=== PATIENT | female | born 1955 | race Caucasian/White ===

== ENCOUNTER 2020-06-25 14:14 | Outpatient (REF) | payer OTHER, SELFPAY ==
--- NOTE | 2020-06-25 | MR_ITS ---
EXAMINATION: MR ABDOMEN WITHOUT AND WITH CONTRAST CLINICAL INFORMATION: Complex cystic lesion of left kidney. COMPARISON: Renal ultrasound from 05/25/2020. TECHNIQUE: MR abdomen was performed without and with use of 9 mL intravenous Gadavist contrast. Postcontrast images are performed in multiphase dynamic sequences. Imaging was performed in 3 planes. FINDINGS: LUNG BASES: Unremarkable. LIVER, GALLBLADDER, AND BILIARY TREE: Liver has normal size, contour and parenchymal signal. Gallbladder is absent. No intrahepatic or extrahepatic bile duct dilatation. PANCREAS: Normal. No pancreatic mass, edema or ductal dilatation. SPLEEN: Normal. ADRENAL GLANDS: Normal. KIDNEYS AND URETERS: The kidneys are normal in size. There are a few small, subcentimeter sized bilateral renal cortical cysts. Also, there is a complex multiseptated exophytic cystic mass arising from cortex of the uwu-lh-qaijz pole of the left kidney. This cystic lesion measures approximately 5.6 x 5 x 7 cm. It contains multiple septations, which have visible enhancement after contrast administration. The septations measure up to approximately 0.3 cm thick and there is measurable septal enhancement. The cyst wall is mildly thickened (approximately 0.3 cm thick) and enhances after contrast. The features are consistent with a Bosniak category 3 lesion. No hydronephrosis. GASTROINTESTINAL TRACT: Stomach is unremarkable. The visualized small and large bowel are normal in caliber. Multiple colonic diverticula. No evidence of diverticulitis. No bowel wall thickening, mesenteric fat stranding or ascites. LYMPH NODES: No lymphadenopathy. VASCULAR: Abdominal aorta is normal in size and its branches are widely patent. Inferior vena cava and renal veins are normal. Splenic, mesenteric and portal veins are patent. No venous thrombosis. OSSEOUS STRUCTURES: There is levoscoliosis of the degenerated lower thoracic and lumbar spine. No suspicious bone lesions. IMPRESSION: * There is a 5.6 x 5 x 7 cm Bosniak category 3 lesion of the left kidney. * Also, there are a few small, subcentimeter sized simple cysts of both kidneys. * No abdominal lymphadenopathy. * Colonic diverticulosis.
[2020-06-25 15:08] LABS: Anion Gap 13 (12-20); Blood Urea Nitrogen 26 mg/dL (9-16); Calcium 9.7 mg/dL (8.4-10.2); Carbon Dioxide 26 mmol/L (22-29); Chloride 105 mmol/L (96-108); Estimated Glomerular Filt Rate 40; Phosphorus 3.1 mg/dL (2.7-4.5); Sodium 140 mmol/L (135-145)
[2020-06-25 16:13] LABS: Renal w Reflex Lab Use Only Order verified
== END 2020-06-25 14:15 | disposition home or self-care (01) ==
LOC: HO.MRI 14:14
PROVIDERS: PCP Internal Medicine; Visit Provider Internal Medicine Nephrology
DX: I12.9 Hypertensive chronic kidney disease with stage 1 through stage 4 chronic kidney disease, or unspecified chronic kidney disease (principal); N18.30 Chronic kidney disease, stage 3 unspecified; R79.89 Other specified abnormal findings of blood chemistry; N28.1 Cyst of kidney, acquired
CPT/HCPCS: 74183; 80051; 82310; 82565; 84100; 84520

== ENCOUNTER 2020-07-12 08:48 | Day surgery (SDC) | payer OTHER, SELFPAY ==
[2020-07-06 15:01] VITALS: BMI 32.5
--- NOTE | 2020-07-08 08:10 | MHC.SHP ---
Pre-Procedural Eval Section A The patient is an INPATIENT: No The History & Physical has been completed within 30 days and I have reviewed it.: Yes Section B Chief Complaint: Cataract Right Eye Allergies: Allergies Allergy/AdvReac Type Severity Reaction Status Date / Time No Known Allergies Allergy Verified 07/06/20 08:30 Plan Diagnosis/Plan: Unchanged Patient has been examined and remains a candidate for the planned procedure
--- NOTE | 2020-07-09 09:31 | HO.ANESPROP2 ---
Documented by User: Ellie Zheng 07/09/20 09:32 HPI - Anesthesia Eval Consult details Narrative: 65yo F for cataract PMFSH Past Medical History Medical History Cataract CKD (chronic kidney disease) Dyslipidemia Essential hypertension GERD (gastroesophageal reflux disease) Renal cyst, left Right ovarian cyst Family History Family History Father Unknown family medical history Mother Breast cancer Maternal Aunt Breast cancer Son No problems noted. Daughter No problems noted. Surgical History Surgical History History of knee surgery History of removal of skin mole Hx of cholecystectomy Social History Social History Are you a primary senior care provider to a significant other at home: No Do you presently have visiting nurse or other home services: No Alcohol intake: never Smoking Status: Never smoker Use of substances other than those prescribed or required for medical reasons: No Advance Directives: Yes Advance Directives Information Provided: Yes Advance Directives on File: No Meds Allergies Allergy/AdvReac Type Severity Reaction Status Date / Time No Known Allergies Allergy Verified 07/06/20 08:30 Home Medications Medication Instructions Recorded Confirmed Type aspirin 81 mg tablet,delayed 81 mg PO DAILY 07/06/20 07/07/20 History release diclofenac sodium 1 % topical gel 2 g TOPICAL QID 07/06/20 07/07/20 History famotidine 10 mg tablet 10 mg PO BID 07/06/20 07/07/20 History geriatric fejmqpep-qzaz-qmgx 1 tab PO DAILY 07/06/20 07/07/20 History [Multivitamin w/Minerals, Iron] lisinopril 20 1 tab PO DAILY 07/06/20 07/07/20 History mg-hydrochlorothiazide 25 mg tablet Exam Exam Date and Time: July 09, 202031 Height,Weight and Vital Signs: Height 5 ft 4 in Weight 86.183 kg Pertinent Lab Results Pertinent Lab Results: Laboratory Tests 05/05/19 06/25/20 08:02 14:35 WBC 5.4 Hgb 14.1 Hct 43.1 Plt Count 280 D Sodium 140 Potassium 4.0 Chloride 105 Carbon Dioxide 26 BUN 26 H Creatinine 1.33 Assessment and Plan Assessment Anesthesia Assessment: Chart Reviewed Documented by User: Shilpi Edward 07/12/20 09:59 PMFSH Past Medical History Medical History Cataract CKD (chronic kidney disease) Dyslipidemia Essential hypertension GERD (gastroesophageal reflux disease) Renal cyst, left Right ovarian cyst Family History Family History Father Unknown family medical history Mother Breast cancer Maternal Aunt Breast cancer Son No problems noted. Daughter No problems noted. Surgical History Surgical History History of knee surgery History of removal of skin mole Hx of cholecystectomy Social History Social History Are you a primary senior care provider to a significant other at home: No Do you presently have visiting nurse or other home services: No Alcohol intake: never Smoking Status: Never smoker Use of substances other than those prescribed or required for medical reasons: No Advance Directives: Yes Advance Directives Information Provided: Yes Advance Directives on File: No Meds Allergies Allergy/AdvReac Type Severity Reaction Status Date / Time No Known Allergies Allergy Verified 07/06/20 08:30 Home Medications Medication Instructions Recorded Confirmed Type aspirin 81 mg tablet,delayed 81 mg PO DAILY 07/06/20 07/07/20 History release diclofenac sodium 1 % topical gel 2 g TOPICAL QID 07/06/20 07/07/20 History famotidine 10 mg tablet 10 mg PO BID 07/06/20 07/07/20 History geriatric weqkprdl-mcgx-wnpi 1 tab PO DAILY 07/06/20 07/07/20 History [Multivitamin w/Minerals, Iron] lisinopril 20 1 tab PO DAILY 07/06/20 07/07/20 History mg-hydrochlorothiazide 25 mg tablet Exam Airway Mallampati Class: I TM Dist: >3cm Neck ROM: Full Heart: RRR Lungs: CTA BL Assessment and Plan Assessment Anesthesia Assessment: Anesthesia Plan Discussed and Chart Reviewed Final Anesthetic Review NPO: Yes ASA Class: III Final Preanesthetic Review: Meds/Ruddy Chart Reviewed and Consent Obtained/Reviewed Patient Risk: Low Procedure Risk: Low Anesthetic Plan Anesthetic Plan: MAC: Disposition: Standard PACU
[2020-07-12 10:08] VITALS: BP 168/74; PULSE 69; RESP 18; TEMP 37.1; O2SAT 96
[2020-07-12] MEDS: Tetracaine HCl/PF 0.5% Oph Sol 4 ML DROPS 1 DROP EYE-RIGHT (10:34)
[2020-07-12] MEDS: Tropicamide 1 % Ophth Sol 3 ML BTL 1 DROP EYE-RIGHT ×3 (10:35→10:44)
[2020-07-12 10:47] VITALS: BP 146/62
--- NOTE | 2020-07-12 11:11 | HO.PNOPHT ---
Ophthalmology Procedure Procedure Ophthalmology Viscoelastic: Richard Braun Dual Pack Pro Ophthalmology Lenses: TECNIS [id number] (16.5) Procedure Notes: PREOPERATIVE DIAGNOSIS: Decreased visual acuity right eye secondary to cataract POSTOPERATIVE DIAGNOSIS: Same PROCEDURE: Right cataract extraction with intraocular lens insertion SURGEON: Sai Perales M.D. ANESTHESIA: Topical/MAC ESTIMATED BLOOD LOSS: None COMPLICATIONS: None After obtaining informed consent, the patient was brought to the operating room suite and placed in the supine position. After adequate sedation per anesthesia, topical drops of Tetracaine were given to the right eye. The eye was then prepped and draped in the usual sterile fashion. The operating room microscope was then positioned over the operative eye and a lid speculum placed. A paracentesis was created. Viscoelastic was then instilled into the anterior chamber. A three plane incision was then created temporally, utilizing a 2.85 mm keratome. Capsulotomy forceps were then utilized to create a circular tear capsulotomy. Hydrodissection and hydrodelineation were carried out until adequate mobilization of the nucleus occurred. Phacoemulsification was then utilized to remove the dense central nucleus followed by removal of the cortical material utilizing the automated aspiration irrigation unit. Viscoelastic was instilled into the posterior capsular bag followed by placement of a posterior chamber intraocular lens without difficulty. The residual Viscoelastic was then removed utilizing the automated IA machine. The wound was checked and found to be watertight. The patient tolerated the procedure well and the lid speculum was removed. Intracameral injection of Vigamox 0.1 mL followed by a subtenon injection of Kenalog-40 0.2 mL were administered. The patient will be seen in the a.m.
== END 2020-07-12 12:03 | disposition home or self-care (01) ==
PROVIDERS: PCP Internal Medicine; Visit Provider Ophthalmology
PROC: (CPT 66985; principal; 2020-07-12 10:20)
DX: H25.11 Age-related nuclear cataract, right eye (principal); H54.7 Unspecified visual loss; I12.9 Hypertensive chronic kidney disease with stage 1 through stage 4 chronic kidney disease, or unspecified chronic kidney disease; N18.9 Chronic kidney disease, unspecified; N28.1 Cyst of kidney, acquired; E78.5 Hyperlipidemia, unspecified; K21.9 Gastro-esophageal reflux disease without esophagitis; Z79.82 Long term (current) use of aspirin; Z79.899 Other long term (current) drug therapy
CPT/HCPCS: 66984; J2250; J3010; J3300; V2632

== ENCOUNTER 2020-07-26 08:45 | Day surgery (SDC) | payer OTHER, SELFPAY ==
--- NOTE | 2020-07-22 07:57 | MHC.SHP ---
Pre-Procedural Eval Section A The patient is an INPATIENT: No The History & Physical has been completed within 30 days and I have reviewed it.: Yes Section B Chief Complaint: Cataract Left eye Allergies: Allergies Allergy/AdvReac Type Severity Reaction Status Date / Time No Known Allergies Allergy Verified 07/06/20 08:30 Plan Diagnosis/Plan: Unchanged Patient has been examined and remains a candidate for the planned procedure
[2020-07-22 09:21] VITALS: BMI 32.5
--- NOTE | 2020-07-23 09:04 | HO.ANESPROP2 ---
Documented by User: Ellie Zheng 07/23/20 14:06 HPI - Anesthesia Eval Consult details Narrative: 65yo F for cataract Previous cataract 07/12/20: Fent 50, Midaz 1 PCP [facility]ared [facility] Past Medical History Medical History Cataract CKD (chronic kidney disease) Dyslipidemia Essential hypertension GERD (gastroesophageal reflux disease) Renal cyst, left Right ovarian cyst Family History Family History Father Unknown family medical history Mother Breast cancer Maternal Aunt Breast cancer Son No problems noted. Daughter No problems noted. Surgical History Surgical History Cataract extraction status of right eye History of knee surgery History of removal of skin mole Hx of cholecystectomy Social History Social History Alcohol intake: never Smoking Status: Never smoker Use of substances other than those prescribed or required for medical reasons: No Advance Directives: Yes Advance Directives Information Provided: Yes Advance Directives on File: Yes Advance Directives Date on File: 07/12/20 Meds Allergies Allergy/AdvReac Type Severity Reaction Status Date / Time No Known Allergies Allergy Verified 07/06/20 08:30 Home Medications Medication Instructions Recorded Confirmed Type aspirin 81 mg tablet,delayed 81 mg PO DAILY 07/06/20 07/22/20 History release diclofenac sodium 1 % topical gel 2 g TOPICAL QID 07/06/20 07/22/20 History famotidine 10 mg tablet 10 mg PO BID 07/06/20 07/22/20 History geriatric olcmbhub-rzia-mxts 1 tab PO DAILY 07/06/20 07/22/20 History [Multivitamin w/Minerals, Iron] lisinopril 20 1 tab PO DAILY 07/06/20 07/22/20 History mg-hydrochlorothiazide 25 mg tablet Exam Exam Date and Time: July 23, 2020 0904 Height,Weight and Vital Signs: Height 5 ft 4 in Weight 86.183 kg Pertinent Lab Results Pertinent Lab Results: 05/05/19 06/25/20 08:02 14:35 WBC 5.4 Hgb 14.1 Hct 43.1 Plt Count 280 D Sodium 140 Potassium 4.0 Chloride 105 Carbon Dioxide 26 BUN 26 H Creatinine 1.33 Assessment and Plan Assessment Anesthesia Assessment: Chart Reviewed Documented by User: Nicole Perla 07/26/20 10:18 PMFSH Past Medical History Medical History Cataract CKD (chronic kidney disease) Dyslipidemia Essential hypertension GERD (gastroesophageal reflux disease) Renal cyst, left Right ovarian cyst Family History Family History Father Unknown family medical history Mother Breast cancer Maternal Aunt Breast cancer Son No problems noted. Daughter No problems noted. Surgical History Surgical History Cataract extraction status of right eye History of knee surgery History of removal of skin mole Hx of cholecystectomy Social History Social History Alcohol intake: never Smoking Status: Never smoker Use of substances other than those prescribed or required for medical reasons: No Advance Directives: Yes Advance Directives Information Provided: Yes Advance Directives on File: Yes Advance Directives Date on File: 07/12/20 Meds Allergies Allergy/AdvReac Type Severity Reaction Status Date / Time No Known Allergies Allergy Verified 07/06/20 08:30 Home Medications Medication Instructions Recorded Confirmed Type aspirin 81 mg tablet,delayed 81 mg PO DAILY 07/06/20 07/22/20 History release diclofenac sodium 1 % topical gel 2 g TOPICAL QID 07/06/20 07/22/20 History famotidine 10 mg tablet 10 mg PO BID 07/06/20 07/22/20 History geriatric smwczhyk-heqi-ekrl 1 tab PO DAILY 07/06/20 07/22/20 History [Multivitamin w/Minerals, Iron] lisinopril 20 1 tab PO DAILY 07/06/20 07/22/20 History mg-hydrochlorothiazide 25 mg tablet Exam Airway Mallampati Class: II TM Dist: >3cm Neck ROM: Full Heart: RRR Lungs: CTA Assessment and Plan Assessment Anesthesia Assessment: Anesthesia Plan Discussed and Chart Reviewed Final Anesthetic Review NPO: Yes ASA Class: II Final Preanesthetic Review: No Changes in Pt Med Stat, Meds/Allgs Chart Reviewed, Consent Obtained/Reviewed and Anes Risks/Benef Reviewed Patient Risk: Low Procedure Risk: Low Anesthetic Plan Anesthetic Plan: MAC: Disposition: Standard PACU
[2020-07-26 10:38] VITALS: BP 176/73; PULSE 75; RESP 20; TEMP 36; O2SAT 98
[2020-07-26] MEDS: Tetracaine HCl/PF 0.5% Oph Sol 4 ML DROPS 1 DROP EYE-LEFT (10:41)
[2020-07-26] MEDS: Tropicamide 1 % Ophth Sol 3 ML BTL 1 DROP EYE-LEFT ×3 (10:42→10:46)
[2020-07-26] MEDS: Lactated Ringers 500 ML 50 ML IV (10:43)
--- NOTE | 2020-07-26 11:12 | HO.PNOPHT ---
Ophthalmology Procedure Procedure Ophthalmology Viscoelastic: Healsteven Renet Dual Pack Pro Ophthalmology Lenses: TECNIS [id number] (18.5) Procedure Notes: PREOPERATIVE DIAGNOSIS: Decreased visual acuity left eye secondary to cataract POSTOPERATIVE DIAGNOSIS: Same PROCEDURE: Left cataract extraction with intraocular lens insertion SURGEON: Sai Perales M.D. ANESTHESIA: Topical/MAC ESTIMATED BLOOD LOSS: None COMPLICATIONS: None After obtaining informed consent, the patient was brought to the operation room suite and placed in the supine position. After adequate sedation per anesthesia, topical drops of Tetracaine were given to the left eye. The eye was then prepped and draped in the usual sterile fashion. The operating room microscope was then positioned over the operative eye and a lid speculum placed. A paracentesis was created. Viscoelastic was then instilled into the anterior chamber. A three plane incision was then created temporally, utilizing a 2.85 mm keratome. Capsulotomy forceps were then utilized to create a circular tear capsulotomy. Hydrodissection and hydrodelineation were carried out until adequate mobilization of the nucleus occurred. Phacoemulsification was then utilized to remove the dense central nucleus followed by removal of the cortical material utilizing the automated aspiration irrigation unit. Viscoat elastic was instilled into the posterior capsular bag followed by placement of a posterior chamber intraocular lens without difficulty. The residual Viscoat elastic was then removed utilizing the automated IA machine. The wound was check and found to be watertight. The patient tolerated the procedure well and the lid speculum was removed. Intracameral injection of Vigamox 0.1 mL followed by a subtenon injection of Kenalog-40 0.2 mL were administered. The patient will be seen in the a.m.
[2020-07-26 11:13] VITALS: BP 144/62; PULSE 72; RESP 18; TEMP 36.2; O2SAT 100
== END 2020-07-26 11:50 | disposition home or self-care (01) ==
PROVIDERS: PCP Internal Medicine; Visit Provider Ophthalmology
PROC: (CPT 66985; principal; 2020-07-26 11:00)
DX: H25.12 Age-related nuclear cataract, left eye (principal); H52.4 Presbyopia; I12.9 Hypertensive chronic kidney disease with stage 1 through stage 4 chronic kidney disease, or unspecified chronic kidney disease; N18.9 Chronic kidney disease, unspecified; Z79.82 Long term (current) use of aspirin; Z79.899 Other long term (current) drug therapy
CPT/HCPCS: 66984; J2250; J3010; J3300; V2632

== ENCOUNTER 2020-07-29 10:11 | Outpatient (REF) | payer OTHER, SELFPAY ==
--- NOTE | 2020-07-29 | US_ITS ---
EXAMINATION: ULTRASOUND OF THE PELVIS CLINICAL INFORMATION: Unspecified right-sided ovarian cyst.. COMPARISON: 10/16/2017. TECHNIQUE: Transabdominal and transvaginal pelvic ultrasound. A transvaginal study was performed in addition to the transabdominal study which did not yield an adequate examination of the uterus and ovaries due to superimposed distended gas-filled loops of bowel. FINDINGS: The uterus is normal in size, measuring 8.4 x 4.3 x 6.1 cm longitudinally, anteroposteriorly and transversely. Somewhat heterogeneous myometrium with small cystic areas seen. The endometrial stripe thickness is normal, measuring 0.6 cm in thickness. Small amount of fluid in the endometrial canal noted. No focal myometrial mass is seen. Nabothian cysts are seen at the cervix. The right ovary measures 1.7 x 1.4 x 1.5 cm. There is a 1.1 x 0.4 x 0.5 cm cyst. Significantly decreased in size from prior. The cyst previously measured 4.2 x 3.8 x 2.6 cm. The left ovary is not visualized. No adnexal mass or free fluid collection seen. US/US transvaginal IMPRESSION: 1. Small cysts noted at the right ovary, significantly decreased in size from prior. 2. Somewhat heterogeneous uterine parenchyma again noted, as seen on prior. Small amount of fluid in the endometrial canal.
--- NOTE | 2020-07-29 10:15 | US_ITS ---
EXAMINATION: ULTRASOUND OF THE PELVIS CLINICAL INFORMATION: Unspecified right-sided ovarian cyst.. COMPARISON: 10/16/2017. TECHNIQUE: Transabdominal and transvaginal pelvic ultrasound. A transvaginal study was performed in addition to the transabdominal study which did not yield an adequate examination of the uterus and ovaries due to superimposed distended gas-filled loops of bowel. FINDINGS: The uterus is normal in size, measuring 8.4 x 4.3 x 6.1 cm longitudinally, anteroposteriorly and transversely. Somewhat heterogeneous myometrium with small cystic areas seen. The endometrial stripe thickness is normal, measuring 0.6 cm in thickness. Small amount of fluid in the endometrial canal noted. No focal myometrial mass is seen. Nabothian cysts are seen at the cervix. The right ovary measures 1.7 x 1.4 x 1.5 cm. There is a 1.1 x 0.4 x 0.5 cm cyst. Significantly decreased in size from prior. The cyst previously measured 4.2 x 3.8 x 2.6 cm. The left ovary is not visualized. No adnexal mass or free fluid collection seen. US/US pelvic complete IMPRESSION: 1. Small cysts noted at the right ovary, significantly decreased in size from prior. 2. Somewhat heterogeneous uterine parenchyma again noted, as seen on prior. Small amount of fluid in the endometrial canal.
== END 2020-07-29 10:12 | disposition home or self-care (01) ==
LOC: HO.US 10:11
PROVIDERS: Visit Provider Internal Medicine
DX: N83.201 Unspecified ovarian cyst, right side (principal)
CPT/HCPCS: 76830; 76856

== ENCOUNTER 2020-08-31 | Outpatient (REF) | payer OTHER, SELFPAY ==
[2020-09-08 03:48] LABS: HPV mRNA E6/E7 rflx Not Detected (Not Detected)
== END 2020-08-31 00:01 | disposition home or self-care (01) ==
LOC: HO.LNP
PROVIDERS: Visit Provider Obstetrics & Gynecology
DX: Z12.31 Encounter for screening mammogram for malignant neoplasm of breast (principal); Z12.4 Encounter for screening for malignant neoplasm of cervix; Z13.820 Encounter for screening for osteoporosis; Z78.0 Asymptomatic menopausal state
CPT/HCPCS: 87624; 87625; 88142

== ENCOUNTER → 2020-08-31 11:13 | Outpatient (BNVA) | payer OTHER, SELFPAY | PROVIDERS: Visit Provider Obstetrics & Gynecology | DX: Z78.0 Asymptomatic menopausal state (principal); N83.201 Unspecified ovarian cyst, right side; N39.43 Post-void dribbling; Z12.4 Encounter for screening for malignant neoplasm of cervix | CPT/HCPCS: 99212 ==

== ENCOUNTER → 2020-09-07 13:08 | Outpatient (BNVA) | payer OTHER, SELFPAY | PROVIDERS: Visit Provider Orthopaedic Surgery | DX: Z76.89 Persons encountering health services in other specified circumstances (principal) ==

== ENCOUNTER → 2020-09-30 13:20 | Outpatient (BNVA) | payer OTHER, SELFPAY | PROVIDERS: PCP Internal Medicine; Visit Provider Urology | DX: N28.1 Cyst of kidney, acquired (principal) | CPT/HCPCS: 99202 ==

== ENCOUNTER 2020-11-30 08:45 | Outpatient (REF) | payer OTHER, SELFPAY ==
--- NOTE | ~2020-11-30 | MM_ITS ---
EXAMINATION: BONE DENSITOMETRY CLINICAL INDICATION: Other specified personal risk factors.. COMPARISON: None (current study represents initial baseline exam). TECHNIQUE: Using a [employer] DXA System (software version: 13.1) manufactured by [employer], dual-energy x-ray absorptiometry was performed of the spine and left hip. The images are of good technical quality. Summary results are attached. FINDINGS: AP SPINE L1-L3 (excluding L4): The data of L1-L4 has been changed to exclude the L4 vertebral body, because degenerative changes at this level may cause overestimation of lumbar spine density. BMD 1.535 g/cm2, Z-score 3.9, T-score 3.0, normal. LEFT FEMUR, NECK: BMD 0.796 g/cm2, Z-score -0.8, T-score -1.7, osteopenia. LEFT FEMUR, TOTAL: BMD 0.809 g/cm2, Z-score -0.9, T-score -1.6, osteopenia. IDENTIFIED RISK FACTORS: Kidney disease, history of fracture (adult), thiazide, menopause. HISTORY OF FRACTURE: Ankle. No insufficiency fracture reported. MEDICATIONS: Calcium supplements or multivitamin, vitamin D. MM/XR DEXA axial skeleton IMPRESSION: 1. DIAGNOSIS: Osteopenia based on the lowest T-score value of -1.7 in the femoral neck applying World Health Organization criteria. 2. 10-YEAR FRACTURE RISK PREDICTION, FRAX: Major osteoporotic fracture (clinical spine, forearm, hip or shoulder) 15.2%. Hip fracture 1.9%. 3. Treatment Recommendations: NOF guidelines recommend consideration for treatment in postmenopausal women and men age 50 and older presenting with the following: -A hip or vertebral (clinical or morphometric) fracture. -T-score less than or equal to -2.5 at the femoral neck or spine after appropriate evaluation to exclude secondary causes. -Low bone mass at the hip or spine and a 10-year fracture probability by FRAX of greater than or equal to 3% for hip fracture or greater than or equal to 20% for major osteoporotic fracture based on the [place] adapted WHO algorithm. 4. Other Recommendations: All treatment decisions require clinical judgment and consideration of individual patient factors, including patient preferences, comorbidities, previous drug use, risk factors not captured in the FRAX model (e.g. frailty, falls, vitamin D deficiency, increased bone turnover, interval significant decline in bone density) and possible under or overestimation of fracture risk by FRAX. Additional medical evaluation for secondary cause of low bone mineral density may be appropriate. FUTURE SCAN RECOMMENDATION: People with diagnosed cases of osteoporosis or at high risk for fracture should have regular bone mineral density tests. For patients eligible for Medicare, routine testing is allowed once every 2 years. The testing frequency can be increased to one year for patients who have rapidly progressing disease, those who are receiving or discontinuing medical therapy to restore bone mass, or have additional risk factors.
--- NOTE | ~2020-11-30 | MM_ITS ---
EXAMINATION: MM SCREENING DIGITAL BREAST TOMOSYNTHESIS, BILATERAL CLINICAL INFORMATION: Screening. Asymptomatic. The lifetime risk of breast cancer based on the Tyrer-Cuzick Model is 10%. COMPARISON: Mammography: 11/22/2019, 11/14/2018, 09/29/2017, outside mammography 04/30/2015 ([place], [place]). TECHNIQUE: Digital breast tomosynthesis is performed in both the craniocaudal and mediolateral oblique views along with computer-aided detection (CAD). Synthesized 2D images are generated from the tomosynthesis. Additional right MLO view is provided. FINDINGS: There are scattered areas of fibroglandular density (ACR BI-RADS breast composition Category b). There is a chronic stable nodule mid central left breast similar to multiple prior exams. There is no interval mass or architectural abnormality. Neither breast shows abnormal calcifications. Skin contours are smooth. The right breast has focal nodular asymmetry versus nodular duct ectasia periareolar upper outer aspect more conspicuous on current exam. Patient will be recalled to assess for developing density in this area. MM/MM tomosynthesis screening BI IMPRESSION: 1. Right: Focal nodular asymmetry periareolar upper outer right breast, more conspicuous, possibly developing density or nodular duct ectasia. 2. Left: No mammographic evidence of malignancy. ASSESSMENT: BI-RADS 0: Incomplete - Need Additional Imaging Evaluation RECOMMENDATION: 1. Additional views of the right breast (3D spot CC; 3D spot ML). 2. Targeted ultrasound right breast. 3. Radiology department staff will contact the patient for additional imaging. This patient's information was entered into a reminder system with a target due date for their next mammogram.
== END 2020-11-30 08:46 | disposition home or self-care (01) ==
LOC: HO.MAMMO 08:45
PROVIDERS: Visit Provider Obstetrics & Gynecology
DX: Z12.31 Encounter for screening mammogram for malignant neoplasm of breast (principal); Z91.89 Other specified personal risk factors, not elsewhere classified; Z13.820 Encounter for screening for osteoporosis; Z78.0 Asymptomatic menopausal state; N28.9 Disorder of kidney and ureter, unspecified; Z79.899 Other long term (current) drug therapy
CPT/HCPCS: 77063; 77067; 77080

== ENCOUNTER 2020-12-07 09:43 | Outpatient (REF) | payer OTHER, SELFPAY ==
[2020-12-07 11:13] LABS: MANUAL DIFF FLAG NO
[2020-12-07 11:19] LABS: Glucose Urine UA NEG (NEG); Leukocyte Esterase Urine NEG (NEG); Nitrite Urine NEG (NEG); PH 5.5 (5.0-8.0); Specific Gravity - Urine >= 1.030 (1.005-1.025); Urine Blood NEG (NEG); Urine Ketones NEG (NEG); Urine Protein NEG (NEG-TRACE)
[2020-12-07 11:21] LABS: Basophils Percent Auto 0.7 % (0-2); Eosinophils Absolute Auto 0.3 X10*3/uL (0.0-0.4); Eosinophils Percent Auto 5.9 % (0-4); Hematocrit 38.7 % (37-47); Hemoglobin 12.3 g/dl (12.0-16.0); Imm Gran Abs Auto 0.01 X10*3/uL (0.00-0.03); Imm Gran Pct Auto 0.2 % (0.0-0.4); Lymphocytes Absolute Auto 1.4 X10*3/uL (1.2-4.9); Mean Corpuscular HGB Conc 31.8 g/dl (31.0-35.0); Mean Corpuscular Hemoglobin 29.4 pg (27.0-33.0); Mean Corpuscular Volume 92.4 fL (80-98); Mean Platelet Volume 10.8 fL (9.4-12.3); Monocytes Absolute Auto 0.4 X10*3/uL (0.1-1.2); Neutrophils Absolute Auto 2.3 X10*3/uL (2.0-8.3); Neutrophils Percent Auto 52.2 % (45-73); Platelet Count 271 X10*3/uL (160-400); Red Blood Count 4.19 X10*6/uL (4.20-5.50); Red Cell Distribution Width 12.3 % (11.0-16.0); White Blood Count 4.4 X10*3/uL (4.8-10.8)
[2020-12-07 11:23] LABS: Appearance Urine HAZY; Color Urine YELLOW
[2020-12-07 11:47] LABS: Mucus Urine 1+ /LPF; RBC Urine 0 /HPF (0); Squamous Epithelial Cell Urine 1+ /LPF; WBC Urine 0 /HPF (0-4)
[2020-12-07 12:17] LABS: Creatinine Urine 226.78 mg/dL; Microalbum/Creatinine Ratio Ur 5.2 ug/mg cr; Protein/Creatinine Ratio, Ur 0.04 (<0.2); Total Protein Urine Random 10 mg/dL (<12)
[2020-12-07 12:32] LABS: Alanine Aminotransferase 15 U/L (0-31); Anion Gap 13 (12-20); Aspartate Amino Transferase 18 U/L (5-31); Blood Urea Nitrogen 22 mg/dL (9-16); Calcium 9.8 mg/dL (8.4-10.2); Carbon Dioxide 26 mmol/L (22-29); Chloride 107 mmol/L (96-108); Cholesterol 226 mg/dL; Estimated Glomerular Filt Rate 41; Glucose Fasting 102 mg/dL (60-99); HDL Cholesterol 59 mg/dL; LDL Cholesterol Calculated 147 mg/dl; Potassium 4.3 mmol/L (3.3-5.1); Sodium 142 mmol/L (135-145); Triglycerides 101 mg/dL
[2020-12-07 12:36] LABS: Albumin Level 4.5 g/dL (3.5-5.0); Iron 77 mcg/dL (30-160); Magnesium 1.8 mg/dL (1.6-2.6); Percent Iron Saturation 21 % (15-50); Total Iron Binding Capacity 373 mcg/dL (228-428); Unsaturated Iron Binding 296 ug/dL; Uric Acid 7.6 mg/dL (2.4-5.7)
[2020-12-07 12:56] LABS: Vitamin D 25-OH Total 41.2 ng/mL (>30)
[2020-12-07 12:58] LABS: Ferritin 61 ng/mL (10-250)
[2020-12-07 13:17] LABS: Renal w Reflex Lab Use Only Order verified
[2020-12-08 13:01] LABS: Anti Glomerular Basement Memb <1.0 AI; Complement C3 164 mg/dL (83-193); Myeloperoxidase Antibody <1.0 AI; Proteinase 3 PR3 Antibodies <1.0 AI
[2020-12-08 18:41] LABS: Calcium (PTHI) 10.1 mg/dL (8.6-10.4); PTHI 79 pg/mL (14-64)
[2020-12-10 22:17] LABS: Anti Nuclear Antibody Screen POSITIVE (NEGATIVE); Anti Nuclear Antibody Titer 1:40 titer
[2020-12-13 14:37] LABS: Neutrophil Cyto Ab Screen NEGATIVE (NEGATIVE)
== END 2020-12-07 09:44 | disposition home or self-care (01) ==
LOC: HO.HMGCLDS 09:43
PROVIDERS: PCP Internal Medicine; Visit Provider Internal Medicine Nephrology
DX: I12.9 Hypertensive chronic kidney disease with stage 1 through stage 4 chronic kidney disease, or unspecified chronic kidney disease (principal); N18.30 Chronic kidney disease, stage 3 unspecified; E28.39 Other primary ovarian failure; E78.5 Hyperlipidemia, unspecified; R79.89 Other specified abnormal findings of blood chemistry
CPT/HCPCS: 36415; 80048; 80061; 81001; 82040; 82043; 82306; 82728; 83520; 83540; 83735; 83970; 84156; 84450; 84460; 84550; 85025; 86021; 86038; 86039; 86160

== ENCOUNTER 2020-12-29 08:57 | Outpatient (REF) | payer OTHER, SELFPAY ==
--- NOTE | ~2020-12-29 | MM_ITS ---
EXAMINATION: MM DIAGNOSTIC DIGITAL BREAST TOMOSYNTHESIS, RIGHT US DIAGNOSTIC ULTRASOUND BREAST, RIGHT CLINICAL INFORMATION: Recall from screening for subtle focal nodular asymmetric density periareolar outer right breast. COMPARISON: Mammography: 11/30/2020, 11/22/2019, 11/14/2018, 09/29/2017, 04/30/2015. TECHNIQUE: Digital breast tomosynthesis is performed. 2D images are generated from the tomosynthesis. The following views are obtained: 3-D spot CC, 3-D spot ML, 3-D rolled CC x2. Ultrasound right breast is targeted to the periareolar outer breast 7:00 through 11:00 position. Grayscale imaging and color Doppler are performed without and with harmonics. FINDINGS: There are scattered areas of fibroglandular density (ACR BI-RADS breast composition Category b). The additional views show subtle nodular asymmetric density best appreciated on the spot CC view and rolled medial CC view. No spiculation. No associated calcification. Ultrasound demonstrates 2 adjacent cysts versus a cyst with fine avascular internal septation, 9:00 position 1 cm from nipple, with overall dimensions 0.6 x 0.4 x 0.3 cm. There is increased through-transmission of sound. No solid mass or architectural abnormality. Results are discussed with the patient at time of visit. MM/MM tomosynthesis added views R IMPRESSION: Small cyst periareolar 9:00 right breast corresponding to finding on recent mammography. ASSESSMENT: BI-RADS 2: Benign RECOMMENDATION: Annual bilateral mammography. This patient's information was entered into a reminder system with a target due date for their next mammogram.
== END 2020-12-29 08:58 | disposition home or self-care (01) ==
LOC: HO.MAMMO 08:57
PROVIDERS: PCP Internal Medicine; Visit Provider Obstetrics & Gynecology
DX: R92.2 Inconclusive mammogram (principal)
CPT/HCPCS: 76642; 77061; 77065

== ENCOUNTER → 2021-01-18 09:46 | Outpatient (BNVA) | payer OTHER, SELFPAY | PROVIDERS: PCP Internal Medicine; Visit Provider Orthopaedic Surgery | DX: M22.2X1 Patellofemoral disorders, right knee (principal) | CPT/HCPCS: 20610; 99212; J1040 ==

== ENCOUNTER 2021-02-09 08:32 | Day surgery (SDC) | payer OTHER, SELFPAY ==
--- NOTE | 2021-02-07 14:25 | P.CONAN_ITS ---
Documented by User: Ellie Marce 02/07/21 14:26 HPI - Anesthesia Eval Consult details Narrative: 65yo F for Upper Endoscopy PMFSH Active Problems Active Problems: All Active Problems (Updated 12/06/20 @ 22:55 by Shanna Parker MD) Menopause ovarian failure (Acute) Patellofemoral pain syndrome of right knee (Acute) Adhesive capsulitis of right shoulder (Acute) CKD (chronic kidney disease) (Acute) Renal cyst, left (Acute) Cataract (Acute) Right ovarian cyst (Acute) GERD (gastroesophageal reflux disease) (Acute) Dyslipidemia (Acute) Essential hypertension (Acute) Past Medical History Medical History Cataract CKD (chronic kidney disease) Dyslipidemia Essential hypertension GERD (gastroesophageal reflux disease) Menopause ovarian failure Renal cyst, left Right ovarian cyst Family History Family History Father Unknown family medical history Mother Breast cancer Maternal Aunt Breast cancer Son No problems noted. Daughter No problems noted. Surgical History Surgical History Cataract extraction status of right eye History of knee surgery History of removal of skin mole Hx of cholecystectomy Social History Social History Are you a primary patient care associate to a significant other at home: No Do you presently have visiting nurse or other home services: No Alcohol intake: never Use of substances other than those prescribed or required for medical reasons: Yes Substance Use Type Other:: CBD oil Are you DNR?: No Advance Directives: Yes Advance Directives Date on File: 07/12/20 Current occupational status: unemployed Current occupation: Right Handed Gender identity: female Meds Allergies Allergy/AdvReac Type Severity Reaction Status Date / Time No Known Allergies Allergy Verified 01/18/21 09:54 Home Medications Medication Instructions Recorded Confirmed Last Taken Type aspirin 81 mg tablet,delayed 81 mg PO DAILY 07/06/20 12/07/20 02/02/21 History release diclofenac sodium 1 % topical gel 2 g TOPICAL QID 07/06/20 12/07/20 Unknown History famotidine 10 mg tablet 10 mg PO BID 07/06/20 12/07/20 Unknown History geriatric [id number] 1 tab PO DAILY 07/06/20 12/07/20 Unknown History [Multivitamin w/Minerals, Iron] lisinopril 20 1 tab PO DAILY 07/06/20 12/07/20 Unknown History mg-hydrochlorothiazide 25 mg tablet carvedilol 12.5 mg tablet 12.5 mg PO BID 08/31/20 12/07/20 Unknown History docusate sodium 100 mg capsule 100 mg PO BID 08/31/20 12/07/20 Unknown History Exam Exam Date and Time: February 07, 2021 1425 Pertinent Lab Results Pertinent Lab Results: Laboratory Tests 12/07/20 12/07/20 10:30 10:30 WBC 4.4 L Hgb 12.3 Hct 38.7 Plt Count 271 Sodium 142 Potassium 4.3 Chloride 107 Carbon Dioxide 26 BUN 22 H Creatinine 1.30 Assessment and Plan Assessment Anesthesia Assessment: Chart Reviewed Documented by User: Dennis Chen MD 02/09/21 10:16 PMFSH Past Medical History Medical History Cataract CKD (chronic kidney disease) Dyslipidemia Essential hypertension GERD (gastroesophageal reflux disease) Menopause ovarian failure Renal cyst, left Right ovarian cyst Family History Family History Father Unknown family medical history Mother Breast cancer Maternal Aunt Breast cancer Son No problems noted. Daughter No problems noted. Surgical History Surgical History Cataract extraction status of right eye History of knee surgery History of removal of skin mole Hx of cholecystectomy Social History Social History Are you a primary patient care associate to a significant other at home: No Do you presently have visiting nurse or other home services: No Alcohol intake: never Use of substances other than those prescribed or required for medical reasons: Yes Substance Use Type Other:: CBD oil Are you DNR?: No Advance Directives: Yes Advance Directives Date on File: 07/12/20 Current occupational status: unemployed Current occupation: Right Handed Gender identity: female Meds Allergies Allergy/AdvReac Type Severity Reaction Status Date / Time No Known Allergies Allergy Verified 01/18/21 09:54 Home Medications Medication Instructions Recorded Confirmed Last Taken Type aspirin 81 mg tablet,delayed 81 mg PO DAILY 07/06/20 12/07/20 02/02/21 History release diclofenac sodium 1 % topical gel 2 g TOPICAL QID 07/06/20 12/07/20 Unknown History famotidine 10 mg tablet 10 mg PO BID 07/06/20 12/07/20 Unknown History geriatric [id number] 1 tab PO DAILY 07/06/20 12/07/20 Unknown History [Multivitamin w/Minerals, Iron] lisinopril 20 1 tab PO DAILY 07/06/20 12/07/20 Unknown History mg-hydrochlorothiazide 25 mg tablet carvedilol 12.5 mg tablet 12.5 mg PO BID 08/31/20 12/07/20 Unknown History docusate sodium 100 mg capsule 100 mg PO BID 08/31/20 12/07/20 Unknown History Exam Airway Mallampati Class: II TM Dist: >3cm Neck ROM: Full Loose/Missing/Broken Teeth: No Heart: Assessment and Plan Assessment Anesthesia Assessment: Anesthesia Plan Discussed and Chart Reviewed Final Anesthetic Review NPO: Yes ASA Class: III Final Preanesthetic Review: No Changes in Pt Med Stat, Meds/Allgs Chart Reviewed, Consent Obtained/Reviewed and Anes Risks/Benef Reviewed Patient Risk: Low Procedure Risk: Low Anesthetic Plan Anesthetic Plan: MAC: Disposition: Standard PACU
[2021-02-09 08:57] VITALS: BP 132/54; PULSE 65; RESP 16; TEMP 37.1; O2SAT 96; BMI 32.1
[2021-02-09] MEDS: Lactated Ringers 1,000 ML 100 ML IVCONT (09:12)
--- NOTE | 2021-02-09 10:47 | P.BOP_ITS ---
Brief Operative Note Date of Service: 02/09/21 Pre-op diagnosis: GERD, Aaron's esophagus Post-op diagnosis: other (Same, Hiatal hernia, Gastric polyps) Procedure: EGD with biopsies Surgeon: Sami Reyez Anesthesia: MAC Was an Vice President Payer used for this Procedure?: No Estimated blood loss (mL): 3.0 Pathology: other (A. EG Junction at 36cm B. Gastric polyps) Condition: stable Disposition: PACU
[2021-02-09 10:50] VITALS: BP 113/53; PULSE 66; RESP 16; TEMP 36.2; O2SAT 97
[2021-02-09 11:05] VITALS: BP 123/60; PULSE 68; RESP 18; O2SAT 97
--- NOTE | 2021-02-09 11:20 | OP_ITS ---
SURGEON: Sami Reyez MD INDICATIONS: The patient presents for evaluation of chronic gastroesophageal reflux and Aaron's esophagus. Full consent has been obtained from her for this, including risks of bleeding and perforation. PREOPERATIVE DIAGNOSIS: POSTOPERATIVE DIAGNOSIS: PROCEDURE PERFORMED: Esophagogastroduodenoscopy with biopsies. ESTIMATED BLOOD LOSS: COMPLICATIONS: ANESTHESIA: Monitored anesthesia care. ASSISTANTS: SPECIMENS: PREOPERATIVE DIAGNOSES: Gastroesophageal reflux and history of Aaron's esophagus. POSTOPERATIVE DIAGNOSES: Gastroesophageal reflux and history of Aaron's esophagus, small hiatal hernia, gastric polyps. DESCRIPTION OF PROCEDURE: The patient was placed in the left lateral decubitus position. The Olympus video gastroscope was passed in the posterior oropharynx and upper esophagus under direct vision. The scope was passed slowly into the distal esophagus. The gastroesophageal junction appeared at 36 cm. There was no evidence of any esophagitis. There was some very minimal areas of irregularity, but no definitive evidence of Aaron's mucosa. There was no stricture, ulceration, nor mass. The scope entered into the stomach. There was a small hiatal hernia. The scope was advanced to pylorus and duodenum was cannulated to the descending portion. The duodenum including the bulb appeared normal without mass or ulceration. The scope was withdrawn back in the stomach. The gastric antrum and body appeared normal with good peristalsis. Scope was retroflexed visualizing the proximal stomach carefully, which appeared normal, without any sign of mass or ulceration, other than some hyperplastic appearing gastric polyps. Two of these were biopsied. The scope was withdrawn back in the esophagus. Biopsies were obtained at the EG junction at 36 cm. Proximal to this, the esophageal mucosa appeared normal. The scope was withdrawn from the patient. She tolerated the procedure well and was returned to the recovery area in stable condition. IMPRESSION: 1. Small hiatal hernia, gastroesophageal reflux, history of Aaron's esophagus. 2. Gastric polyps. PLAN: The results of the biopsy will be checked. At this point, she is doing well from a symptomatic standpoint on her p.r.n. famotidine. Given today's endoscopic findings, I have advised to simply continue that as needed. Given only minimal findings on today's exam and the previous exam, if today's biopsies do not show any Aaron's esophagus, then we may hold off on any further upper endoscopies in the future. MD NICHOLE Mcmahon/BEATRIZ / [phone]
== END 2021-02-09 11:24 | disposition home or self-care (01) ==
PROVIDERS: PCP Internal Medicine; Visit Provider Internal Medicine
PROC: 0DJ08ZZ Inspection of Upper Intestinal Tract, Via Natural or Artificial Opening Endoscopic (ICD-10-PCS; CPT 43235; principal; 2021-02-09 09:40)
DX: K21.00 Gastro-esophageal reflux disease with esophagitis, without bleeding (principal); Z87.19 Personal history of other diseases of the digestive system; K31.7 Polyp of stomach and duodenum; K44.9 Diaphragmatic hernia without obstruction or gangrene; I12.9 Hypertensive chronic kidney disease with stage 1 through stage 4 chronic kidney disease, or unspecified chronic kidney disease; N18.9 Chronic kidney disease, unspecified; Z79.82 Long term (current) use of aspirin; Z79.899 Other long term (current) drug therapy; Z90.49 Acquired absence of other specified parts of digestive tract
CPT/HCPCS: 43239; 88305; 88342

== ENCOUNTER 2021-04-07 08:35 | Outpatient (REF) | payer MEDICARE, SELFPAY ==
--- NOTE | ~2021-04-07 | MR_ITS ---
EXAMINATION: MR ABDOMEN WITHOUT AND WITH CONTRAST CLINICAL INFORMATION: Renal cyst follow-up COMPARISON: MRI dated 06/25/2020 TECHNIQUE: MR abdomen was performed without and with use of 9 mL intravenous gadolinium gadolinium contrast. Postcontrast images are performed in multiphase dynamic sequences. Imaging was performed in 3 planes. FINDINGS: LUNG BASES: The visualized lung bases are unremarkable. LIVER, GALLBLADDER, AND BILIARY TREE: The liver is normal in size, smooth in contour, and normal in signal. No focal hepatic lesion or biliary ductal dilatation is present. Cholecystectomy. PANCREAS: Unremarkable. SPLEEN: Normal. ADRENAL GLANDS: Normal. KIDNEYS AND URETERS: Again seen is a complex cystic lesion emanating from the anterior cortex of the left kidney, which now measures 5.4 x 4.9 x 6.7 cm, previously 5.7 x 5.2 x 7.0 cm by my measurements. The cyst redemonstrates enhancing septations measuring up to 3 mm in thickness as well as mild thickening of the peripheral cyst wall measuring up to 3 mm. There is no significant change in thickness of the septations or cyst wall since the prior examination are no solid nodular components are present. This would classify as a Bosniak 3 lesion. There are a few scattered subcentimeter simple appearing renal cysts present within both kidneys which are benign. GASTROINTESTINAL TRACT: No bowel obstruction. Scattered colonic diverticula without evidence of diverticulitis. No ascites or fluid collection. ABDOMINAL WALL: No significant hernia is appreciated. LYMPH NODES: No lymphadenopathy. VASCULAR: Unremarkable. OSSEOUS STRUCTURES: No acute or suspicious osseous abnormalities. Mildly complex lumbar scoliosis. MR/MR abdomen wo/w con IMPRESSION: * Slight interval decrease in overall size of the Bosniak 3 lesion within the left kidney now measuring 5.4 x 4.9 x 6.7 cm, previously 5.7 x 5.2 x 7.0 cm, without change in thickness of the septations or wall of the cyst. No nodular components have developed in the interim. * There are are a few stable scattered subcentimeter cysts present within both kidneys which are benign. * No lymphadenopathy. * No evidence of metastatic disease.
[2021-04-07 09:42] LABS: Blood Urea Nitrogen 28 mg/dL (9-16); Estimated Glomerular Filt Rate 35
== END 2021-04-07 08:36 | disposition home or self-care (01) ==
LOC: HO.MRI 08:35
PROVIDERS: Visit Provider Urology
DX: N28.1 Cyst of kidney, acquired (principal); N26.1 Atrophy of kidney (terminal)
CPT/HCPCS: 36415; 74183; 82565; 84520; A9585

== ENCOUNTER → 2021-04-21 11:53 | Outpatient (BNVA) | payer MEDICARE, SELFPAY | PROVIDERS: PCP Internal Medicine; Visit Provider Urology | DX: Z13.89 Encounter for screening for other disorder (principal) | CPT/HCPCS: Q3014 ==

== ENCOUNTER 2021-06-23 14:10 | Outpatient (REF) | payer MEDICARE, SELFPAY | END 2021-06-23 14:11 | disposition home or self-care (01) | LOC: HO.LNP 14:10 | PROVIDERS: Visit Provider Physician Assistant | DX: J06.9 Acute upper respiratory infection, unspecified (principal); Z20.822 Contact with and (suspected) exposure to COVID-19 | CPT/HCPCS: U0003; U0005 ==

== ENCOUNTER 2021-08-25 08:37 | Outpatient (REF) | payer MEDICARE, SELFPAY ==
--- NOTE | ~2021-08-25 | XR_ITS ---
EXAMINATION: XR KNEES, STANDING AP XR KNEE, RIGHT CLINICAL INFORMATION: Knee pain COMPARISON: Radiographs right knee 05/12/2019 and left knee 07/05/2013. TECHNIQUE: Standing AP view of both knees is performed. Lateral and axial patella views of the right knee are also included. FINDINGS: Right: There is prominent narrowing lateral knee joint compartment with mild subchondral sclerosis and marginal osteophytes from the lateral femoral condyle and tibial plateau. There is no erosive change. There is secondary genu valgus. Lateral view shows trace fluid suprapatellar bursa and spurring at the quadriceps insertion patella. Hoffa's fat pad appears normal. Axial view patella shows no lateralization or tilting. Left: There is prominent narrowing lateral knee joint compartment with associated osteophytes from the lateral femoral condyle and lateral tibial plateau and mild genu valgus. No visible erosive change or destructive process. XR/XR knee standing BI IMPRESSION: Right: -Prominent narrowing lateral compartment with osteophytes and secondary genu valgus. -Small suprapatellar effusion. -Spurring at quadriceps insertion patella. Left: -Prominent narrowing lateral compartment with osteophytes and secondary genu valgus.
--- NOTE | ~2021-08-25 | XR_ITS ---
EXAMINATION: XR KNEES, STANDING AP XR KNEE, RIGHT CLINICAL INFORMATION: Knee pain COMPARISON: Radiographs right knee 05/12/2019 and left knee 07/05/2013. TECHNIQUE: Standing AP view of both knees is performed. Lateral and axial patella views of the right knee are also included. FINDINGS: Right: There is prominent narrowing lateral knee joint compartment with mild subchondral sclerosis and marginal osteophytes from the lateral femoral condyle and tibial plateau. There is no erosive change. There is secondary genu valgus. Lateral view shows trace fluid suprapatellar bursa and spurring at the quadriceps insertion patella. Hoffa's fat pad appears normal. Axial view patella shows no lateralization or tilting. Left: There is prominent narrowing lateral knee joint compartment with associated osteophytes from the lateral femoral condyle and lateral tibial plateau and mild genu valgus. No visible erosive change or destructive process. XR/XR knee RT 2V IMPRESSION: Right: -Prominent narrowing lateral compartment with osteophytes and secondary genu valgus. -Small suprapatellar effusion. -Spurring at quadriceps insertion patella. Left: -Prominent narrowing lateral compartment with osteophytes and secondary genu valgus.
== END 2021-08-25 08:38 | disposition home or self-care (01) ==
LOC: HO.HOSX 08:37
PROVIDERS: Visit Provider Orthopaedic Surgery
DX: M17.11 Unilateral primary osteoarthritis, right knee (principal); M21.061 Valgus deformity, not elsewhere classified, right knee; I10 Essential (primary) hypertension; E78.5 Hyperlipidemia, unspecified
CPT/HCPCS: 73560; 73565; 99212

== ENCOUNTER 2021-09-02 09:58 | Outpatient (REF) | payer MEDICARE, SELFPAY ==
[2021-09-08 04:26] LABS: HPV mRNA E6/E7 rflx Not Detected (Not Detected)
== END 2021-09-02 09:59 | disposition home or self-care (01) ==
LOC: HO.LAB 09:58
PROVIDERS: Visit Provider Advanced Practice Midwife
DX: Z01.419 Encounter for gynecological examination (general) (routine) without abnormal findings (principal); Z11.51 Encounter for screening for human papillomavirus (HPV)
CPT/HCPCS: 87624; 88142

== ENCOUNTER 2021-09-22 11:00 | Outpatient (RCR) | payer MEDICARE, SELFPAY ==
--- NOTE | 2021-07-20 15:13 | MHC.PT.EP ---
[facility] [place] Office [place] Office [place] Office [address] Yomair[address] Castillo [address] [phone] F: [phone] F: [phone] F: [phone] F: [phone] Physical Therapy Plan of Care Date of Evaluation: Date of Surgery: n/a Diagnosis: patellofemoral disorder of R knee Assessment: Patient is a 66 year old R handed female who presents with s/s consistent with patellofemoral disorder of R knee. She is not currently working. She retired a few years ago but has become increasingly sedentary, admitting I barely leave the house . Patient past medical history includes L meniscal surgery, CKD, and osteopenia. Current impairments include pain, ROM, gait mechanics, strength, independence, activity tolerance and functional mobility. Functional limitations include decreased ability to walk, stand, transfer, negotiate stairs, and perform weight bearing activities.. Patient is motivated with good rehab potential. Skilled PT will address impairments and functional limitations in order to achieve goals. Frequency and Duration: The patient will be seen 2x/week for 5 weeks Short Term Goals: I with HEP - 2 weeks AROM ext to 5 (lacking 5 from neutral) - 3 weeks min gastroc and HS tightness - 3 weeks Fdc Goals: Able to walk pain free - 10 minutes or more - 5 weeks LEFS 35/80 - 5 weeks Able to negotiate stairs with step through pattern, 1 HH assist - 5 weeks Treatment Plan: Modalities to reduce pain, spasms and effusion. Manual therapy to restore motion and function. Therapeutic exercise to improve strength and flexibility. Neuromuscular re-education for posture and balance. Therapeutic activities to return to functional activities of daily living. Electronically signed by: Evgeny Ribeiro, PT Please sign and return to therapist. Thank you for your referral.
--- NOTE | 2021-09-22 13:51 | MHC.PT.DC ---
[facility] [place] Office [place] Office [place] Office [address] Rahul Castillo [address] [phone] F: [phone] F: [phone] F: [phone] F: [phone] Physical Therapy Discharge Report Diagnosis: patellofemoral disorder of R knee Date of Surgery: n/a Date of Evaluation: 07/20/21 Date of Discharge: 09/22/21 Treatments to Date: 14 Cancellations to Date: 0 No Shows to Date: 0 Discharge Status: Achieved Goals Improved Function Independent with HEP Discharge Summary: Patient was educated on HEP inpatient dupree, progression of HEP with supine/standing ther-ex program and transfers/stairs as well as post op expectations. Educated on importance of self management with HEP and educated on the muscles that need to get stronger. Educated her that she needs to get into a routine with her HEP now as after surgery it will be important for self management in order to regain ROM and function. Educated her on not using any of the modalities on her new knee unless she has direction from her home PT. She has an extensive HEP and is ready for DC at this time. Electronically signed by: Dorene Yusuf PT Please sign and return to therapist. Thank you for your referral.
== END 2021-09-22 13:52 | disposition home or self-care (01) ==
LOC: HO.PTCHIC 11:00
PROVIDERS: PCP Internal Medicine; Visit Provider Internal Medicine
DX: M22.2X1 Patellofemoral disorders, right knee (principal); M54.50 Low back pain, unspecified
CPT/HCPCS: 97110; 97112; 97140; 97150; 97162; 97530

== ENCOUNTER 2021-10-25 10:28 | Outpatient (REF) | payer MEDICARE, SELFPAY ==
[2021-10-25 11:47] LABS: Estimated Average Glucose 108 mg/dL; Hemoglobin A1c % 5.4 %
[2021-10-25 12:23] LABS: Cholesterol 237 mg/dL; Glucose Fasting 110 mg/dL (60-99); HDL Cholesterol 61 mg/dL; LDL Cholesterol Calculated 154 mg/dl; Triglycerides 113 mg/dL
[2021-10-25 12:36] LABS: Vitamin D 25-OH Total 43.8 ng/mL (>30)
== END 2021-10-25 10:29 | disposition home or self-care (01) ==
LOC: HO.HMGCLDS 10:28
PROVIDERS: Visit Provider Internal Medicine
DX: E78.5 Hyperlipidemia, unspecified (principal); R73.01 Impaired fasting glucose; Z78.0 Asymptomatic menopausal state
CPT/HCPCS: 36415; 80061; 82306; 82947; 83036

== ENCOUNTER → 2021-11-30 10:00 | Outpatient (BNVA) | payer MEDICARE, SELFPAY | PROVIDERS: PCP Internal Medicine; Visit Provider Orthopaedic Surgery | DX: Z13.9 Encounter for screening, unspecified (principal) ==

== ENCOUNTER 2021-12-06 09:39 | Outpatient (REF) | payer MEDICARE, SELFPAY ==
--- NOTE | ~2021-12-06 | MM_ITS ---
EXAMINATION: MM SCREENING DIGITAL BREAST TOMOSYNTHESIS, BILATERAL CLINICAL INFORMATION: Screening. Asymptomatic. The lifetime risk of breast cancer based on the Tyrer-Cuzick Model is 11.6%. COMPARISON: Mammography: December 29, 2020 and studies dating back to April 30, 2015 TECHNIQUE: Digital breast tomosynthesis is performed in both the craniocaudal and mediolateral oblique views along with computer-aided detection (CAD). Synthesized 2D images are generated from the tomosynthesis. FINDINGS: There are scattered areas of fibroglandular density (ACR BI-RADS breast composition Category b). There are no significant masses, abnormal calcifications, or other abnormalities. MM/MM tomosynthesis screening BI IMPRESSION: There are no significant changes from prior study. ASSESSMENT: BI-RADS 1: Negative RECOMMENDATION: Routine annual mammography screening. This patient's information was entered into a reminder system with a target due date for their next mammogram.
== END 2021-12-06 09:40 | disposition home or self-care (01) ==
LOC: HO.MAMMO 09:39
PROVIDERS: PCP Internal Medicine; Visit Provider Internal Medicine
DX: Z12.31 Encounter for screening mammogram for malignant neoplasm of breast (principal)
CPT/HCPCS: 77063; 77067

== ENCOUNTER → 2021-12-20 13:40 | Outpatient (BNVA) | payer MEDICARE, SELFPAY | PROVIDERS: PCP Internal Medicine; Visit Provider Surgery Vascular Surgery | DX: I83.11 Varicose veins of right lower extremity with inflammation (principal); I89.0 Lymphedema, not elsewhere classified | CPT/HCPCS: 99202 ==

== ENCOUNTER 2021-12-21 11:12 | Outpatient (REF) | payer MEDICARE, SELFPAY ==
[2021-12-21 13:42] LABS: MANUAL DIFF FLAG NO
[2021-12-21 13:45] LABS: Basophils Absolute Auto 0.1 X10*3/uL (0.0-0.2); Basophils Percent Auto 1.7 % (0-2); Eosinophils Absolute Auto 0.3 X10*3/uL (0.0-0.4); Eosinophils Percent Auto 6.6 % (0-4); Hemoglobin 12.5 g/dl (12.0-16.0); Imm Gran Abs Auto 0.01 X10*3/uL (0.00-0.03); Imm Gran Pct Auto 0.2 % (0.0-0.4); Lymphocytes Absolute Auto 1.6 X10*3/uL (1.2-4.9); Lymphocytes Percent Auto 33.4 % (20-40); Mean Corpuscular HGB Conc 32.9 g/dl (31.0-35.0); Mean Corpuscular Hemoglobin 30.3 pg (27.0-33.0); Mean Platelet Volume 11.2 fL (9.4-12.3); Monocytes Absolute Auto 0.6 X10*3/uL (0.1-1.2); Neutrophils Absolute Auto 2.2 x10*3/uL (2.0-8.3); Neutrophils Percent Auto 46.1 % (45-73); Platelet Count 273 X10*3/uL (160-400); Red Blood Count 4.13 X10*6/uL (4.20-5.50); Red Cell Distribution Width 12.6 % (11.0-16.0); White Blood Count 4.7 X10*3/uL (4.8-10.8)
[2021-12-21 13:58] LABS: Anion Gap 12 (12-20); Blood Urea Nitrogen 23 mg/dL (9-16); Calcium 10.3 mg/dL (8.4-10.2); Carbon Dioxide 29 mmol/L (22-29); Chloride 105 mmol/L (96-108); Estimated Glomerular Filt Rate 35; Glucose Random 96 mg/dL (60-115); Potassium 3.8 mmol/L (3.3-5.1); Sodium 142 mmol/L (135-145)
== END 2021-12-21 11:13 | disposition home or self-care (01) ==
LOC: HO.HMGCLDS 11:12
PROVIDERS: Visit Provider Orthopaedic Surgery
DX: Z01.812 Encounter for preprocedural laboratory examination (principal)
CPT/HCPCS: 36415; 80048; 85025

== ENCOUNTER → 2022-01-05 09:36 | Outpatient (BNVA) | payer MEDICARE, SELFPAY | PROVIDERS: PCP Internal Medicine; Visit Provider Physician Assistant | DX: Z01.818 Encounter for other preprocedural examination (principal); M17.11 Unilateral primary osteoarthritis, right knee; M21.061 Valgus deformity, not elsewhere classified, right knee | CPT/HCPCS: 99212 ==

== ENCOUNTER 2022-01-09 11:00 | Outpatient (RCR) | payer MEDICARE, SELFPAY ==
--- NOTE | 2021-12-16 15:18 | MHC.PT.EP ---
[facility] [place] Office [place] [facility] [place] Office [address] Rahul Castillo [address] [phone] F: [phone] F: [phone] F: [phone] F: [phone] Physical Therapy Plan of Care Date of Evaluation: Date of Surgery: Diagnosis: This is a 66 yo female presenting to skilled PT for TKR prehab R. Assessment: This is a 66 yo female presenting to skilled PT for TKR prehab R. PT is very familiar with this patient. She has been to our clinic in the past for a range of other impairments as well as prehab for her knee with DC from our facility in Sep 2021 with hopes of her continuing independently in order for better outcomes s/p surgery. She was previously educated on HEP, importance of HEP, surgical expectations, transfers and gait for s/p surgery but needs some re-ed prior to her surgery on 01/10/22 (R knee). Patient reports today pain is achy in B knees at the anterior, medial and lateral joint line. She has not been exercising as faithfully as she should be due to her being sick and she has had a lot of appointments as well as has been caring for him as well. Assessment reveals pain that ranges up to a 4/10. She demos decreased BLE ROM, decreased BLE strength, impaired gait pattern, impaired joint mobility as well as gross functional decline with standing, walking and stairs. She reports that she gets distracted by her husbands TV at home and avoids her exercises. She also reports that she did not try the senior center to maintain her cardiac health or gains from the first round of PT after her last DC. I spent the majority of the eval re-educating her on ortho and PT expectations. I educated her that she needs to do her exercises 3x/day every day in order to get into a routine prior to surgery. I also educated her that she needs to be in the senior center riding the bike or using the stepper for at least 15 mins every day that she is not at physical therapy. She is a fair candidate for skilled PT 2x/wk for 3wks. Frequency and Duration: The patient will be seen 2x/wk for 3wks Short Term Goals: I in HEP without cues from PT Patient is making an effort to go to the [facility] on days she is not in PT Reliability Specialist Goals: Demo understanding of transfers supine <> sit, sit<>stand and car transfers s/p surgery Demo proper gait pattern, stair work s/p surgery Treatment Plan: Modalities to reduce pain, spasms and effusion. Manual therapy to restore motion and function. Therapeutic exercise to improve strength and flexibility. Neuromuscular re-education for posture and balance. Therapeutic activities to return to functional activities of daily living. Electronically signed by: Dorene Yusuf, PT Please sign and return to therapist. Thank you for your referral.
--- NOTE | 2022-01-09 12:05 | MHC.PT.DC ---
[facility] [place] Office [place] Office [place] Office [address] Rahul Castillo [address] [phone] F: [phone] F: [phone] F: [phone] F: [phone] Physical Therapy Discharge Report Diagnosis: This is a 66 yo female presenting to skilled PT for TKR prehab R. Date of Surgery: Date of Evaluation: 12/16/21 Date of Discharge: 01/09/22 Treatments to Date: 8 Cancellations to Date: 0 No Shows to Date: 0 Discharge Status: Achieved Goals Improved Function Independent with HEP Physician Discontinued Tx Discharge Summary: Today is Nasima's last appointment, she is undergoing R TKA tomorrow. She was instructed through HEP once more, exercised to jeff and educated on the importance of HEP post op. She was educated on transfers, rehab processes and pain management. She has reached a baseline and is ready for DC. Answered post op questions as needed. DC to HEP. Electronically signed by: Dorene Yusuf PT Please sign and return to therapist. Thank you for your referral.
== END 2022-01-09 12:06 | disposition home or self-care (01) ==
LOC: HO.PTCHIC 11:00
PROVIDERS: PCP Internal Medicine; Visit Provider Orthopaedic Surgery
DX: M17.11 Unilateral primary osteoarthritis, right knee (principal); M21.061 Valgus deformity, not elsewhere classified, right knee
CPT/HCPCS: 97110; 97162

== ENCOUNTER 2022-01-10 07:58 | Day surgery (SDC) | payer MEDICARE, SELFPAY ==
--- NOTE | 2021-12-22 13:28 | ECG_ITS ---
Test Reason : PREPROC EXAM Blood Pressure : / mmHG Vent. Rate : 067 BPM Atrial Rate : 067 BPM P-R Int : 178 ms QRS Dur : 096 ms QT Int : 396 ms P-R-T Axes : 037 027 059 degrees QTc Int : 418 ms Normal sinus rhythm Nonspecific ST and T wave abnormality Abnormal ECG No previous ECGs available Referred By: Chicho Veras Electronically Signed By:JHOAN SANDOVAL MD
[2021-12-29 12:13] VITALS: BP 132/64; PULSE 74; RESP 16; O2SAT 96; BMI 31.9
[2021-12-29 14:17] LABS: MRSA Nasal PCR NEGATIVE (Negative); SA Nasal PCR NEGATIVE (Negative)
[2022-01-10] VITALS (21 sets, daily range): BP systolic 95–167; BP diastolic 53–79; PULSE 61–79; RESP 12–20; TEMP 36–37; O2SAT 94–100
--- NOTE | ~2022-01-10 | XR_ITS ---
EXAMINATION: XR KNEE, RIGHT CLINICAL INFORMATION: Post knee replacement COMPARISON: Previous x-ray August 2021 TECHNIQUE: Two views of the right knee. FINDINGS: There is a new 3 component right knee replacement in satisfactory position. No fracture or dislocation is seen. There are postoperative changes to the soft tissues. XR/XR knee RT 2V IMPRESSION: Satisfactory appearance of right knee replacement.
--- NOTE | 2022-01-10 08:10 | HO.ANESPROP2 ---
HPI - Anesthesia Eval Consult details Narrative: 66 F for right knee TKR PMFSH Active Problems Active Problems: All Active Problems (Updated 12/30/21 @ 03:32 by Shanna Parker MD) Hypertensive nephrosclerosis (Acute) Adhesive capsulitis of right shoulder (Acute) Patellofemoral pain syndrome of right knee (Acute) URI, acute (Acute) Localized osteoarthritis of right knee (Acute) Valgus deformity, not elsewhere classified, right knee (Acute) Impaired fasting glucose (Acute) Varicose veins of right lower extremity with inflammation (Acute) Lymphedema (Acute) Impaired fasting glucose (Acute) Chronic kidney disease, stage 3 (Acute) Varicose veins of both lower extremities (Acute) Menopause ovarian failure (Acute) CKD (chronic kidney disease) (Acute) Renal cyst, left (Acute) Cataract (Acute) Right ovarian cyst (Acute) GERD (gastroesophageal reflux disease) (Acute) Dyslipidemia (Acute) Essential hypertension (Acute) Past Medical History Medical History (Updated 01/13/22 @ 00:03 by Alden West) Aaron's esophagus without dysplasia Cataract Chronic kidney disease, stage 3 CKD (chronic kidney disease) Dyslipidemia Essential hypertension GERD (gastroesophageal reflux disease) HTN (hypertension) Hypertensive nephrosclerosis Impaired fasting glucose Menopause ovarian failure Renal cyst, left Right ovarian cyst Varicose veins of both lower extremities Family History Family History Father Unknown family medical history Mother Breast cancer Maternal Aunt Breast cancer Son No problems noted. Daughter No problems noted. Family history of problems with anesthesia: No Surgical History Surgical History Cataract extraction status of left eye Cataract extraction status of right eye History of esophagogastroduodenoscopy (EGD) History of knee surgery History of removal of skin mole Hx of cholecystectomy Hx of colonoscopy History of Problems with Anesthesia: No Social History Social History Household Members: Spouse Housing: Condominium Are you a primary resident care supervisor to a significant other at home: No Do you presently have visiting nurse or other home services: No Alcohol intake: never Patient Tobacco Use Status: Never used Tobacco e-Cigarette/Vaping Use: Never Used Advance Directives Date on File: 07/12/20 service: No Current occupational status: unemployed Current occupation: Right Handed Gender identity: Female Cognitive needs: No Hearing needs: No Vision needs: No Meds Allergies Allergy/AdvReac Type Severity Reaction Status Date / Time No Known Allergies Allergy Verified 01/10/22 08:24 Active Medications: Current Medications Cefazolin Sodium/Dextrose (Ancef) 2 gm in 50 mls @ 100 mls/hr IV PREOP ONE Stop: 01/10/22 08:26 Home Medications Medication Instructions Recorded Confirmed Last Taken Type geriatric oiwrbhrj-eezf-dnlv 1 tab PO DAILY 07/06/20 12/29/21 Unknown History Calcium + D 12/29/21 Unknown History Exam Exam Date and Time: January 10, 2022 0810 Height,Weight and Vital Signs: Height 5 ft 4 in Weight 84.4 kg Last Vital Signs Pulse 74 12/29/21 12:13 Resp 16 12/29/21 12:13 BP 132/64 12/29/21 12:13 Pulse Ox 96 12/29/21 12:13 Pertinent Lab Results Pertinent Lab Results: Laboratory Tests 12/29/21 12/29/21 12:30 13:02 Nasal Screen MRSA (PCR) NEGATIVE Nasal S. aureus Screen NEGATIVE Nasal MRSA/S.aureus Interp SEE NOTE Blood Type B Positive Antibody Screen NEGATIVE Airway Mallampati Class: II TM Dist: >3cm Neck ROM: Full Loose/Missing/Broken Teeth: Yes (Poor dentition ) Heart: S1, S2 Lungs: b/l breath sounds Assessment and Plan Assessment Anesthesia Assessment: Anesthesia Plan Discussed and Chart Reviewed Final Anesthetic Review Family History of Problems with Anesthesia: No History of Problems with Anesthesia: No NPO: Yes ASA Class: III Final Preanesthetic Review: Meds/Allgs Chart Reviewed, Consent Obtained/Reviewed and Anes Risks/Benef Reviewed Patient Risk: Intermediate Procedure Risk: Intermediate Anesthetic Plan Anesthetic Plan: Spinal and Regional Block Disposition: Inp. Admit - Standard Bed
[2022-01-10 08:50] LABS: COVID-19 Test Negative (Negative)
[2022-01-10] MEDS: Lactated Ringers 1,000 ML 80 ML IVCONT ×2 (09:24→14:04)
--- NOTE | 2022-01-10 10:03 | MHC.SHP ---
Pre-Procedural Eval Section A Date of Service: 01/10/22 The patient is an INPATIENT: No Changes since office visit: Yes Patient answered all questions; No Cold of Flu in the past 2 weeks, No New Medical Problems and No Changes in Medication The History & Physical has been completed within 30 days and I have reviewed it.: Yes Section B Chief Complaint: osteoarthritis Allergies: Allergies Allergy/AdvReac Type Severity Reaction Status Date / Time No Known Allergies Allergy Verified 01/10/22 08:24 Plan I have reviewed the history and physical and performed a pertinent physical examination on my patient. No changes have occurred unless specified.
--- NOTE | 2022-01-10 12:37 | PM.OP ---
Brief Operative Note Date of Service: 01/10/22 Pre-op diagnosis: Right knee OA Post-op diagnosis: same Procedure: Right TKA Implants: [place] Triathalon press fit cruciate substituting 12/19/09PS/32a Surgeon: Chicho Veras MD Anesthesia: regional Was an Dermatological Surgeon used for this Procedure?: Yes Dermatological Surgeon: Alana Gamez Estimated blood loss (mL): 100 IV fluids (mL): 1,000 Pathology: other Condition: stable Disposition: PACU
--- NOTE | 2022-01-10 12:51 | W.PM.OPN ---
Operative Note Operative Note Date of Service: 01/10/22 Narrative: Date of Service: 01/10/22 Pre-op diagnosis: Right knee OA Post-op diagnosis: same Procedure: Right TKA Implants: [place] Triathalon press fit cruciate substituting 12/19/09PS/32a Surgeon: Chicho Veras MD Anesthesia: regional Was an Card Assembler used for this Procedure?: Yes Card Assembler: Alana Gamez Estimated blood loss (mL): 100 IV fluids (mL): 1,000 Pathology: other Condition: stable Disposition: PACU Procedure in detail: The patient was brought to the operating room and prepped and draped in standard sterile fashion. A time-out was called to identify proper site proper procedure proper surgeon and IV antibiotics were administered. 1 g of IV tranexamic acid was administered. I began by making a midline incision to the retinaculum and performed a medial parapatellar arthrotomy. The patella was translated laterally and the knee was flexed up. The lateral compartment was eburnated. I performed a small medial peel and resected the infrapatellar fat pad. [place]'s line was then used to drill my intramedullary femoral guide and my distal femur cut of 12 mm was made in 5 degrees of valgus while protecting the soft tissues. I then measured a # 4 femur and placed my cutting guide and made my anterior posterior and chamfer cuts protecting the soft tissues at all times. I then made my box but removing the PCL. Once I was satisfied with my cuts I turned my attention to the tibia. I removed the meniscus medially and laterally and , using an external cutting guide, in line with the tibial crest and the third ray, I made my distal tibial cut in 0 deg slope of while protecting the posterior soft tissues at all times. An extension block was used to confirm appropriate amount of bony resection. I then sized a #4 tibia and once I was satisfied that there was complete tibial coverage I placed my trial and with the trial femur in place took the knee through range of motion. I was satisfied with the extension and flexion as well as the stability at 0, 30 and 90 degrees. I then turned my attention to the patella where I removed 1 cm from the undersurface of the patella and then trialed a 32a patellar button. Again the knee was taken through range of motion I was satisfied with the tracking. I then returned to the femur and drilled my femoral lug holes and prepared the tibia. A femoral bone plug was placed and the knee was irrigated copiously. I then press fit the patella, tibia and femur in standard fashion. I trialed different inserts until I selected a #10 insert. The final insert was placed. The knee was ranged from 0-130 deg with stable tracking and balanced extension and flexion. I then performed a 3 minutes iodine soak with local TXA was performed. A Werewolf cautery wand was used to maintain hemostasis over the capsule and meniscal beds, the gutters and peripatellar soft tissues. The knee was then closed with a running Quill suture, a 3 0 Vicryl and cam on the skin. Patient was then placed in sterile dressing and brought to recovery room in stable condition there were no known complications.
[2022-01-10] MEDS: oxyCODONE HCl Immed Release 5 MG TABLET PO (13:33)
[2022-01-10] MEDS: fentaNYL citrate/PF 100 MCG/2 ML VIAL 25 MCG IVPUSH ×4 (14:02→14:47)
--- NOTE | 2022-01-10 14:27 | PHA.MEDREC ---
Pharmacy Consult ? Medication Reconciliation Pharmacy has completed the medication reconciliation. No remarkable issue. La Romero, KvngD
[2022-01-10] MEDS: HYDROmorphone HCl 0.5 MG/0.5 ML SYRINGE 0.25 MG IVPUSH ×2 (15:02→15:07)
--- NOTE | 2022-01-10 17:04 | HO.PM.IMCN ---
History of Present Illness Data of Consult Service Date: 01/10/22 Primary Care Provider: Shanna Parker MD HPI Reason for consult: Medical management 66-year-old lady with hypertension, dyslipidemia, hypertensive nephrosclerosis with CKD , superficial varicosities in both lower extremities with lymphedema, impaired fasting glucose, and 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, other just feeling lousy ..Vitals are ok Review of Systems Review of Systems: Gen: no fever Resp: no sob, no cough CV: no chest, no LAROSE, no leg edema GI: No n/v, no abd pain Neuro: No confusion some pain in the right knee Yes all other systems are reviewed and are negative [facility] Medical History Aaron's esophagus without dysplasia Cataract Chronic kidney disease, stage 3 CKD (chronic kidney disease) Dyslipidemia Essential hypertension GERD (gastroesophageal reflux disease) Hypertensive nephrosclerosis Impaired fasting glucose Menopause ovarian failure Renal cyst, left Right ovarian cyst Varicose veins of both lower extremities Family History Father Unknown family medical history Mother Breast cancer Maternal Aunt Breast cancer Son No problems noted. Daughter No problems noted. Surgical History Cataract extraction status of left eye Cataract extraction status of right eye History of esophagogastroduodenoscopy (EGD) History of knee surgery History of removal of skin mole Hx of cholecystectomy Hx of colonoscopy Social History Household Members: Spouse Housing: Condominium Are you a primary career education teacher to a significant other at home: No Do you presently have visiting nurse or other home services: No Alcohol intake: never Patient Tobacco Use Status: Never used Tobacco e-Cigarette/Vaping Use: Never Used Advance Directives Date on File: 07/12/20 Current occupational status: unemployed Current occupation: Right Handed Gender identity: Female Cognitive needs: No Hearing needs: No Vision needs: No Meds Allergies Allergy/AdvReac Type Severity Reaction Status Date / Time No Known Allergies Allergy Verified 01/10/22 08:24 Active Medications: Current Medications Acetaminophen (Acetaminophen 325 Mg Tablet) 650 mg PO Q6H PRN PRN Reason: Pain, Mild (Pain Scale 1-3) Carvedilol (Carvedilol 12.5 Mg Tablet) 12.5 mg PO BID [facility]; Protocol Celecoxib (Celecoxib 200 Mg Capsule) 200 mg PO BID [facility] Docusate Sodium (Docusate Sodium 100 Mg Capsule) 100 mg PO BID [facility] Hydromorphone HCl (Hydromorphone Hcl 1 Mg/Ml Syringe) 0.25 mg IVPUSH Q4H PRN; Protocol PRN Reason: Pain, Severe (Pain Scale 7-10) Lactated Ringer's (Lr) 1,000 mls @ 80 mls/hr IVCONT .[id number] [facility] Last Admin: 01/10/22 14:04 Dose: 80 mls/hr Documented by: Cefazolin Sodium/Dextrose (Ancef) 2 gm in 50 mls @ 100 mls/hr IV POSTOP [facility] Ondansetron HCl (Ondansetron Hcl 4 Mg/2 Ml Vial) 4 mg IVPUSH Q8H PRN PRN Reason: Nausea and Vomiting Oxycodone HCl (Oxycodone Hcl Immed Release 5 Mg Tablet) 5 mg PO Q4H PRN PRN Reason: Pain, Moderate (Pain Scale 4-6 Last Admin: 01/10/22 13:33 Dose: 5 mg Documented by: Oxycodone HCl (Oxycodone Hcl Er 10 Mg Tab.Er.12h) 10 mg PO BID [facility] Sodium Chloride (0.9 % Sodium Chloride Flush 3 Ml Syringe) 3 ml IVFLUSH QSHIFT [facility] Home Medications Medication Instructions Recorded Confirmed Last Taken Type geriatric tabjsoqg-yias-vchy 1 tab PO DAILY 07/06/20 12/29/21 Unknown History Calcium + D 12/29/21 Unknown History aspirin 81 mg tablet,delayed 1 tab PO DAILY 12/29/21 01/10/22 12/19/21 History release Physical Exam Vital Signs and Narrative: Vital Signs: Last Vital Signs Temp 96.8 F 01/10/22 15:48 Pulse 71 01/10/22 15:48 Resp 18 01/10/22 15:48 BP 141/79 H 01/10/22 15:48 Pulse Ox 100 01/10/22 15:48 BMI result Body Mass Index 31.9 Const: Other: General: AO X 3, no acute distress Resp: CTA bilateral CVS: S1,S2,RRR GI: +BS, NT, no distention Skin: No rash, wound dressing intact Neuro: motor grossly intact Psych: appropriate affect Results Labs Labs: Laboratory Results - last 24 hr 01/10/22 08:12 COVID-19 (JOSE) Negative COVID-19 Clin Com See Note Imaging Radiologist's Impressions: Impressions Knee X-Ray 01/10/22 13:15 IMPRESSION: Satisfactory appearance of right knee replacement. Assessment and Plan (1) Hypertensive nephrosclerosis: Status: Acute (2) Dyslipidemia: Status: Acute (3) GERD (gastroesophageal reflux disease): Status: Acute Plan 66-year-old lady with hypertension, dyslipidemia, hypertensive nephrosclerosis with CKD , superficial varicosities in both lower extremities with lymphedema, impaired fasting glucose, and 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 1/HTN--continue HCTZ-Lisinopril, Coreg, monitor BP 2/s/p Right knee arthroplasty--management per ortho 3/CKD, stable, check labs tomorrow DVT--to be determined by ortho, PT, OT
[2022-01-10] MEDS: Celecoxib 200 MG CAPSULE PO (20:14)
[2022-01-10] MEDS: Docusate Sodium 100 MG CAPSULE PO (20:14)
[2022-01-10] MEDS: oxyCODONE HCl ER 10 MG TAB.ER.12H PO (20:14)
[2022-01-10] MEDS: carvediloL 12.5 MG TABLET PO (20:14)
[2022-01-11] VITALS (12 sets, daily range): BP systolic 106–131; BP diastolic 49–83; PULSE 75–89; RESP 14–18; TEMP 36.2–37.2; O2SAT 91–98
[2022-01-11] MEDS: oxyCODONE HCl Immed Release 5 MG TABLET PO ×3 (01:39→16:04)
[2022-01-11] MEDS: Lactated Ringers 1,000 ML 80 ML IVCONT (01:39)
[2022-01-11] MEDS: HYDROmorphone HCl 1 MG/ML SYRINGE 0.25 MG IVPUSH (04:07)
[2022-01-11 05:55] LABS: MANUAL DIFF FLAG NO
[2022-01-11 05:58] LABS: Basophils Percent Auto 0.5 % (0-2); Eosinophils Absolute Auto 0.1 X10*3/uL (0.0-0.4); Eosinophils Percent Auto 1.4 % (0-4); Hematocrit 31.7 % (37.0-47.0); Hemoglobin 10.5 g/dl (12.0-16.0); Imm Gran Abs Auto 0.01 X10*3/uL (0.00-0.03); Imm Gran Pct Auto 0.2 % (0.0-0.4); Lymphocytes Absolute Auto 0.9 X10*3/uL (1.2-4.9); Lymphocytes Percent Auto 13.8 % (20-40); Mean Corpuscular HGB Conc 33.1 g/dl (31.0-35.0); Mean Corpuscular Hemoglobin 30.1 pg (27.0-33.0); Mean Corpuscular Volume 90.8 fL (80.0-98.0); Mean Platelet Volume 11.2 fL (9.4-12.3); Monocytes Absolute Auto 0.7 X10*3/uL (0.1-1.2); Monocytes Percent Auto 10.2 % (2-11); Neutrophils Absolute Auto 4.8 x10*3/uL (2.0-8.3); Neutrophils Percent Auto 73.9 % (45-73); Platelet Count 199 X10*3/uL (160-400); Red Blood Count 3.49 X10*6/uL (4.20-5.50); Red Cell Distribution Width 12.1 % (11.0-16.0); White Blood Count 6.5 X10*3/uL (4.8-10.8)
[2022-01-11 06:11] LABS: Anion Gap 10 (12-20); Blood Urea Nitrogen 20 mg/dL (9-16); Calcium 8.7 mg/dL (8.4-10.2); Carbon Dioxide 29 mmol/L (22-29); Chloride 104 mmol/L (96-108); Creatinine Clr Calc Pharmacy 49.5; Estimated Glomerular Filt Rate 46; Glucose Fasting 112 mg/dL (60-99); Potassium 4.3 mmol/L (3.3-5.1); Sodium 139 mmol/L (135-145)
--- NOTE | 2022-01-11 07:19 | PM.PNORT ---
Subjective Subjective Date of Service: 01/11/22 Interval history: POD1 s/p RTKA. Patient is resting comfortably in bed. No overnight events. Pain is well managed. No additional complaints. Physical Exam Vital Signs: Vital Signs: Last Vital Signs Temp 97.9 F 01/11/22 04:00 Pulse 84 01/11/22 04:00 Resp 18 01/11/22 04:00 BP 130/61 01/11/22 04:00 Pulse Ox 96 01/11/22 04:00 BMI result Body Mass Index 31.9 Const: General: cooperative, healthy appearing and no acute distress Resp: Effort & Inspection: normal respiratory effort and able to speak in complete sentences Cardio: Rate: regular rate Peripheral pulses: Peripheral pulses 2+ throughout GI: Palpation (GI): Soft to palpation Skin: Lesions: no lesions Rashes: no rashes Extrem: Other: Right knee Aquacel is clean dry and intact. Sensation intact. Patient is able to dorsiflex and plantar flex. NVI. Procedures Date of Service Date of Service: 01/11/22 Progress Note: A&P Assessment and plan (1) Status post total right knee replacement: Status: Acute Plan Continue pain mgmnt Begin ASA for dvt ppx begin PT for RTKA Dispo planning-Pending PT eval, pain mgmnt Time Spent With Patient Time: Total time spent is greater than 50% in coordination of care (as documented) at patient's floor/unit and/or counseling patient: Quality Stroke Does the patient have a stroke diagnosis?: No VTE Prior VTE?: No VTE Risk Level:: Surgical - very high VTE Device Contraindication: N/A - Device Ordered VTE Drug Contraindication: N/A - Med Ordered
--- NOTE | 2022-01-11 08:58 | P.PNIM_ITS ---
Subjective Subjective Date of Service: 01/11/22 Interval History: Seen in follow-up for medical management, status post right knee arthroplasty. She is feeling much better this morning compared to yesterday. She is able to participate in physical therapy. Review of Systems No fever no chest slight pain in the right knee. Physical Exam Vital Signs: Vital Signs: Last Vital Signs Temp 97.7 F 01/11/22 08:01 Pulse 77 01/11/22 08:01 Resp 18 01/11/22 08:01 BP 119/56 L 01/11/22 08:01 Pulse Ox 95 01/11/22 08:01 BMI result Body Mass Index 31.9 Const: Other: General: AO X 3, no acute distress Resp: CTA bilateral CVS: S1,S2,RRR GI: +BS, NT, no distention Skin: No rash, no rash, incisional site D/C/I Neuro: motor grossly intact Psych: appropriate affect Objective Data Active Medications Acetaminophen (Acetaminophen 325 Mg Tablet) 650 mg PO Q6H PRN PRN Reason: Pain, Mild (Pain Scale 1-3) Aspirin (Aspirin 325 Mg Tablet) 325 mg PO BID [facility] Carvedilol (Carvedilol 12.5 Mg Tablet) 12.5 mg PO BID [facility]; Protocol Last Admin: 01/10/22 20:14 Dose: 12.5 mg Documented by: KLAUS Celecoxib (Celecoxib 200 Mg Capsule) 200 mg PO BID [facility] Last Admin: 01/10/22 20:14 Dose: 200 mg Documented by: KLAUS Docusate Sodium (Docusate Sodium 100 Mg Capsule) 100 mg PO BID [facility] Last Admin: 01/10/22 20:14 Dose: 100 mg Documented by: KLAUS Hydrochlorothiazide (Hydrochlorothiazide 25 Mg Tablet) 25 mg PO DAILY [facility]; Protocol Hydromorphone HCl (Hydromorphone Hcl 1 Mg/Ml Syringe) 0.25 mg IVPUSH Q4H PRN; Protocol PRN Reason: Pain, Severe (Pain Scale 7-10) Last Admin: 01/11/22 04:07 Dose: 0.25 mg Documented by: FLORENCIA Lactated Ringer's (Lr) 1,000 mls @ 80 mls/hr IVCONT .[id number] [facility] Last Admin: 01/11/22 01:39 Dose: 80 mls/hr Documented by: FLORENCIA Cefazolin Sodium/Dextrose (Ancef) 2 gm in 50 mls @ 100 mls/hr IV POSTOP MICHAEL Lisinopril (Lisinopril 20 Mg Tablet) 20 mg PO DAILY [facility]; Protocol Ondansetron HCl (Ondansetron Hcl 4 Mg/2 Ml Vial) 4 mg IVPUSH Q8H PRN PRN Reason: Nausea and Vomiting Oxycodone HCl (Oxycodone Hcl Immed Release 5 Mg Tablet) 5 mg PO Q4H PRN PRN Reason: Pain, Moderate (Pain Scale 4-6 Last Admin: 01/11/22 06:30 Dose: 5 mg Documented by: FLORENCIA Oxycodone HCl (Oxycodone Hcl Er 10 Mg Tab.Er.12h) 10 mg PO BID [facility] Last Admin: 01/10/22 20:14 Dose: 10 mg Documented by: COLOLennie Sodium Chloride (0.9 % Sodium Chloride Flush 3 Ml Syringe) 3 ml IVFLUSH QSHIFT [facility] Last Admin: 01/11/22 08:12 Dose: Not Given Documented by: LAVM Non-Admin Reason: IV Running Labs CBC & Chem 7: 01/11/22 05:19 01/11/22 05:19 Labs: Laboratory Results - last 24 hr 01/11/22 01/11/22 05:19 05:19 MCV 90.8 MCH 30.1 MCHC 33.1 RDW 12.1 Plt Count 199 D MPV 11.2 Immature Gran % (Auto) 0.2 Neut % (Auto) 73.9 H Lymph % (Auto) 13.8 L [place] % (Auto) 10.2 Eos % (Auto) 1.4 Baso % (Auto) 0.5 Lymph # (Auto) 0.9 L [place] # (Auto) 0.7 Eos # (Auto) 0.1 Baso # (Auto) 0.0 Abs Immat Gran (auto) 0.01 Absolute Neuts (auto) 4.8 Absolute Nucleated RBC 0.000 Nucleated RBC % (auto) 0.0 Anion Gap 10 L Estim Creat Clear Calc 49.5 Estimated GFR 46 Fasting Glucose 112 H Calcium 8.7 D Assessment and Plan (1) HTN (hypertension): Status: Acute Plan 66-year-old lady with hypertension, dyslipidemia, hypertensive nephrosclerosis with CKD , superficial varicosities in both lower extremities with lymphedema, impaired fasting glucose, and 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 1/HTN--continue HCTZ-Lisinopril, Coreg, monitor BP 2/s/p Right knee arthroplasty--management per ortho 3/CKD, Cr is presently within normal DVT--ASA PT, OT Quality Stroke Does the patient have a stroke diagnosis?: No VTE Prior VTE?: No VTE Risk Level:: Surgical - very high VTE Device Contraindication: N/A - Device Ordered VTE Drug Contraindication: N/A - Med Ordered
[2022-01-11] MEDS: hydroCHLOROthiazide 25 MG TABLET PO (09:35)
[2022-01-11] MEDS: oxyCODONE HCl ER 10 MG TAB.ER.12H PO ×2 (09:36→20:42)
[2022-01-11] MEDS: Docusate Sodium 100 MG CAPSULE PO ×2 (09:36→20:43)
[2022-01-11] MEDS: Celecoxib 200 MG CAPSULE PO ×2 (09:36→20:43)
[2022-01-11] MEDS: lisinopriL 20 MG TABLET PO (09:36)
[2022-01-11] MEDS: carvediloL 12.5 MG TABLET PO ×2 (09:37→20:43)
--- NOTE | 2022-01-11 09:59 | MHC.CM.PN ---
IMM 01/11/22, EMR REVIEWED, PT ADMITTED S/P R TKA, CM MET W/PT WHO IS A&OX4, PT REPORTS LIVING W/HER WHO HAS MEDICAL ISSUES AND THAT SHE PREFERS TO GO TO [facility] FOR REHAB, CM DISCUSSED LIKELIHOOD THAT SHE WILL NOT QUALIFY AND DISCUSSED SNF OPTIONS AND PT PREFERS [facility] FOR STR, REFERRALS TO BE PLACED FOR BOTH. PT ALSO REPORTS HAVING A SINGLE AND THREE PRONGED CANES, A FRONT WHEELED WALKER, A BEDSIDE COMMODE AND TOILET RAISER FOR DME, PT HAS NO NO HOME SERVICES, PT IS FULLY VACCINATED FROM COVID W/PFIZER X3 (ON FILE), VERIFIES PCP JUAN FRANCE AND REPORTS SHE HAS A WILL AND HCP, CM HAS REQUESTED COPY OF HCP AND PT AWARE CM WILL NEED IT TO SEND TO REHABS, PT PROVIDED W/CM EMAIL AND FAX NUMBERS. D/C PLAN: [facility], BLS FOR TRANSPORT
[2022-01-11] MEDS: Aspirin 325 MG TABLET PO ×2 (11:48→20:42)
[2022-01-11] MEDS: 0.9 % Sodium Chloride Flush 3 ML SYRINGE IVFLUSH (15:57)
[2022-01-12] VITALS (7 sets, daily range): BP systolic 93–100; BP diastolic 47–60; PULSE 70–75; RESP 14–18; TEMP 36–36.8; O2SAT 95–97
[2022-01-12] MEDS: 0.9 % Sodium Chloride Flush 3 ML SYRINGE IVFLUSH ×2 (00:20→09:17)
[2022-01-12] MEDS: oxyCODONE HCl Immed Release 5 MG TABLET PO ×2 (00:20→15:32)
[2022-01-12 06:32] LABS: MANUAL DIFF FLAG NO
[2022-01-12 06:36] LABS: Basophils Percent Auto 0.5 % (0-2); Eosinophils Absolute Auto 0.4 X10*3/uL (0.0-0.4); Eosinophils Percent Auto 4.6 % (0-4); Hematocrit 28.8 % (37.0-47.0); Hemoglobin 9.5 g/dl (12.0-16.0); Imm Gran Abs Auto 0.02 X10*3/uL (0.00-0.03); Imm Gran Pct Auto 0.3 % (0.0-0.4); Lymphocytes Absolute Auto 1.1 X10*3/uL (1.2-4.9); Lymphocytes Percent Auto 13.9 % (20-40); Mean Corpuscular Hemoglobin 30.3 pg (27.0-33.0); Mean Corpuscular Volume 91.7 fL (80.0-98.0); Mean Platelet Volume 11.2 fL (9.4-12.3); Monocytes Absolute Auto 0.9 X10*3/uL (0.1-1.2); Monocytes Percent Auto 11.4 % (2-11); Neutrophils Absolute Auto 5.5 x10*3/uL (2.0-8.3); Neutrophils Percent Auto 69.3 % (45-73); Platelet Count 194 X10*3/uL (160-400); Red Blood Count 3.14 X10*6/uL (4.20-5.50); Red Cell Distribution Width 12.6 % (11.0-16.0)
--- NOTE | 2022-01-12 06:54 | HO.POSTANES ---
Post Anesthesia Evaluation Post Anesthesia Evaluation Vital Signs: Vital Signs Temp Pulse Resp BP Pulse Ox 01/12/22 04:00 98.3 F 70 14 99/51 L 96 01/12/22 03:53 96.8 F 72 14 99/51 L 96 01/12/22 01:24 18 01/11/22 23:49 97.1 F 78 14 106/49 L 91 L 01/11/22 20:00 98.5 F 75 18 130/60 97 01/11/22 19:16 98.9 F 80 17 107/53 L 97 Anesthesia: Spinal and Nerve Block Mental Status: Awake Pain Control: Satisfactory Nausea/Vomiting: None Hydration: Adequate Anesthesia-Related Issues: No Anes. Related Issues
--- NOTE | 2022-01-12 08:39 | MHC.CM.PN ---
CM RECEIVED MESSAGE FROM [facility] THAT THEY HAVE REVIEWED PT'S CASE AND THEY CANNOT OFFER PT A BED. CM AWAITING RESPONSE FROM [facility].
--- NOTE | 2022-01-12 08:53 | P.PNIM_ITS ---
Subjective Subjective Date of Service: 01/12/22 Interval History: Seen in follow-up for medical management, status post right knee arthroplasty. doing fine, no new issues. SBP is low in the 90s's but assymptomatic Review of Systems No fever no chest slight pain in the right knee. Physical Exam Vital Signs: Vital Signs: Last Vital Signs Temp 97.5 F 01/12/22 08:00 Pulse 75 01/12/22 08:00 Resp 18 01/12/22 08:00 BP 93/47 L 01/12/22 08:00 Pulse Ox 97 01/12/22 08:00 BMI result Body Mass Index 31.9 Const: Other: General: AO X 3, no acute distress Resp: CTA bilateral CVS: S1,S2,RRR GI: +BS, NT, no distention Skin: No rash, no rash, incisional site D/C/I Neuro: motor grossly intact Psych: appropriate affect Objective Data Active Medications Acetaminophen (Acetaminophen 325 Mg Tablet) 650 mg PO Q6H PRN PRN Reason: Pain, Mild (Pain Scale 1-3) Aspirin (Aspirin 325 Mg Tablet) 325 mg PO BID [facility] Last Admin: 01/11/22 20:42 Dose: 325 mg Documented by: ADIS Carvedilol (Carvedilol 12.5 Mg Tablet) 12.5 mg PO BID [facility]; Protocol Last Admin: 01/11/22 20:43 Dose: 12.5 mg Documented by: ADIS Celecoxib (Celecoxib 200 Mg Capsule) 200 mg PO BID [facility] Last Admin: 01/11/22 20:43 Dose: 200 mg Documented by: ADIS Docusate Sodium (Docusate Sodium 100 Mg Capsule) 100 mg PO BID [facility] Last Admin: 01/11/22 20:43 Dose: 100 mg Documented by: ADIS Hydrochlorothiazide (Hydrochlorothiazide 25 Mg Tablet) 25 mg PO DAILY [facility]; Protocol Last Admin: 01/11/22 09:35 Dose: 25 mg Documented by: LYNDSEY Hydromorphone HCl (Hydromorphone Hcl 1 Mg/Ml Syringe) 0.25 mg IVPUSH Q4H PRN; Protocol PRN Reason: Pain, Severe (Pain Scale 7-10) Last Admin: 01/11/22 04:07 Dose: 0.25 mg Documented by: FLORENCIA Cefazolin Sodium/Dextrose (Ancef) 2 gm in 50 mls @ 100 mls/hr IV POSTOP [facility] Lisinopril (Lisinopril 20 Mg Tablet) 20 mg PO DAILY [facility]; Protocol Last Admin: 01/11/22 09:36 Dose: 20 mg Documented by: LYNDSEY Ondansetron HCl (Ondansetron Hcl 4 Mg/2 Ml Vial) 4 mg IVPUSH Q8H PRN PRN Reason: Nausea and Vomiting Oxycodone HCl (Oxycodone Hcl Immed Release 5 Mg Tablet) 5 mg PO Q4H PRN PRN Reason: Pain, Moderate (Pain Scale 4-6 Last Admin: 01/12/22 00:20 Dose: 5 mg Documented by: MANAN Oxycodone HCl (Oxycodone Hcl Er 10 Mg Tab.Er.12h) 10 mg PO BID [facility] Last Admin: 01/11/22 20:42 Dose: 10 mg Documented by: ADIS Sodium Chloride (0.9 % Sodium Chloride Flush 3 Ml Syringe) 3 ml IVFLUSH QSHIFT [facility] Last Admin: 01/12/22 00:20 Dose: 3 ml Documented by: MANAN Labs CBC & Chem 7: 01/12/22 05:56 01/11/22 05:19 Labs: Laboratory Results - last 24 hr 01/12/22 05:56 MCV 91.7 MCH 30.3 MCHC 33.0 RDW 12.6 Plt Count 194 MPV 11.2 Immature Gran % (Auto) 0.3 Neut % (Auto) 69.3 Lymph % (Auto) 13.9 L [place] % (Auto) 11.4 H Eos % (Auto) 4.6 H Baso % (Auto) 0.5 Lymph # (Auto) 1.1 L [place] # (Auto) 0.9 Eos # (Auto) 0.4 Baso # (Auto) 0.0 Abs Immat Gran (auto) 0.02 Absolute Neuts (auto) 5.5 Absolute Nucleated RBC 0.000 Nucleated RBC % (auto) 0.0 Assessment and Plan (1) HTN (hypertension): Status: Acute Plan 66-year-old lady with hypertension, dyslipidemia, hypertensive nephrosclerosis with CKD , superficial varicosities in both lower extremities with lymphedema, impaired fasting glucose, and 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 1/HTN--continue HCTZ-Lisinopril, Coreg. BP is low this morning so hold all BP meds 2/s/p Right knee arthroplasty--management per ortho 3/CKD, Cr is presently within normal 4/Anemia Hct down to 28 from 38 baseline, continue to monitor, hold transfsion for now DVT--ASA PT, OT Quality Stroke Does the patient have a stroke diagnosis?: No VTE Prior VTE?: No VTE Risk Level:: Surgical - very high VTE Device Contraindication: N/A - Device Ordered VTE Drug Contraindication: N/A - Med Ordered
[2022-01-12] MEDS: Aspirin 325 MG TABLET PO (09:15)
[2022-01-12] MEDS: Docusate Sodium 100 MG CAPSULE PO (09:16)
[2022-01-12] MEDS: oxyCODONE HCl ER 10 MG TAB.ER.12H PO (09:16)
[2022-01-12] MEDS: Celecoxib 200 MG CAPSULE PO (09:17)
[2022-01-12] MEDS: Acetaminophen 325 MG TABLET 650 MG PO (09:32)
[2022-01-12 10:33] LABS: Anion Gap 12 (12-20); Blood Urea Nitrogen 30 mg/dL (9-16); Calcium 8.6 mg/dL (8.4-10.2); Carbon Dioxide 28 mmol/L (22-29); Chloride 99 mmol/L (96-108); Creatinine Clr Calc Pharmacy 29.2; Estimated Glomerular Filt Rate 25; Glucose Fasting 144 mg/dL (60-99); Potassium 4.1 mmol/L (3.3-5.1); Sodium 135 mmol/L (135-145)
[2022-01-12 14:14] LABS: COVID-19 Test Negative (Negative)
--- NOTE | 2022-01-12 14:19 | MHC.CM.PN ---
NURSE CASE MANAGEMENT NOTE ELECTRONIC MEDICLA RECORD REVIEWED MET WITH PATIENT ANS SPOKE WITH HER ZEE Merary X3. [facility] EXPLAINED TO PATIENT AND HER THAT SHE DID NOT MEET THE REQUIREMENTS FOR ACUTE REHAB , [facility] DECLINED NO BED AVAILABILITY. REVIEWED WITH PATIENT AND HER ON THE PHONE ABOUT OTHER AREA FACILIOTIES HE WANTED TO STAY WITHIN THE [facility] , ENCOURAGED HIM TO GO ON THE INTERNET MEDICARE GOV. COM FOR FACILITY INFORMATION [facility] ENCOURAGED HIM TO CLL FACILITIES WITH ANY QUESTIONS E HAS TO BETTER ENABLE HIM TO MAKE DECISION , PATIENT WAS ACCEOPTED BY [facility] AND [facility] [place] [place] . PATIENT AND CHOSE [facility] , CALLED TO CONFIRME ACCEPTANCE AND TRASNSPORT TIME FOR 3PM TODAY DISCHACHARGE PLAN [facility] FOR STR AND TO BE TRANSPORTED [facility]IA [facility] WILL GET RAPID CVOID TEST AND ALSO VIA [employer] FAXE OVER THE D/C SUMMARY AND D/C ORDERS/INSTRUCTIONS
--- NOTE | 2022-01-12 14:50 | P.DS_ITS ---
DS: Providers Provider Date of Service: 01/12/22 Primary care physician: Shanna Parker MD Consults: 01/10/22 15:25 Consult to Hospitalist Routine Consulting Provider: Hospitalist Reason For Exam: CAD DS: Diagnosis Discharge Diagnosis (1) Status post total right knee replacement: Status: Acute DS: Summary Hospital Course Hospital Course: The patient underwent a successful RT total knee arthroplasty, was transferred to PACU and then to the floor to recover. During their stay, their vitals were stable, afebrile at 97.9. Labs were unremarkable, H/H 9.5/28.8 . POD 1 she was started on ASA for DVT ppx, they also receivedPT services twice a day. Prior to discharge, their dressing was change, incision clean dry and intact, new Aquacel dressing applied and the plan was to be discharged to [facility] Time Spent with Patient Time attestation: Total time spent providing and/or coordinating discharge services: Discharge coordination time: Less than 30 minutes Quality: Safe Use of Opioids Does Pt have an Active Cancer Diagnosis on the Problem List?: No Quality: Stroke Does the patient have a stroke diagnosis?: No Physical Exam Vital Signs: Vital Signs: Last Vital Signs Temp 97.9 F 01/12/22 12:00 Pulse 71 01/12/22 13:56 Resp 18 01/12/22 12:00 BP 100/60 01/12/22 13:56 Pulse Ox 95 01/12/22 13:56 BMI result Body Mass Index 31.9 Extrem: Other: incision clean dry and intact. Edith intact. No erythema or joint effusion. Calf supple nontender. Neurovascularly intact. DS: Data Data Completed and Pending Completed studies during hospitalization [Text1]: Pending at discharge 01/10/22 12:22 Surgical [PTH] Routine Labs on day of discharge: Laboratory Results - last 24 hr 01/12/22 01/12/22 01/12/22 05:56 05:56 13:50 WBC 8.0 RBC 3.14 L Hgb 9.5 L Hct 28.8 L MCV 91.7 MCH 30.3 MCHC 33.0 RDW 12.6 Plt Count 194 MPV 11.2 Immature Gran % (Auto) 0.3 Neut % (Auto) 69.3 Lymph % (Auto) 13.9 L [place] % (Auto) 11.4 H Eos % (Auto) 4.6 H Baso % (Auto) 0.5 Lymph # (Auto) 1.1 L [place] # (Auto) 0.9 Eos # (Auto) 0.4 Baso # (Auto) 0.0 Abs Immat Gran (auto) 0.02 Absolute Neuts (auto) 5.5 Absolute Nucleated RBC 0.000 Nucleated RBC % (auto) 0.0 Sodium 135 Potassium 4.1 Chloride 99 Carbon Dioxide 28 Anion Gap 12 BUN 30 H Creatinine 2.02 H Estim Creat Clear Calc 29.2 Estimated GFR 25 Fasting Glucose 144 H Calcium 8.6 COVID-19 (JOSE) Negative COVID-19 Clin Com See Note Discharge Plan Discharge Patient Disposition: er SNF Referrals: [facility] [place] [Outside] - 1 Day (DISCHARGED TO [facility] FOR SHORT TERM REHAB TODAY [facility] ) Alana Gamez PA-C [Physician Buckle Attacher] - 2 Weeks (01/26/22 1:00 [facility]geons Alana Gamez PA-C) Discharge Medications: New oxycodone 5 mg Tablet 5 mg PO Q4H PRN (Reason: Pain, Moderate (Pain Scale 4-6) 7 Days Qty: 42 0RF acetaminophen 325 mg Tablet 650 mg PO Q6H PRN (Reason: Pain, Mild (Pain Scale 1-3)) 30 Days Qty: 240 0RF aspirin 325 mg Tablet 325 mg PO BID 42 Days Qty: 84 0RF docusate sodium 100 mg Capsule 100 mg PO BID 14 Days Qty: 28 0RF Continued carvedilol 12.5 mg tablet 12.5 mg PO BID Qty: 60 6RF Rx Instructions: must administer with a meal/food lisinopril-hydrochlorothiazide 20-25 mg tablet 1 tab PO DAILY Qty: 30 6RF geriatric [id number]-dwhy-[id number] Tablet 1 tab PO DAILY 0RF Calcium + D 0RF (DME) walker [facility] [place] Rx Instructions .ROUTE .MEDSUPPLY Qty: 1 0RF Rx Instructions: Folding front wheeled walker Discontinued aspirin 81 mg tablet,delayed release (DR/EC) 1 tab PO DAILY 0RF Discharge Orders: Discharge Order (Routine); Ordered 01/12/22 Ordered By: Alana Gamez Activity Restrictions/Additional Instructions: Physical Therapy for Total knee arthroplasty: WBAT, gait training, ROM 0-12, quad strength * Limit stair climbing * No showering, no tub bath-keep dressing clean, dry and intact * No driving x6 weeks * Continue Aspirin twice a day x 6 weeks * Follow up with [facility] Orthopedics in 2 weeks: * --you will also have your first out patient PT eval on the day of your post op appt-so please plan on being in the office that day for an extended period of time.
== END 2022-01-12 16:24 | disposition skilled nursing facility (03) ==
LOC: HO.SSS 07:58 → HO.S3 14:51
PROVIDERS: Physician Assistant; PCP Internal Medicine; Visit Provider Orthopaedic Surgery
PROC: (CPT 27447; principal; 2022-01-10 10:10)
DX: M17.11 Unilateral primary osteoarthritis, right knee (principal); M21.061 Valgus deformity, not elsewhere classified, right knee; M22.2X1 Patellofemoral disorders, right knee; I12.9 Hypertensive chronic kidney disease with stage 1 through stage 4 chronic kidney disease, or unspecified chronic kidney disease; N18.30 Chronic kidney disease, stage 3 unspecified; E87.5 Hyperkalemia; K21.9 Gastro-esophageal reflux disease without esophagitis; I83.93 Asymptomatic varicose veins of bilateral lower extremities; I89.0 Lymphedema, not elsewhere classified; R73.01 Impaired fasting glucose; Z79.899 Other long term (current) drug therapy; Z98.890 Other specified postprocedural states; Z20.822 Contact with and (suspected) exposure to COVID-19
CPT/HCPCS: 27447; 36415; 73560; 80048; 85025; 86850; 86900; 86901; 87635; 87640; 87641; 88305; 88311; 93005; 97110; 97116; 97162; 97166; C1776; J0690; J1170; J2250; J2795; J3010

== ENCOUNTER → 2022-01-19 14:08 | Outpatient (RCR) | payer OTHER, SELFPAY ==
--- NOTE | 2020-07-06 16:20 | MHC.PT.EP ---
[facility] [place] Office [place] Office [place] Office [address] Rahul Castillo [address] [phone] F: [phone] F: [phone] F: [phone] F: [phone] Physical Therapy Plan of Care Date of Evaluation: 07/06/20 Date of Surgery: NA Diagnosis: Adhesive capsulitis Assessment: This is a 65 yo female presenting to skilled PT with a script for adhesive capsulitis of R shoulder (MRI shows SLAP tear) Pain increased insidiously about a year ago. Her pain increases when reaching behind her back, OH and out to the side. Pain is located at the superior and posterior aspect of the shoulder and ACJ. At rest, she has no pain. She is R hand dominant. She has been going to ortho and returns on 09/07/20, has not had any changes to medications or new injections noted. She reports that she can manage with the pain for ADLs and housework however feels limited and has consistent discomfort. She had PT for 16 visits prior this year for the same issue, DC'd at the end of March with some improvements in ROM and strength, extensive HEP however continuation of pain and referral back to MD. In the mean time she reports continuation of HEP (about every other day) and has had some small improvements with these however MD would like her to continue PT at this time. Assessment demos pain of , decreased shoulder ROM, impaired shoulder and scapular strength, poor posture with forward head and rounded shoulders, and impaired functional tolerance. She is retired. She is a fair candidate for skilled PT as this is her second time in PT for the same issue in less than a year. Frequency and Duration: The patient will be seen 2x/wk for 8wks Short Term Goals: Patient will be I in HEP Patient will improve AROM by at least 10 degs Patient will demo proper scapular posturing with exercises requiring 25% cuing from PT Nursing Home Goals: Patient will improve AROM to WFL Pain will improve to no more than 2/10 at the worst Shoulder and scapular strength will demo at least 4/5 B Patient will improve SPADI by at least 10 points Treatment Plan: Modalities to reduce pain, spasms and effusion. Manual therapy to restore motion and function. Therapeutic exercise to improve strength and flexibility. Neuromuscular re-education for posture and balance. Therapeutic activities to return to functional activities of daily living. Please sign and return to therapist. Thank you for your referral.
--- NOTE | 2020-09-07 07:46 | MHC.PT.DC ---
[facility] [place] Office [place] Office [place] Office [address] Rahul Castillo [address] [phone] F: [phone] F: [phone] F: [phone] F: [phone] Physical Therapy Discharge Report Diagnosis: Adhesive capsulitis Date of Surgery: NA Date of Evaluation: 07/06/20 Date of Discharge: 09/06/20 Treatments to Date: 16 Cancellations to Date: 0 No Shows to Date: 0 Discharge Status: Achieved Goals Improved Function Independent with HEP Discharge Summary: Patient has improved ROM and strength. She is very I in her HEP and ready to continue on her own. She has now been to PT 2 different times for her shoulder and would benefit from continued work on own and time for further healing. She complains mainly about her knee pain and was referred back to MD regarding this pain management at this time. DC to HEP at this time. SPADI improved to 5 on pain scale and 10 on disability. Electronically signed by: Dorene Yusuf PT Please sign and return to therapist. Thank you for your referral.
== END | disposition home or self-care (01) ==
LOC: HO.PTCHIC 07-06 14:57
PROVIDERS: PCP Internal Medicine; Visit Provider Orthopaedic Surgery
DX: M75.01 Adhesive capsulitis of right shoulder (principal)
CPT/HCPCS: 97110; 97140; 97161

== ENCOUNTER → 2022-01-26 12:43 | Outpatient (BNVA) | payer MEDICARE, SELFPAY | PROVIDERS: PCP Internal Medicine; Visit Provider Physician Assistant | DX: Z47.1 Aftercare following joint replacement surgery (principal); Z96.651 Presence of right artificial knee joint | CPT/HCPCS: 99212 ==

== ENCOUNTER 2022-02-28 08:06 | Outpatient (REF) | payer MEDICARE, SELFPAY ==
--- NOTE | ~2022-02-28 | MR_ITS ---
EXAMINATION: MR ABDOMEN WITHOUT AND WITH CONTRAST CLINICAL INFORMATION: Complex cystic lesion left kidney, follow-up. COMPARISON: MR abdomen without and with gadolinium contrast 04/07/2021, 06/25/2020. TECHNIQUE: MR abdomen was performed without and with use of 8 mL intravenous Gadavist gadolinium contrast. Postcontrast images are performed in multiphase dynamic sequences. Imaging was performed in 3 planes. FINDINGS: LUNG BASES: The visualized lung bases are unremarkable. LIVER, GALLBLADDER, AND BILIARY TREE: Normal in size and contour. Homogeneous parenchymal signal without focal parenchymal lesion or intrahepatic ductal dilatation. Decreased signal on out of phase imaging consistent with hepatic steatosis. Prior cholecystectomy. Common duct unremarkable. PANCREAS: Unremarkable. SPLEEN: Normal. ADRENAL GLANDS: Normal. KIDNEYS AND URETERS: Right kidney shows normal parenchymal thickness. No hydronephrosis or perinephric stranding. There are a few tiny stable simple cysts under 5 mm not requiring imaging follow-up. Left kidney has complex predominantly cystic mass from anterior upper and mid pole with overall size stable from prior studies, 5.4 x 4.8 x 6.7 cm. There is no interval solid component. Cyst wall shows enhancement and measures up to 3 mm, similar to prior studies. There are scattered enhancing internal septations up to 3 mm in thickness, similar to prior studies. No interval hemorrhage or other change. Remainder of the left kidney shows normal parenchymal thickness with a few tiny simple cysts under 5 mm not requiring imaging follow-up. No hydronephrosis or perinephric stranding. GASTROINTESTINAL TRACT: No bowel obstruction. No ascites or fluid collection. ABDOMINAL WALL: No significant hernia is appreciated. LYMPH NODES: No lymphadenopathy. VASCULAR: Unremarkable. OSSEOUS STRUCTURES: Marrow signal normal. MR/MR abdomen wo/w con IMPRESSION: -Complex cystic mass left kidney (Bosniak 3) stable from prior studies, measurements approximately 5.4 x 4.8 x 6.7 cm. No interval solid component or change in wall thickness or septation thickness. -No lymphadenopathy.
== END 2022-02-28 08:07 | disposition home or self-care (01) ==
LOC: HO.MRI 08:06
PROVIDERS: Visit Provider Urology
DX: N28.1 Cyst of kidney, acquired (principal)
CPT/HCPCS: 74183; A9585

== ENCOUNTER 2022-03-16 11:00 | Outpatient (RCR) | payer MEDICARE, SELFPAY ==
--- NOTE | 2022-01-26 13:46 | MHC.PT.EP ---
[facility] [place] Office [place] Office [place] Office [address] Rahul Castillo [address] [phone] F: [phone] F: [phone] F: [phone] F: [phone] Physical Therapy Plan of Care Date of Evaluation: Date of Surgery: 01/10/22 Diagnosis: S/P Rt TKA Assessment: 66 YO FEMALE REF TO PT S/P Rt TKA ON 01/10/22. SHE RECEIVED STR AT [facility] AND WAS D/C'D 01/26/22. UPON EXAM, IMPAIRMENTS INCLUDE DECREASED Rt LE ROM AND STRENGTH, HEALING INCISION Rt ANT KNEE, MILD DYNAMIC BALANCE DEFICITS AND ALTERED GAIT PATTERN W W/WALKER, DECREASED POSTURAL AWARENESS, AND INCREASED PAIN. FUNCTIONAL LIMITATIONS INCLUDE ALTERED GAIT MECHANICS, INCR UEs USAGE W TRANSFERS, AND DIFFICULTY WITH STAIR MGMT. Pt WOULD BENEFIT FROM PT TO ADDRESS THE ABOVE FINDINGS, PROGRESS FUNCTIONAL INDEPENDENCE, PAIN MANAGEMENT, AND TO DEV A PROGRESSIVE HEP/ SELF-SX MGMT PROGRAM. Frequency and Duration: The patient will be seen 2 x WK x 8 WKS Short Term Goals: Pt DEMON PROPER QUAD SET IN 1 WK Pt'S KNEE PAIN DECREASED TO 2-3/10 IN 2 WKS Pt DEMON WFL AROM HIP EXT AND ANKLE DF/PF AND AROM RIGHT KNEE 0* TO 120* IN 3 WKS Pt DEMO IMPROVED GAIT MECH W LEAST RESTRICTIVE AD ON LEVEL GROUND AND STAIRS IN 2 WKS Pt INDEP W SCAR MOBILITY RIGHT ANT KNEE IN 3 WKS Embalmer Assistant Goals: Pt INDEP W HEP PROGRESSION AND SELF-SX MGMT STRATEGIES IN 8 WKS Pt RESUME REG ADLs EVIDENT W IMPROVED LEFI SCORE BY 8-10 POINTS (AT EVAL ) IN 8 WKS Pt INCR Rt LE STRENGTH BY 1 GRADE IN 8 WKS Treatment Plan: Modalities to reduce pain, spasms and effusion. Manual therapy to restore motion and function. Therapeutic exercise to improve strength and flexibility. Neuromuscular re-education for posture and balance. Therapeutic activities to return to functional activities of daily living. Electronically signed by: Sayra Bowers,PT Please sign and return to therapist. Thank you for your referral.
--- NOTE | 2022-03-21 08:01 | MHC.PT.DC ---
[facility] [place] Office [place] Office [place] Office [address] Rahul Castillo [address] [phone] F: [phone] F: [phone] F: [phone] F: [phone] Physical Therapy Discharge Report Diagnosis: S/P Rt TKA Date of Surgery: 01/10/22 Date of Evaluation: 01/26/22 Date of Discharge: 03/21/22 Treatments to Date: 17 Cancellations to Date: 1 No Shows to Date: Discharge Status: Discharge Summary: Patient I with HEP, understands going to [facility] to continue with bike work and importance of movement on her own. She was highly instructed on increasing her sedentary lifestyle however demos good ROM and is ready for DC after 17 visits for PT. Electronically signed by: Dorene Ysuuf, PT Please sign and return to therapist. Thank you for your referral.
== END 2022-03-21 08:01 | disposition home or self-care (01) ==
LOC: HO.PTCHIC 11:00
PROVIDERS: Visit Provider Physician Assistant
DX: Z96.651 Presence of right artificial knee joint (principal)
CPT/HCPCS: 97110; 97140; 97161; 97530

== ENCOUNTER 2022-04-10 10:26 | Outpatient (REF) | payer MEDICARE, SELFPAY ==
--- NOTE | ~2022-04-10 | US_ITS ---
EXAMINATION: BILATERAL LOWER EXTREMITY VENOUS ULTRASOUND (REFLUX EXAM) CLINICAL INDICATION: Lower extremity varicose veins. COMPARISON: None TECHNIQUE: Color flow triplex imaging and compression Doppler was performed to evaluate both the deep and the superficial systems bilaterally. To evaluate the superficial system, the examination was performed in the upright position. Color-flow Doppler ultrasound and compression ultrasound were utilized. In addition, maneuvers were utilized to demonstrate reflux. FINDINGS: SUPERFICIAL ULTRASOUND WITH DOPPLER OF RIGHT LOWER EXTREMITY GREAT SAPHENOUS VEIN: Saphenofemoral junction: 8 mm Max diameter: 8 mm Min diameter: 3 mm Reflux: There is reflux throughout the great saphenous vein beginning at the junction/proximal thigh and extending to the ankle. Reflux measures up to 3 seconds. DUPLICATED MEDIAL GREAT SAPHENOUS VEIN: Max Diameter: None imaged. Reflux: NA DUPLICATED LATERAL GREAT SAPHENOUS VEIN: Diameter: 3 mm at the junction and 3 mm at the mid thigh. Reflux: There is reflux throughout the lateral duplicated great saphenous vein measuring up to 1.3 seconds at the junction. SMALL SAPHENOUS VEIN: Proximal Calf: 2 mm Distal Calf: 2 mm Reflux: There is reflux throughout the right small saphenous vein measuring up to 0.5 seconds within the proximal calf. VEIN OF GIACOMINI: None imaged. PERFORATORS: Location: Proximal calf measuring 2 mm. Reflux: There is greater than 2 seconds of reflux within a proximal calf jigsawyer. VARICOSITIES: Location: Proximal thigh and proximal calf measuring between 3 and 4 mm. Reflux: Reflux is demonstrated in multiple right lower extremity varicosities up to 1.9 seconds. DEEP VENOUS ULTRASOUND OF THE RIGHT LOWER EXTREMITY: Common Femoral Vein: Compressible, normal respiratory variation and augmented flow. Femoral vein: Compressible, normal color flow and augmentation. Popliteal Vein: Compressible, normal augmentation. Deep Reflux: There is no evidence of reflux in the deep system in either the common femoral vein or the popliteal vein. Kamara's Cyst: There is no evidence of a Kamara's cyst. SUPERFICIAL ULTRASOUND WITH DOPPLER OF LEFT LOWER EXTREMITY GREAT SAPHENOUS VEIN: Saphenofemoral junction: 7 mm Max diameter: 7 mm Min diameter: 2 mm Reflux: There is segmental reflux throughout the left great saphenous vein from above the knee to below the knee up to 3.2 seconds. DUPLICATED MEDIAL GREAT SAPHENOUS VEIN: Max Diameter: None imaged. Reflux: NA DUPLICATED LATERAL GREAT SAPHENOUS VEIN: Diameter: 4 mm at the junction. Reflux: None SMALL SAPHENOUS VEIN: Proximal Calf: 3 mm Distal Calf: 2 mm Reflux: There is greater than 1.1 seconds of reflux within the distal calf. VEIN OF GIACOMINI: None imaged. PERFORATORS: Location: Proximal and mid calf measuring 3 mm each. Reflux: None VARICOSITIES: Location: Proximal thigh and knee measuring 3 mm. Reflux: There is up to 2.7 seconds of reflux within the proximal thigh varicosity. DEEP VENOUS ULTRASOUND OF THE LEFT LOWER EXTREMITY: Common Femoral Vein: Compressible, normal respiratory variation and augmented flow. Femoral vein: Compressible, normal color flow and augmentation. Popliteal Vein: Compressible, normal augmentation. Deep Reflux: There is no evidence of reflux in the deep system in either the common femoral vein or the popliteal vein. Kamara's Cyst: There is no evidence of a Kamara's cyst. US/US venous duplex LE BI IMPRESSION: 1. Right great saphenous venous insufficiency beginning at the saphenofemoral junction/proximal thigh. 2. Right duplicated lateral great saphenous venous insufficiency beginning at the saphenofemoral junction. 3. Right small saphenous venous insufficiency beginning in the proximal calf. 4. Segmental left great saphenous venous insufficiency from the mid thigh to the knee. 5. Left small saphenous venous insufficiency in the distal calf. 6. Bilateral refluxing varicosities. 7. No evidence of DVT or deep venous insufficiency.
== END 2022-04-10 10:27 | disposition home or self-care (01) ==
LOC: HO.US 10:26
PROVIDERS: Visit Provider Surgery Vascular Surgery
DX: I83.11 Varicose veins of right lower extremity with inflammation (principal)
CPT/HCPCS: 93970

== ENCOUNTER → 2022-04-18 09:58 | Outpatient (BNVA) | payer MEDICARE, SELFPAY | PROVIDERS: PCP Internal Medicine; Visit Provider Surgery Vascular Surgery | DX: I83.11 Varicose veins of right lower extremity with inflammation (principal); I89.0 Lymphedema, not elsewhere classified | CPT/HCPCS: 99212 ==

== ENCOUNTER → 2022-05-05 09:49 | Outpatient (BNVA) | payer MEDICARE, SELFPAY | PROVIDERS: PCP Internal Medicine; Visit Provider Surgery Vascular Surgery | DX: I83.11 Varicose veins of right lower extremity with inflammation (principal) | CPT/HCPCS: 36482 ==

== ENCOUNTER 2022-05-08 15:27 | Outpatient (REF) | payer MEDICARE, SELFPAY ==
--- NOTE | ~2022-05-08 | US_ITS ---
EXAMINATION: RIGHT LOWER EXTREMITY DEEP VENOUS ULTRASOUND CLINICAL INFORMATION: Right leg pain. History of great saphenous vein Venaseal May 05, 2022 COMPARISON: Bilateral lower extremity venous ultrasound April 10, 2022 TECHNIQUE: Duplex Doppler imaging with compression maneuvers were performed of the right lower extremity deep venous system. FINDINGS: The visualized common femoral, femoral and popliteal veins demonstrate normal compressibility and color flow without evidence of venous thrombosis. Visualized portions of the calf veins demonstrate normal color fill-in suggesting patency. The proximal most portion of the great saphenous vein is patent for approximately 6.4 cm. The remainder of the visualized great saphenous vein demonstrates internal echogenicities and is noncompressible consistent with occlusion. There is no evidence of a Kamara's cyst. US/US venous duplex LE RT IMPRESSION: No evidence of deep venous thrombosis involving the right lower extremity.
== END 2022-05-08 15:28 | disposition home or self-care (01) ==
LOC: HO.US 15:27
PROVIDERS: Visit Provider Surgery Vascular Surgery
DX: M79.604 Pain in right leg (principal)
CPT/HCPCS: 93971

== ENCOUNTER → 2022-05-18 12:49 | Outpatient (BNVA) | payer MEDICARE, SELFPAY | PROVIDERS: PCP Internal Medicine; Visit Provider Surgery Vascular Surgery | DX: I83.12 Varicose veins of left lower extremity with inflammation (principal); I89.0 Lymphedema, not elsewhere classified | CPT/HCPCS: 99212 ==

== ENCOUNTER → 2022-05-26 13:39 | Outpatient (BNVA) | payer MEDICARE, SELFPAY | PROVIDERS: PCP Internal Medicine; Visit Provider Urology | DX: N32.81 Overactive bladder (principal); N28.1 Cyst of kidney, acquired; N81.2 Incomplete uterovaginal prolapse | CPT/HCPCS: 99212 ==

== ENCOUNTER 2022-05-29 08:39 | Outpatient (REF) | payer MEDICARE, SELFPAY ==
--- NOTE | ~2022-05-29 | XR_ITS ---
EXAMINATION: XR KNEE STANDING BILATERAL XR KNEE RIGHT CLINICAL INFORMATION: Knee pain COMPARISON: 01/10/2022 TECHNIQUE: AP standing view both knees [place] view and lateral view of right knee FINDINGS: AP standing view both knees: The femoral and tibial components of the total knee arthroplasty articulate normally. No osteolysis or fracture around the hardware. At the left knee, there is moderate narrowing of lateral tibiofemoral joint space with subarticular sclerosis and osteophytosis. Small osteophytes are present at the medial compartment. Right knee: Normal alignment at patellofemoral and tibiofemoral compartments. The patella is well-positioned within the trochlea. Soft tissues are unremarkable. XR/XR knee RT 2V IMPRESSION: * There is satisfactory position and alignment of components of the right total knee arthroplasty. No evidence of hardware loosening or periprosthetic fracture. 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
--- NOTE | ~2022-05-29 | XR_ITS ---
EXAMINATION: XR KNEE STANDING BILATERAL XR KNEE RIGHT CLINICAL INFORMATION: Knee pain COMPARISON: 01/10/2022 TECHNIQUE: AP standing view both knees [place] view and lateral view of right knee FINDINGS: AP standing view both knees: The femoral and tibial components of the total knee arthroplasty articulate normally. No osteolysis or fracture around the hardware. At the left knee, there is moderate narrowing of lateral tibiofemoral joint space with subarticular sclerosis and osteophytosis. Small osteophytes are present at the medial compartment. Right knee: Normal alignment at patellofemoral and tibiofemoral compartments. The patella is well-positioned within the trochlea. Soft tissues are unremarkable. XR/XR knee standing BI IMPRESSION: * There is satisfactory position and alignment of components of the right total knee arthroplasty. No evidence of hardware loosening or periprosthetic fracture. 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
== END 2022-05-29 08:40 | disposition home or self-care (01) ==
LOC: HO.HOSX 08:39
PROVIDERS: Visit Provider Orthopaedic Surgery
DX: Z96.651 Presence of right artificial knee joint (principal)
CPT/HCPCS: 73560; 73565; 99212

== ENCOUNTER → 2022-06-16 07:45 | Outpatient (BNVA) | payer MEDICARE, SELFPAY | PROVIDERS: PCP Internal Medicine; Visit Provider Surgery Vascular Surgery | DX: I83.12 Varicose veins of left lower extremity with inflammation (principal) | CPT/HCPCS: 36482 ==

== ENCOUNTER 2022-06-19 08:56 | Outpatient (REF) | payer MEDICARE, SELFPAY ==
--- NOTE | ~2022-06-19 | US_ITS ---
EXAMINATION: TRIPLEX SCANNING OF LEFT LOWER EXTREMITY; SUPERFICIAL ULTRASOUND WITH DOPPLER OF LEFT LOWER EXTREMITY CLINICAL INFORMATION: Status post Venaseal of a 2.5 cm segment of the left great saphenous vein Ambulatory phlebectomy performed: No COMPARISON: preprocedure studies as recently as 05/08/22 TECHNIQUE: Color flow triplex imaging and compression Doppler were performed as well as superficial ultrasound with Doppler. FINDINGS: LEFT LOWER EXTREMITY DEEP VENOUS SYSTEM: Respiratory variation, normal compression and augmented flow are noted throughout the lower extremity. The visualized common femoral vein, femoral vein, profunda femoral vein, popliteal vein and the calf veins show no evidence of deep venous thrombosis. There is no evidence of Kamara's cyst. SUPERFICIAL VENOUS SYSTEM: The great saphenous vein is occluded from the access site to just before the saphenofemoral junction. There is no extension of thrombus into the deep system. US/US venous duplex LE LT IMPRESSION: 1. No evidence of DVT. 2. Expected appearance status post ablation of the left great saphenous vein.
== END 2022-06-19 08:57 | disposition home or self-care (01) ==
LOC: HO.US 08:56
PROVIDERS: Visit Provider Surgery Vascular Surgery
DX: M79.605 Pain in left leg (principal)
CPT/HCPCS: 93971

== ENCOUNTER 2022-07-01 11:10 | Outpatient (REF) | payer MEDICARE, SELFPAY ==
[2022-07-01 13:50] LABS: MANUAL DIFF FLAG NO
[2022-07-01 13:51] LABS: Basophils Absolute Auto 0.1 X10*3/uL (0.0-0.2); Basophils Percent Auto 1.7 % (0-2); Eosinophils Absolute Auto 0.5 X10*3/uL (0.0-0.4); Eosinophils Percent Auto 8.3 % (0-4); Hematocrit 39.7 % (37.0-47.0); Hemoglobin 12.8 g/dl (12.0-16.0); Imm Gran Abs Auto 0.02 X10*3/uL (0.00-0.03); Imm Gran Pct Auto 0.3 % (0.0-0.4); Lymphocytes Absolute Auto 1.9 X10*3/uL (1.2-4.9); Mean Corpuscular HGB Conc 32.2 g/dl (31.0-35.0); Mean Corpuscular Hemoglobin 29.2 pg (27.0-33.0); Mean Corpuscular Volume 90.6 fL (80.0-98.0); Mean Platelet Volume 10.8 fL (9.4-12.3); Monocytes Absolute Auto 0.5 X10*3/uL (0.1-1.2); Monocytes Percent Auto 8.8 % (2-11); Neutrophils Absolute Auto 2.8 x10*3/uL (2.0-8.3); Neutrophils Percent Auto 47.9 % (45-73); Platelet Count 314 X10*3/uL (160-400); Red Blood Count 4.38 X10*6/uL (4.20-5.50); White Blood Count 5.9 X10*3/uL (4.8-10.8)
[2022-07-01 14:08] LABS: Blood Urea Nitrogen 26 mg/dL (9-16); Estimated Glomerular Filt Rate 29; Iron 148 mcg/dL (30-160); Percent Iron Saturation 38 % (15-50); Total Iron Binding Capacity 394 mcg/dL (228-428); Unsaturated Iron Binding 246 ug/dL
== END 2022-07-01 11:11 | disposition home or self-care (01) ==
LOC: HO.HMGCLDS 11:10
PROVIDERS: Absent Provider Urology; PCP Internal Medicine; Referring Provider Internal Medicine Nephrology; Visit Provider Internal Medicine
DX: N28.1 Cyst of kidney, acquired (principal); D64.9 Anemia, unspecified
CPT/HCPCS: 36415; 82565; 83540; 84520; 85025

== ENCOUNTER → 2022-07-04 11:46 | Outpatient (BNVA) | payer MEDICARE, SELFPAY | PROVIDERS: PCP Internal Medicine; Visit Provider Surgery Vascular Surgery | DX: I83.11 Varicose veins of right lower extremity with inflammation (principal); I83.12 Varicose veins of left lower extremity with inflammation; I89.0 Lymphedema, not elsewhere classified | CPT/HCPCS: 99212 ==

== ENCOUNTER → 2022-09-13 14:28 | Outpatient (BNVA) | payer MEDICARE, SELFPAY | PROVIDERS: PCP Internal Medicine; Visit Provider Urology | DX: N28.1 Cyst of kidney, acquired (principal); N39.3 Stress incontinence (female) (male); N81.89 Other female genital prolapse | CPT/HCPCS: 52000; 99212 ==

== ENCOUNTER 2022-11-02 13:37 | Outpatient (REF) | payer MEDICARE, SELFPAY ==
--- NOTE | ~2022-11-02 | MR_ITS ---
EXAMINATION: MR ABDOMEN WITHOUT AND WITH CONTRAST CLINICAL INFORMATION: Left renal cyst COMPARISON: MR abdomen 02/28/2022 TECHNIQUE: MRI of the abdomen before and after the IV administration of 8 mL of Gadavist was obtained using routine sequences. FINDINGS: LUNG BASES: The visualized lung bases are unremarkable. KIDNEYS AND URETERS: A 6.0 x 5.4 cm multiseptated cystic left renal mass which demonstrates few enhancing irregular septa, previously 5.7 x 5.5 cm, possibly minimally increased in maximal dimension. No new new enhancing nodules. Bilateral Bosniak 1 renal cysts, no imaging follow-up recommended for Bosniak 1 renal cysts. GALLBLADDER: Status post cholecystectomy. LIVER AND BILIARY TREE: Loss of signal on opposed phase imaging suggesting hepatic steatosis. No intra or extrahepatic biliary duct dilatation. PANCREAS: Unremarkable SPLEEN: Unremarkable ADRENAL GLANDS: Unremarkable GASTROINTESTINAL TRACT: Colonic diverticulosis without evidence of diverticulitis. LYMPH NODES: No lymphadenopathy. VASCULAR: Unremarkable ABDOMINAL WALL: Unremarkable. OSSEOUS STRUCTURES: Unremarkable. MR/MR abdomen wo/w con IMPRESSION: A 6.0 cm multiseptated cystic left renal mass which demonstrates few enhancing irregular septations compatible with a Bosniak 3 renal mass, minimally increased in size in maximal dimension, previously 5.7 cm. Bosniak 3 masses have intermediate probability of being malignant, is not already obtained recommend urologic consultation. Loss of signal on opposed phase imaging stressing hepatic steatosis.
== END 2022-11-02 13:38 | disposition home or self-care (01) ==
LOC: HO.MRI 13:37
PROVIDERS: PCP Internal Medicine; Visit Provider Urology
DX: N28.1 Cyst of kidney, acquired (principal)
CPT/HCPCS: 74183; A9585

== ENCOUNTER 2022-12-08 09:39 | Outpatient (REF) | payer MEDICARE, SELFPAY ==
--- NOTE | ~2022-12-08 | XR_ITS ---
EXAMINATION: XR RIGHT KNEE XR BILATERAL KNEES CLINICAL INDICATIONS: Right knee pain. COMPARISON: Right knee 05/29/2022. TECHNIQUE: 2 views. FINDINGS: There is a total right knee prosthesis with prosthetic components in satisfactory alignment. The periprosthetic bone is preserved with no evidence of loosening. No visible acute fracture or loose body seen. There is no abnormal joint effusion. XR/XR knee RT 2V IMPRESSION: Total right knee prosthesis in satisfactory position and alignment. No change from 05/30/2022.
--- NOTE | ~2022-12-08 | XR_ITS ---
EXAMINATION: XR RIGHT KNEE XR BILATERAL KNEES CLINICAL INDICATIONS: Right knee pain. COMPARISON: Right knee 05/29/2022. TECHNIQUE: 2 views. FINDINGS: There is a total right knee prosthesis with prosthetic components in satisfactory alignment. The periprosthetic bone is preserved with no evidence of loosening. No visible acute fracture or loose body seen. There is no abnormal joint effusion. XR/XR knee standing BI IMPRESSION: Total right knee prosthesis in satisfactory position and alignment. No change from 05/30/2022.
== END 2022-12-08 09:40 | disposition home or self-care (01) ==
LOC: HO.HOSX 09:39
PROVIDERS: Visit Provider Orthopaedic Surgery
DX: M17.12 Unilateral primary osteoarthritis, left knee (principal); Z96.651 Presence of right artificial knee joint
CPT/HCPCS: 73560; 73565; 99212

== ENCOUNTER 2022-12-12 09:55 | Outpatient (REF) | payer MEDICARE, SELFPAY ==
--- NOTE | ~2022-12-12 | MM_ITS ---
EXAMINATION: MM SCREENING DIGITAL BREAST TOMOSYNTHESIS, BILATERAL CLINICAL INFORMATION: Screening. Asymptomatic. The lifetime risk of breast cancer based on the Tyrer-Cuzick Model is 10.9%. COMPARISON: Mammography: December 06, 2021 and studies dating back to September 08, 2016 TECHNIQUE: Digital breast tomosynthesis is performed in both the craniocaudal and mediolateral oblique views along with computer-aided detection (CAD). Synthesized 2D images are generated from the tomosynthesis. FINDINGS: There are scattered areas of fibroglandular density (ACR BI-RADS breast composition Category b). There are no new significant masses, abnormal calcifications, or other abnormalities. Stable left breast density again seen. MM/MM tomosynthesis screening BI IMPRESSION: No significant changes from prior exam. ASSESSMENT: BI-RADS 1: Negative RECOMMENDATION: Routine annual mammography screening. This patient's information was entered into a reminder system with a target due date for their next mammogram.
== END 2022-12-12 09:56 | disposition home or self-care (01) ==
LOC: HO.MAMMO 09:55
PROVIDERS: PCP Internal Medicine; Visit Provider Internal Medicine
DX: Z12.31 Encounter for screening mammogram for malignant neoplasm of breast (principal)
CPT/HCPCS: 77063; 77067

== ENCOUNTER → 2022-12-13 13:28 | Outpatient (BNVA) | payer MEDICARE, SELFPAY | PROVIDERS: PCP Internal Medicine; Visit Provider Urology | DX: N28.1 Cyst of kidney, acquired (principal); I12.9 Hypertensive chronic kidney disease with stage 1 through stage 4 chronic kidney disease, or unspecified chronic kidney disease; N18.30 Chronic kidney disease, stage 3 unspecified | CPT/HCPCS: 99212 ==

== ENCOUNTER 2022-12-30 10:38 | Outpatient (REF) | payer MEDICARE, SELFPAY ==
[2022-12-30 12:03] LABS: Estimated Average Glucose 108 mg/dL; Hemoglobin A1c % 5.4 %
[2022-12-30 12:26] LABS: Alanine Aminotransferase 15 U/L (0-31); Anion Gap 13 (12-20); Aspartate Amino Transferase 17 U/L (5-31); Blood Urea Nitrogen 28 mg/dL (9-16); Calcium 9.9 mg/dL (8.4-10.2); Carbon Dioxide 26 mmol/L (22-29); Chloride 108 mmol/L (96-108); Cholesterol 227 mg/dL; Estimated Glomerular Filt Rate 33; Glucose Fasting 96 mg/dL (60-99); HDL Cholesterol 60 mg/dL; LDL Cholesterol Calculated 147 mg/dl; Potassium 4.3 mmol/L (3.3-5.1); Sodium 143 mmol/L (135-145); Triglycerides 101 mg/dL
== END 2022-12-30 10:39 | disposition home or self-care (01) ==
LOC: HO.HMGCLDS 10:38
PROVIDERS: Absent Provider Internal Medicine Nephrology; PCP Internal Medicine; Referring Provider Urology; Visit Provider Internal Medicine
DX: I12.9 Hypertensive chronic kidney disease with stage 1 through stage 4 chronic kidney disease, or unspecified chronic kidney disease (principal); N18.9 Chronic kidney disease, unspecified; R73.01 Impaired fasting glucose; E78.5 Hyperlipidemia, unspecified
CPT/HCPCS: 36415; 80048; 80061; 83036; 84450; 84460

== ENCOUNTER 2023-01-02 10:46 | Outpatient (AMB) | payer MEDICARE, SELFPAY ==
--- OUTSIDE RECORDS SUMMARY | 2023-01-02 10:48 | XMS_ITS ---
Author Name Sami Reyez Address [address] [place] [address] Organization [facility] Address [address] [place] [address] Care Team Providers Care Svp Of Digital Name Role Phone Sami Reyez Unavailable [phone] PROBLEMS Type Condition ICD9-CM Code IPS53-CE Code Onset Dates Condition Status SNOMED Code Problem Barretts esophagus without dysplasia K22.70 Active 791350832 Problem Esophageal stricture K22.2 Active 89410150 Problem Esophageal dysphagia R13.14 Active 09807202 Problem Encounter for screening for malignant neoplasm of rectum Z12.12 Active 067101312 Problem Encounter for screening for malignant neoplasm of colon Z12.11 Active [id number] ALLERGIES No Known Allergies ENCOUNTERS Encounter Location Date Diagnosis [facility] Outpatient [address] [place] [id number] January, Gastroesophageal reflux K21.9 ; Other specified diseases of esophagus K22.8 ; Hiatal hernia K44.9 and Gastric polyps K31.7 [facility] [address] [place] [phone] January, Barretts esophagus without dysplasia K22.70 [facility] [address] [place] [phone] January, [facility] [address] [place] [phone] Aug, Esophageal stricture K22.2 and Barretts esophagus without dysplasia K22.70 [facility] [address] [place] [address] Jun, [facility] [address] [place] [address] May, [facility] [address] [place] [phone] Mar, [facility] [address] [place] [address] Mar, [facility] [address] [place] [address] Feb, [facility] Outpatient [address] [place], [place] [phone] Feb, [facility] [address] [facility] [place] [address] Nov, Esophageal dysphagia R13.14 ; Encounter for screening for malignant neoplasm of colon Z12.11 and Encounter for screening for malignant neoplasm of rectum Z12.12 IMMUNIZATIONS Vaccine Route Administration Date Status Influenza Unknown May 18, 2020 Administered SOCIAL HISTORY Never Assessed REASON FOR REFERRAL FUNCTIONAL STATUS PLAN OF CARE Activity Details VITAL SIGNS Weight 189 lbs 2021-02-03 Weight 177 lbs 2017-09-13 Weight 183 lbs 2016-12-06 Height 65 in 2021-02-03 Height 65 in 2017-09-13 Height 65 in 2016-12-06 BMI 31.45 kg/m2 2021-02-03 BMI 29.45 kg/m2 2017-09-13 BMI 30.45 kg/m2 2016-12-06 Heart Rate 68 /min 2016-12-06 Temperature 98.4 degrees Fahrenheit Blood pressure systolic 000 mm Hg Blood pressure diastolic 00 mm Hg 2021-01 MEDICATIONS Medication Instructions Dosage Frequency Start Date End Date Duration Status Diclofenac Sodium 1 % APPLY TWO grams TO THE AFFECTED AREA(s) FOUR TIMES DAILY 8 Active DOK 100 MG TAKE ONE CAPSULE TWICE DAILY 30 Active Lisinopril-hyd roCHLOROthiazi de 20-25 MG Orally Once a day 1 tablet 24h Active Calcium Active Carvedilol 12.5 MG TAKE ONE TABLET TWICE DAILY 30 Active HM Famotidine 10 MG TAKE ONE TABLET TWICE DAILY 30 Active Aspir-81 81 MG Orally Once a day 1 tablet 24h Active Vitamin D3 1.25 MG (74103 UT) TAKE ONE CAPSULE BY MOUTH ONCE A WEEK 84 Active PROCEDURES Procedure Date Ordered Result Body Site BP SCR PRFRM RCMDD DEFIND SCR INTVL February 03, 2021 TOBACCO NON-USER February 03, 2021 DOC MEDS VERIFIED W/PT OR RE February 03, 2021 COLORECTAL CA SCREEN DOC REV February 03, 2021 UPPER GI ENDOSCOPY, BIOPSY February 09, 2021 RESULTS Name Result Date Reference Range GI BIOPSY 2017-02-23 G.I. BIOPSY REASON FOR VISIT duncan's, PATIENT PRESENTS TODAY FOR UPPER ENDO RECALL, COVID Screen, patient presents today for esophageal stricture, esophageal stricture, Cancel OV on 06/22/17, questioning sooner apt, refill request/omeprazole caps, Looking for refill, dysphagia, screening, Patient presents for colon screening , screening colonoscopy Insurance Providers Health Insurance Type Health Plan Insurance Address Health Plan Insurance Phone Health Plan Insurance Name Health Plan Coverage Dates Member ID Patient Relationship to Subscriber Patient Address Patient Phone Patient Name Patient Date of Subscriber ID Subscriber Name Subscriber Date of Group No [facility] [address] [facility] [phone] [facility] self YAMIL WILBUR-[place] JAGDISH [id number] [facility] Health Plan [address] [address] [facility] [id number] [facility] Plan self YAMIL WILBUR-[place] SSEGUERO [id number] [facility] [address] [address] [facility] [id number] [facility] self YAMIL [place]IL[place] RADHALIN [id number]
[2023-01-02 10:54] VITALS: BP 114/74; PULSE 80; O2SAT 97; BMI 30.2
--- NOTE | 2023-01-02 10:54 | A.OFFPC_ITS ---
Vital Signs 01/02/23 10:54 Height 5 ft 4 in Weight 176 lb 6 oz BMI 30.2 BP 114/74 Blood Pressure Location Rt brachial Position Sitting Pulse 80 Pulse Source Pulse Oximeter Pulse Oximetry (%) 97 Oxygen Delivery Method Room Air Intake Visit Reasons: 6 month follow up Intake Note: Pt is here today for her 6 month f/u. Allergies No Known Allergies Allergy (Verified 10/10/23 21:45) Medication List - Last Reconciled 01/02/23 by Shanna Parker MD carvedilol 12.5 mg PO BID docusate sodium 100 mg PO BID 14 days geriatric hrsvjuvf-hzeu-htwl 1 tab PO DAILY lisinopril-hydrochlorothiazide 20-25 mg 1 tab PO DAILY melatonin mg PO walker Folding front wheeled walker Tobacco use date assessed: 01/02/23 Fall risk assessment: No Falls in past year Last assessed Fall Risk: 01/02/23 HPI 6 month follow up HPI Details 67-year-old lady with hypertension, toda y for follow-up. Currently taking lisinopril-HCTZ and carvedilol, with blood pressure stable and controlled on present treatment. She has been feeling well, with no complaints at present time . She has chronic kidney disease stage 3, followed by Dr. Bailey, and has renal cyst, followed by Dr. Mcgill [facility] Medical History BRCA gene mutation negative Tremor of both hands Right shoulder pain Levoscoliosis of lumbar spine Lumbago Gait instability Anemia HTN (hypertension) Aaron's esophagus without dysplasia Hypertensive nephrosclerosis Impaired fasting glucose Chronic kidney disease, stage 3 Varicose veins of both lower extremities Menopause ovarian failure CKD (chronic kidney disease) Renal cyst, left Cataract Right ovarian cyst GERD (gastroesophageal reflux disease) Dyslipidemia Essential hypertension Surgical History History of lateral meniscus repair of left knee History of esophagogastroduodenoscopy (EGD) Hx of colonoscopy Cataract extraction status of left eye Cataract extraction status of right eye Hx of cholecystectomy History of removal of skin mole History of knee surgery Family History Father Unknown family medical history Mother Breast cancer Maternal Aunt Breast cancer Son No problems noted. Daughter No problems noted. Social History Household Members: Spouse Housing: Condominium Are you a primary pediatric acute care unit nurse to a significant other at home: No Do you presently have visiting nurse or other home services: No Alcohol intake: never Patient Tobacco Use Status: Never used Tobacco e-Cigarette/Vaping Use: Never Used Advance Directives Date on File: 07/04/22 service: No Current occupational status: unemployed Current occupation: Right Handed Gender identity: Female Cognitive needs: No Hearing needs: No Vision needs: Yes Female Reproductive History Menstrual Age of Menarche: 10 Questionnaire PHQ-9 Over the last 2 weeks, how often have you been bothered by any of the following problems? 1. Little interest or pleasure in doing things: not at all 2. Feeling down, depressed, or hopeless: not at all 3. Trouble falling or staying asleep, or sleeping too much: not at all 4. Feeling tired or having little energy: several days 5. Poor appetite or overeating: not at all 6. Feeling bad about yourself - or that you are a failure or have let yourself or your family down: not at all 7. Trouble concentrating on things, such as reading the newspaper or watching television: not at all 8. Moving or speaking so slowly that other people could have noticed. Or the opposite - being so fidgety or restless that you have been moving around a lot more than usual: not at all 9. Thoughts that you would be better off or of hurting yourself in some way: not at all Total score: 1 Depression Screening Interpretation: Negative 05812 - PHQ-9 Billing: Yes Source: Developed by Drs. Sami Caraballo, Brittaney Starks, Travon Canales and colleagues, with an educational zion from [employer]. Thrive Questionnaire Declines Thrive assessment: No Date Thrive assessed: 01/02/23 I am a: Patient What is your living situation today?: I have a steady place to live Within the past 12 months, did the food you bought not last and you didn't have the money to get more?: Never true Within the past 12 months, did you worry whether your food would run out before you got money to buy more?: Never true Do you have trouble paying for medicines?: No Do you have trouble getting transportation to medical appointments?: No Do you have trouble paying your heating and electricity bill?: No Do you have trouble taking care of your child, family member or friend?: No Do you have trouble with day-to-day activities such as bathing, preparing meals, shopping, managing finances, etc.?: No Are you currently unemployed and looking for a job?: No Are you interested in more education?: No AUDIT C Alcohol Use Questionnaire (AUDIT-C) 1. How often do you have a drink containing alcohol?: Never Total Score: 0 JUAN M-7 AMB Questionnaire JUAN M-7 Date JUAN M - 7 assessed: 01/02/23 Feeling nervous, anxious, or on edge: 0 = Not at all Not being able to stop or control worryin = Not at all Worrying too much about different things: 0 = Not at all Trouble relaxin = Several days Being so restless that it is hard to sit still: 0 = Not at all Becoming easily annoyed or irritable: 1 = Several days Feeling afraid as if something awful might happen: 0 = Not at all Total JUAN M-7 score (0-4 normal; 5-9 mild; 10-14 moderate; 15-21 severe): 2 Source: Developed by Drs. Sami Caraballo, Brittaney Starks, Travon Canales and colleagues, with an educational zion from [employer]. JUAN M-7 Assessment Billing JUAN M-7 Assessment Tool: JUAN M-7 Assessment 15019 Review of Systems Const Denies fatigue, Denies fever(s) and Denies lethargy Eyes Denies change in vision ENT Reports no additional complaints Card Denies chest pain, Denies irregular heart rhythm, Denies lightheadedness and Denies dyspnea Resp Denies chest congestion, Denies cough and Denies dyspnea GI Reports no additional complaints Reports urinary incontinence (ff;d by Urology, currently on Mirabegron) Musc Reports arthralgias and Reports stiffness Skin/Breast Denies breast pain, Denies breast mass and Denies rash Neuro Reports no additional complaints Psych Reports no additional complaints Endo Denies fatigue Gurjit/Lymph Denies easy bleeding and Denies easy bruising Physical exam (Primary Care) Vital Signs: Last Vital Signs Pulse 80 04/18/23 10:54 BP 114/74 01/02/23 10:54 Pulse Ox 97 01/02/23 10:54 Oxygen Delivery Method Room Air 01/02/23 10:54 BMI result Body Mass Index 30.2 Tobacco/Smoking Status: Tobacco use Status Tobacco use date assessed 01/02/23 01/02/23 11:01 Patient Tobacco Use Status Never used Tobacco 01/02/23 11:01 e-Cigarette/Vaping Use Never Used 01/02/23 11:01 PHQ-9: PHQ-9 Score PHQ-9: Total score 1 01/02/23 11:41 Depression Screening Interpretation: Negative Thrive Assessment: Date of Thrive Assessment Date Thrive assessed 01/02/23 01/02/23 11:01 Const General: comfortable, no acute distress and alert Orientation/consciousness: patient oriented x3 Limitations: ambulation with cane HENMT Ears: external ears normal General nose exam: Normal external nose present and No nasal discharge present Face and sinus: Yes face symmetric Eyes General: appearance normal, both eyes and all related structures Neck Neck: Yes full ROM, Yes no lymphadenopathy and Yes supple Resp Effort & Inspection: normal respiratory effort and able to speak in complete sentences Auscultation: clear to auscultation bilaterally Cardio Rate: regular rate Rhythm: regular rhythm Heart sounds: S1 normal heart sound present and S2 normal heart sound present GI Palpation (GI): Soft to palpation, nontender and no masses Auscultation: normal bowel sounds General: Yes no CVA tenderness Back/Spine/Pelvis Back: no CVA tenderness and No back tenderness Skin General skin exam: no rashes or lesions noted Neuro General: patient oriented x3, moves all extremities, Normal light touch and pain sensation and no focal motor deficits Extrem Other: Faint tremor noted in both hands, right more than the left General: Yes no pedal edema and Yes no calf tenderness Results Reviewed Results Reviewed: ENTERED: 12/30/22-1044 ISREAL THACKER: ORDERED: Met Prof Fast, AST, ALT, Lipid Panel Test Result Flag Reference Site Sodium 143 135-145 mmol/L Potassium 4.3 3.3-5.1 mmol/L CL 108 96-108 mmol/L CO2 26 22-29 mmol/L Gap 13 12-20 BUN 28 H 9-16 mg/dL Creat 1.58 H 0.5-1.4 mg/dL EGFR 33 NOTE: For -[place] individuals, multiply the result by 1.210. Chronic Kidney Disease: Estimated GFR < 60 mL/min/1.73m2 Severe Kidney Disease: Estimated GFR < 15 mL/min/1.73m2 FBS 96 60-99 mg/dL CA 9.9 # 8.4-10.2 mg/dL AST (GOT) 17 5-31 U/L ALT (GPT) 15 0-31 U/L Triglyceride 101 mg/dL Desirable Triglyceride: less than 150 mg/dL Borderline High Triglyceride 150-199 mg/dL High Triglyceride: 200-499 mg/dL Very High Triglyceride: greater than or equal to 5OO mg/dL Chol 227 mg/dL Desirable Cholesterol: less than 200 mg/dL Borderline High Cholesterol: 200-239 mg/dL High Cholesterol: greater than 239 mg/dL LDL Calculated 147 mg/dl Desirable LDL: less than 100 mg/dL Near Optimal/Above Optimal LDL: 110-129 mg/dL Borderline High LDL: 130-159 mg/dL High LDL: 160-189 mg/dL Very High LDL: greater than or equal to 190 mg/dL HDL 60 mg/dL Desirable HDL: greater than 40 mg/dL Note: This HDL assay may give artificially low results in patients with liver disease. Assessment and Plan Assessment & Plan (1) Dyslipidemia: Code(s): E78.5 - Hyperlipidemia, unspecified Plan: Reviewed recent fasting lab results with patient. Continue with adherence to low-cholesterol diet and staying active, doing regular weight-bearing exercise (2) Cyst of kidney, acquired: Code(s): N28.1 - Cyst of kidney, acquired Plan: Followed by Urology (3) Chronic kidney disease, stage 3: Comment: ff'd by Dr monge Code(s): N18.30 - Chronic kidney disease, stage 3 unspecified Plan: Stable, followed by Dr. Bailey. Stressed avoidance of NSAIDs and getting blood pressure and cholesterol levels under good control (4) Essential hypertension: Code(s): I10 - Essential (primary) hypertension Plan: Blood pressure goal is less than 130/80. Continue with current medication. Reinforced importance of following a low sodium diet, getting regular exercise, and lowering stress levels. Orders: Orders Basic Metabolic Panel Fasting 04/17/23 E78.5 - Hyperlipidemia, unspecified, N28.1 - Cyst of kidney, acquired, N18.9 - Chronic kidney disease, unspecified, N18.30 - Chronic kidney disease, stage 3 unspecified, I10 - Essential (primary) hypertension Lipid Panel 04/17/23 E78.5 - Hyperlipidemia, unspecified, N28.1 - Cyst of kidney, acquired, N18.9 - Chronic kidney disease, unspecified, N18.30 - Chronic kidney disease, stage 3 unspecified, I10 - Essential (primary) hypertension Coding Level of Care Code Est Pt Level 4 (98843) Diagnoses Dyslipidemia E78.5 Cyst of kidney, acquired N28.1 Chronic kidney disease, stage 3 N18.30 Essential hypertension I10 Additional Codes JUAN M-7 Assessment Billing - JUAN M-7 Assessment Tool: JUAN M-7 Assessment 93166 ([id number])
== END 2023-01-02 11:51 | disposition home or self-care (01) ==
LOC: HO.HMGC 10:46
PROVIDERS: PCP Internal Medicine; Visit Provider Internal Medicine
DX: I12.9 Hypertensive chronic kidney disease with stage 1 through stage 4 chronic kidney disease, or unspecified chronic kidney disease (principal); N18.30 Chronic kidney disease, stage 3 unspecified; E78.5 Hyperlipidemia, unspecified; N28.1 Cyst of kidney, acquired
CPT/HCPCS: 99214

== ENCOUNTER 2023-02-07 09:00 | Outpatient (RCR) | payer MEDICARE, SELFPAY ==
--- NOTE | 2023-02-07 10:05 | MHC.PT.DC ---
[facility] [place] Office [place] Office [place] [facility] [address] Rahul Castillo [address] [phone] F: [phone] F: [phone] F: [phone] F: [phone] Physical Therapy Discharge Report Diagnosis: pelvic floor Date of Surgery: Date of Evaluation: 10/12/22 Date of Discharge: 02/07/23 Treatments to Date: 9 Cancellations to Date: 3 No Shows to Date: 0 Discharge Status: Improved Function Independent with HEP Discharge Summary: Reviewed HEP and reviewed importance of trialing daily goal journal to facilitate behavioral changes that she would like to see for more accountability. She trialed it for 4 days and states it was helpful but then stopped. She demonstrates significantly improved yqg-uw-diizx mechanics and no longer rocks to get out of chairs - reports able to do this at home most of the time as well. She will still have leakage 50%of the time which sounds like overflow and we reviewed use of timer to time voids d/t decreased urge sensation. At this time she is appropriate for d/c secondary to I with HEP, I with self management, and understanding of urge deferment. Strongly encouraged daily goal setting for accountability as pt has poor HEP compliance. Electronically signed by: Michaela Galeano PT Please sign and return to therapist. Thank you for your referral.
== END 2023-02-07 10:06 | disposition home or self-care (01) ==
LOC: HO.PT 09:00
PROVIDERS: PCP Internal Medicine; Visit Provider Urology
DX: N81.89 Other female genital prolapse (principal); N39.3 Stress incontinence (female) (male)
CPT/HCPCS: 97110; 97112; 97140; 97162

== ENCOUNTER 2023-05-02 08:22 | Outpatient (REF) | payer MEDICARE, SELFPAY ==
[2023-05-02 11:59] LABS: Anion Gap 12 (12-20); Blood Urea Nitrogen 30 mg/dL (9-16); Calcium 10.2 mg/dL (8.4-10.2); Carbon Dioxide 27 mmol/L (22-29); Chloride 108 mmol/L (96-108); Cholesterol 234 mg/dL; Estimated Glomerular Filt Rate 32; Glucose Fasting 109 mg/dL (60-99); HDL Cholesterol 67 mg/dL; LDL Cholesterol Calculated 147 mg/dl; Sodium 143 mmol/L (135-145); Triglycerides 100 mg/dL
== END 2023-05-02 08:23 | disposition home or self-care (01) ==
LOC: HO.HMGCLDS 08:22
PROVIDERS: PCP Internal Medicine; Visit Provider Internal Medicine
DX: E78.5 Hyperlipidemia, unspecified (principal); I12.9 Hypertensive chronic kidney disease with stage 1 through stage 4 chronic kidney disease, or unspecified chronic kidney disease; N18.30 Chronic kidney disease, stage 3 unspecified; N28.1 Cyst of kidney, acquired; N32.81 Overactive bladder
CPT/HCPCS: 36415; 80048; 80061

== ENCOUNTER 2023-05-02 09:09 | Outpatient (AMB) | payer MEDICARE, SELFPAY ==
--- NOTE | 2023-05-02 03:43 | A.OFFVIS_ITS ---
Intake Intake Visit Reasons: 4m follow up Intake Note: Patient presents today for a follow-up on Bosniac III renal cystic mass, referral to Dr. Moreno for evaluation for second opinion: Meds- None Allergies to Antibiotic- No Known Allergies Blood Thinner- None Residential Program Manager Required: No Accompanied by: Self / Same As Patient Allergies No Known Allergies Allergy (Verified 01/02/23 11:19) HPI HPI Comments History of Present Illness Details Nasima is a 68-year-old female who is scheduled today for tele-health visit for a follow up. 05/02/2023? She was last seen by me on 12/13/2022. Nasima has been followed up for complex renal cyst as well as overactive bladder symptoms. She was referred by Dr. 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 She states that she has seen Nurse practitioner in 11/2022, and had an MRI in the end of the March. She is scheduled for another MRI in 10/2023. She states that she has an upcoming tele-health follow up with Dr. Moreno in 10/24/2023. She has discontinued bladder medications. She is thinking about starting to take it again. She has a history of hypertension. She states that she has blood pressure cuff at home, but has not used it recently. She has a history of acid reflux; however she states that it does not bother her. She has a history of lymphedema. In regards to her lower urinary tract symptoms, she has more bladder symptoms since she was not on oxybutynin. At this time, i will try her on Myrbetriq 25 mg daily. Patient concerned about her blood pressure, so we will arrange for a nurse visit in 2 weeks after being on oxybutynin. I did review the side effects associated with oxybutynin do include dry mouth, cognitive changes, and dry eyes and as she is getting older, i do not want to continue her on oxybutynin. Review of chart: The patient uses a walker for assistance. 12/13/2022--3 month follow-up for renal cysts and discussion of MRI results. The patient has been following up with Dr Mcgill for renal cysts. Bosniak 3 cyst in the left kidney and Bosniak 1 cyst in the right kidney. The patient is prescribed oxybutynin for urinary urgency. Has grade 2 cystocele and requests pessary treatment for preventing urinary leakage. Has had PFPT in the past, I have discussed that I not feel pessary management would be beneficial in managing her complaints of urinary urgency and incontinent symptoms Abdomen MRI results reviewed--11/02/2022-- A 6.0 cm multiseptated cystic left renal mass which demonstrates few enhancing irregular septations compatible with a Bosniak 3 renal mass, minimally increased in size in maximal dimension, previ ously 5.7 cm. I have discussed findings concerning for renal malignancy. Plan: Bosniac III renal cystic mass. Referral to Dr. Moreno for evaluation for second opinion. OAB. Pt wants to stop oxybutynin. Discussed behaviorial modificatin. Timed voiding-q 2 hours, reduce caffeine consumption, adequate water intake. Follow-up after 4 months. 05/02/2023-- Plan: Myrbetriq 25 was prescribed. Follow up in 2 weeks with Nurse practitioner. I will have her follow up with me in November as a telehealth. [facility] Medical History Anemia Aaron's esophagus without dysplasia Cataract Chronic kidney disease, stage 3 CKD (chronic kidney disease) Dyslipidemia Essential hypertension GERD (gastroesophageal reflux disease) HTN (hypertension) Hypertensive nephrosclerosis Impaired fasting glucose Menopause ovarian failure Renal cyst, left Right ovarian cyst Varicose veins of both lower extremities Surgical History Cataract extraction status of left eye Cataract extraction status of right eye History of esophagogastroduodenoscopy (EGD) History of knee surgery History of removal of skin mole Hx of cholecystectomy Hx of colonoscopy Family History Father Unknown family medical history Mother Breast cancer Maternal Aunt Breast cancer Son No problems noted. Daughter No problems noted. Social History Household Members: Spouse Housing: Condominium Are you a primary career and guidance counselor to a significant other at home: No Do you presently have visiting nurse or other home services: No Alcohol intake: never Patient Tobacco Use Status: Never used Tobacco e-Cigarette/Vaping Use: Never Used Advance Directives Date on File: 07/12/20 service: No Current occupational status: unemployed Current occupation: Right Handed Gender identity: Female Cognitive needs: No Hearing needs: No Vision needs: Yes Female Reproductive History Menstrual Age of Menarche: 10 Review of Systems Const Reports no additional complaints Eyes Reports no additional complaints ENT Reports no additional complaints Card Denies dyspnea Resp Denies cough and Denies dyspnea GI Reports no additional complaints Reports no additional complaints Musc Reports no additional complaints Skin/Breast Denies rash and Denies unusual bruising Neuro Reports no additional complaints Psych Reports no additional complaints Endo Reports no additional complaints Gurjit/Lymph Reports no additional complaints Aller/Immun Reports no additional complaints Results Reviewed Results Reviewed: Date of Service: 11/02/22 EXAMINATION: MR ABDOMEN WITHOUT AND WITH CONTRAST CLINICAL INFORMATION: Left renal cyst? COMPARISON: MR abdomen 02/28/2022 FINDINGS: LUNG BASES: The visualized lung bases are unremarkable.? KIDNEYS AND URETERS: A 6.0 x 5.4 cm multiseptated cystic left renal mass which demonstrates few enhancing irregular septa, previously 5.7 x 5.5 cm, possibly minimally increased in maximal dimension.? No new new enhancing nodules. Bilateral Bosniak 1 renal cysts, no imaging follow-up recommended for Bosniak 1 renal cysts. GALLBLADDER: Status post cholecystectomy.? LIVER AND BILIARY TREE: Loss of signal on opposed phase imaging suggesting hepatic steatosis. No intra or extrahepatic biliary duct dilatation. PANCREAS: Unremarkable? SPLEEN: Unremarkable? ADRENAL GLANDS: Unremarkable? ? GASTROINTESTINAL TRACT: Colonic diverticulosis without evidence of diverticulitis.? LYMPH NODES: No lymphadenopathy. VASCULAR: Unremarkable ABDOMINAL WALL: Unremarkable.? OSSEOUS STRUCTURES: Unremarkable.? IMPRESSION: ? A 6.0 cm multiseptated cystic left renal mass which demonstrates few enhancing irregular septations compatible with a Bosniak 3 renal mass, minimally increased in size in maximal dimension, previously 5.7 cm. Bosniak 3 masses have intermediate probability of being malignant, is not already obtained recommend urologic consultation. ? Loss of signal on opposed phase imaging stressing hepatic steatosis.? Assessment & Plan Assessment & Plan (1) Renal cyst, acquired, left: Code(s): N28.1 - Cyst of kidney, acquired (2) Cyst of kidney, acquired: Code(s): N28.1 - Cyst of kidney, acquired (3) Overactive bladder: Code(s): N32.81 - Overactive bladder Plan Myrbetriq 25 was prescribed. Follow up in 2 weeks with Nurse practitioner. I will have her follow up with me in November as a telehealth. Medications: New mirabegron ER (Myrbetriq) 25 mg PO DAILY 30 tabs 1RF Patient Instructions: The patient had an opportunity to ask questions regarding treatment plan. All questions were answered. Imaging, Laboratory studies and physical exam results were discussed and reviewed in detail. No major barriers to understanding were identified. The patient expressed understanding and agreement with the above treatment plan.? ? ? The patient is aware they should contact our office by phone for worsening of th eir current condition or the appearance of new symptoms. Compliance is encouraged with any medications and followup testing that is ordered.? ? ? It is a privilege to be allowed the opportunity to participate in the urologic care of your patient. If you have any questions or concerns regarding treatment for the above conditions please do not hesitate to contact me. The office telephone contact is [phone].? ? ? This note is constructed in part using voice recognition software. While every effort has been made to ensure accuracy investment trader errors may have been included.? ? ? Yours sincerely,? ? ? Arthur Ortiz MD? Telehealth Telehealth Location of provider rendering services: practice address Location of patient: address on file Patient Identification confirmed using: Name, : Yes Telehealth method: voice only Patient verbally consented to treatment: Yes Patient verbally consented to billing insurance company: Yes Patient informed of any privacy concerns related to visit: Yes Minutes spent on Phone/Video with Pt.: 29 Coding Level of Care Code Tele New Pt Level 4 (71402) Diagnoses Renal cyst, acquired, left N28.1 Cyst of kidney, acquired N28.1 Overactive bladder N32.81
== END 2023-05-02 09:52 | disposition home or self-care (01) ==
LOC: HO.HUSH 09:09
PROVIDERS: PCP Internal Medicine; Visit Provider Urology
DX: N28.1 Cyst of kidney, acquired (principal); N32.81 Overactive bladder
CPT/HCPCS: 99443

== ENCOUNTER 2023-05-04 08:46 | Outpatient (AMB) | payer MEDICARE, SELFPAY ==
[2023-05-04 08:46] VITALS: BP 128/74; PULSE 73; O2SAT 98; BMI 29.7
--- NOTE | 2023-05-04 08:46 | A.OFFPC_ITS ---
<Statement entered by Shanna Parker MD - 10/19/25 00:00> This note has been administratively?closed. Vital Signs 05/04/23 08:46 Height 5 ft 4 in Weight 173 lb BMI 29.7 BP 128/74 Blood Pressure Location Lt brachial Position Sitting Pulse 73 Pulse Source Pulse Oximeter Pulse Oximetry (%) 98 Oxygen Delivery Method Room Air Intake Visit Reasons: 4 mo follow up Intake Note: Pt is here today for 4 months follow up visit. Allergies No Known Allergies Allergy (Verified 07/30/25 10:33) Medication List - Last Reconciled 05/04/23 by Shanna Parker MD carvedilol 12.5 mg PO BID geriatric pkxbnvla-appy-ldgi 1 tab PO DAILY lisinopril-hydrochlorothiazide 20-25 mg 1 tab PO DAILY melatonin mg PO mirabegron ER (Myrbetriq) 25 mg PO DAILY walker Folding front wheeled walker Tobacco use date assessed: 05/04/23 Dental Screening Dental Screen Date: 05/04/23 Did you have a dental visit in the last 12 months?: Yes Did you have a dental problem in the last 6 months where you did not have access to dental care?: No Was dental information given to patient?: Patient has dentist HPI 4 mo follow up HPI Details 68-year-old lady with dyslipidemia, hist ory of impaired fasting glucose, chronic kidney disease stage 3 in with hypertension, here today for follow-up. She has been compliant with taking her medications and has been following recommended diet, staying active. Blood pressure today is within normal limits. Recent fasting labs showed slightly elevated LDL cholesterol, with elevated fasting glucose [facility] Medical History Acute respiratory disease Osteopenia of multiple sites Parkinson's disease without dyskinesia BRCA gene mutation negative Tremor of both hands Right shoulder pain Levoscoliosis of lumbar spine Lumbago Gait instability Aaron's esophagus without dysplasia Hypertensive nephrosclerosis Chronic kidney disease, stage 3 Varicose veins of both lower extremities Menopause ovarian failure CKD (chronic kidney disease) Renal cyst, left Cataract Right ovarian cyst GERD (gastroesophageal reflux disease) Dyslipidemia Essential hypertension Surgical History History of lateral meniscus repair of left knee History of esophagogastroduodenoscopy (EGD) Hx of colonoscopy Cataract extraction status of left eye Cataract extraction status of right eye Hx of cholecystectomy History of removal of skin mole History of knee surgery Family History Father Unknown family medical history Mother Breast cancer Maternal Aunt Breast cancer Son No problems noted. Daughter No problems noted. Social History Household Members: Spouse Housing: Condominium Are you a primary career services representative to a significant other at home: No Do you presently have visiting nurse or other home services: No Alcohol intake: never Patient Tobacco Use Status: Never used Tobacco e-Cigarette/Vaping Use: Never Used Advance Directives Date on File: 07/04/22 service: No Current occupational status: unemployed Current occupation: Right Handed Gender identity: Female Cognitive needs: No Hearing needs: No Vision needs: Yes Female Reproductive History Menstrual Age of Menarche: 10 Questionnaire Thrive Questionnaire Date Thrive assessed: 01/02/23 JUAN M-7 AMB Questionnaire JUAN M-7 Date JUAN M - 7 assessed: 01/02/23 Source: Developed by Drs. Sami Caraballo, Brittaney Starks, Travon Canales and colleagues, with an educational zion from [employer]. Physical exam (Primary Care) Vital Signs: Last Vital Signs Pulse 73 05/04/23 08:46 BP 128/74 05/04/23 08:46 Pulse Ox 98 05/04/23 08:46 Oxygen Delivery Method Room Air 05/04/23 08:46 BMI result Body Mass Index 29.7 Tobacco/Smoking Status: Tobacco use Status Tobacco use date assessed 05/04/23 05/04/23 08:51 Patient Tobacco Use Status Never used Tobacco 05/04/23 08:51 e-Cigarette/Vaping Use Never Used 05/04/23 08:51 Thrive Assessment: Date of Thrive Assessment Date Thrive assessed 01/02/23 05/04/23 08:51 Results Reviewed Results Reviewed: RUN: 05/04/23 0902 PAGE 1 [facility] [address] [place] [id number] Sharepoint Specialist: Jace Ibrahim M.D. Specimen Inquiry Name: Nasima Hough Age/Sex: 68/F : 1955 Unit#: [id number] Attend Dr: Shanna Parker MD Re05/02/23 Status: DEP [facility] Disch: SPEC : [id number] TOMA: 05/02/23 STATUS: COMP REQ : [id number] RECD: 05/02/23-[address]: Shanna Parker MD COMP: 05/02/23 ENTERED: 05/02/[address] [facility] [address]: ORDERED: Met Prof Fast, Lipid Panel Test Result Flag Reference Site Sodium 143 135-145 mmol/L Potassium 4.0 3.3-5.1 mmol/L CL 108 96-108 mmol/L CO2 27 22-29 mmol/L Gap 12 12-20 BUN 30 H 9-16 mg/dL Creat 1.62 H 0.5-1.4 mg/dL EGFR 32 NOTE: For -Armenian individuals, multiply the result by 1.210. Chronic Kidney Disease: Estimated GFR < 60 mL/min/1.73m2 Severe Kidney Disease: Estimated GFR < 15 mL/min/1.73m2 FBS 109 H 60-99 mg/dL A fasting glucose from 100-125 mg/dl is considered impaired (pre-diabetes). CA 10.2 8.4-10.2 mg/dL Triglyceride 100 mg/dL Desirable Triglyceride: less than 150 mg/dL Borderline High Triglyceride 150-199 mg/dL High Triglyceride: 200-499 mg/dL Very High Triglyceride: greater than or equal to 5OO mg/dL Chol 234 mg/dL Desirable Cholesterol: less than 200 mg/dL Borderline High Cholesterol: 200-239 mg/dL High Cholesterol: greater than 239 mg/dL LDL Calculated 147 mg/dl Desirable LDL: less than 100 mg/dL Near Optimal/Above Optimal LDL: 110-129 mg/dL Borderline High LDL: 130-159 mg/dL High LDL: 160-189 mg/dL Very High LDL: greater than or equal to 190 mg/dL HDL 67 mg/dL Desirable HDL: greater than 40 mg/dL Note: This HDL assay may give artificially low results in patients with liver disease. Coding Level of Care Code Admin Sign Off/No Billing Diagnoses Right shoulder pain M25.511 Levoscoliosis of lumbar spine M41.86 Lumbago M54.50 Gait instability R26.81 Dyslipidemia E78.5 Adhesive capsulitis of right shoulder M75.01 Impaired fasting glucose R73.01 Essential hypertension I10
== END 2023-05-04 09:35 | disposition home or self-care (01) ==
PROVIDERS: Visit Provider Internal Medicine
DX: M25.511 Pain in right shoulder (principal); M41.86 Other forms of scoliosis, lumbar region; M54.50 Low back pain, unspecified; R26.81 Unsteadiness on feet; E78.5 Hyperlipidemia, unspecified; M75.01 Adhesive capsulitis of right shoulder; R73.01 Impaired fasting glucose; I10 Essential (primary) hypertension
CPT/HCPCS: 99499

== ENCOUNTER → 2023-05-16 13:32 | Outpatient (BNVA) | payer MEDICARE, SELFPAY | PROVIDERS: PCP Internal Medicine; Visit Provider Urology ==

== ENCOUNTER 2023-05-28 11:02 | Outpatient (AMB) | payer MEDICARE, SELFPAY ==
--- NOTE | 2023-05-28 11:07 | MHC.OFFVIS ---
Intake Intake Visit Reasons: OV-RT TKA 01/10/22 NE Intake Note: Nasima is a 68 year old female who presents today for a follow up of her right knee, s/p Right TKA 01/10/2022. Patient reports that she cannot straighten her right knee all the way. She is using a cane to ambulate. She reports she has scoliosis so she is leaning to the left. Her right shoulder is bothering her as well, this has been an ongoing problem. Allergies No Known Allergies Allergy (Verified 05/28/23 11:27) Medication List - Last Reconciled 05/28/23 by Marcelina Thorne RN carvedilol 12.5 mg PO BID geriatric lqjwkoyc-ybmg-smxb 1 tab PO DAILY lisinopril-hydrochlorothiazide 20-25 mg 1 tab PO DAILY melatonin mg PO mirabegron ER (Myrbetriq) 25 mg PO DAILY walker Folding front wheeled walker HPI OV-RT TKA 01/10/22 NE HPI Details Doing well over one year s/p TKA. She has no complaints today although she still has a mild flexion contracture. Her primary complaint is her right shoulder. This causes her pain at night and pain with overhead activity. [facility] Medical History (Updated 05/04/23 @ 09:27 by Shanna Parker MD) Right shoulder pain Levoscoliosis of lumbar spine Lumbago Gait instability Anemia HTN (hypertension) Aaron's esophagus without dysplasia Hypertensive nephrosclerosis Impaired fasting glucose Chronic kidney disease, stage 3 Varicose veins of both lower extremities Menopause ovarian failure CKD (chronic kidney disease) Renal cyst, left Cataract Right ovarian cyst GERD (gastroesophageal reflux disease) Dyslipidemia Essential hypertension Surgical History History of esophagogastroduodenoscopy (EGD) Hx of colonoscopy Cataract extraction status of left eye Cataract extraction status of right eye Hx of cholecystectomy History of removal of skin mole History of knee surgery Family History Father Unknown family medical history Mother Breast cancer Maternal Aunt Breast cancer Son No problems noted. Daughter No problems noted. Social History Household Members: Spouse Housing: Condominium Are you a primary medication care manager to a significant other at home: No Do you presently have visiting nurse or other home services: No Alcohol intake: never Patient Tobacco Use Status: Never used Tobacco e-Cigarette/Vaping Use: Never Used Advance Directives Date on File: 07/12/20 service: No Current occupational status: unemployed Current occupation: Right Handed Gender identity: Female Cognitive needs: No Hearing needs: No Vision needs: Yes Female Reproductive History Menstrual Age of Menarche: 10 Physical Exam Extrem Other: 5-125 deg motion with well-healed incision right knee Right shouilder with + hawkin's and Neer. Neg EC. Full ROM Office Procedures Joint Injection/Drain Joint Injection/Drain Details: Injected 1 mL of Decadron and 3 mL 1% lidocaine and 3 mL of 0.25% Marcaine. Site was prepped using aseptic technique. Patient tolerated the procedure well. Primary Site: right shoulder Approach Used: posterolateral Coding - Large joint Procedure code (CPT) selection complete Results Reviewed Results Reviewed: 05/28/23 11:35 BUPivacaine MPF 0.25 % [Sensorcaine-MPF 0.25% 10 ML] 10 ml .ROUTE .STK-MED ONE Lidocaine HCl 2 % MPF [Xylocaine 2 % MPF] 5 ml .ROUTE .STK-MED ONE dexAMETHasone sod phosphate [Decadron] 4 mg .ROUTE .STK-MED ONE Assessment & Plan Assessment & Plan (1) Right shoulder pain: Code(s): M25.511 - Pain in right shoulder Plan: Injected right shoulder today. Home exercises taught (2) Status post total right knee replacement: Code(s): Z96.651 - Presence of right artificial knee joint Plan: Right knee doing well with intermittant pain. Today with no complaints. nl exam Coding Level of Care Code Est Pt Level 3 (27693) Diagnoses Right shoulder pain M25.511 Status post total right knee replacement Z96.651 CPT Codes Coding - Large joint: 78795 - Large joint ([id number])
== END 2023-05-28 11:50 | disposition home or self-care (01) ==
PROVIDERS: Visit Provider Orthopaedic Surgery
DX: M25.511 Pain in right shoulder (principal); Z96.651 Presence of right artificial knee joint
CPT/HCPCS: 20610; 99213

== ENCOUNTER → 2023-05-28 11:02 | Outpatient (BNVA) | payer MEDICARE, SELFPAY | PROVIDERS: Visit Provider Orthopaedic Surgery | DX: M25.511 Pain in right shoulder (principal); Z96.651 Presence of right artificial knee joint | CPT/HCPCS: 20610; 99212; J1100 ==

== ENCOUNTER 2023-06-29 11:00 | Outpatient (RCR) | payer MEDICARE, SELFPAY ==
--- NOTE | 2023-05-31 11:01 | MHC.PT.EP ---
[facility] [place] Office [place] Office [place] Office [address] Rahul Castillo [address] [phone] F: [phone] F: [phone] F: [phone] F: [phone] Physical Therapy Plan of Care Date of Evaluation: 05/31/23 Date of Surgery: n/a Diagnosis: unsteadiness on feet Assessment: Patient is a 68 year old female presenting to PT with complaints of unsteadiness. Pt reports onset has been ongoing with worsening over the last year due to insidious onset. She presents today with impairments in balance, gait mechanics, LE strength, fall risk, tug score, DGI score. Pt's current occupation is retired, with baseline physical activities including ambulating, stair negotiation, standing, ADLs, transfers. 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 Clinical presentation today is most consistent with signs and sx associated with unsteadiness on feet and pt will benefit from skilled PT 2 week x 4 weeks to address the following problems and impairments noted upon evaluation: balance, gait mechanics, LE strength, fall risk, tug score, DIG score. These problems limit the patient with the following functional activities: ambulating, stair negotiation, standing, ADLs, transfers. The prescribed treatment plan of care is medically necessary. Co-morbidities of CKD stage 3, HTN, FALL RISK were identified and taken into considerations of plan of care. Pt was educated on HEP, role of PT, prognosis, POC. Frequency and Duration: The patient will be seen 2 x week x 4 weeks Short Term Goals: Pt will demonstrate ability to perform STS on first attempt consistently in 2 weeks. Pt will demonstrate increase R arm swing with gait in 2 weeks. Pt will demonstrate ability to perform tandem stance x 30 sec ea with min to no sway. [employer] Goals: Pt will demonstrate improved DGI score by 3 points in 4 weeks for reduced risk of falls. Pt will demonstrate improved TUG by 3 seconds in 4 weeks for reduced fall risk. Pt will demonstrate improved heel strike with gait in 4 weeks for improved safety with ambulating in the community. Treatment Plan: Modalities to reduce pain, spasms and effusion. Manual therapy to restore motion and function. Therapeutic exercise to improve strength and flexibility. Neuromuscular re-education for posture and balance. Therapeutic activities to return to functional activities of daily living. Electronically signed by: Pamela Machuca, PT, DPT, ATC Please sign and return to therapist. Thank you for your referral.
--- NOTE | 2023-06-29 11:55 | MHC.PT.DC ---
[facility] [place] Office [place] Office [place] Office [address] Rahul Castillo [address] [phone] F: [phone] F: [phone] F: [phone] F: [phone] Physical Therapy Discharge Report Diagnosis: unsteadiness on feet Date of Surgery: n/a Date of Evaluation: 05/31/23 Date of Discharge: 06/29/23 Treatments to Date: 9 Cancellations to Date: 0 No Shows to Date: 0 Discharge Status: Recommend MD Follow-up Discharge Summary: 06/29/2023: Pt has unfortunately made little to no progress since start of care. She is still having quite a bit of difficulty performing movement at a good speed and initiating proper sequencing with gait. Still having difficulty with heel strike and follow through with the R leg most notably. It appears her whole R side is affected as there is also a tremor in her R arm and decreased arm swing. She does have a referral to a neurologist which I have encouraged her to schedule for further evaluation of her continued limitations. At this point skilled PT is no longer indicated as she is not progressing and therefore will be d/c today. She is in agreement with plan. Electronically signed by: Pamela Machuca, PT, DPT, ATC Please sign and return to therapist. Thank you for your referral.
== END 2023-06-29 11:55 | disposition home or self-care (01) ==
LOC: HO.PTCHIC 11:00
PROVIDERS: PCP Internal Medicine; Visit Provider Internal Medicine
DX: M54.50 Low back pain, unspecified (principal); R26.81 Unsteadiness on feet
CPT/HCPCS: 97110; 97112; 97161

== ENCOUNTER 2023-07-04 13:09 | Outpatient (AMB) | payer MEDICARE, SELFPAY ==
[2023-07-04 14:08] VITALS: BP 148/90; PULSE 63; O2SAT 100
--- NOTE | 2023-07-04 14:08 | MHC.PC.OV ---
Vital Signs 07/04/23 14:08 Height 5 ft 4 in Weight 175 lb BMI 30.0 BP 148/90 H Blood Pressure Location Rt brachial Position Sitting Pulse 63 Pulse Source Pulse Oximeter Pulse Oximetry (%) 100 Oxygen Delivery Method Room Air Intake Visit Reasons: Followup tremors Intake Note: pt is here to follow tremors Allergies No Known Allergies Allergy (Verified 07/05/23 00:39) Medication List - Last Reconciled 07/05/23 by Shanna Parker MD carvedilol 12.5 mg PO BID geriatric eygxnllm-cqrn-ifyg 1 tab PO DAILY lisinopril-hydrochlorothiazide 20-25 mg 1 tab PO DAILY melatonin mg PO mirabegron ER (Myrbetriq) 25 mg PO DAILY walker Folding front wheeled walker Tobacco use date assessed: 05/04/23 Fall risk assessment: No Falls in past year Last assessed Fall Risk: 07/04/23 Dental Screening Dental Screen Date: 07/04/23 Did you have a dental visit in the last 12 months?: Yes Did you have a dental problem in the last 6 months where you did not have access to dental care?: No Was dental information given to patient?: Patient has dentist HPI Followup tremors HPI Details 68-year-old lady here today complaining of having resting tremors, mainly in her right hand. She has noticed them appearing approximately several months ago and seems to be getting more frequent. It usually occurs when she is at rest or when she is lying in bed. Denies any accompanying weakness, does not have any episodes of dropping things. 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 Hypertensive nephrosclerosis Impaired fasting glucose Chronic kidney disease, stage 3 Varicose veins of both lower extremities Menopause ovarian failure CKD (chronic kidney disease) Renal cyst, left Cataract Right ovarian cyst GERD (gastroesophageal reflux disease) Dyslipidemia Essential hypertension Surgical History History of esophagogastroduodenoscopy (EGD) Hx of colonoscopy Cataract extraction status of left eye Cataract extraction status of right eye Hx of cholecystectomy History of removal of skin mole History of knee surgery Family History Father Unknown family medical history Mother Breast cancer Maternal Aunt Breast cancer Son No problems noted. Daughter No problems noted. Social History Household Members: Spouse Housing: Condominium Are you a primary attending ambulatory care to a significant other at home: No Do you presently have visiting nurse or other home services: No Alcohol intake: never Patient Tobacco Use Status: Never used Tobacco e-Cigarette/Vaping Use: Never Used Advance Directives Date on File: 07/12/20 service: No Current occupational status: unemployed Current occupation: Right Handed Gender identity: Female Cognitive needs: No Hearing needs: No Vision needs: Yes Female Reproductive History Menstrual Age of Menarche: 10 Questionnaire Thrive Questionnaire Date Thrive assessed: 01/02/23 JUAN M-7 AMB Questionnaire JUAN M-7 Date JUAN M - 7 assessed: 01/02/23 Source: Developed by Drs. Sami Caraballo, Brittaney Starks, Travon Canales and colleagues, with an educational zion from [employer]. Review of Systems Const Denies fatigue, Denies fever(s) and Denies lethargy ENT Reports no additional complaints Card Denies chest pain, Denies irregular heart rhythm, Denies lightheadedness and Denies dyspnea Resp Denies chest congestion, Denies cough and Denies dyspnea GI Reports no additional complaints Reports urinary incontinence (ff;d by Urology, currently on Mirabegron) Musc Reports arthralgias and Reports stiffness Skin/Breast Denies breast pain, Denies breast mass and Denies rash Neuro Reports no additional complaints Psych Reports no additional complaints Endo Denies fatigue Physical exam (Primary Care) Vital Signs: Last Vital Signs Pulse 63 07/04/23 14:08 BP 148/90 H 07/04/23 14:08 Pulse Ox 100 07/04/23 14:08 Oxygen Delivery Method Room Air 07/04/23 14:08 BMI result Body Mass Index 30.0 Tobacco/Smoking Status: Tobacco use Status Tobacco use date assessed 05/04/23 07/04/23 14:10 Patient Tobacco Use Status Never used Tobacco 07/04/23 14:10 e-Cigarette/Vaping Use Never Used 07/04/23 14:10 Thrive Assessment: Date of Thrive Assessment Date Thrive assessed 01/02/23 07/04/23 14:10 Const General: comfortable, no acute distress and alert Orientation/consciousness: patient oriented x3 Limitations: ambulation with cane HENMT Ears: external ears normal General nose exam: Normal external nose present and No nasal discharge present Face and sinus: Yes face symmetric Eyes General: appearance normal, both eyes and all related structures Neck Neck: Yes full ROM, Yes no lymphadenopathy and Yes supple Resp Effort & Inspection: normal respiratory effort and able to speak in complete sentences Auscultation: clear to auscultation bilaterally Cardio Rate: regular rate Rhythm: regular rhythm Heart sounds: S1 normal heart sound present and S2 normal heart sound present GI Palpation (GI): Soft to palpation, nontender and no masses Auscultation: normal bowel sounds Back/Spine/Pelvis Other: Slight tenderness to palpation over paraspinal muscles of lower back, negative straight leg raising sign Neuro General: patient oriented x3, moves all extremities, Normal light touch and pain sensation and no focal motor deficits Extrem Other: Faint tremor noted in both hands, right more than the left General: Yes no pedal edema and Yes no calf tenderness Assessment and Plan Assessment & Plan (1) Tremor of both hands: Code(s): R25.1 - Tremor, unspecified Plan: Referred to [facility] neurology for further evaluation management. Orders: Referrals Neurology Referral R25.1 - Tremor, unspecified Coding Level of Care Code Est Pt Level 3 (15432) Diagnoses Tremor of both hands R25.1
== END 2023-07-04 14:36 | disposition home or self-care (01) ==
PROVIDERS: PCP Internal Medicine; Visit Provider Internal Medicine
DX: R25.1 Tremor, unspecified (principal)
CPT/HCPCS: 99213

== ENCOUNTER 2023-09-11 12:09 | Emergency (ER) | payer MEDICARE, SELFPAY ==
--- NOTE | ~2023-09-11 | CT_ITS ---
EXAMINATION: CT HEAD WITHOUT CONTRAST CLINICAL INFORMATION: Double vision COMPARISON: None available. TECHNIQUE: Contiguous axial imaging was performed from the skull base to vertex without intravenous administration of contrast. This CT examination was performed using dose optimization techniques as appropriate, variously including the following: *Automated exposure control *Adjustment of mA and/or kV according to patient size (this includes techniques or standardized protocols for targeted exams where dose is matched to indication/reason for exam; i.e. extremities or head) *Use of iterative reconstruction technique DLP: 594 mGy-cm FINDINGS: There is no evidence of an extra-axial collection. There is no evidence of intra or extra-axial hemorrhage. The ventricles and extra-axial CSF spaces are appropriate. Diamond-white matter differentiation is normal. No mass, mass effect or infarct. No skull fracture. Mild inflammatory changes in the left maxillary and bilateral ethmoid sinuses. CT/CT head/brain wo IV con IMPRESSION: Unremarkable exam.
--- NOTE | ~2023-09-11 | XR_ITS ---
EXAMINATION: XR CHEST CLINICAL INFORMATION: Cough COMPARISON: Previous chest x-ray November 2016 TECHNIQUE: Frontal view of the chest was obtained. FINDINGS: The cardiac and mediastinal contours are stable. The lungs are clear. No pleural effusion or pneumothorax. Curvature of the lower thoracic and upper lumbar spine to the left and degenerative changes. XR/XR chest 1V IMPRESSION: No evidence for acute disease in the chest.
[2023-09-11 12:31] VITALS: BP 97/53; PULSE 69; RESP 18; TEMP 36.9; O2SAT 95; BMI 29.7
--- NOTE | 2023-09-11 12:33 | ECG_ITS ---
Test Reason : weakness Blood Pressure : / mmHG Vent. Rate : 063 BPM Atrial Rate : 063 BPM P-R Int : 160 ms QRS Dur : 084 ms QT Int : 444 ms P-R-T Axes : 018 010 035 degrees QTc Int : 454 ms Normal sinus rhythm Cannot rule out Anterior infarct , age undetermined Abnormal ECG When compared with ECG of 22-DEC-2021 13:31, Minimal criteria for Anterior infarct are now Present Referred By: Nathalia Bundy Electronically Signed By:RIVER MOORE
--- NOTE | 2023-09-11 12:34 | ED.WEAKNESS ---
HPI - Weakness General Chief complaint: Weakness Stated complaint: Cough Flu Symptoms Time Seen by Provider: 09/11/23 16:29 Source: patient Mode of arrival: ambulatory Limitations: no limitations History of Present Illness HPI Narrative: 68-year-old female came in for evaluation of generalized weakness, feeling dizzy, decreased p.o. intake for the last 3 days was diagnosed recently with the flu required 2 days hospitalization, patient also reported headache and double vision that lasted for few hours yesterday now it is resolved and patient sees clearly now. has a subjective fever, dizziness, no chest pain, no shortness of breath, no coughing, no abdominal pain, no nausea, no vomiting. No focal weakness, or numbness. Related Data Home Medications Medication Instructions Recorded Confirmed geriatric [id number] 1 tab PO DAILY 07/06/20 07/05/23 melatonin 5 mg capsule mg PO 03/06/22 07/05/23 Previous Rx's Medication Instructions Recorded walker #1 ea 01/05/22 carvedilol 12.5 mg tablet 12.5 mg PO BID #180 tabs 06/18/23 mirabegron 25 mg tablet,extended 25 mg PO DAILY #90 tabs 06/19/23 release 24 hr (Myrbetriq) lisinopril 20 1 tab PO DAILY #90 tabs 07/04/23 mg-hydrochlorothiazide 25 mg tablet Allergies Allergy/AdvReac Type Severity Reaction Status Date / Time No Known Allergies Allergy Verified 09/11/23 12:34 Review of Systems Review of Systems: All other systems are reviewed and are negative Constitutional: Reports as per HPI and Reports no additional constitutional complaints Eyes: Reports as per HPI and Reports no additional eye complaints Reports system reviewed and no additional complaints, except as documented Cardiovascular: Reports as per HPI and Reports no additional cardiovascular complaints Respiratory: Reports as per HPI and Reports no additional respiratory complaints Gastrointestinal: Reports as per HPI and Reports no additional gastrointestinal complaints Genitourinary: Reports no additional female genitourinary complaints Musculoskeletal: Reports no additional musculoskeletal complaints Skin/Breast: Reports system reviewed and no additional complaints, except as docu Psychiatric: Reports no additional psychiatric complaints Endocrine: Reports no additional endocrine complaints Hematologic/Lymphatic: Reports no additional hematologic/lymphatic complaints Allergic/Immunologic: Reports no additional allergic/immunologic complaints Reports system reviewed and no additional complaints, except as documented and Reports Abnormal speech present [facility] Past Medical History Medical History Tremor of both hands Right shoulder pain Levoscoliosis of lumbar spine Lumbago Gait instability Anemia HTN (hypertension) Aaron's esophagus without dysplasia Hypertensive nephrosclerosis Impaired fasting glucose Chronic kidney disease, stage 3 Varicose veins of both lower extremities Menopause ovarian failure CKD (chronic kidney disease) Renal cyst, left Cataract Right ovarian cyst GERD (gastroesophageal reflux disease) Dyslipidemia Essential hypertension Surgical History History of esophagogastroduodenoscopy (EGD) Hx of colonoscopy Cataract extraction status of left eye Cataract extraction status of right eye Hx of cholecystectomy History of removal of skin mole History of knee surgery Family History Family History Father Unknown family medical history Mother Breast cancer Maternal Aunt Breast cancer Son No problems noted. Daughter No problems noted. Social History Social History Household Members: Spouse Housing: [facility] Are you a primary career and guidance counselor to a significant other at home: No Do you presently have visiting nurse or other home services: No Alcohol intake: never Patient Tobacco Use Status: Never used Tobacco Smoked in Last 30 Days: No e-Cigarette/Vaping Use: Never Used Use of substances other than those prescribed or required for medical reasons: No Advance Directives: Yes Advance Directives on File: Yes Advance Directives Date on File: 07/04/22 service: No Current occupational status: unemployed Current occupation: Right Handed Gender identity: Female Cognitive needs: No Hearing needs: No Vision needs: Yes Physical Exam Vital Signs: Vital Signs: Last Vital Signs Temp 98.4 F 09/11/23 18:16 Pulse 69 09/11/23 18:16 Resp 16 09/11/23 18:16 BP 152/64 H 09/11/23 18:16 Pulse Ox 98 09/11/23 18:16 O2 Del Method Room Air 09/11/23 18:16 BMI result Body Mass Index 29.7 Vital signs have been reviewed and appear to be correct. Blood pressure elevated. Heart rate normal. Respiratory rate normal. Temperature normal. Oxygen saturation normal. Appearance: Alert. Oriented X3. No acute distress. Head: Normal external exam. Normocephalic. Atraumatic. No Ashley signs noted. No raccoon eyes noted Eyes: General: appearance normal, both eyes and all related structures Visual Castillo: normal visual castillo by confrontation Alignment and Position: alignment normal and position normal Periorbital: periorbital findings normal Eyelids: eyelids normal Conjunctivae: conjunctivae normal Sclerae: sclerae normal Corneas: corneas normal Pupils: Equal, round and reactive pupils present and Pupil accommodation reflex normal EOM: EOM abnormal (Limited abduction of right eye) and No Nystagmus present Direct Ophthalmoscopy: normal light reflex, no photophobia, no papilledema and fundi normal bilaterally ENT: TM's Normal. Pharynx normal. Uvula midline. Moist mucous membranes. No trismus noted. No drooling noted. No muffled voice noted. Neck: Normal inspection. Neck supple. FROM. No adenopathy. Thyroid Normal. No meningeal signs. No neck mass noted. CVS: Normal heart rate and rhythm. Heart sound normal. No murmurs noted. Pulses normal throughout. Respiratory: No respiratory distress. Painless inspiration. Breath sounds normal. No wheezes/rales/rhonchi noted. Chest nontender. No accessory muscle usage noted or decreased air movement noted. Abdomen: Soft and nontender. Bowel sounds normal in all 4 quadrants. No distention noted. No organomegaly noted. No visible injury noted. Back: No CVA tenderness. Full range of motion noted. Skin: Skin warm and dry. Normal skin color. Normal skin turgor. No rashes/lesions/lacerations noted. Extremities: No lower extremity edema. Extremities exhibit normal range of motion. Extremities nontender. Neuro: Oriented X 3. Cranial nerve exam: II-XII are grossly intact No motor deficit. No sensory deficit. Reflexes normal. NIH Stroke Scale Time: 16:42 Level of Consciousness: Alert Level of Consciousness Questions: Answers both questions correctly Level of Consciousness Commands: Performs both tasks correctly Best Gaze: Normal Visual: No visual loss Facial Palsy: Normal Motor Arm (Right): No drift Motor Arm (Left): No drift Motor Leg (Right): No drift Motor Leg (Left): No drift Limb Ataxia: Absent Sensory: Normal Best Language: No aphasia Dysarthia: Normal Extinction and Inattention: No abnormality Score: 0 Course Course Course Narrative: RME:?68 yo female hx of CKD not on dialysis reports general weakness, dizziness, feeling unwell, feels dehydrated, decreased urine output. Denies fever, chills, cp or sob. admitted to hospital for FLU. Hypotensive to 97/53 in triage. Plan for labs, ekg, trop Full HPI, ROS and PE to be performed by the primary ED provider. Reevaluation(s) Reevaluation #1: patient feels improved after IV hydration, positive for influenza A with a negative chest x-ray. Normal neuro exam was unremarkable head CT, unremarkable eye exam to explain double vision for few hours yesterday that completely resolved today. Patient was instructed to follow-up with her eye doctor. Otherwise hemodynamically stable will discharge. Time: 17:53 Reevaluation #2: feels better after hydration tolerating p.o. intake no shortness of breath , VSS. Time: 19:32 Medications Administered Discontinued Medications Generic Name Dose Route Start Last Admin Trade Name Freq PRN Reason Stop Dose Admin Sodium Chloride 1,000 mls @ 999 mls/hr 09/11/23 16:37 09/11/23 19:08 Ns IV 09/11/23 17:37 Infused .Q1H1M ONE Infusion Medical Decision Making Differential Diagnosis Differential Diagnoses: The differential diagnosis associated with the presentation includes ( RSV, influenza, COVID-19 infection, pneumonia, pneumothorax, intracranial pathology , ACS, electrolyte abnormality, severe anemia.) Admission/Observation Consideration of admission/observation: Escalation of care including admission/observation considered Lab Data MDM Lab Attestation statement: I reviewed the patient's lab results. 09/11/23 13:03 09/11/23 13:03 Labs: Lab Results 09/11/23 Range/Units 13:03 WBC 4.2 L (4.8-10.8) X10*3/uL RBC 4.10 L (4.20-5.50) X10*6/uL Hgb 12.0 (12.0-16.0) g/dl Hct 37.2 (37.0-47.0) % MCV 90.7 (80.0-98.0) fL MCH 29.3 (27.0-33.0) pg MCHC 32.3 (31.0-35.0) g/dl RDW 11.9 (11.0-16.0) % Plt Count 226 D (160-400) X10*3/uL MPV 10.8 (9.4-12.3) fL Immature Gran % (Auto) 0.2 (0.0-0.4) % Neut % (Auto) 59.9 (45-73) % Lymph % (Auto) 26.7 (20-40) % Stewart % (Auto) 10.8 (2-11) % Eos % (Auto) 1.7 (0-4) % Baso % (Auto) 0.7 (0-2) % Lymph # (Auto) 1.1 L (1.2-4.9) X10*3/uL Stewart # (Auto) 0.5 (0.1-1.2) X10*3/uL Eos # (Auto) 0.1 (0.0-0.4) X10*3/uL Baso # (Auto) 0.0 (0.0-0.2) X10*3/uL Abs Immat Gran (auto) 0.01 (0.00-0.03) X10*3/uL Absolute Neuts (auto) 2.5 (2.0-8.3) x10*3/uL Absolute Nucleated RBC 0.000 (0.0-0.012) X10*3/uL Nucleated RBC % (auto) 0.0 (0.0-0.2) /100WBC PT 12.2 (11.1-13.3) SEC INR 1.0 (0.9-1.1) Sodium 141 (135-145) mmol/L Potassium 3.9 (3.3-5.1) mmol/L Chloride 104 (96-108) mmol/L Carbon Dioxide 29 (22-29) mmol/L Anion Gap 12 (12-20) BUN 23 H (9-16) mg/dL Creatinine 1.52 H (0.5-1.4) mg/dL Estim Creat Clear Calc 36.4 Estimated GFR 34 Random Glucose 95 (60-115) mg/dL Calcium 9.6 (8.4-10.2) mg/dL Magnesium 1.6 (1.6-2.6) mg/dL Troponin I High Sens 2.8 (<3.5-17.0) ng/L Influenza Type A (PCR) POSITIVE A (Negative) Influenza Type B (PCR) NEGATIVE (Negative) RSV RNA Qual (PCR) NEGATIVE (Negative) SARS-CoV-2 RNA (RT-PCR) NEGATIVE (Negative) Discharge Plan Discharge Clinical Impression: Influenza A, Dehydration Patient Disposition: Home, Self-Care Instructions: Influenza (ED) Prescriptions: No Action carvedilol 12.5 mg tablet 12.5 mg PO BID Qty: 180 1RF Rx Instructions: must administer with a meal/food Myrbetriq 25 mg tablet extended release 24 hr 25 mg PO DAILY Qty: 90 2RF lisinopril-hydrochlorothiazide 20-25 mg tablet 1 tab PO DAILY Qty: 90 1RF geriatric rhjwzebk-anyj-bjuj Tablet 1 tab PO DAILY melatonin 5 mg capsule PO (DME) walker Misc See Rx Instructions .ROUTE .MEDSUPPLY Qty: 1 0RF Rx Instructions: Folding front wheeled walker Referrals: Shanna Parker MD [Primary Care Provider] -
[2023-09-11 13:11] LABS: MANUAL DIFF FLAG NO
[2023-09-11 13:14] LABS: Basophils Percent Auto 0.7 % (0-2); Eosinophils Absolute Auto 0.1 X10*3/uL (0.0-0.4); Eosinophils Percent Auto 1.7 % (0-4); Hematocrit 37.2 % (37.0-47.0); Imm Gran Abs Auto 0.01 X10*3/uL (0.00-0.03); Imm Gran Pct Auto 0.2 % (0.0-0.4); Lymphocytes Absolute Auto 1.1 X10*3/uL (1.2-4.9); Lymphocytes Percent Auto 26.7 % (20-40); Mean Corpuscular HGB Conc 32.3 g/dl (31.0-35.0); Mean Corpuscular Hemoglobin 29.3 pg (27.0-33.0); Mean Corpuscular Volume 90.7 fL (80.0-98.0); Mean Platelet Volume 10.8 fL (9.4-12.3); Monocytes Absolute Auto 0.5 X10*3/uL (0.1-1.2); Monocytes Percent Auto 10.8 % (2-11); Neutrophils Absolute Auto 2.5 x10*3/uL (2.0-8.3); Neutrophils Percent Auto 59.9 % (45-73); Platelet Count 226 X10*3/uL (160-400); Red Cell Distribution Width 11.9 % (11.0-16.0); White Blood Count 4.2 X10*3/uL (4.8-10.8)
[2023-09-11 13:20] LABS: Prothrombin Time 12.2 SEC (11.1-13.3)
[2023-09-11 13:27] LABS: Anion Gap 12 (12-20); Blood Urea Nitrogen 23 mg/dL (9-16); Calcium 9.6 mg/dL (8.4-10.2); Carbon Dioxide 29 mmol/L (22-29); Chloride 104 mmol/L (96-108); Creatinine Clr Calc Pharmacy 36.4; Estimated Glomerular Filt Rate 34; Glucose Random 95 mg/dL (60-115); Magnesium 1.6 mg/dL (1.6-2.6); Potassium 3.9 mmol/L (3.3-5.1); Sodium 141 mmol/L (135-145)
[2023-09-11 13:35] LABS: Troponin-I High Sensitivity 2.8 ng/L (<3.5-17.0)
[2023-09-11 13:50] LABS: Influenza A PCR POSITIVE (Negative); Influenza B PCR NEGATIVE (Negative); Resp Syncy Virus RNA Qual PCR NEGATIVE (Negative); SARS COV2 PCR INHOUSE NEGATIVE (Negative)
[2023-09-11 16:15] VITALS: BP 147/75; PULSE 62; RESP 18; O2SAT 100
[2023-09-11] MEDS: 0.9 % Sodium Chloride 1,000 ML 999 ML IV (17:41)
[2023-09-11 18:16] VITALS: BP 152/64; PULSE 69; RESP 16; TEMP 36.9; O2SAT 98
--- NOTE | 2023-09-11 19:22 | PC.NURSE ---
pt assisted to commode. snack provided. fluids infusing, plan of care ongoing
== END 2023-09-11 20:19 | disposition home or self-care (01) ==
PROVIDERS: Physician Assistant Medical; Emergency Provider Emergency Medicine; PCP Internal Medicine
DX: J10.1 Influenza due to other identified influenza virus with other respiratory manifestations (principal); E86.0 Dehydration; R50.9 Fever, unspecified; R05.9 Cough, unspecified; R94.31 Abnormal electrocardiogram [ECG] [EKG]; R51.9 Headache, unspecified; Z20.822 Contact with and (suspected) exposure to COVID-19; Z20.828 Contact with and (suspected) exposure to other viral communicable diseases; Z79.899 Other long term (current) drug therapy
CPT/HCPCS: 0241U; 36415; 70450; 71045; 80048; 83735; 84484; 85025; 85610; 93005; 96360; 99284

== ENCOUNTER → 2023-09-11 12:33 | Outpatient (BNV) | payer MEDICARE, SELFPAY | PROVIDERS: Emergency Provider Emergency Medicine; PCP Internal Medicine; Visit Provider Internal Medicine | DX: R94.31 Abnormal electrocardiogram [ECG] [EKG] (principal) | CPT/HCPCS: 93010 ==

== ENCOUNTER 2023-09-26 13:43 | Outpatient (AMB) | payer MEDICARE, SELFPAY ==
[2023-09-26 13:58] VITALS: BP 142/76; BMI 27.6
--- NOTE | 2023-09-26 13:58 | A.OFFVIS_ITS ---
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 She is doing well with no head of biology concerns. Admits incontinence. Attempting to eat a healthy diet with calcium and vitamin D, uses a walker to ambulate. Currently not sexually active. Denies any vaginal dryness or irritation. Last pap smear; 2020. Last mammogram; UTD. Colonoscopy is UTD. Denies any family history of breast, ovarian or colon cancer. 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 Hypertensive nephrosclerosis Impaired fasting glucose Chronic kidney disease, stage 3 Varicose veins of both lower extremities Menopause ovarian failure CKD (chronic kidney disease) Renal cyst, left Cataract Right ovarian cyst GERD (gastroesophageal reflux disease) Dyslipidemia Essential hypertension Surgical History (Updated 09/26/23 @ 14:05 by RUPERTO Corona) History of lateral meniscus repair of left knee History of esophagogastroduodenoscopy (EGD) Hx of colonoscopy Cataract extraction status of left eye Cataract extraction status of right eye Hx of cholecystectomy History of removal of skin mole History of knee surgery Family History Father Unknown family medical history Mother Breast cancer Maternal Aunt Breast cancer Son No problems noted. Daughter No problems noted. Social History Household Members: Spouse Housing: Condominium Are you a primary child care provider to a significant other at home: No Do you presently have visiting nurse or other home services: No Alcohol intake: never Patient Tobacco Use Status: Never used Tobacco e-Cigarette/Vaping Use: Never Used Advance Directives Date on File: 07/04/22 Patient : No service: No Current occupational status: unemployed Current occupation: Right Handed Gender identity: Female Cognitive needs: No Hearing needs: No Vision needs: Yes Female Reproductive History Menstrual Age of Menarche: 10 control method: none Total pregnancies: 2 Full term: 2 Number of Living Children: 2 Date of last pap smear: 09/05/21 (negative) Date of Mammogram: 12/12/22 Date of last Bone Density Screenin11/30/20 Review of Systems Const All systems reviewed & are unremarkable except as noted in HPI and below Reports as per HPI Eyes Reports no additional complaints ENT Reports no additional complaints Card Reports no additional complaints Resp Reports no additional complaints GI Reports as per HPI and Reports no additional complaints Reports as per HPI Musc Reports no additional complaints Skin/Breast Reports as per HPI Neuro Reports no additional complaints Psych Reports no additional complaints Endo Reports no additional complaints Gurjit/Lymph Reports no additional complaints Aller/Immun Reports no additional complaints Physical Exam Vital Signs: Last Vital Signs BP 142/76 H 09/26/23 13:58 BMI result Body Mass Index 27.6 Const General: cooperative, healthy appearing, no acute distress, well developed and alert Orientation/consciousness: patient oriented x3 HEENT Head: Yes normal to inspection Eyes General: appearance normal, both eyes and all related structures Neck Neck: Yes normal visual inspection Thyroid: Thyroid normal Chest Chest palpation & inspection: normal inspection of the chest and other (no puckering, dimpling, peau de orange, retraction, discharge, masses) Breast/axilla inspection: normal inspection of the breasts Breast/axilla palpation: normal palpation of the breasts Resp Effort & Inspection: normal respiratory effort GI Inspection: Yes normal to inspection Palpation (GI): Soft to palpation Rectal Exam - Female: deferred General: Yes bladder normal to palpation External Female Exam: normal external appearance and normal appearance of the urethra Speculum Exam - Vagina: normal appearance of the vagina, normal palpation, normal vaginal discharge and vagina atrophic Speculum Exam - Cervix: normal appearance of the cervix and normal palpation Bimanual exam- vagina & uterus: normal bimanual exam, normal palpation, uterine size normal, bladder normal to palpation, normal palpation and non-tender Bimanual Exam- Adnexa, other: no masses Skin General skin exam: no rashes or lesions noted Rashes: no rashes Neuro General: patient oriented x3 Cognition (Neuro): normal cognition Extrem General: Yes normal to inspection Psych Attitude: cooperative Thought process: Normal thought process present Assessment & Plan Assessment & Plan (1) Encounter for well woman exam with routine gynecological exam: Code(s): Z01.419 - Encounter for gynecological examination (general) (routine) without abnormal findings (2) BRCA gene mutation negative: Code(s): Z13. - Encounter for nonprocreative screening for genetic disease carrier status Plan Discussed: Current recommendations for pap smears per ASCCP guidelines. Breast awareness, periodic self breast exams and yearly mammogram. Maintain a healthy lifestyle, well balanced diet including Calcium 1,200 mg and Vitamin D 600 IU daily, and routine exercise. Contact the office with any postmenopausal bleeding. All of her questions and concerns were addressed to the best of my ability. RTO in 1-2 year for annual head of biology exam. This note is constructed using voice recognition software. While every effort has been made to ensure accuracy, food and drink factory workers errors may have been included. Coding Level of Care Code Est Pt Prev Care >65y(51281) Diagnoses Encounter for well woman exam with routine gynecological exam Z01.419 BRCA gene mutation negative Z13.
== END 2023-09-26 14:44 | disposition home or self-care (01) ==
LOC: HO.HWS 13:43
PROVIDERS: PCP Internal Medicine; Visit Provider Advanced Practice Midwife
DX: Z01.419 Encounter for gynecological examination (general) (routine) without abnormal findings (principal)
CPT/HCPCS: G0101

== ENCOUNTER → 2023-09-26 13:43 | Outpatient (BNVA) | payer MEDICARE, SELFPAY | PROVIDERS: PCP Internal Medicine; Visit Provider Advanced Practice Midwife | DX: Z01.419 Encounter for gynecological examination (general) (routine) without abnormal findings (principal); Z13.71 Encounter for nonprocreative screening for genetic disease carrier status | CPT/HCPCS: G0101 ==

== ENCOUNTER 2023-10-11 14:10 | Outpatient (AMB) | payer MEDICARE, SELFPAY ==
[2023-10-11 14:12] VITALS: BP 120/72; PULSE 89; O2SAT 98; BMI 29.2
--- NOTE | 2023-10-11 14:12 | HO.NEPHOV ---
HPI HPI Comments History of Present Illness Details 68 yr old woman with a h/o long standing HTN and CKD with a baseline creatinine of about 1.5 mg /dL referred for management of CKD She has a h/o renal cyst- Bosnick 3 . Currently being follow closely by Urology( [facility] and [facility]) Waiting for MRI in Oct 2023 Accompanied by c/o Weakness. Says this started after knee surgery. Also has resting tremor in right UR adn waiting to see NEurology on 10/30/23 c/o Leg cramps on and off Overall BP has been well controlled. 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 nephrosclerosis Impaired fasting glucose Chronic kidney disease, stage 3 Varicose veins of both lower extremities Menopause ovarian failure CKD (chronic kidney disease) Renal cyst, left Cataract Right ovarian cyst GERD (gastroesophageal reflux disease) Dyslipidemia Essential hypertension Surgical History History of lateral meniscus repair of left knee History of esophagogastroduodenoscopy (EGD) Hx of colonoscopy Cataract extraction status of left eye Cataract extraction status of right eye Hx of cholecystectomy History of removal of skin mole History of knee surgery Family History Father Unknown family medical history Mother Breast cancer Maternal Aunt Breast cancer Son No problems noted. Daughter No problems noted. Social History Household Members: Spouse Housing: Condominium Are you a primary family member caretaker to a significant other at home: No Do you presently have visiting nurse or other home services: No Alcohol intake: never Patient Tobacco Use Status: Never used Tobacco e-Cigarette/Vaping Use: Never Used Advance Directives Date on File: 07/04/22 service: No Current occupational status: unemployed Current occupation: Right Handed Gender identity: Female Cognitive needs: No Hearing needs: No Vision needs: Yes Female Reproductive History Menstrual Age of Menarche: 10 Vital Signs 01/25/24 14:12 Height 5 ft 4 in Weight 170 lb BMI 29.2 BP 120/72 Blood Pressure Location Lt brachial Position Sitting Pulse 89 Pulse Source Pulse Oximeter Pulse Oximetry (%) 98 Oxygen Delivery Method Room Air Physical Exam Vital Signs: Last Vital Signs Pulse 89 10/11/23 14:12 BP 120/72 10/11/23 14:12 Pulse Ox 98 10/11/23 14:12 Oxygen Delivery Method Room Air 10/11/23 14:12 BMI result Body Mass Index 29.2 Const General: comfortable Nutritional Appearance: well nourished Orientation/consciousness: patient oriented x3 HEENT Head: No normal to inspection Mouth: moist mucous membranes Neck Neck: Yes supple and Yes no JVD Resp Auscultation: clear to auscultation bilaterally, no rales and rub present Cardio Jugular venous distension: no JVD Palpation: no palpable S3 and no palpable S4 Heart sounds: no rubs GI Palpation (GI): Soft to palpation and nontender Percussion: No Fluid wave present General: Yes no CVA tenderness Back/Spine/Pelvis Back: no CVA tenderness Skin General skin exam: no rashes or lesions noted Neuro General: patient oriented x3 and Unable to assess gait Gait exam (Neuro): Unable to assess gait Motor exam (neuro): Normal motor muscle tone present throughout and Tremors during motor activity present (Predominantly - Right UE - resting tremor.) Extrem General: Yes no pedal edema and No clubbing Assessment & Plan Assessment & Plan (1) Chronic kidney disease, stage 3: Comment: ff'd by Dr Kemp - [facility] Code(s): N18.30 - Chronic kidney disease, stage 3 unspecified Plan: Most likely due to hypertensive nephrosclerosis NO obstruction based on imaging NO significant proteinuria or hematuria. - GN or IN seem unlikely Urine specific gravity has been persistenly elevated There could be a component of volume deplpetin causing hypoperfusion and ARMAND I Would STOP HCTZ Encouraged to increase PO fluid intake Shall recheck renal panel Since she has no proteinuria, we could also lower Lisinopril and see if the renal functino improves and use alternate agents to optimize BP (2) Essential hypertension: Code(s): I10 - Essential (primary) hypertension Plan: BP noted DC HCTZ for now and reassess Stay on low salt diet (3) Tremors of nervous system: Comment: Has difficulty with gait, Micrographia and generalized weakness Code(s): R25.1 - Tremor, unspecified Plan: Await Neuro evalauation for PArkinsons disease (4) Foot cramps: Code(s): R25.2 - Cramp and spasm Plan: Check Magnesium levels Can use TONIC water PRN Plan Orders: Orders Electrolytes 2 Weeks I10 - Essential (primary) hypertension, N18.30 - Chronic kidney disease, stage 3 unspecified, N28.1 - Cyst of kidney, acquired Blood Urea Nitrogen 2 Weeks I10 - Essential (primary) hypertension, N18.30 - Chronic kidney disease, stage 3 unspecified, N28.1 - Cyst of kidney, acquired Calcium 2 Weeks I10 - Essential (primary) hypertension, N18.30 - Chronic kidney disease, stage 3 unspecified, N28.1 - Cyst of kidney, acquired UA and rflx microscopic 2 Weeks I10 - Essential (primary) hypertension, N18.30 - Chronic kidney disease, stage 3 unspecified, N28.1 - Cyst of kidney, acquired Creatinine Urine 2 Weeks I10 - Essential (primary) hypertension, N18.30 - Chronic kidney disease, stage 3 unspecified, N28.1 - Cyst of kidney, acquired Magnesium 2 Weeks N18.30 - Chronic kidney disease, stage 3 unspecified Creatinine 2 Weeks I10 - Essential (primary) hypertension, N18.30 - Chronic kidney disease, stage 3 unspecified, N28.1 - Cyst of kidney, acquired Total Protein Urine Random 2 Weeks I10 - Essential (primary) hypertension, N18.30 - Chronic kidney disease, stage 3 unspecified, N28.1 - Cyst of kidney, acquired Sodium Urine Random 2 Weeks I10 - Essential (primary) hypertension, N18.30 - Chronic kidney disease, stage 3 unspecified, N28.1 - Cyst of kidney, acquired Complete Blood Count Auto Diff 2 Weeks I10 - Essential (primary) hypertension, N18.30 - Chronic kidney disease, stage 3 unspecified, N28.1 - Cyst of kidney, acquired Parathyroid Hormone Intact 2 Weeks I10 - Essential (primary) hypertension, N18.30 - Chronic kidney disease, stage 3 unspecified, N28.1 - Cyst of kidney, acquired Medications: New lisinopril 20 mg PO DAILY 30 tabs 3RF Discontinued lisinopril-hydrochlorothiazide 20-25 mg Discontinued Reason: Doctor's Order 1 tab PO DAILY 90 tabs 1RF Coding Level of Care Code Est Pt Level 5 (78692) Diagnoses Chronic kidney disease, stage 3 N18.30 Essential hypertension I10 Tremors of nervous system R25.1 Foot cramps R25.2 Results Reviewed Nephrology Results: Hgb 12.0 g/dl (12.0-16.0) 09/11/23 WBC 4.2 X10*3/uL (4.8-10.8) L 09/11/23 Plt Count 226 X10*3/uL (160-400) 09/11/23 Sodium 141 mmol/L (135-145) 09/11/23 Potassium 3.9 mmol/L (3.3-5.1) 09/11/23 Chloride 104 mmol/L (96-108) 09/11/23 Carbon Dioxide 29 mmol/L (22-29) 09/11/23 BUN 23 mg/dL (9-16) H 09/11/23 Creatinine 1.52 mg/dL (0.5-1.4) H 09/11/23 Calcium 9.6 mg/dL (8.4-10.2) 09/11/23
== END 2023-10-11 14:57 | disposition home or self-care (01) ==
PROVIDERS: PCP Internal Medicine; Visit Provider Internal Medicine Hypertension Specialist
DX: N18.30 Chronic kidney disease, stage 3 unspecified (principal); I10 Essential (primary) hypertension; R25.1 Tremor, unspecified; R25.2 Cramp and spasm
CPT/HCPCS: 99215

== ENCOUNTER → 2023-10-11 14:10 | Outpatient (BNVA) | payer MEDICARE, SELFPAY | PROVIDERS: PCP Internal Medicine; Visit Provider Internal Medicine Hypertension Specialist | DX: I12.9 Hypertensive chronic kidney disease with stage 1 through stage 4 chronic kidney disease, or unspecified chronic kidney disease (principal); N18.30 Chronic kidney disease, stage 3 unspecified; R25.1 Tremor, unspecified; R25.2 Cramp and spasm | CPT/HCPCS: 99212 ==

== ENCOUNTER 2023-10-23 10:49 | Outpatient (AMB) | payer MEDICARE, SELFPAY ==
--- NOTE | 2023-10-23 10:51 | A.OFFVIS_ITS ---
Intake Vital Signs 10/23/23 10:57 Height 5 ft 4 in Weight 172 lb 2 oz BMI 29.5 BP 162/90 H Blood Pressure Location Rt brachial Position Sitting Respiration 17 Pulse 79 Pulse Source Pulse Oximeter Pulse Oximetry (%) 99 Oxygen Delivery Method Room Air Intake Visit Reasons: new-CONF Intake Note: Pt presents for new pt evaluation for tremors and weakness of the RUE x 1 year. 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 she started noticing tremors in her right hand at rest about 1 year ago. The tremors are at rest most of the time. she also feels her right UE and LE are weaker and has difficulty with coordination. she has trouble dressing, walking moving, showering, handwriting, using her utensils. she has trouble standing form sitting positions. No memory issues or word finding difficulty. No sleep talking SHe has mild depression and anxiety. ALl ehr movements are slow. SPeech- softer No drooling No falls No difficulty turning in bed.she denies constipation .she denies hallucinations or dizziness. He has frequent urination and incontinence. 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 she had a knee replacement 2 years ago - uses a cane since then [facility] Medical History (Updated 10/23/23 @ 11:24 by Jenni Kemp MD) Parkinson's disease without dyskinesia BRCA gene mutation negative Tremor of both hands Right shoulder pain Levoscoliosis of lumbar spine Lumbago Gait instability Anemia HTN (hypertension) Aaron's esophagus without dysplasia Hypertensive nephrosclerosis Impaired fasting glucose Chronic kidney disease, stage 3 Varicose veins of both lower extremities Menopause ovarian failure CKD (chronic kidney disease) Renal cyst, left Cataract Right ovarian cyst GERD (gastroesophageal reflux disease) Dyslipidemia Essential hypertension Surgical History History of lateral meniscus repair of left knee History of esophagogastroduodenoscopy (EGD) Hx of colonoscopy Cataract extraction status of left eye Cataract extraction status of right eye Hx of cholecystectomy History of removal of skin mole History of knee surgery Family History Father Unknown family medical history Mother Breast cancer Maternal Aunt Breast cancer Son No problems noted. Daughter No problems noted. Social History Household Members: Spouse [facility]: [facility] Are you a primary respiratory care instructor to a significant other at home: No Do you presently have visiting nurse or other home services: No Alcohol intake: never Patient Tobacco Use Status: Never used Tobacco e-Cigarette/Vaping Use: Never Used Advance Directives Date on File: 07/04/22 service: No Current occupational status: unemployed Current occupation: Right Handed Gender identity: Female Cognitive needs: No Hearing needs: No Vision needs: Yes Female Reproductive History Menstrual Age of Menarche: 10 Physical Exam Vital Signs: Last Vital Signs Pulse 79 10/23/23 10:57 Resp 17 10/23/23 10:57 BP 162/90 H 10/23/23 10:57 Pulse Ox 99 10/23/23 10:57 Oxygen Delivery Method Room Air 10/23/23 10:57 BMI result Body Mass Index 29.5 Const General: cooperative, healthy appearing and no acute distress Nutritional Appearance: average body habitus and obese Orientation/consciousness: patient oriented x3 HEENT Head: Yes normal to inspection Neck Other: mild antecollis and restricted range of motion Neuro Other: Mild decreased blink and facial expression Voice- hypophonia Right UE rest tremors Fine Finger movements - severely decreased norberto R>L Aletranting hand movements - decreased norberto R>L Hand movements - decreased norberto Foot taps- decreased norberto Increased tone - R>L gait - stooped, slowness and decreased arm swing R>L,drags her right foot Moderate bradykinesia General: patient oriented x3 and no focal motor deficits Cranial nerves: Yes CN's II-XII intact bilaterally, Yes Bilaterally intact EOM present, Yes Normal facial strength present and Yes Midline tongue present Cognition (Neuro): normal cognition Motor exam (neuro): 5/5 motor strength present throughout and Normal motor muscle tone present throughout Deep tendon reflexes (DTR's): Right triceps reflex intensity grade: 3+, Left triceps reflex intensity grade: 3+, Rt Biceps (C5, C6): 3+, Left biceps reflex intensity grade: 3+, Right brachioradialis reflex intensity grade: 3+, Left brachioradialis reflex intensity grade: 3+, Right patellar reflex intensity grade: 3+ and Left patellar reflex intensity grade: 3+ Coordination: [id number] test normal Assessment & Plan Assessment & Plan (1) Parkinson's disease without dyskinesia: Comment: stage 2 B Code(s): G20.A1 - Parkinson's disease without dyskinesia, without mention of fluctuations Plan Discussed about her diagnosis , prognosis and management options etc.\Info on APDA website given I will trial her on sinemet 25/100 tid . Interaction with protein discussed PT and OT for gait training and hand movements MRI Brain to r/o vascular causes Orders: Orders MR head/brain wo con Today G20.A1 - Parkinson's disease without dyskinesia, without mention of fluctuations PT Evaluation and Treatment Today G20.A1 - Parkinson's disease without dyskinesia, without mention of fluctuations OT Evaluation and Treatment Today G20.A1 - Parkinson's disease without dyskinesia, without mention of fluctuations Medications: New carbidopa-levodopa 25-100 mg 1 tab PO TID 90 tabs 6RF Coding Level of Care Code New Pt Level 4 (71386) Diagnoses Parkinson's disease without dyskinesia G20.A1
[2023-10-23 10:57] VITALS: BP 162/90; PULSE 79; RESP 17; O2SAT 99; BMI 29.5
== END 2023-10-23 11:40 | disposition home or self-care (01) ==
PROVIDERS: PCP Internal Medicine; Visit Provider Psychiatry & Neurology Neurology
DX: G20.A1 Parkinson's disease without dyskinesia, without mention of fluctuations (principal)
CPT/HCPCS: 99204

== ENCOUNTER → 2023-10-23 10:49 | Outpatient (BNVA) | payer MEDICARE, SELFPAY | PROVIDERS: PCP Internal Medicine; Visit Provider Psychiatry & Neurology Neurology | DX: G20.A1 Parkinson's disease without dyskinesia, without mention of fluctuations (principal) | CPT/HCPCS: 36415; 80051; 81003; 82310; 82565; 82570; 83735; 83970; 84156; 84300; 84520; 85025; 99202 ==

== ENCOUNTER 2023-10-23 12:14 | Outpatient (REF) | payer MEDICARE, SELFPAY ==
[2023-10-23 13:28] LABS: MANUAL DIFF FLAG NO
[2023-10-23 13:33] LABS: Basophils Absolute Auto 0.1 X10*3/uL (0.0-0.2); Basophils Percent Auto 1.1 % (0-2); Eosinophils Absolute Auto 0.3 X10*3/uL (0.0-0.4); Eosinophils Percent Auto 6.4 % (0-4); Hematocrit 36.6 % (37.0-47.0); Hemoglobin 11.8 g/dl (12.0-16.0); Imm Gran Abs Auto 0.01 X10*3/uL (0.00-0.03); Imm Gran Pct Auto 0.2 % (0.0-0.4); Lymphocytes Absolute Auto 1.2 X10*3/uL (1.2-4.9); Lymphocytes Percent Auto 27.7 % (20-40); Mean Corpuscular HGB Conc 32.2 g/dl (31.0-35.0); Mean Corpuscular Volume 89.9 fL (80.0-98.0); Mean Platelet Volume 11.1 fL (9.4-12.3); Monocytes Absolute Auto 0.5 X10*3/uL (0.1-1.2); Monocytes Percent Auto 11.4 % (2-11); Neutrophils Absolute Auto 2.3 x10*3/uL (2.0-8.3); Neutrophils Percent Auto 53.2 % (45-73); Platelet Count 248 X10*3/uL (160-400); Red Blood Count 4.07 X10*6/uL (4.20-5.50); Red Cell Distribution Width 12.4 % (11.0-16.0); White Blood Count 4.4 X10*3/uL (4.8-10.8)
[2023-10-23 14:07] LABS: Parathyroid Hormone Intact 134.2 pg/mL (8.7-77.1)
[2023-10-23 15:29] LABS: Blood Urea Nitrogen 21 mg/dL (9-16); Calcium 9.5 mg/dL (8.4-10.2); Carbon Dioxide 25 mmol/L (22-29); Chloride 110 mmol/L (96-108); Magnesium 1.7 mg/dL (1.6-2.6); Potassium 3.9 mmol/L (3.3-5.1); Sodium 145 mmol/L (135-145)
[2023-10-23 16:27] LABS: Appearance Urine Turbid; Color Urine Yellow; Glucose Urine UA Negative (Negative); Leukocyte Esterase Urine Negative (Negative); Nitrite Urine Negative (Negative); Specific Gravity - Urine 1.025 (1.005-1.025); Urine Blood Negative (Negative); Urine Ketones Negative (Negative); Urine Protein Negative (Neg-Trace)
[2023-10-23 17:36] LABS: Creatinine Urine 264.87 mg/dL; Total Protein Urine Random 15 mg/dL (<12)
[2023-10-23 19:12] LABS: Anion Gap 17 (12-20)
[2023-10-23 19:15] LABS: Estimated Glomerular Filt Rate 38
== END 2023-10-23 12:15 | disposition home or self-care (01) ==
LOC: HO.HMGCLDS 12:14
PROVIDERS: PCP Internal Medicine; Visit Provider Internal Medicine Hypertension Specialist
DX: Z13.89 Encounter for screening for other disorder (principal)
CPT/HCPCS: 36415; 80051; 81003; 82310; 82565; 82570; 83735; 83970; 84156; 84300; 84520; 85025

== ENCOUNTER 2023-10-25 14:29 | Outpatient (AMB) | payer MEDICARE, SELFPAY ==
--- NOTE | 2023-10-25 14:32 | HO.NEPHOV_ITS ---
HPI HPI Comments History of Present Illness Details 68 yr old woman with a h/o long standing HTN and CKD with a baseline creatinine of about 1.5 mg /dL referred for management of CKD She has a h/o renal cyst- Bosnick 3 . Currently being follow closely by Urology( [facility] and [facility]) Waiting for MRI in Oct 2023 Accompanied by c/o Weakness. Says this started after knee surgery. Also has resting tremor in right UR adn waiting to see NEurology on 10/30/23 c/o Leg cramps on and off Overall BP has been well controlled. 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 Hypertensive nephrosclerosis Impaired fasting glucose Chronic kidney disease, stage 3 Varicose veins of both lower extremities Menopause ovarian failure CKD (chronic kidney disease) Renal cyst, left Cataract Right ovarian cyst GERD (gastroesophageal reflux disease) Dyslipidemia Essential hypertension Surgical History History of lateral meniscus repair of left knee History of esophagogastroduodenoscopy (EGD) Hx of colonoscopy Cataract extraction status of left eye Cataract extraction status of right eye Hx of cholecystectomy History of removal of skin mole History of knee surgery Family History Father Unknown family medical history Mother Breast cancer Maternal Aunt Breast cancer Son No problems noted. Daughter No problems noted. Social History Household Members: Spouse Housing: Condominium Are you a primary career and transition teacher to a significant other at home: No Do you presently have visiting nurse or other home services: No Alcohol intake: never Patient Tobacco Use Status: Never used Tobacco e-Cigarette/Vaping Use: Never Used Advance Directives Date on File: 07/04/22 service: No Current occupational status: unemployed Current occupation: Right Handed Gender identity: Female Cognitive needs: No Hearing needs: No Vision needs: Yes Female Reproductive History Menstrual Age of Menarche: 10 Vital Signs 10/25/23 14:33 Height 5 ft 4 in Weight 174 lb 2 oz BMI 29.9 BP 140/90 H Blood Pressure Location Rt brachial Position Sitting Pulse 76 Pulse Source Pulse Oximeter Pulse Oximetry (%) 98 Oxygen Delivery Method Room Air Physical Exam Vital Signs: Last Vital Signs Pulse 76 10/25/23 14:33 Pulse Ox 98 10/25/23 14:33 Oxygen Delivery Method Room Air 10/25/23 14:33 BMI result Body Mass Index 29.9 Const General: comfortable Nutritional Appearance: well nourished Orientation/consciousness: patient oriented x3 HEENT Head: No normal to inspection Mouth: moist mucous membranes Neck Neck: Yes supple and Yes no JVD Resp Auscultation: clear to auscultation bilaterally, no rales and rub present Cardio Jugular venous distension: no JVD Palpation: no palpable S3 and no palpable S4 Heart sounds: no rubs GI Palpation (GI): Soft to palpation and nontender Percussion: No Fluid wave present General: Yes no CVA tenderness Back/Spine/Pelvis Back: no CVA tenderness Skin General skin exam: no rashes or lesions noted Neuro General: patient oriented x3 and Unable to assess gait Gait exam (Neuro): Unable to assess gait Motor exam (neuro): Normal motor muscle tone present throughout and Tremors during motor activity present (Predominantly - Right UE - resting tremor.) Extrem General: Yes no pedal edema and No clubbing Assessment & Plan Assessment & Plan (1) Chronic kidney disease, stage 3: Comment: ff'd by Dr Kemp - [facility] Code(s): N18.30 - Chronic kidney disease, stage 3 unspecified Plan: Most likely due to hypertensive nephrosclerosis NO obstruction based on imaging NO significant proteinuria or hematuria. - GN or IN seem unlikely Urine specific gravity has been persistently elevated There could be a component of volume depletion causing hypoperfusion and ARMAND No need for HCTZ Encouraged to increase PO fluid intake Since she has no proteinuria, therefore i will lower Lisinopril to 10 mg QD Increased Carvedilol to 18.75 mg BID Recheck creatinine is 4 weeks Encouraged here to watch BP at home (h/o Elevated office BP readings- probably has a component of white coat effect) (2) Essential hypertension: Code(s): I10 - Essential (primary) hypertension Plan: BP noted As above Stay on low salt diet Plan Orders: Orders Basic Metabolic Panel 4 Weeks N18.30 - Chronic kidney disease, stage 3 unspecified Medications: Changed From carvedilol must administer with a meal/food 12.5 mg PO BID 180 tabs 1RF To carvedilol 18.75 mg (3 x 6.25 mg) PO BID 180 tabs 1RF Coding Level of Care Code Est Pt Level 4 (11239) Diagnoses Chronic kidney disease, stage 3 N18.30 Essential hypertension I10 Results Reviewed Nephrology Results: Hgb 11.8 g/dl (12.0-16.0) L 10/23/23 WBC 4.4 X10*3/uL (4.8-10.8) L 10/23/23 Plt Count 248 X10*3/uL (160-400) 10/23/23 Sodium 145 mmol/L (135-145) 10/23/23 Potassium 3.9 mmol/L (3.3-5.1) 10/23/23 Chloride 110 mmol/L (96-108) H 10/23/23 Carbon Dioxide 25 mmol/L (22-29) 10/23/23 BUN 21 mg/dL (9-16) H 10/23/23 Creatinine 1.37 mg/dL (0.5-1.4) 10/23/23 Calcium 9.5 mg/dL (8.4-10.2) 10/23/23 PTH Intact 134.2 pg/mL (8.7-77.1) H 10/23/23 Urine Protein Negative mg/dL (Neg-Trace) 10/23/23 Urine Creatinine 264.87 mg/dL 10/23/23
[2023-10-25 14:33] VITALS: BP 140/90; PULSE 76; O2SAT 98; BMI 29.9
== END 2023-10-25 15:02 | disposition home or self-care (01) ==
PROVIDERS: PCP Internal Medicine; Visit Provider Internal Medicine Hypertension Specialist
DX: N18.30 Chronic kidney disease, stage 3 unspecified (principal); I10 Essential (primary) hypertension
CPT/HCPCS: 99214

== ENCOUNTER → 2023-10-25 14:29 | Outpatient (BNVA) | payer MEDICARE, SELFPAY | PROVIDERS: PCP Internal Medicine; Visit Provider Internal Medicine Hypertension Specialist | DX: I12.9 Hypertensive chronic kidney disease with stage 1 through stage 4 chronic kidney disease, or unspecified chronic kidney disease (principal); N18.30 Chronic kidney disease, stage 3 unspecified | CPT/HCPCS: 99212 ==

== ENCOUNTER 2023-11-05 10:50 | Outpatient (AMB) | payer MEDICARE, SELFPAY ==
[2023-11-05 10:54] VITALS: BP 140/80; PULSE 67; O2SAT 97; BMI 29.6
--- NOTE | 2023-11-05 10:54 | A.OFFPC_ITS ---
Vital Signs 11/05/23 10:54 Height 5 ft 4 in Weight 172 lb 8 oz BMI 29.6 BP 140/80 H Blood Pressure Location Lt brachial Position Sitting Pulse 67 Pulse Source Pulse Oximeter Pulse Oximetry (%) 97 Oxygen Delivery Method Room Air Intake Visit Reasons: 6 mo follow up Intake Note: Pt is here today for her 6 mo. f/u Allergies No Known Allergies Allergy (Verified 01/06/24 20:08) Medication List - Last Reconciled 11/05/23 by Shanna Parker MD carbidopa-levodopa 25-100 mg 1 tab PO TID carvedilol 18.75 mg (3 x 6.25 mg) PO BID famotidine (Pepcid) 20 mg PO DAILY PRN geriatric khufigfi-wnyp-koia 1 tab PO DAILY lisinopril 10 mg PO DAILY melatonin mg PO PRN mirabegron ER (Myrbetriq) 25 mg PO DAILY PRN walker Folding front wheeled walker Tobacco use date assessed: 11/05/23 Fall risk assessment: No Falls in past year Last assessed Fall Risk: 11/05/23 Dental Screening Dental Screen Date: 11/05/23 Did you have a dental visit in the last 12 months?: Yes Did you have a dental problem in the last 6 months where you did not have access to dental care?: No Was dental information given to patient?: Patient has dentist HPI 6 mo follow up HPI Details 68-year-old lady with chronic kidney dis ease, recently diagnosed to have Parkinson's disease without dyskinesia, hyperlipidemia, here today for follow-up . Hypertension is stable, but systolic blood pressure still elevated, currently followed by Nephrology. Recent labs showed decreased renal function, stable with normal electrolytes, but CBC showed presence of mild normocytic normochromic anemia. She has been feeling well otherwise with no complaints of headache, no lightheadedness or chest pain or shortness of breath. 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 nephrosclerosis Impaired fasting glucose Chronic kidney disease, stage 3 Varicose veins of both lower extremities Menopause ovarian failure CKD (chronic kidney disease) Renal cyst, left Cataract Right ovarian cyst GERD (gastroesophageal reflux disease) Dyslipidemia Essential hypertension Surgical History History of lateral meniscus repair of left knee History of esophagogastroduodenoscopy (EGD) Hx of colonoscopy Cataract extraction status of left eye Cataract extraction status of right eye Hx of cholecystectomy History of removal of skin mole History of knee surgery Family History Father Unknown family medical history Mother Breast cancer Maternal Aunt Breast cancer Son No problems noted. Daughter No problems noted. Social History Household Members: Spouse Housing: Condominium Are you a primary critical care unit nurse to a significant other at home: No Do you presently have visiting nurse or other home services: No Alcohol intake: never Patient Tobacco Use Status: Never used Tobacco e-Cigarette/Vaping Use: Never Used Advance Directives Date on File: 07/04/22 service: No Current occupational status: unemployed Current occupation: Right Handed Gender identity: Female Cognitive needs: No Hearing needs: No Vision needs: Yes Female Reproductive History Menstrual Age of Menarche: 10 Questionnaire PHQ-9 Over the last 2 weeks, how often have you been bothered by any of the following problems? 1. Little interest or pleasure in doing things: not at all 2. Feeling down, depressed, or hopeless: not at all 3. Trouble falling or staying asleep, or sleeping too much: several days 4. Feeling tired or having little energy: several days 5. Poor appetite or overeating: not at all 6. Feeling bad about yourself - or that you are a failure or have let yourself or your family down: not at all 7. Trouble concentrating on things, such as reading the newspaper or watching television: not at all 8. Moving or speaking so slowly that other people could have noticed. Or the opposite - being so fidgety or restless that you have been moving around a lot more than usual: nearly every day 9. Thoughts that you would be better off or of hurting yourself in some way: not at all Total score: 5 Depression Screening Interpretation: Negative Depression Screening Done: Yes 96344 - PHQ-9 Billing: Yes Source: Developed by Drs. Sami Caraballo, Brittaney Starks, Travon Canales and colleagues, with an educational zion from [employer]. Thrive Questionnaire Date Thrive assessed: 11/05/23 I am a: Patient What is your living situation today?: I have a steady place to live Within the past 12 months, did the food you bought not last and you didn't have the money to get more?: Never true Within the past 12 months, did you worry whether your food would run out before you got money to buy more?: Never true Do you have trouble paying for medicines?: No Do you have trouble getting transportation to medical appointments?: No Do you have trouble paying your heating and electricity bill?: No Do you have trouble taking care of your child, family member or friend?: No Do you have trouble with day-to-day activities such as bathing, preparing meals, shopping, managing finances, etc.?: Yes Are you currently unemployed and looking for a job?: No Are you interested in more education?: No THRIVE Score: 0 AUDIT C Alcohol Use Questionnaire (AUDIT-C) 1. How often do you have a drink containing alcohol?: Never Total Score: 0 JUAN M-7 AMB Questionnaire JUAN M-7 Date JUAN M - 7 assessed: 11/05/23 Feeling nervous, anxious, or on edge: 0 = Not at all Not being able to stop or control worryin = Several days Worrying too much about different things: 0 = Not at all Trouble relaxin = More than half the days Being so restless that it is hard to sit still: 1 = Several days Becoming easily annoyed or irritable: 0 = Not at all Feeling afraid as if something awful might happen: 0 = Not at all Total JUAN M-7 score (0-4 normal; 5-9 mild; 10-14 moderate; 15-21 severe): 4 Source: Developed by Drs. Smai Caraballo, Travon Henley and colleagues, with an educational zion from [employer]. JUAN M-7 Assessment Billing JUAN M-7 Assessment Tool: JUAN M-7 Assessment 31671 Review of Systems Const Denies fatigue, Denies fever(s) and Denies lethargy Eyes Denies change in vision ENT Reports no additional complaints Card Denies chest pain, Denies irregular heart rhythm, Denies lightheadedness and Denies dyspnea Resp Denies chest congestion, Denies cough and Denies dyspnea GI Denies abdominal pain, Denies melena, Denies hematochezia, Denies change in bowel habits and Denies heartburn Reports urinary incontinence (ff;d by Urology, currently on Mirabegron) Musc Reports arthralgias and Reports stiffness Neuro Reports no additional complaints Endo Denies fatigue Gurjit/Lymph Denies easy bleeding and Denies easy bruising Physical exam (Primary Care) Vital Signs: Last Vital Signs Pulse 67 11/05/23 10:54 BP 140/80 H 11/05/23 10:54 Pulse Ox 97 11/05/23 10:54 Oxygen Delivery Method Room Air 11/05/23 10:54 BMI result Body Mass Index 29.6 Tobacco/Smoking Status: Tobacco use Status Tobacco use date assessed 11/05/23 11/05/23 10:58 Patient Tobacco Use Status Never used Tobacco 11/05/23 10:58 e-Cigarette/Vaping Use Never Used 11/05/23 10:58 PHQ-9: PHQ-9 Score PHQ-9: Total score 6 01/06/24 20:20 Depression Screening Interpretation: Negative Thrive Assessment: Date of Thrive Assessment Date Thrive assessed 11/05/23 11/05/23 11:05 Const General: comfortable, no acute distress and alert Orientation/consciousness: patient oriented x3 Limitations: ambulation with cane HENMT Ears: external ears normal General nose exam: Normal external nose present and No nasal discharge present Face and sinus: Yes face symmetric Eyes General: appearance normal, both eyes and all related structures Neck Neck: Yes full ROM, Yes no lymphadenopathy and Yes supple Resp Effort & Inspection: normal respiratory effort and able to speak in complete sentences Auscultation: clear to auscultation bilaterally Cardio Rate: regular rate Rhythm: regular rhythm Heart sounds: S1 normal heart sound present and S2 normal heart sound present GI Palpation (GI): Soft to palpation, nontender and no masses Auscultation: normal bowel sounds Skin General skin exam: no rashes or lesions noted Neuro Other: Slow slightly stiff gait General: patient oriented x3, moves all extremities, Normal light touch and pain sensation and no focal motor deficits Cognition (Neuro): normal cognition Gait exam (Neuro): Assisted gait required (cane) Extrem Other: Faint tremor noted in both hands, right more than the left General: Yes no pedal edema and Yes no calf tenderness Psych Appearance: grossly normal and well kempt Mental Status: mental status grossly normal Affect: normal affect Attitude: cooperative Results Reviewed Results Reviewed: Name: Nasima Hough Age/Sex: 68/F : 1955 Unit#: [id number] Attend Dr: Jan Kemp MD Re10/23/23 Status: DEP REF Location: [facility] Disch: SPEC : [id number] TOMA: 10/23/23 STATUS: COMP REQ : [id number] RECD: 10/23/[address]: Jan Kemp MD COMP: 10/23/23 ENTERED: 10/23/[address]: Shanna Parker MD ORDERED: CBC Auto Diff Test Result Flag Reference WBC 4.4 L 4.8-10.8 X10*3/uL RBC 4.07 L 4.20-5.50 X10*6/uL HGB 11.8 L 12.0-16.0 g/dl HCT 36.6 L 37.0-47.0 % MCV 89.9 80.0-98.0 fL MCH 29.0 27.0-33.0 pg MCHC 32.2 31.0-35.0 g/dl RDW 12.4 11.0-16.0 % PLT 248 160-400 X10*3/uL MPV 11.1 9.4-12.3 fL Neut Pct Auto 53.2 45-73 % ImGran Pct Auto 0.2 0.0-0.4 % Lymp Pct Auto 27.7 20-40 % Trego Pct Auto 11.4 H 2-11 % Eos Pct Auto 6.4 H 0-4 % Baso Pct Auto 1.1 0-2 % NRBC Pct Auto 0.0 0.0-0.2 /100WBC ANC Neut Abs # 2.3 2.0-8.3 x10*3/uL ImGran Abs Auto 0.01 0.00-0.03 X10*3/uL Lymph Abs Auto 1.2 1.2-4.9 X10*3/uL Trego Abs Auto 0.5 0.1-1.2 X10*3/uL Eos Abs Auto 0.3 0.0-0.4 X10*3/uL Baso Abs Auto 0.1 0.0-0.2 X10*3/uL NRBC Abs Auto 0.000 0.0-0.012 X10*3/uL yoshi: Jose DimpleNasima Age/Sex: 68/F : 1955 Unit#: [id number] Attend Dr: Jan Kemp MD Re10/23/23 Status: DEP REF Location: [facility] Disch: SPEC : [id number] TOMA: 10/23/23 STATUS: COMP REQ : [id number] RECD: 10/23/23-[address]: Jan Kemp MD COMP: 10/23/23-1529 ENTERED: 10/23/23-[address]: Shanna Parker MD ORDERED: Lytes, BUN, Creat, CA, MG Test Result Flag Reference Sodium 145 135-145 mmol/L Potassium 3.9 3.3-5.1 mmol/L CL 110 H 96-108 mmol/L CO2 25 22-29 mmol/L Gap 17 12-20 BUN 21 H 9-16 mg/dL Creat 1.37 0.5-1.4 mg/dL EGFR 38 NOTE: For -[place] Citizen individuals, multiply the result by 1.210. Chronic Kidney Disease: Estimated GFR < 60 mL/min/1.73m2 Severe Kidney Disease: Estimated GFR < 15 mL/min/1.73m2 CA 9.5 8.4-10.2 mg/dL Magnesium 1.7 1.6-2.6 mg/dL Assessment and Plan Assessment & Plan (1) Dyslipidemia: Code(s): E78.5 - Hyperlipidemia, unspecified Plan: Ordered repeat fasting lipid panel, reinforced importance of following healthy diet. Advised patient to make healthy food choices, eat more fruits, vegetables, whole grains, wild caught fish and low-fat dairy. Limit amount of meat and fried or fatty food products, as well as processed foods and fast foods. (2) Anemia: Code(s): D64.9 - Anemia, unspecified Qualifiers: Anemia type: unspecified type Qualified Code(s): D64.9 - Anemia, unspecified Plan: Advised to eat iron rich foods, repeat CBC and iron levels in 2 months (3) Parkinson's disease without dyskinesia: Comment: stage 2 B Code(s): G20.A1 - Parkinson's disease without dyskinesia, without mention of fluctuations Plan: Currently on carbidopa-levodopa followed by Neurology Orders: Orders Lipid Panel 2 Months E78.5 - Hyperlipidemia, unspecified, D64.9 - Anemia, unspecified Complete Blood Count Auto Diff 2 Months E78.5 - Hyperlipidemia, unspecified, D64.9 - Anemia, unspecified IRON PROFILE 2 Months E78.5 - Hyperlipidemia, unspecified, D64.9 - Anemia, unspecified Coding Level of Care Code Est Pt Level 4 (01403) Diagnoses Dyslipidemia E78.5 Anemia, unspecified type D64.9 Anemia type: unspecified type Parkinson's disease without dyskinesia G20.A1 Additional Codes JUAN M-7 Assessment Billing - JUAN M-7 Assessment Tool: JUAN M-7 Assessment 18275 ([id number])
== END 2023-11-05 11:45 | disposition home or self-care (01) ==
PROVIDERS: PCP Internal Medicine; Visit Provider Internal Medicine
DX: E78.5 Hyperlipidemia, unspecified (principal); D64.9 Anemia, unspecified; G20.A1 Parkinson's disease without dyskinesia, without mention of fluctuations
CPT/HCPCS: 99214

== ENCOUNTER 2023-11-23 15:42 | Outpatient (AMB) | payer MEDICARE, SELFPAY ==
--- NOTE | 2023-11-23 16:19 | A.OFFVIS_ITS ---
Intake Intake Visit Reasons: 1yr follow up Intake Note: Patient presents today for a 1 year follow-up: Meds- Myrbetriq Allergies to Antibiotic- No Known Allergies Blood Thinner- None Strong Nitric Operator Required: No Accompanied by: Self / Same As Patient Allergies No Known Allergies Allergy (Verified 12/10/23 14:30) HPI HPI Comments History of Present Illness Details 11/23/23--Nasima has been followed up for complex renal cyst as well as overactive bladder symptoms. She has a history of lymphedema. The patient is followed by Nephrology for chronic kidney disease. She was referred by Dr. 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 The patient uses a walker for assistance. I have reviewed the recent MRI abdomen 10/19/2023, which reports similar appearance of the left renal cyst mid to upper pole, measuring approximately 6.8 cm. Continued surveillance is recommended. Will continue Myrbetriq 25 mg daily. Review of chart: 05/02/2023?Nasima is a 68-year-old fema le who is scheduled today for tele- health visit for a follow up. She was last seen by me on 12/13/2022. Nasima has been followed up for complex renal cyst as well as overactive bladder symptoms. She was referred by Dr. 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 She states that she has seen Nurse practitioner in 11/2022, and had an MRI in the end of the March. She is scheduled for another MRI in 10/2023. She states that she has an upcoming tele-health follow up with Dr. Moreno in 10/24/2023. She has discontinued bladder medications. She is thinking about starting to take it again. She has a history of hypertension. She states that she has blood pressure cuff at home, but has not used it recently. She has a history of acid reflux; however she states that it does not bother her. She has a history of lymphedema. In regards to her lower urinary tract symptoms, she has more bladder symptoms since she was not on oxybutynin. At this time, i will try her on Myrbetriq 25 mg daily. Patient concerned about her blood pressure, so we will arrange for a nurse visit in 2 weeks after being on oxybutynin. I did review the side effects associated with oxybutynin do include dry mouth, cognitive changes, and dry eyes and as she is getting older, i do not want to continue her on oxybutynin. 12/13/2022--3 month follow-up for renal cysts and discussion of MRI results. The patient uses a walker for assistance. The patient has been following up with Dr Mcgill for renal cysts. Bosniak 3 cyst in the left kidney and Bosniak 1 cyst in the right kidney. The patient is prescribed oxybutynin for urinary urgency. Has grade 2 cystocele and requests pessary treatment for preventing urinary leakage. Has had PFPT in the past, I have discussed that I do not feel pessary management would be beneficial in managing her complaints of urinary urgency and incontinent symptoms Abdomen MRI results reviewed--11/02/2022-- A 6.0 cm multiseptated cystic left renal mass which demonstrates few enhancing irregular septations compatible with a Bosniak 3 renal mass, minimally increased in size in maximal dimension, previously 5.7 cm. I have discussed findings concerning for renal malignancy. Plan: Bosniac III renal cystic mass. Referral to Dr. Moreno for evaluation for second opinion. OAB. Pt wants to stop oxybutynin. Discussed behaviorial modificatin. Timed voiding-q 2 hours, reduce caffeine consumption, adequate water intake. Follow-up after 4 months. 11/23/2023--continue to monitor left renal cyst Bosniak type 3. Patient has been referred to Dr. Moreno. Overactive bladder Myrbetriq 25 mg daily and continue behavioral modification [facility] Medical History (Updated 12/10/23 @ 14:38 by Jan Kemp MD) Anemia Parkinson's disease without dyskinesia BRCA gene mutation negative Tremor of both hands Right shoulder pain Levoscoliosis of lumbar spine Lumbago Gait instability HTN (hypertension) Aaron's esophagus without dysplasia Hypertensive nephrosclerosis Impaired fasting glucose Chronic kidney disease, stage 3 Varicose veins of both lower extremities Menopause ovarian failure CKD (chronic kidney disease) Renal cyst, left Cataract Right ovarian cyst GERD (gastroesophageal reflux disease) Dyslipidemia Essential hypertension Surgical History History of lateral meniscus repair of left knee History of esophagogastroduodenoscopy (EGD) Hx of colonoscopy Cataract extraction status of left eye Cataract extraction status of right eye Hx of cholecystectomy History of removal of skin mole History of knee surgery Family History Father Unknown family medical history Mother Breast cancer Maternal Aunt Breast cancer Son No problems noted. Daughter No problems noted. Social History Household Members: Spouse Housing: Condominium Are you a primary point of care technician to a significant other at home: No Do you presently have visiting nurse or other home services: No Alcohol intake: never Patient Tobacco Use Status: Never used Tobacco e-Cigarette/Vaping Use: Never Used Advance Directives Date on File: 07/04/22 service: No Current occupational status: unemployed Current occupation: Right Handed Gender identity: Female Cognitive needs: No Hearing needs: No Vision needs: Yes Female Reproductive History Menstrual Age of Menarche: 10 Review of Systems Const All systems reviewed & are unremarkable except as noted in HPI and below Reports no additional complaints Eyes Reports no additional complaints ENT Reports no additional complaints Card Reports no additional complaints Resp Reports no additional complaints GI Reports no additional complaints Reports as per HPI Musc Reports no additional complaints Skin/Breast Reports system reviewed and no additional complaints, except as documented Neuro Reports no additional complaints Psych Reports no additional complaints Endo Reports no additional complaints Gurjit/Lymph Reports no additional complaints Aller/Immun Reports no additional complaints Office Procedures Post Void Residual Post Residual Void Post Void Residual (PVR): 24 [id number] Void Residual by ultrasound Assessment & Plan Assessment & Plan (1) Renal cyst, acquired, left: Code(s): N28.1 - Cyst of kidney, acquired (2) Cyst of kidney, acquired: Code(s): N28.1 - Cyst of kidney, acquired (3) Overactive bladder: Code(s): N32.81 - Overactive bladder Plan continue to monitor left renal cyst Bosniak type 3. Patient has been referred to Dr. Moreno. Overactive bladder Myrbetriq 25 mg daily and continue behavioral modification Orders: Orders AMB Post Void Residual by ultrasound 11/23/23 N39.8 - Other specified disorders of urinary system AMB Urinalysis Automated 11/23/23 Z13.9 - Encounter for screening, unspecified Patient Instructions: The patient had an opportunity to ask questions regarding treatment plan. All questions were answered. Imaging, reviewed in detail. No major barriers to understanding were identified. The patient expressed understanding and agreement with the above treatment plan. The patient is aware they should contact our office by phone for worsening of their current condition or the appearance of new symptoms. Compliance is encouraged with any medications and followup testing that is ordered. It is a privilege to be allowed the opportunity to participate in the urologic care of your patient. If you have any questions or concerns regarding treatment for the above conditions please do not hesitate to contact me. The office telephone contact is [phone]. This note is constructed in part using voice recognition software. While every effort has been made to ensure accuracy library media specialist errors may have been included. Yours sincerely, Arthur Ortiz MD Coding Level of Care Code Est Pt Level 4 (30711) Diagnoses Renal cyst, acquired, left N28.1 Cyst of kidney, acquired N28.1 Overactive bladder N32.81 CPT Codes Post Residual Void - PVR CPT Code: 57284-Wyub Void Residual by ultrasound ([id number])
== END 2023-11-23 16:40 | disposition home or self-care (01) ==
PROVIDERS: PCP Internal Medicine; Visit Provider Urology
DX: N28.1 Cyst of kidney, acquired (principal); N32.81 Overactive bladder
CPT/HCPCS: 99214

== ENCOUNTER → 2023-11-23 15:42 | Outpatient (BNVA) | payer MEDICARE, SELFPAY | PROVIDERS: PCP Internal Medicine; Visit Provider Urology | DX: N28.1 Cyst of kidney, acquired (principal); N32.81 Overactive bladder | CPT/HCPCS: 51798; 99212 ==

== ENCOUNTER 2023-11-29 10:22 | Outpatient (REF) | payer MEDICARE, SELFPAY ==
--- NOTE | ~2023-11-29 | MR_ITS ---
EXAMINATION: MR BRAIN WITHOUT CONTRAST CLINICAL INFORMATION: Parkinson's disease COMPARISON: CT head 09/11/2023 TECHNIQUE: MRI of the brain was obtained using routine sequences without contrast. FINDINGS: No acute infarct. No acute intracranial hemorrhage or extra-axial fluid collection. No increased iron deposition within the basal ganglia or substantia nigra. Mild age appropriate global cerebral volume loss. Patchy T2 FLAIR hyperintense foci in the subcortical and periventricular white matter, nonspecific but presumably mild chronic microangiopathy. No mass lesion, mass effect, or herniation pattern. Normal intracranial arterial and dural venous sinus flow voids. Normal appearance of the midline structures. Lens replacements. Left maxillary sinus alveolar recess retention cyst and trace ethmoid air cell mucosal thickening. No mastoid effusion. Normal marrow signal. MR/MR head/brain wo con IMPRESSION: No increased iron deposition within the basal ganglia or substantia nigra. Mild age-appropriate global cerebral volume loss and nonspecific white matter disease, presumably mild chronic microangiopathy.
== END 2023-11-29 10:23 | disposition home or self-care (01) ==
LOC: HO.MRI 10:22
PROVIDERS: PCP Internal Medicine; Visit Provider Psychiatry & Neurology Neurology
DX: G20.A1 Parkinson's disease without dyskinesia, without mention of fluctuations (principal)
CPT/HCPCS: 70551

== ENCOUNTER 2023-12-06 12:55 | Outpatient (REF) | payer MEDICARE, SELFPAY ==
[2023-12-06 14:29] LABS: Anion Gap 15 (12-20); Blood Urea Nitrogen 32 mg/dL (9-16); Calcium 10.1 mg/dL (8.4-10.2); Carbon Dioxide 26 mmol/L (22-29); Chloride 107 mmol/L (96-108); Estimated Glomerular Filt Rate 38; Glucose Random 84 mg/dL (60-115); Potassium 4.3 mmol/L (3.3-5.1); Sodium 144 mmol/L (135-145)
== END 2023-12-06 12:56 | disposition home or self-care (01) ==
LOC: HO.LAB 12:55
PROVIDERS: Internal Medicine Hypertension Specialist; Visit Provider Psychiatry & Neurology Neurology
DX: N18.30 Chronic kidney disease, stage 3 unspecified (principal)
CPT/HCPCS: 36415; 80048

== ENCOUNTER 2023-12-10 14:25 | Outpatient (AMB) | payer MEDICARE, SELFPAY ==
[2023-12-10 14:26] VITALS: BP 146/84; PULSE 76; O2SAT 97; BMI 29.3
--- NOTE | 2023-12-10 14:26 | HO.NEPHOV ---
HPI HPI Comments History of Present Illness Details 68 yr old woman with a h/o long standing HTN and CKD with a baseline creatinine of about 1.5 mg /dL referred for management of CKD She has a h/o renal cyst- Bosnick 3 . Currently being follow closely by Urology( [facility] [place] and [facility]) Waiting for MRI in Oct 2023 Accompanied by c/o Weakness. Says this started after knee surgery. Also has resting tremor in right UR adn waiting to see NEurology on 10/30/23 c/o Leg cramps on and off Overall BP has been well controlled. Several episodes of low BP noted She is on Lisinopril 20 mg AND HCTZ 25 mg QD along with Coreg 12.5 mg BID 10/25/23 After lowering HCTZ, cr iis down to 1.37 from 1.6 Seen by Neuro- diagnosed with Parkinsons Started on Sinemet PFSH Medical History (Updated 12/10/23 @ 14:38 by Jan Kemp MD) Anemia Parkinson's disease without dyskinesia BRCA gene mutation negative Tremor of both hands Right shoulder pain Levoscoliosis of lumbar spine Lumbago Gait instability HTN (hypertension) Aaron's esophagus without dysplasia Hypertensive nephrosclerosis Impaired fasting glucose Chronic kidney disease, stage 3 Varicose veins of both lower extremities Menopause ovarian failure CKD (chronic kidney disease) Renal cyst, left Cataract Right ovarian cyst GERD (gastroesophageal reflux disease) Dyslipidemia Essential hypertension Surgical History History of lateral meniscus repair of left knee History of esophagogastroduodenoscopy (EGD) Hx of colonoscopy Cataract extraction status of left eye Cataract extraction status of right eye Hx of cholecystectomy History of removal of skin mole History of knee surgery Family History Father Unknown family medical history Mother Breast cancer Maternal Aunt Breast cancer Son No problems noted. Daughter No problems noted. Social History Household Members: Spouse Housing: Condominium Are you a primary social worker palliative care to a significant other at home: No Do you presently have visiting nurse or other home services: No Alcohol intake: never Patient Tobacco Use Status: Never used Tobacco e-Cigarette/Vaping Use: Never Used Advance Directives Date on File: 07/04/22 service: No Current occupational status: unemployed Current occupation: Right Handed Gender identity: Female Cognitive needs: No Hearing needs: No Vision needs: Yes Female Reproductive History Menstrual Age of Menarche: 10 Vital Signs 12/10/23 14:26 Height 5 ft 4 in Weight 171 lb BMI 29.3 BP 146/84 H Blood Pressure Location Lt brachial Position Sitting Pulse 76 Pulse Source Pulse Oximeter Pulse Oximetry (%) 97 Oxygen Delivery Method Room Air Physical Exam Vital Signs: Last Vital Signs Pulse 76 12/10/23 14:26 BP 146/84 H 12/10/23 14:26 Pulse Ox 97 12/10/23 14:26 Oxygen Delivery Method Room Air 12/10/23 14:26 BMI result Body Mass Index 29.3 Const General: comfortable Nutritional Appearance: well nourished Orientation/consciousness: patient oriented x3 HEENT Head: No normal to inspection Mouth: moist mucous membranes Neck Neck: Yes supple and Yes no JVD Resp Auscultation: clear to auscultation bilaterally, no rales and rub present Cardio Jugular venous distension: no JVD Palpation: no palpable S3 and no palpable S4 Heart sounds: no rubs GI Palpation (GI): Soft to palpation and nontender Percussion: No Fluid wave present General: Yes no CVA tenderness Back/Spine/Pelvis Back: no CVA tenderness Skin General skin exam: no rashes or lesions noted Neuro General: patient oriented x3 and Unable to assess gait Gait exam (Neuro): Unable to assess gait Motor exam (neuro): Normal motor muscle tone present throughout and Tremors during motor activity present (Predominantly - Right UE - resting tremor.) Extrem General: Yes no pedal edema and No clubbing Assessment & Plan Assessment & Plan (1) Chronic kidney disease, stage 3: Comment: ff ed by - [facility] Code(s): N18.30 - Chronic kidney disease, stage 3 unspecified Plan: Most likely due to hypertensive nephrosclerosis No obstruction based on imaging No significant proteinuria or hematuria. - GN or IN seem unlikely Urine specific gravity has been persistently elevated There could be a component of volume depletion causing hypoperfusion and ARMAND No need for HCTZ Encouraged to increase PO fluid intake Since she has no proteinuria, therefore i will kepp Lisinopril at 10 mg QD Increased Carvedilol to 25 mg BID Encouraged here to watch BP at home (h/o Elevated office BP readings- probably has a component of white coat effect) (2) Essential hypertension: Code(s): I10 - Essential (primary) hypertension Plan: BP noted As above Stay on low salt diet (3) Renal cyst, left: Comment: Shruthi Gilbert on MRI 08/06 Code(s): N28.1 - Cyst of kidney, acquired Plan: Follow with Urology Plan Medications: Changed From lisinopril 10 mg PO DAILY To lisinopril 10 mg PO DAILY 90 tabs 3RF From carvedilol 18.75 mg (3 x 6.25 mg) PO BID 540 tabs 1RF To carvedilol 25 mg PO BID 180 tabs 2RF Coding Level of Care Code Est Pt Level 4 (97154) Diagnoses Chronic kidney disease, stage 3 N18.30 Essential hypertension I10 Renal cyst, left N28.1 Results Reviewed Nephrology Results: Hgb 11.8 g/dl (12.0-16.0) L 10/23/23 WBC 4.4 X10*3/uL (4.8-10.8) L 10/23/23 Plt Count 248 X10*3/uL (160-400) 10/23/23 Sodium 144 mmol/L (135-145) 12/06/23 Potassium 4.3 mmol/L (3.3-5.1) 12/06/23 Chloride 107 mmol/L (96-108) 12/06/23 Carbon Dioxide 26 mmol/L (22-29) 12/06/23 BUN 32 mg/dL (9-16) H 12/06/23 Creatinine 1.37 mg/dL (0.5-1.4) 12/06/23 Calcium 10.1 mg/dL (8.4-10.2) 12/06/23 PTH Intact 134.2 pg/mL (8.7-77.1) H 10/23/23 Urine Protein Negative mg/dL (Neg-Trace) 10/23/23 Urine Creatinine 264.87 mg/dL 10/23/23
== END 2023-12-10 14:53 | disposition home or self-care (01) ==
PROVIDERS: PCP Internal Medicine; Visit Provider Internal Medicine Hypertension Specialist
DX: N18.30 Chronic kidney disease, stage 3 unspecified (principal); I10 Essential (primary) hypertension; N28.1 Cyst of kidney, acquired
CPT/HCPCS: 99214

== ENCOUNTER → 2023-12-10 14:25 | Outpatient (BNVA) | payer MEDICARE, SELFPAY | PROVIDERS: PCP Internal Medicine; Visit Provider Internal Medicine Hypertension Specialist | DX: I12.9 Hypertensive chronic kidney disease with stage 1 through stage 4 chronic kidney disease, or unspecified chronic kidney disease (principal); N18.30 Chronic kidney disease, stage 3 unspecified; N28.1 Cyst of kidney, acquired | CPT/HCPCS: 99212 ==

== ENCOUNTER 2023-12-18 10:14 | Outpatient (REF) | payer MEDICARE, SELFPAY | END 2023-12-18 10:15 | disposition home or self-care (01) | LOC: HO.MAMMO 10:14 | PROVIDERS: PCP Internal Medicine; Visit Provider Internal Medicine | DX: Z12.31 Encounter for screening mammogram for malignant neoplasm of breast (principal) | CPT/HCPCS: 77063; 77067 ==

== ENCOUNTER → 2023-12-18 10:15 | Outpatient (BNV) | payer MEDICARE, SELFPAY | PROVIDERS: PCP Internal Medicine; Visit Provider Radiology Diagnostic Radiology | DX: Z12.31 Encounter for screening mammogram for malignant neoplasm of breast (principal) | CPT/HCPCS: 77063; 77067 ==

== ENCOUNTER 2023-12-25 11:30 | Outpatient (RCR) | payer MEDICARE, SELFPAY ==
--- NOTE | 2023-11-09 13:05 | MHC.OT.OEV ---
[address] [phone] F: [phone] Occupational Therapy Evaluation Patient Name: Nasima Musa Diagnosis: Tremors in (R)hand Date of Onset: 10/23/23 Date of Surgery: Attending Provider: Jenni Kemp Prescribed Treatment: Follow Up Appointment: History of Current Condition: Patient is a 68 year old right handed female with past medical history significant for but not limited to Parkinson's disease, HTN, and CKD III, who was referred by Jenni Kemp MD for tremors in her (R)hand. Patient reports she noticed the tremors about a year ago and brought them to her physicians attention, she stated she was recently diagnosed with Parkinson's this month (10/23/2023). 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 nephrosclerosis Impaired fasting glucose Chronic kidney disease, stage 3 Varicose veins of both lower extremities Menopause ovarian failure CKD (chronic kidney disease) Renal cyst, left Cataract Right ovarian cyst GERD (gastroesophageal reflux disease) Dyslipidemia Precautions/Contraindications: CKD stage 3, HTN, FALL RISK, TKA 2021 Patient Goals: Hand Dominance: Right Observations: QuickDASH Score: Prior Level of Function and Occupation Self Care, Employment, Leisure: Retired (I)ADLs/IADLs Living Situation, Family and/or Social Support: Lives with in [facility] with 2 levels and 3 ASUNCION. Patient reports she sleeps on the 1st floor Has children that are supportive Current Level of Function and Occupation Self Care, Employment, Leisure: Min (A)ADLs- difficulty with: washing/ brushing hair, cutting food etc., and donning/doffing clothing. Has slip- on- shoes Mod (A)IADLS- completes cooking, and heavy house hold chores Sleep: Is able to sleep well but notices that sometimes her hands shakes. Driving: Patient reports she has not driven in a few months, has been driving. Vision: Balance: Pain Assessment Pain Score: 2 Pain Scale Used: Numeric (0 - 10) Pain Location and Description: Shoulder 2/10 pain, 0/10 pain at rest Aggravating Factors: Alleviating Factors: Does need not take anything Skin and Soft Tissue Assessment Skin and Soft Tissue: Comments: WFL Nerve assessment Ulnar Nerve: Median Nerve: Radial Nerve: Comments: WFL Sensory Assessment Temperature: WNL Light Touch: WNL Proprioception: WNL Vibration: WNL Comments: Monofilament Test= WFL Edema Assessment Upper Extremity: WNL Lower Extremity: Right Impaired Left Impaired Comments: Edema present in (B)LE, patient reported hx of lymphedema Dexterity Assessment Dexterity: B/L Impaired Comments: Functional Dexterity Test (R)1:22.29 (L)33.89 seconds Special Tests Comments: AROM(PROM) Strength Cervical Cervical Flexion: Cervical Extension: Cervical Lateral Flexion: Cervical Rotation: Comments: Shoulder Flexion: 135* Extension: 55* Abduction: 120* Internal Rotation: 30* External Rotation: 90* Comments: (R)UE Flexion: Extension: Abduction: Internal Rotation: External Rotation: Comments: 3+/5 Elbow Flexion: Extension: Pronation: Supination: Comments: WFL Flexion: Extension: Pronation: Supination: Comments: 3+/5 Wrist Flexion: Extension: Ulnar Deviation: Radial Deviation: Comments: WFL Flexion: Extension: Ulnar Deviation: Radial Deviation: Comments: 3+/5 Thumb Thumb CMC Flexion: Thumb MCP Flexion: Thumb IP Flexion: Radial Abduction: Palmar Abduction: Dutton (Kapandji 0-10): Comments: WFL Digits Index MCP: PIP: DIP: Long MCP: PIP: DIP: Ring MCP: PIP: DIP: Small MCP: PIP: DIP: Comments: Patient demonstrated difficulty with making a hook fist Gross Grasp: (R)41.3lbs. (L)57lbs. Lateral Pinch: (R)14 Two-Point Pinch: (R)12 Three-Jaw Lux: (R)8 Comments: Patient Education Primary Language: Vietnamese Spring Former Hand Required: No Current Knowledge: Teaching Method: Education Needs Identified on Evaluation: How did patient/family demonstrate learning? Barriers to Learning: Readiness for Learning: Who was educated? Comments: Plan of Care Assessment: Patient is a 68 y/o right handed female who was referred to skilled OT for tremors of the right hand. Patient reported she lives with her in a 2 level condo and mostly resides on the 1st level where she sleeps, she has 3 ASUNCION. She stated her PLOF as (I)ADLs/IADLs. Patient stated her tremors are annoying and everything is such an effort and slow and most difficulty she has with is dressing and cutting. Patient's current ROM measurements are as follows: (R) Shoulder flexion 135*, extension 55*, abduction 120*, external rotation 90*, internal rotation 30*, elbow: WFL, wrist: WFL; (L)UE WFL. Functional Dexterity Test indicates impairment as she scored 1:22.29(R) and 33.89 seconds(L). 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 which is under for patient's age and gender. Based on initial evaluation patient's current level of function is min (A) ADLs/ mod (A) IADLs as patient presents with impaired coordination, impaired strength, impaired ROM, and impaired performance during self care tasks. Due to the documented impairments it recommended that patient receive skilled OT in order for patient to achieve her maximal potential to enhance her QOL. Thank you for your referral. STG Duration: 2 weeks Short Term Goals: Patient will be increase shoulder flexion by 10* in order for improved performance during self care task Patient will decrease Functional dexterity Test by 10 seconds indicating improved (R)hand coordination during functional tasks Patient will state 2 compensatory strategies when performing ADLs Patient will increase computer technical support specialist strength by 5lbs. LTG Duration: 4 weeks Spanish Language Lecturer Goals: Patient will report 0/10 pain in (R)shoulder Patient will decrease Functional dexterity Test by 30 seconds indicating improved coordination Patient will be (I) with HEP Patient will be (I) with compensatory strategies for ADL performance Patient will have improved Quick DASH score of at least 10 points indicating improved UE performance Frequency and Duration: The patient will be seen 2x a week for 4 weeks Treatment Plan: Therapeutic Exercise Therapeutic Activity Home Exercise Program Neuro Re-ed Patient Education Edema Control ADL Training Kinesiotaping OT eval and treat Electronically Signed By: Ellie Todd OTR/L, CLT Reviewed/agree with student documentation: Therapist: Please sign and return to therapist, Thank you for your referral.
--- NOTE | 2023-12-11 10:16 | MHC.OT.OP ---
[address] [phone] F: [phone] Occupational Therapy Progress Note Patient Name: Nasima Musa Diagnosis: Tremors in (R)hand Date of Surgery: Date of Evaluation: 11/09/23 Treatments to Date: 9 Cancellations to Date: No Shows to Date: Subjective: I had my MRI today, if I talk about it I might cry. Pain Score: 0 Pain Location: (R)shoulder Objective Measures: Monofilament Test= WFL Status: Progressing Assessment: Patient has had 9 1:1 sessions and has made steady progress towards her goals. Currently she has increased her shoulder ROM by 10*, and has increased her coordination time and she reports 0/10 pain in her shoulder. 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 It is recommended that patient continue with skilled OT services in order to achieve her maximal potential during therapy and increase her quality of life. Short Term Goals: Patient will be increase shoulder flexion by 10* in order for improved performance during self care task - MET Patient will decrease Functional dexterity Test by 10 seconds indicating improved (R)hand coordination during functional tasks- MET Patient will state 2 compensatory strategies when performing ADLs - GOAL NOT ADRESSED Patient will increase special machine operator strength by 5lbs. - PROGRESSING Training Program Manager Goals: Patient will report 0/10 pain in (R)shoulder- MET Patient will decrease Functional dexterity Test by 30 seconds indicating improved coordination Patient will be (I) with HEP Patient will be (I) with compensatory strategies for ADL performing Patient will have improved Quick DASH score of at least 10 points indicating improved UE performance - PROGRESSING Frequency and Duration: The patient will be seen 2x a week for 4 weeks Treatment Plan: Therapeutic Exercise Therapeutic Activity Home Exercise Program Neuro Re-ed Patient Education ADL Training Kinesiotaping Continue skilled OT POC Electronically Signed By: Ellie Todd OTR/L,CLT Reviewed/agree with student documentation: Therapist:
== END 2024-02-12 13:43 | disposition home or self-care (01) ==
LOC: HO.OT 11:30
PROVIDERS: PCP Internal Medicine; Visit Provider Psychiatry & Neurology Neurology
DX: G20.A1 Parkinson's disease without dyskinesia, without mention of fluctuations (principal)
CPT/HCPCS: 97110; 97166; 97530; 97535; 97760

== ENCOUNTER 2024-01-01 10:10 | Outpatient (REF) | payer MEDICARE, SELFPAY ==
[2024-01-01 13:44] LABS: MANUAL DIFF FLAG NO
[2024-01-01 14:00] LABS: Basophils Absolute Auto 0.1 X10*3/uL (0.0-0.2); Basophils Percent Auto 1.2 % (0-2); Eosinophils Absolute Auto 0.3 X10*3/uL (0.0-0.4); Eosinophils Percent Auto 6.6 % (0-4); Hemoglobin 12.5 g/dl (12.0-16.0); Imm Gran Abs Auto 0.01 X10*3/uL (0.00-0.03); Imm Gran Pct Auto 0.2 % (0.0-0.4); Lymphocytes Absolute Auto 1.3 X10*3/uL (1.2-4.9); Lymphocytes Percent Auto 32.8 % (20-40); Mean Corpuscular HGB Conc 32.1 g/dl (31.0-35.0); Mean Corpuscular Hemoglobin 28.9 pg (27.0-33.0); Mean Corpuscular Volume 90.3 fL (80.0-98.0); Mean Platelet Volume 11.1 fL (9.4-12.3); Monocytes Absolute Auto 0.5 X10*3/uL (0.1-1.2); Neutrophils Percent Auto 48.2 % (45-73); Platelet Count 257 X10*3/uL (160-400); Red Blood Count 4.32 X10*6/uL (4.20-5.50); Red Cell Distribution Width 12.5 % (11.0-16.0); White Blood Count 4.1 X10*3/uL (4.8-10.8)
[2024-01-01 17:21] LABS: Cholesterol 215 mg/dL (<200); HDL Cholesterol 71 mg/dL (>40); Iron 81 mcg/dL (30-160); LDL Cholesterol Calculated 133 mg/dL (<100); Percent Iron Saturation 25 % (15-50); Total Iron Binding Capacity 319 mcg/dL (228-428); Triglycerides 57 mg/dL (<150); Unsaturated Iron Binding 238 ug/dL
== END 2024-01-01 10:11 | disposition home or self-care (01) ==
LOC: HO.HMGCLDS 10:10
PROVIDERS: PCP Internal Medicine; Visit Provider Internal Medicine
DX: D64.9 Anemia, unspecified (principal); E78.5 Hyperlipidemia, unspecified
CPT/HCPCS: 36415; 80061; 83540; 85025

== ENCOUNTER 2024-01-03 09:00 | Outpatient (RCR) | payer MEDICARE, SELFPAY ==
[2023-11-15 12:57] VITALS: BP 192/83; PULSE 67
--- NOTE | 2023-11-15 14:42 | MHC.PT.EP ---
[facility] [place] Office [place] Office [place] Office [address] Rahul Castillo [address] [phone] F: [phone] F: [phone] F: [phone] F: [phone] Physical Therapy Plan of Care Date of Evaluation: 11/15/23 Date of Surgery: NA Diagnosis: Parkinson's disease without dyskinesia Assessment: Nasima is a 68 year old female who is referred to PT for Parkinson's disease without dyskinesia . She reports of having been diagnosed with Parkinson's a month back but has been having symptoms of resting tremors in R hand, stiffness in R quad and difficulty walking long distances for a while. On PT examination she presented with 2/10 pain/discomfort for R quad, slowed gait speed when initiating ambulation, difficulty walking long distances and walking in narrow hallways, decreased mobility noted in B hip, calves and B hamstring, decreased strength in B LE, altered posture, balance and gait. She lives with her and is independent with all ADLS however has been taking longer to complete them. She would benefit from skilled PT to address the aforementioned impairments and improve tolerance to functional activities. Frequency and Duration: The patient will be seen 2/week for 5 weeks Short Term Goals: 1. Pt will demonstrate initiation of HEP in 2 weeks. 2. Pt will demonstrate good arm swing and heel strike during ambulation in 3 weeks. Fci Goals: 1. Pt will demonstrate an increase in muscle strength by 1 grade which will enable her to tolerate walking for 30 minutes without fatigue/rest breaks in 5 weeks. 2. Pt will be independent with all HEPs for symptom management and maintenance following d/c in 5 weeks. Treatment Plan: Modalities to reduce pain, spasms and effusion. Manual therapy to restore motion and function. Therapeutic exercise to improve strength and flexibility. Neuromuscular re-education for posture and balance. Therapeutic activities to return to functional activities of daily living. Electronically signed by: Karen Hale PT DPT Please sign and return to therapist. Thank you for your referral.
--- NOTE | 2024-02-15 09:37 | MHC.PT.DC ---
[facility] [place] Office [place] Office [place] Office [address] Rahul Castillo 140 [facility] [phone] F: [phone] F: [phone] F: [phone] F: [phone] Physical Therapy Discharge Report Diagnosis: Parkinson's disease without dyskinesia Date of Surgery: NA Date of Evaluation: 11/15/23 Date of Discharge: 02/15/24 Treatments to Date: 13 Cancellations to Date: 0 No Shows to Date: 0 Discharge Status: Achieved Goals Improved Function Independent with HEP Discharge Summary: Per last treatment note on 01/03/24: Pt has met all goals at this time and has significant improvement in overall balance. Improved ABC score from IE. Agreeable to d/c I with HEP today. Electronically signed by: Shilpi Malcolm PT, DPT Please sign and return to therapist. Thank you for your referral.
== END 2024-02-15 09:37 | disposition home or self-care (01) ==
LOC: HO.PT 09:00
PROVIDERS: PCP Internal Medicine; Visit Provider Psychiatry & Neurology Neurology
DX: G20.A1 Parkinson's disease without dyskinesia, without mention of fluctuations (principal)
CPT/HCPCS: 97110; 97112; 97162; 97530

== ENCOUNTER 2024-01-04 11:38 | Outpatient (AMB) | payer MEDICARE, SELFPAY ==
--- NOTE | 2024-01-04 12:29 | A.OFFPC_ITS ---
Vital Signs 01/04/24 12:31 Weight 172 lb BP 124/86 Blood Pressure Location Lt brachial Position Sitting Pulse 61 Pulse Source Pulse Oximeter Pulse Oximetry (%) 98 Oxygen Delivery Method Room Air Intake Visit Reasons: 2 month f/u Intake Note: Patient here to follow up on labs Allergies No Known Allergies Allergy (Verified 01/04/24 12:32) Medication List - Last Reconciled 01/06/24 by Shanna Parker MD carbidopa-levodopa 25-100 mg 1 tab PO TID carvedilol 25 mg PO BID famotidine (Pepcid) 20 mg PO DAILY PRN geriatric [id number]-[id number] 1 tab PO DAILY lisinopril 10 mg PO DAILY melatonin mg PO PRN mirabegron ER (Myrbetriq) 25 mg PO DAILY PRN walker Folding front wheeled walker Tobacco use date assessed: 11/05/23 Dental Screening Dental Screen Date: 11/05/23 HPI 2 month f/u HPI Details 68-year-old lady with Parkinson's diseas e without dyskinesia, history of chronic kidney disease stage 2, left renal cyst, urinary incontinence, hi story of GERD and Aaron's esophagus without dysplasia, history of cystocele, osteoarthritis, here today for follow-up on her hypertension and anemia. She has been feeling well, no complaints of headache, no chest pain or shortness of breath. His currently followed by Dr. Kemp for her Parkinson's disease, has had physical therapy for balance, now walks with the cane for had added support. [facility] Medical History (Updated 01/06/24 @ 20:04 by Shanna Parker MD) Parkinson's disease without dyskinesia BRCA gene mutation negative Tremor of both hands Right shoulder pain Levoscoliosis of lumbar spine Lumbago Gait instability HTN (hypertension) Aaron's esophagus without dysplasia Hypertensive nephrosclerosis Impaired fasting glucose Chronic kidney disease, stage 3 Varicose veins of both lower extremities Menopause ovarian failure CKD (chronic kidney disease) Renal cyst, left Cataract Right ovarian cyst GERD (gastroesophageal reflux disease) Dyslipidemia Essential hypertension Surgical History History of lateral meniscus repair of left knee History of esophagogastroduodenoscopy (EGD) Hx of colonoscopy Cataract extraction status of left eye Cataract extraction status of right eye Hx of cholecystectomy History of removal of skin mole History of knee surgery Family History Father Unknown family medical history Mother Breast cancer Maternal Aunt Breast cancer Son No problems noted. Daughter No problems noted. Social History Household Members: Spouse Housing: Condominium Are you a primary health careers instructor to a significant other at home: No Do you presently have visiting nurse or other home services: No Alcohol intake: never Patient Tobacco Use Status: Never used Tobacco e-Cigarette/Vaping Use: Never Used Advance Directives Date on File: 07/04/22 service: No Current occupational status: unemployed Current occupation: Right Handed Gender identity: Female Cognitive needs: No Hearing needs: No Vision needs: Yes Female Reproductive History Menstrual Age of Menarche: 10 Questionnaire Thrive Questionnaire Date Thrive assessed: 11/05/23 JUAN M-7 AMB Questionnaire JUAN M-7 Date JUAN M - 7 assessed: 01/02/23 Source: Developed by Drs. Sami Caraballo, Brittaney Starks, Travon Canales and colleagues, with an educational zion from [employer]. Review of Systems Const Denies fatigue, Denies fever(s) and Denies lethargy Eyes Denies change in vision ENT Reports no additional complaints Card Denies chest pain, Denies irregular heart rhythm, Denies lightheadedness and Denies dyspnea Resp Denies chest congestion, Denies cough and Denies dyspnea GI Reports no additional complaints Reports urinary incontinence (ff;d by Urology, currently on Mirabegron) Musc Reports arthralgias and Reports stiffness Neuro Reports no additional complaints Endo Denies fatigue Physical exam (Primary Care) Vital Signs: Last Vital Signs Pulse 61 01/04/24 12:31 BP 124/86 01/04/24 12:31 Pulse Ox 98 01/04/24 12:31 Oxygen Delivery Method Room Air 01/04/24 12:31 Tobacco/Smoking Status: Tobacco use Status Tobacco use date assessed 11/05/23 01/04/24 12:31 Patient Tobacco Use Status Never used Tobacco 01/04/24 12:31 e-Cigarette/Vaping Use Never Used 01/04/24 12:31 Thrive Assessment: Date of Thrive Assessment Date Thrive assessed 11/05/23 01/04/24 12:31 Const General: comfortable, no acute distress and alert Orientation/consciousness: patient oriented x3 Limitations: ambulation with cane HENMT Ears: external ears normal General nose exam: Normal external nose present and No nasal discharge present Face and sinus: Yes face symmetric Eyes General: appearance normal, both eyes and all related structures Neck Neck: Yes full ROM, Yes no lymphadenopathy and Yes supple Resp Effort & Inspection: normal respiratory effort and able to speak in complete se ntences Auscultation: clear to auscultation bilaterally Cardio Rate: regular rate Rhythm: regular rhythm Heart sounds: S1 normal heart sound present and S2 normal heart sound present GI Palpation (GI): Soft to palpation, nontender and no masses Auscultation: normal bowel sounds Skin General skin exam: no rashes or lesions noted Neuro Other: Slow slightly stiff gait General: patient oriented x3, moves all extremities, Normal light touch and pain sensation and no focal motor deficits Cognition (Neuro): normal cognition Gait exam (Neuro): Assisted gait required (cane) Extrem Other: Faint tremor noted in both hands, right more than the left General: Yes no pedal edema and Yes no calf tenderness Psych Appearance: grossly normal and well kempt Mental Status: mental status grossly normal Affect: normal affect Attitude: cooperative Results Reviewed Results Reviewed: RUN: 01/06/242000 PAGE 1 [facility] [address] [place] [id number] High Risk Case Manager: Jace Ibrahim M.D. Specimen Inquiry Name: Nasima Hough Age/Sex: 68/F : 1955 Unit#: [id number] Attend Dr: Shanna Parker MD Re01/01/24 Status: DEP REF Location: [facility] Disch: SPEC : [id number] TOMA: 01/01/24 STATUS: COMP REQ : [id number] RECD: 01/01/[address] [facility] [address]: Shanna Parker MD COMP: 01/01/24 ENTERED: 01/01/24 [facility] DR: ORDERED: CBC Auto Diff Test Result Flag Reference WBC 4.1 L 4.8-10.8 X10*3/uL RBC 4.32 4.20-5.50 X10*6/uL HGB 12.5 12.0-16.0 g/dl HCT 39.0 37.0-47.0 % MCV 90.3 80.0-98.0 fL MCH 28.9 27.0-33.0 pg MCHC 32.1 31.0-35.0 g/dl RDW 12.5 11.0-16.0 % PLT 257 160-400 X10*3/uL MPV 11.1 9.4-12.3 fL Neut Pct Auto 48.2 45-73 % ImGran Pct Auto 0.2 0.0-0.4 % Lymp Pct Auto 32.8 20-40 % Navarro Pct Auto 11.0 2-11 % Eos Pct Auto 6.6 H 0-4 % Baso Pct Auto 1.2 0-2 % NRBC Pct Auto 0.0 0.0-0.2 /100WBC ANC Neut Abs # 2.0 2.0-8.3 x10*3/uL ImGran Abs Auto 0.01 0.00-0.03 X10*3/uL Lymph Abs Auto 1.3 1.2-4.9 X10*3/uL Navarro Abs Auto 0.5 0.1-1.2 X10*3/uL Eos Abs Auto 0.3 0.0-0.4 X10*3/uL Baso Abs Auto 0.1 0.0-0.2 X10*3/uL NRBC Abs Auto 0.000 0.0-0.012 X10*3/uL RUN: 01/06/242001 PAGE 1 [facility] [address] [place] [id number] High Risk Case Manager: Jace Ibrahim M.D. Specimen Inquiry Name: Nasima Hough Age/Sex: 68/F : 1955 Unit#: [id number] Attend Dr: Shanna Parker MD Re01/01/24 Status: DEP REF Location: [facility] Disch: SPEC : [id number] TOMA: 01/01/24-1015 STATUS: COMP REQ : [id number] RECD: 01/01/24-[address]: Shanna Parker MD COMP: 01/01/24-172 ENTERED: 01/01/24-[address]: ORDERED: IRON PROF, Lipid Panel Test Result Flag Reference Iron 81 30-160 mcg/dL TIBC 319 228-428 mcg/dL Saturation 25 15-50 % UIBC 238 ug/dL Triglyceride 57 <150 mg/dL Desirable Triglyceride: less than 150 mg/dL Borderline High Triglyceride 150-199 mg/dL High Triglyceride: 200-499 mg/dL Very High Triglyceride: greater than or equal to 5OO mg/dL Cholesterol 215 H <200 mg/dL Desirable Cholesterol: less than 200 mg/dL Borderline High Cholesterol: 200-239 mg/dL High Cholesterol: greater than 239 mg/dL LDL Calculated 133 H <100 mg/dL Desirable LDL: less than 100 mg/dL Near Optimal/Above Optimal LDL: 110-129 mg/dL Borderline High LDL: 130-159 mg/dL High LDL: 160-189 mg/dL Very High LDL: greater than or equal to 190 mg/dL HDL 71 >40 mg/dL Desirable HDL: greater than 40 mg/dL Note: This HDL assay may give artificially low results in patients with liver disease. RUN: 01/06/242001 PAGE 1 [facility] [address] [place] [id number] High Risk Case Manager: Jace Ibrahim M.D. Specimen Inquiry Name: Nasima Hough Age/Sex: 68/F : 1955 Unit#: [id number] Attend Dr: Shanna Parker MD Re01/01/24 Status: DEP REF Location: [facility] Disch: SPEC : [id number] TOMA: 01/01/24-101 STATUS: COMP REQ : [id number] RECD: 01/01/24-[address]: Shanna Parker MD COMP: 01/01/24-1720 ENTERED: 01/01/24-[address]: ORDERED: IRON PROF, Lipid Panel Test Result Flag Reference Iron 81 30-160 mcg/dL TIBC 319 228-428 mcg/dL Saturation 25 15-50 % UIBC 238 ug/dL Triglyceride 57 <150 mg/dL Desirable Triglyceride: less than 150 mg/dL Borderline High Triglyceride 150-199 mg/dL High Triglyceride: 200-499 mg/dL Very High Triglyceride: greater than or equal to 5OO mg/dL Cholesterol 215 H <200 mg/dL Desirable Cholesterol: less than 200 mg/dL Borderline High Cholesterol: 200-239 mg/dL High Cholesterol: greater than 239 mg/dL LDL Calculated 133 H <100 mg/dL Desirable LDL: less than 100 mg/dL Near Optimal/Above Optimal LDL: 110-129 mg/dL Borderline High LDL: 130-159 mg/dL High LDL: 160-189 mg/dL Very High LDL: greater than or equal to 190 mg/dL HDL 71 >40 mg/dL Desirable HDL: greater than 40 mg/dL Note: This HDL assay may give artificially low results in patients with liver disease. Assessment and Plan Assessment & Plan (1) Essential hypertension: Code(s): I10 - Essential (primary) hypertension Plan: Blood pressure at goal of less than 130/80. Continue with current medication. Reinforced importance of following a low sodium diet, getting regular exercise, and lowering stress levels. (2) History of anemia: Code(s): Z86.2 - Personal history of diseases of the blood and blood-forming organs and certain disorders involving the immune mechanism Patient Instructions: Anemia has resolved, as noted on recent labs which showed hemoglobin/ hematocrit and iron levels now within normal limits Coding Level of Care Code Est Pt Level 4 (01828) Diagnoses Essential hypertension I10 History of anemia Z86.2
[2024-01-04 12:31] VITALS: BP 124/86; PULSE 61; O2SAT 98
== END 2024-01-04 13:20 | disposition home or self-care (01) ==
PROVIDERS: PCP Internal Medicine; Visit Provider Internal Medicine
DX: I10 Essential (primary) hypertension (principal); Z86.2 Personal history of diseases of the blood and blood-forming organs and certain disorders involving the immune mechanism
CPT/HCPCS: 99214

== ENCOUNTER 2024-01-07 11:25 | Outpatient (AMB) | payer MEDICARE, SELFPAY ==
[2024-01-07 11:27] VITALS: BP 160/82; PULSE 68; O2SAT 97; BMI 29.3
--- NOTE | 2024-01-07 11:27 | A.OFFVIS_ITS ---
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 she started noticing tremors in her right hand at rest about 1 year ago. The tremors are at rest most of the time. she also feels her right UE and LE are weaker and has difficulty with coordination. she has trouble dressing, walking moving, showering, handwriting, using her utensils. she has trouble standing form sitting positions. No memory issues or word finding difficulty. No sleep talking SHe has mild depression and anxiety. Her movements are slow. SPeech- softer No drooling No falls No difficulty turning in bed.she denies constipation .she denies hallucinations or dizziness. He has frequent urination and incontinence. 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 she had a knee replacement 2 years ago - uses a cane since then [facility] Medical History Parkinson's disease without dyskinesia BRCA gene mutation negative Tremor of both hands Right shoulder pain Levoscoliosis of lumbar spine Lumbago Gait instability HTN (hypertension) Aaron's esophagus without dysplasia Hypertensive nephrosclerosis Impaired fasting glucose Chronic kidney disease, stage 3 Varicose veins of both lower extremities Menopause ovarian failure CKD (chronic kidney disease) Renal cyst, left Cataract Right ovarian cyst GERD (gastroesophageal reflux disease) Dyslipidemia Essential hypertension Surgical History History of lateral meniscus repair of left knee History of esophagogastroduodenoscopy (EGD) Hx of colonoscopy Cataract extraction status of left eye Cataract extraction status of right eye Hx of cholecystectomy History of removal of skin mole History of knee surgery Family History Father Unknown family medical history Mother Breast cancer Maternal Aunt Breast cancer Son No problems noted. Daughter No problems noted. Social History Household Members: Spouse Housing: Condominium Are you a primary home care specialist to a significant other at home: No Do you presently have visiting nurse or other home services: No Alcohol intake: never Patient Tobacco Use Status: Never used Tobacco e-Cigarette/Vaping Use: Never Used Advance Directives Date on File: 07/04/22 service: No Current occupational status: unemployed Current occupation: Right Handed Gender identity: Female Cognitive needs: No Hearing needs: No Vision needs: Yes Female Reproductive History Menstrual Age of Menarche: 10 Physical Exam Vital Signs: Last Vital Signs Pulse 68 01/07/24 11:27 BP 160/82 H 01/07/24 11:27 Pulse Ox 97 01/07/24 11:27 Oxygen Delivery Method Room Air 01/07/24 11:27 BMI result Body Mass Index 29.3 Const General: cooperative, healthy appearing and no acute distress Nutritional Appearance: average body habitus and obese Orientation/consciousness: patient oriented x3 HEENT Head: Yes normal to inspection Neck Other: mild antecollis and restricted range of motion Neuro Other: Mild decreased blink and facial expression Voice- hypophonia No tremors today Fine Finger movements - severely decreased norberto R>L Alternating hand movements - decreased norberto R>L Hand movements - decreased norberto Foot taps- decreased norberto Increased tone - R>L gait - stooped, slowness and decreased arm swing R>L,drags her right foot Moderate bradykinesia General: patient oriented x3 and no focal motor deficits Cranial nerves: Yes CN's II-XII intact bilaterally, Yes Bilaterally intact EOM present, Yes Normal facial strength present and Yes Midline tongue present Cognition (Neuro): normal cognition Motor exam (neuro): 5/5 motor strength present throughout and Normal motor muscle tone present throughout Coordination: [id number] test normal Assessment & Plan Assessment & Plan (1) Parkinson's disease without dyskinesia: Comment: stage 2 B Code(s): G20.A1 - Parkinson's disease without dyskinesia, without mention of fluctuations Category: Medical Plan Increase sinemet 25/100 qid . Interaction with protein discussed MRI Brain results discussed Medications: Changed From carbidopa-levodopa 25-100 mg 1 tab PO TID 90 tabs 6RF To carbidopa-levodopa 25-100 mg 8am,12,4pm,8pm 1 tab PO QID 120 tabs 6RF
== END 2024-01-07 12:00 | disposition home or self-care (01) ==
LOC: HO.HSMS 11:25
PROVIDERS: PCP Internal Medicine; Visit Provider Psychiatry & Neurology Neurology
DX: G20.A1 Parkinson's disease without dyskinesia, without mention of fluctuations (principal)
CPT/HCPCS: 99214

== ENCOUNTER → 2024-01-07 11:25 | Outpatient (BNVA) | payer MEDICARE, SELFPAY | PROVIDERS: PCP Internal Medicine; Visit Provider Psychiatry & Neurology Neurology | DX: G20.A1 Parkinson's disease without dyskinesia, without mention of fluctuations (principal) | CPT/HCPCS: 99212 ==

== ENCOUNTER 2024-04-14 11:59 | Outpatient (AMB) | payer MEDICARE, SELFPAY ==
[2024-04-14 12:04] VITALS: BP 150/92; PULSE 66; O2SAT 97
--- NOTE | 2024-04-14 12:04 | HO.NEPHOV_ITS ---
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 Required: No Accompanied by: Self / Same As Patient Allergies No Known Allergies Allergy (Verified 04/14/24 12:07) Medication List - Last Reconciled 04/14/24 by Jan Kemp MD carbidopa-levodopa 25-100 mg 1 tab PO QID carvedilol 25 mg PO BID famotidine (Pepcid) 20 mg PO DAILY PRN geriatric bjzpmnch-qksj-hdxw 1 tab PO DAILY lisinopril 10 mg PO DAILY melatonin mg PO PRN mirabegron ER (Myrbetriq) 25 mg PO DAILY walker Folding front wheeled walker HPI Comments Details: 68 yr old woman with a h/o long standing HTN and CKD with a baseline creatinine of about 1.5 mg /dL referred for management of CKD She has a h/o renal cyst- Bosnick 3 . Currently being follow closely by Urology( [facility] and [facility]) Waiting for MRI in Oct 2023 Accompanied by c/o Weakness. Says this started after knee surgery. Also has resting tremor in right UR adn waiting to see NEurology on 10/30/23 c/o Leg cramps on and off Overall BP has been well controlled. Several episodes of low BP noted She is on Lisinopril 20 mg AND HCTZ 25 mg QD along with Coreg 12.5 mg BID 10/25/23 After lowering HCTZ, cr iis down to 1.37 from 1.6 Seen by Neuro- diagnosed with Parkinsons Started on Sinemet PFSH Medical History Parkinson's disease without dyskinesia BRCA gene mutation negative Tremor of both hands Right shoulder pain Levoscoliosis of lumbar spine Lumbago Gait instability HTN (hypertension) Aaron's esophagus without dysplasia Hypertensive nephrosclerosis Impaired fasting glucose Chronic kidney disease, stage 3 Varicose veins of both lower extremities Menopause ovarian failure CKD (chronic kidney disease) Renal cyst, left Cataract Right ovarian cyst GERD (gastroesophageal reflux disease) Dyslipidemia Essential hypertension Surgical History History of lateral meniscus repair of left knee History of esophagogastroduodenoscopy (EGD) Hx of colonoscopy Cataract extraction status of left eye Cataract extraction status of right eye Hx of cholecystectomy History of removal of skin mole History of knee surgery Family History Father Unknown family medical history Mother Breast cancer Maternal Aunt Breast cancer Son No problems noted. Daughter No problems noted. Social History Household Members: Spouse Housing: Condominium Are you a primary customer care coordinator to a significant other at home: No Do you presently have visiting nurse or other home services: No Alcohol intake: never Patient Tobacco Use Status: Never used Tobacco e-Cigarette/Vaping Use: Never Used Advance Directives Date on File: 07/04/22 service: No Current occupational status: unemployed Current occupation: Right Handed Gender identity: Female Cognitive needs: No Hearing needs: No Vision needs: Yes Female Reproductive History Menstrual Age of Menarche: 10 Physical Exam Vital Signs: Last Vital Signs Pulse 66 04/14/24 12:04 BP 150/92 H 04/14/24 12:04 Pulse Ox 97 04/14/24 12:04 Oxygen Delivery Method Room Air 04/14/24 12:04 BMI result Body Mass Index 30.0 Const General: comfortable; No acute distress Orientation/consciousness: patient oriented x3 Eyes General: appearance normal, both eyes and all related structures Visual Castillo: normal visual castillo by confrontation Neck Neck: Yes supple and Yes no JVD Resp Effort & Inspection: normal respiratory effort and respiratory effort not decreased Auscultation: rhonchi Cardio Palpation: no palpable S3 and no palpable S4 Heart sounds: no rubs GI Inspection: Yes normal to inspection Palpation (GI): Soft to palpation Percussion: Yes normal to percussion Auscultation: normal bowel sounds General: Yes no CVA tenderness Back/Spine/Pelvis Back: no CVA tenderness Skin General skin exam: no petechiae and no purpura Neuro General: patient oriented x3 and no focal motor deficits Extrem General: No clubbing and No edema Results Reviewed Nephrology Results: Hgb 12.5 g/dl (12.0-16.0) 01/01/24 WBC 4.1 X10*3/uL (4.8-10.8) L 01/01/24 Plt Count 257 X10*3/uL (160-400) 01/01/24 Sodium 144 mmol/L (135-145) 12/06/23 Potassium 4.3 mmol/L (3.3-5.1) 12/06/23 Chloride 107 mmol/L (96-108) 12/06/23 Carbon Dioxide 26 mmol/L (22-29) 12/06/23 BUN 32 mg/dL (9-16) H 12/06/23 Creatinine 1.37 mg/dL (0.5-1.4) 12/06/23 Calcium 10.1 mg/dL (8.4-10.2) 12/06/23 Assessment & Plan Assessment & Plan (1) Chronic kidney disease, stage 3: Comment: ff ed by - [facility] Code(s): N18.30 - Chronic kidney disease, stage 3 unspecified Category: Medical Plan: Most likely due to hypertensive nephrosclerosis No obstruction based on imaging No significant proteinuria or hematuria. - GN or IN seem unlikely Urine specific gravity has been persistently elevated There could be a component of volume depletion causing hypoperfusion and ARMAND No need for HCTZ Encouraged to increase PO fluid intake Blood pressure is suboptimal. Discontinue lisinopril 10 mg Start Lotrel 01/24 1 a day. Encouraged here to watch BP at home (h/o Elevated office BP readings- probably has a component of white coat effect) (2) Essential hypertension: Code(s): I10 - Essential (primary) hypertension Category: Medical Plan: BP noted As above Stay on low salt diet (3) Renal cyst, left: Comment: Danieltere 3 on MRI 08/06 Code(s): N28.1 - Cyst of kidney, acquired Category: Medical Plan: Follow with Urology Plan Orders: Orders UA and rflx microscopic 3 Weeks N18.30 - Chronic kidney disease, stage 3 unspecified Creatinine Urine 3 Weeks N18.30 - Chronic kidney disease, stage 3 unspecified Basic Metabolic Panel 3 Weeks N18.30 - Chronic kidney disease, stage 3 unspecified Complete Blood Count Auto Diff 3 Weeks N18.30 - Chronic kidney disease, stage 3 unspecified Total Protein Urine Random 3 Weeks N18.30 - Chronic kidney disease, stage 3 unspecified Medications: New amlodipine-benazepril 5-10 mg (Lotrel) 1 cap PO DAILY 30 caps 1RF Discontinued lisinopril Discontinued Reason: Doctor's Order 10 mg PO DAILY 90 tabs 3RF Coding Level of Care Code Est Pt Level 4 (79840) Diagnoses Chronic kidney disease, stage 3 N18.30 Essential hypertension I10 Renal cyst, left N28.1
== END 2024-04-14 12:20 | disposition home or self-care (01) ==
PROVIDERS: PCP Internal Medicine; Visit Provider Internal Medicine Hypertension Specialist
DX: N18.30 Chronic kidney disease, stage 3 unspecified (principal); I10 Essential (primary) hypertension; N28.1 Cyst of kidney, acquired
CPT/HCPCS: 99214

== ENCOUNTER → 2024-04-14 11:59 | Outpatient (BNVA) | payer MEDICARE, SELFPAY | PROVIDERS: PCP Internal Medicine; Visit Provider Internal Medicine Hypertension Specialist | DX: I12.9 Hypertensive chronic kidney disease with stage 1 through stage 4 chronic kidney disease, or unspecified chronic kidney disease (principal); N18.30 Chronic kidney disease, stage 3 unspecified; N28.1 Cyst of kidney, acquired | CPT/HCPCS: 99212 ==

== ENCOUNTER 2024-05-10 08:39 | Outpatient (REF) | payer MEDICARE, SELFPAY ==
[2024-05-10 11:13] LABS: MANUAL DIFF FLAG NO
[2024-05-10 11:17] LABS: Basophils Absolute Auto 0.1 X10*3/uL (0.0-0.2); Basophils Percent Auto 1.7 % (0-2); Eosinophils Absolute Auto 0.4 X10*3/uL (0.0-0.4); Eosinophils Percent Auto 7.2 % (0-4); Hematocrit 38.2 % (37.0-47.0); Hemoglobin 12.4 g/dl (12.0-16.0); Imm Gran Abs Auto 0.01 X10*3/uL (0.00-0.03); Imm Gran Pct Auto 0.2 % (0.0-0.4); Lymphocytes Absolute Auto 1.6 X10*3/uL (1.2-4.9); Lymphocytes Percent Auto 32.9 % (20-40); Mean Corpuscular HGB Conc 32.5 g/dl (31.0-35.0); Mean Corpuscular Hemoglobin 29.7 pg (27.0-33.0); Mean Corpuscular Volume 91.4 fL (80.0-98.0); Mean Platelet Volume 10.8 fL (9.4-12.3); Monocytes Absolute Auto 0.5 X10*3/uL (0.1-1.2); Monocytes Percent Auto 10.6 % (2-11); Neutrophils Absolute Auto 2.3 x10*3/uL (2.0-8.3); Neutrophils Percent Auto 47.4 % (45-73); Platelet Count 261 X10*3/uL (160-400); Red Blood Count 4.18 X10*6/uL (4.20-5.50); Red Cell Distribution Width 12.2 % (11.0-16.0); White Blood Count 4.8 X10*3/uL (4.8-10.8)
[2024-05-10 11:27] LABS: Appearance Urine Clear; Color Urine Yellow; Glucose Urine UA Negative (Negative); Leukocyte Esterase Urine Negative (Negative); Nitrite Urine Negative (Negative); PH 5.5 (5.0-9.0); Urine Blood Negative (Negative); Urine Ketones Trace mg/dL (Negative); Urine Protein Negative (Neg-Trace)
[2024-05-10 11:44] LABS: Anion Gap 11 (12-20); Blood Urea Nitrogen 33 mg/dL (9-16); Calcium 9.9 mg/dL (8.4-10.2); Carbon Dioxide 26 mmol/L (22-29); Chloride 109 mmol/L (96-108); Estimated Glomerular Filt Rate 35; Glucose Random 106 mg/dL (60-115); Sodium 142 mmol/L (135-145)
[2024-05-10 11:47] LABS: Creatinine Urine 177.47 mg/dL; Total Protein Urine Random 15 mg/dL (<12)
== END 2024-05-10 08:40 | disposition home or self-care (01) ==
LOC: HO.HMGCLDS 08:39
PROVIDERS: PCP Internal Medicine; Visit Provider Internal Medicine Hypertension Specialist
DX: N18.30 Chronic kidney disease, stage 3 unspecified (principal)
CPT/HCPCS: 36415; 80048; 81003; 82570; 84156; 85025

== ENCOUNTER 2024-05-13 10:27 | Outpatient (AMB) | payer MEDICARE, SELFPAY ==
[2024-05-13 10:30] VITALS: BP 118/70; PULSE 82; O2SAT 98; BMI 29.9
--- NOTE | 2024-05-13 10:30 | HO.NEPHOV_ITS ---
Vital Signs 05/13/24 10:30 Height 5 ft 4 in Weight 174 lb BMI 29.9 BP 118/70 Blood Pressure Location Lt brachial Position Sitting Pulse 82 Pulse Source Pulse Oximeter Pulse Oximetry (%) 98 Oxygen Delivery Method Room Air Intake Visit Reasons: CKD/ Conf Tube Coremaker Required: No Accompanied by: Self / Same As Patient Allergies No Known Allergies Allergy (Verified 05/13/24 10:32) Medication List - Last Reconciled 05/13/24 by Jan Kemp MD carbidopa-levodopa 25-100 mg 1 tab PO QID carvedilol 25 mg PO BID famotidine (Pepcid) 20 mg PO DAILY PRN geriatric [id number]-[id number]-[id number] 1 tab PO DAILY lisinopril-hydrochlorothiazide 20-12.5 mg 1 tab PO DAILY melatonin mg PO PRN mirabegron ER (Myrbetriq) 25 mg PO DAILY walker Folding front wheeled walker HPI Comments Details: 68 yr old woman with a h/o long standing HTN and CKD with a baseline creatinine of about 1.5 mg /dL referred for management of CKD She has a h/o renal cyst- Bosnick 3 . [place] being [place] [facility] [place] [facility] Waiting for MRI in Oct 2023 Accompanied by c/o Weakness. Says this started after knee surgery. Also has resting tremor in right UR adn waiting to see NEurology on 10/30/23 c/o Leg cramps on and off Overall BP has been well controlled. Several episodes of low BP noted She is on Lisinopril 20 mg AND HCTZ 25 mg QD along with Coreg 12.5 mg BID 10/25/23 After lowering HCTZ, cr iis down to 1.37 from 1.6 Seen by Neuro- diagnosed with Parkinsons Started on Sinemet 05/13/2024. She was started on Lotrel last visit. She is not tolerating this and complains of edema and weight gain. She also has constipation. 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 nephrosclerosis Impaired fasting glucose Chronic kidney disease, stage 3 Varicose veins of both lower extremities Menopause ovarian failure CKD (chronic kidney disease) Renal cyst, left Cataract Right ovarian cyst GERD (gastroesophageal reflux disease) Dyslipidemia Essential hypertension Surgical History History of lateral meniscus repair of left knee History of esophagogastroduodenoscopy (EGD) Hx of colonoscopy Cataract extraction status of left eye Cataract extraction status of right eye Hx of cholecystectomy History of removal of skin mole History of knee surgery Family History Father Unknown family medical history Mother Breast cancer Maternal Aunt Breast cancer Son No problems noted. Daughter No problems noted. Social History Household Members: Spouse Housing: Condominium Are you a primary memory care director to a significant other at home: No Do you presently have visiting nurse or other home services: No Alcohol intake: never Patient Tobacco Use Status: Never used Tobacco e-Cigarette/Vaping Use: Never Used Advance Directives Date on File: 07/04/22 service: No Current occupational status: unemployed Current occupation: Right Handed Gender identity: Female Cognitive needs: No Hearing needs: No Vision needs: Yes Female Reproductive History Menstrual Age of Menarche: 10 Physical Exam Vital Signs: Last Vital Signs Pulse 82 05/13/24 10:30 BP 118/70 05/13/24 10:30 Pulse Ox 98 05/13/24 10:30 Oxygen Delivery Method Room Air 05/13/24 10:30 BMI result Body Mass Index 29.9 Const General: comfortable; No acute distress Orientation/consciousness: patient oriented x3 Eyes General: appearance normal, both eyes and all related structures Visual Castillo: normal visual castillo by confrontation Neck Neck: Yes supple and Yes no JVD Resp Effort & Inspection: normal respiratory effort and respiratory effort not decreased Auscultation: rhonchi Cardio Palpation: no palpable S3 and no palpable S4 Heart sounds: no rubs GI Inspection: Yes normal to inspection Palpation (GI): Soft to palpation Percussion: Yes normal to percussion Auscultation: normal bowel sounds General: Yes no CVA tenderness Back/Spine/Pelvis Back: no CVA tenderness Skin General skin exam: no petechiae and no purpura Neuro General: patient oriented x3 and no focal motor deficits Extrem General: No clubbing and No edema Results Reviewed Nephrology Results: Hgb 12.4 g/dl (12.0-16.0) 05/10/24 WBC 4.8 X10*3/uL (4.8-10.8) 05/10/24 Plt Count 261 X10*3/uL (160-400) 05/10/24 Sodium 142 mmol/L (135-145) 05/10/24 Potassium 4.0 mmol/L (3.3-5.1) 05/10/24 Chloride 109 mmol/L (96-108) H 05/10/24 Carbon Dioxide 26 mmol/L (22-29) 05/10/24 BUN 33 mg/dL (9-16) H 05/10/24 Creatinine 1.48 mg/dL (0.5-1.4) H 05/10/24 Calcium 9.9 mg/dL (8.4-10.2) 05/10/24 Urine Protein Negative mg/dL (Neg-Trace) 05/10/24 Urine Creatinine 177.47 mg/dL 05/10/24 Assessment & Plan Assessment & Plan (1) Chronic kidney disease, stage 3: Comment: ff ed by - [facility] Code(s): N18.30 - Chronic kidney disease, stage 3 unspecified Category: Medical Plan: Most likely due to hypertensive nephrosclerosis No obstruction based on imaging No significant proteinuria or hematuria. - GN or IN seem unlikely Urine specific gravity has been persistently elevated There could be a component of volume depletion causing hypoperfusion and ARMAND At her request I will discontinue Lotrel. I will start her back on lisinopril with HCTZ 20/12.51 a day. Monitor renal function closely. Encouraged here to watch BP at home (h/o Elevated office BP readings- probably has a component of white coat effect) (2) Essential hypertension: Code(s): I10 - Essential (primary) hypertension Category: Medical Plan: BP noted As above Stay on low salt diet (3) Renal cyst, left: Comment: Jermaineanastasiia 3 on MRI 08/06 Code(s): N28.1 - Cyst of kidney, acquired Category: Medical Plan: Follow with Urology Plan Orders: Orders Basic Metabolic Panel 3 Months I10 - Essential (primary) hypertension Medications: New lisinopril-hydrochlorothiazide 20-12.5 mg 1 tab PO DAILY 30 tabs 3RF Discontinued amlodipine-benazepril 5-10 mg Discontinued Reason: Doctor's Order 1 cap PO DAILY 90 caps 1RF Coding Level of Care Code Est Pt Level 4 (30747) Diagnoses Chronic kidney disease, stage 3 N18.30 Essential hypertension I10 Renal cyst, left N28.1
== END 2024-05-13 10:48 | disposition home or self-care (01) ==
PROVIDERS: PCP Internal Medicine; Visit Provider Internal Medicine Hypertension Specialist
DX: N18.30 Chronic kidney disease, stage 3 unspecified (principal); I10 Essential (primary) hypertension; N28.1 Cyst of kidney, acquired
CPT/HCPCS: 99214

== ENCOUNTER → 2024-05-13 10:27 | Outpatient (BNVA) | payer MEDICARE, SELFPAY | PROVIDERS: PCP Internal Medicine; Visit Provider Internal Medicine Hypertension Specialist | DX: I12.9 Hypertensive chronic kidney disease with stage 1 through stage 4 chronic kidney disease, or unspecified chronic kidney disease (principal); N18.30 Chronic kidney disease, stage 3 unspecified; N28.1 Cyst of kidney, acquired | CPT/HCPCS: 99212 ==

== ENCOUNTER 2024-07-10 09:36 | Outpatient (AMB) | payer MEDICARE, SELFPAY ==
[2024-07-10 09:56] VITALS: BP 120/70; PULSE 79; O2SAT 97; BMI 30.4
--- NOTE | 2024-07-10 09:56 | A.OFFVIS_ITS ---
Intake Vital Signs 07/10/24 09:56 Height 5 ft 4 in Weight 177 lb BMI 30.4 BP 120/70 Blood Pressure Location Lt brachial Position Sitting Pulse 79 Pulse Source Pulse Oximeter Pulse Oximetry (%) 97 Oxygen Delivery Method Room Air Intake Visit Reasons: SWV G0439 Allergies No Known Allergies Allergy (Verified 07/13/24 13:43) Medication List - Last Reconciled 07/13/24 by Shanna Parker MD carbidopa-levodopa 25-100 mg 1 tab PO QID carvedilol 25 mg PO BID famotidine (Pepcid) 20 mg PO DAILY PRN geriatric albyacbt-epdz-zwzf 1 tab PO DAILY lisinopril-hydrochlorothiazide 20-12.5 mg 1 tab PO DAILY melatonin mg PO PRN mirabegron ER (Myrbetriq) 25 mg PO DAILY 90 days walker Folding front wheeled walker HPI SWV G0439 HPI Details SWV ? 69 year old lady, with past medical history of varicose veins in both lower extremities, followed by vascular surgery, has chronic gastroesophageal reflux disease, history of cystocele with first-degree uterine prolapse, overactive bladder, osteoarthritis, lymphedema, chronic kidney disease stage 3, hypertension and impaired fasting glucose level, Osteopenia of multple sites, and Parkinson's disease, here today for her subsequent annual wellness visit. She is up-to-date with her screening mammogram, done 12/18/2023, and had a normal Pap smear done 09/02/2021. Last screening colonoscopy was done 02/23/[address] Reyez to be repeated in 2026. Last bone density scan was done 11/30/2020 which showed presence of osteopenia. She had a normal fasting blood sugar screening done 12/06/2023 , and her fasting lipid panel was done 01/01/2024 which showed an LDL cholesterol of 133 mg/dL, lower than last check. She is is up-to-date with her flu vaccine, pneumococcal vaccination, shingles vaccine and Tdap and is due for her COVID booster. .? Medical / Social History Reviewed? Past Medical History ?Yes . ? [place] of Care / Care Team list updated ?Yes . ? Surgical/Hospitalization History ?Yes . ? Current Medications (including OTC and supplements) ?Yes . ? Family History ?Yes . ? Tobacco Control form ?Yes . ? AUDIT-C (Alcohol use) form ?Yes . ? Illicit drug use in Social History ?Yes . ? Current diagnosis of depression? ?No ? Appropriate PHQ2/PHQ9 completed ?Yes . ? Data entered by ?[employer] and reviewed by provider ? Fall Risk ? Fall History? Have you had any falls with injury in the past year? ?No . ? Have you had two or more falls in the past year? ?No . ? Fall Risk Assessment: ?No falls in the past year . ? HRA filled out by the patient, reviewed by Provider and scanned. ? SWV ? Balance? Romberg negative ? Tandem walk ?unable to do ? Walk and Turn ?Yes . ? Rise from sit to stand ?Yes . ?Vision? Corrective lens ?Yes ? Vision screen ? Up-to-date, sees Dr. Preales ?Hearing? Whisper test ?pass . ?Written Plan?Completed. See Patient Documents.? 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 Impaired fasting glucose Chronic kidney disease, stage 3 Varicose veins of both lower extremities Menopause ovarian failure CKD (chronic kidney disease) Renal cyst, left Cataract Right ovarian cyst GERD (gastroesophageal reflux disease) Dyslipidemia Essential hypertension Surgical History History of lateral meniscus repair of left knee History of esophagogastroduodenoscopy (EGD) Hx of colonoscopy Cataract extraction status of left eye Cataract extraction status of right eye Hx of cholecystectomy History of removal of skin mole History of knee surgery Family History Father Unknown family medical history Mother Breast cancer Maternal Aunt Breast cancer Son No problems noted. Daughter No problems noted. Social History Household Members: Spouse Housing: Condominium Are you a primary wound care specialist to a significant other at home: No Do you presently have visiting nurse or other home services: No Alcohol intake: never Patient Tobacco Use Status: Never used Tobacco e-Cigarette/Vaping Use: Never Used Advance Directives Date on File: 07/04/22 service: No Current occupational status: unemployed Current occupation: Right Handed Gender identity: Female Cognitive needs: No Hearing needs: No Vision needs: Yes Female Reproductive History Menstrual Age of Menarche: 10 Questionnaire Medicare Wellness Checkup What [age] What gender do you identify with?: female During the past 4 weeks, how much have you been bothered by emotional problems such as feeling anxious, depressed, irritable, sad or downhearted, and blue?: slightly During the past 4 weeks, has your physical & emotional health limited your social activities with family, friends, neighbors, or groups?: slightly During the past 4 weeks, how much bodily pain have you generally had?: very mild pain During the past 4 weeks, was someone available to help you if you needed & wanted help?: yes, as much as I wanted During the past 4 weeks, what was the hardest physical activity you could do for at least 2 minutes?: light Can you get to places out of walking distance without help? (For eg., can you travel alone on buses, taxis or drive your car?): Yes Can you go shopping for groceries or clothes without someone's help?: Yes Can you prepare your own meals?: Yes Can you do your housework without help?: Yes Because of any health problems, do you need the help of another person with your personal care needs such as eating, bathing, dressing or getting around the house?: No Can you handle your own money without help?: Yes During the past 4 weeks, how would you rate your health in general?: fair During the past 4 weeks how have things been going for you?: pretty well Are you having difficulties driving your car?: no Do you always fasten your seat belt when you are in a car?: yes, usually During past 4 weeks, have you been bothered by the following: never: Falling or dizzy when standing up, Sexual problems?, Trouble eating well?, Teeth or denture problems? and Problems using the telephone? and sometimes: Tiredness or fatigue? Have you fallen 2 or more times in the past year?: No Are you afraid of falling?: Yes Are you a smoker?: no During the past 4 weeks, how many drinks of wine, beer, or other alcoholic beverages did you have?: no alcohol at all Do you exercise for about 20 minutes 3 or more times a week?: yes, some of the time Have you been given information to help with the following?: yes: Hazards in your house that might hurt you? and yes: Keeping track of your medications? How often do you have trouble taking medicines the way you have been told to take them?: I always take medicine as prescribed How confident are you that you can control & manage most of your health problems?: somewhat confident What is your race?: White Mini Mental State Exam (MMSE) Orientation What is the (year) (season) (date) (day) (month)?: year (2023), season (fall), date (07/10/24), day () and month (june) Where are we (state) (county) (town or city) (hospital) (floor)?: state ([place]), county ([place]), town or city ([place]) and hospital/clinic ([facility]) Score Score: 9 Activity of Daily Living Bathing - sponge bath, tub bath or shower: receives no assistance (gets in/out by self, if usual bathing means Dressing - getting clothes from closets & drawers, including inner/outer garments & fasteners.: gets clothes & gets completely dressed without help Toileting - going to the 'toilet room' for urine/bowel elimination & cleaning self/arranging clothes: goes to toilet room, cleans self, arranges clothes without help Transfer: moves in & out of bed and chair without help (may use support object) Continence: has occasional 'accidents' Feeding: feeds self without help Total Score: 0 Information obtained from: patient Using telephone: independent Traveling: independent Shopping: needs assistance Preparing meals: independent Housework: needs assistance Taking medicine: independent Managing money: independent PHQ-9 Over the last 2 weeks, how often have you been bothered by any of the following problems? 1. Little interest or pleasure in doing things: not at all 2. Feeling down, depressed, or hopeless: not at all 3. Trouble falling or staying asleep, or sleeping too much: several days 4. Feeling tired or having little energy: several days 5. Poor appetite or overeating: not at all 6. Feeling bad about yourself - or that you are a failure or have let yourself or your family down: not at all 7. Trouble concentrating on things, such as reading the newspaper or watching television: not at all 8. Moving or speaking so slowly that other people could have noticed. Or the opposite - being so fidgety or restless that you have been moving around a lot more than usual: several days 9. Thoughts that you would be better off or of hurting yourself in some way: not at all Total score: 3 Depression Screening Interpretation: Negative Depression Screening Done: Yes 58951 - PHQ-9 Billing: Yes Source: Developed by Drs. Sami Caraballo, Brittaney Starks, Travon Canales and colleagues, with an educational zion from [employer]. Physical Exam Vital Signs: Last Vital Signs Pulse 79 07/10/24 09:56 BP 120/70 07/10/24 09:56 Pulse Ox 97 07/10/24 09:56 Oxygen Delivery Method Room Air 07/10/24 09:56 BMI result Body Mass Index 30.4 Assessment & Plan Assessment & Plan (1) Encounter for subsequent annual wellness visit (AWV) in Medicare patient: Code(s): Z00.00 - Encounter for general adult medical examination without abnormal findings Plan: Medical wellness visit checklist reviewed, discussed with patient and updated. Reminded to get a COVID booster (2) Osteopenia of multiple sites: Code(s): M85.89 - Other specified disorders of bone density and structure, multiple sites Plan: She is due for a repeat bone density scan, ordered (3) Parkinson's disease without dyskinesia: Comment: stage 2 B Code(s): G20.A1 - Parkinson's disease without dyskinesia, without mention of fluctuations Qualifiers: Fluctuating manifestations: without fluctuating manifestations Qualified Code(s): G20.A1 - Parkinson's disease without dyskinesia, without mention of fluctuations Plan: On carbidopa-levodopa, followed by Neurology (4) KOFFI (stress urinary incontinence, female): Code(s): N39.3 - Stress incontinence (female) (male) Plan: Currently on mirabegron ER 25 mg once a day (5) Chronic kidney disease, stage 3: Comment: [place] ed [place] - [facility] [place] Code(s): N18.30 - Chronic kidney disease, stage 3 unspecified Plan: Followed by Nephrology (6) Essential hypertension: Code(s): I10 - Essential (primary) hypertension Plan: On carvedilol 25 mg 1 tablet twice a day (7) Gait instability: Code(s): R26.81 - Unsteadiness on feet Plan: Uses a walker (8) GERD (gastroesophageal reflux disease): Code(s): K21.9 - Gastro-esophageal reflux disease without esophagitis Plan: Currently takes famotidine 20 mg once a day as needed Orders: Orders XR DEXA axial skeleton 07/10/24 M85.89 - Other specified disorders of bone density and structure, multiple sites Quality Reporting (2019) Depression/Bipolar (159/160/161/177) PHQ-9: Total score: 3 Coding Level of Care Code Medicare Subsequent (G0439) Diagnoses Encounter for subsequent annual wellness visit (AWV) in Medicare patient Z00.00 Osteopenia of multiple sites M85.89 Parkinson's disease without dyskinesia or fluctuating manifestations G20.A1 Fluctuating manifestations: without fluctuating manifestations KOFFI (stress urinary incontinence, female) N39.3 Chronic kidney disease, stage 3 N18.30 Essential hypertension I10 Gait instability R26.81 GERD (gastroesophageal reflux disease) K21.9 CPT Codes Advance Care Planning - Advance Care Planning discussion: On file, no changes ([id number]) Advance Care Planning - Time spent: 1-15 minutes, on File ([id number]) Advance Care Planning Advance Care Planning discussion: On file, no changes Date of discussion: 07/04/22 Who was present: patient Forms completed: Health Care Proxy and MOLST Time spent: 1-15 minutes, on File Actual minutes spent: 15
== END 2024-07-10 10:49 | disposition home or self-care (01) ==
PROVIDERS: PCP Internal Medicine; Visit Provider Internal Medicine
DX: Z00.00 Encounter for general adult medical examination without abnormal findings (principal); I12.9 Hypertensive chronic kidney disease with stage 1 through stage 4 chronic kidney disease, or unspecified chronic kidney disease; G20.A1 Parkinson's disease without dyskinesia, without mention of fluctuations; N18.30 Chronic kidney disease, stage 3 unspecified; M85.89 Other specified disorders of bone density and structure, multiple sites; N39.3 Stress incontinence (female) (male); R26.81 Unsteadiness on feet; K21.9 Gastro-esophageal reflux disease without esophagitis

== ENCOUNTER → 2024-07-10 09:36 | Outpatient (BNVA) | payer MEDICARE, SELFPAY | PROVIDERS: PCP Internal Medicine; Visit Provider Internal Medicine ==

== ENCOUNTER 2024-07-15 10:31 | Outpatient (AMB) | payer MEDICARE, SELFPAY ==
--- NOTE | 2024-07-15 10:33 | A.OFFVIS_ITS ---
Vital Signs 07/15/24 10:35 Height 5 ft 4 in BP 100/58 L Blood Pressure Location Lt brachial Pulse 80 Pulse Source Pulse Oximeter Pulse Oximetry (%) 97 Oxygen Delivery Method Room Air Intake Visit Reasons: Follow up Intake Note: Patient presents for a follow up. ( Parkinson Disease ) Accompanied by: Spouse Allergies No Known Allergies Allergy (Verified 07/15/24 10:38) Medication List - Last Reconciled 07/15/24 by Jenni Kemp MD carbidopa-levodopa 25-100 mg 1 tab PO QID carvedilol 25 mg PO BID famotidine (Pepcid) 20 mg PO DAILY PRN geriatric [id number] 1 tab PO DAILY lisinopril-hydrochlorothiazide 20-12.5 mg 1 tab PO DAILY melatonin mg PO PRN mirabegron ER (Myrbetriq) 25 mg PO DAILY 90 days trihexyphenidyl 1 mg (1/2 x 2 mg) PO BID walker Folding front wheeled walker HPI Comments Details: 69 year old female presents for f/u of Parkinsons disease. She continues to take her Sinemet 4x a day, 8AM, 1PM, 6PM, 11PM. She continues to have tremors of the UE R>L side, and weakness on the UE and LE on the R side along with difficulty with coordination. She has freezing and stiffening of the R. Leg and cramps at night. Her toes on the R. foot curl down, big toe curls up. She was seen by Ortho, last week and prescribed Diclofenac for cramps. Her helps with most of her ADLs, and does most of the shopping. Her mood is pleasant, speech is soft, gait is off balance, tilts to the left, sleep is good, and she has frequent urination with incontinence. She denies memory issues or word finding difficulty. She denies headaches, vision changes, hallucinations, dizziness, swallowing difficulties, drooling, falls, difficulty with turning over in bed, exercises at home as she is able to. [facility] Medical History Osteopenia of multiple sites Parkinson's disease without dyskinesia BRCA gene mutation negative Tremor of both hands Right shoulder pain Levoscoliosis of lumbar spine Lumbago Gait instability HTN (hypertension) Aaron's esophagus without dysplasia Hypertensive nephrosclerosis Impaired fasting glucose Chronic kidney disease, stage 3 Varicose veins of both lower extremities Menopause ovarian failure CKD (chronic kidney disease) Renal cyst, left Cataract Right ovarian cyst GERD (gastroesophageal reflux disease) Dyslipidemia Essential hypertension Surgical History History of lateral meniscus repair of left knee History of esophagogastroduodenoscopy (EGD) Hx of colonoscopy Cataract extraction status of left eye Cataract extraction status of right eye Hx of cholecystectomy History of removal of skin mole History of knee surgery Family History Father Unknown family medical history Mother Breast cancer Maternal Aunt Breast cancer Son No problems noted. Daughter No problems noted. Social History [facility]hold Members: [facility] Are you a primary health care attorney to a significant other at home: No Do you presently have visiting nurse or other home services: No Alcohol intake: never Patient Tobacco Use Status: Never used Tobacco e-Cigarette/Vaping Use: Never Used Advance Directives Date on File: 07/04/22 service: No Current occupational status: unemployed Current occupation: Right Handed Gender identity: Female Cognitive needs: No Hearing needs: No Vision needs: Yes Female Reproductive History Menstrual Age of Menarche: 10 Review of Systems Const Reports as per HPI Neuro Reports Abnormal speech present (Hypophonia) Physical Exam Vital Signs: Last Vital Signs Pulse 80 07/15/24 10:35 BP 100/58 L 07/15/24 10:35 Pulse Ox 97 07/15/24 10:35 Oxygen Delivery Method Room Air 07/15/24 10:35 Const General: cooperative, healthy appearing and no acute distress Nutritional Appearance: average body habitus and obese Orientation/consciousness: patient oriented x3 HEENT Head: Yes normal to inspection Neck Neck: Yes other (Mild Antecollis and restricted ROM) Neuro General: patient oriented x3, no focal motor deficits and other (mild decreased blink and facial expression) Cranial nerves: Yes CN's II-XII intact bilaterally, Yes Bilaterally intact EOM present, Yes Normal facial strength present, Yes Midline tongue present, Yes Ability to bilaterally rotate head present and Yes Ability to bilaterally elevate shoulders present Speech: Abnormal speech present (Hypophonia) Gait exam (Neuro): Assistive device used and Other gait observations present (Stooped, slowness and decreased arm swing R>L, drags her right foot.) Motor exam (neuro): 5/5 motor strength present throughout, Normal motor muscle tone present throughout and Other motor observations present (Moderate Bradykinesia ) Coordination: [id number]-az-[id number] test normal (severely decreased bilaterally R>L), rapid alternating movements of the distal upper extremity normal (decreased bilaterally R>L) and rapid alternating movements of the distal lower extremity normal (Decreased Bilaterally R>L) Assessment & Plan Assessment & Plan (1) Parkinson's disease without dyskinesia: Comment: stage 2 B Code(s): G20.A1 - Parkinson's disease without dyskinesia, without mention of fluctuations Category: Medical Qualifiers: Fluctuating manifestations: without fluctuating manifestations Qualified Code(s): G20.A1 - Parkinson's disease without dyskinesia, without mention of fluctuations Plan: Dystonic Movements: Trihyexyphenidyl 1 mg (1/2 X 2 mg) PO BID 30 tabs 3RF -Dystonia: Increase Exercise and Daily Activities as tolerated, Biking 10 minutes per day will help with the stiffness -Continue taking Sinemet 25/100 as directed 8AM, 1PM, 6PM, 11PM Medications: New trihexyphenidyl give with food (meal/snack) 1 mg (1/2 x 2 mg) PO BID 30 tabs 3RF Patient Instructions: Make sure to take this medication with food (meal / snack. Coding Level of Care Code Est Pt Level 4 (76983) Complex EM visit Add On G2211 Diagnoses Parkinson's disease without dyskinesia or fluctuating manifestations G20.A1 Fluctuating manifestations: without fluctuating manifestations
[2024-07-15 10:35] VITALS: BP 100/58; PULSE 80; O2SAT 97
== END 2024-07-15 11:16 | disposition home or self-care (01) ==
LOC: HO.HSMS 10:31
PROVIDERS: PCP Internal Medicine; Visit Provider Psychiatry & Neurology Neurology
DX: G20.A1 Parkinson's disease without dyskinesia, without mention of fluctuations (principal)
CPT/HCPCS: 99214; G2211

== ENCOUNTER → 2024-07-15 10:31 | Outpatient (BNVA) | payer MEDICARE, SELFPAY | PROVIDERS: PCP Internal Medicine; Visit Provider Psychiatry & Neurology Neurology | DX: G20.A1 Parkinson's disease without dyskinesia, without mention of fluctuations (principal) | CPT/HCPCS: 99212 ==

== ENCOUNTER 2024-07-22 08:32 | Outpatient (REF) | payer MEDICARE, SELFPAY ==
--- NOTE | ~2024-07-22 | MM_ITS ---
EXAMINATION: BONE DENSITOMETRY CLINICAL INDICATION: Osteopenia. COMPARISON: Baseline BD dated 11/30/2020. TECHNIQUE: Using a [employer] DXA System (software version: 13.1) manufactured by [employer], dual-energy x-ray absorptiometry was performed of the lumbar spine and left hip. The images are of good technical quality. Summary results are attached. FINDINGS: LEFT FEMUR, NECK: Current: BMD 0.799 g/cm2, Z-score -0.4, T-score -1.7, osteopenia. Baseline: BMD 0.796 g/cm2. LEFT FEMUR, TOTAL: Current: BMD 0.791 g/cm2, Z-score -0.7, T-score -1.7, osteopenia, 2.2% decrease from baseline (<5% change is not significant). Baseline: BMD 1.598 g/cm2. AP SPINE L1-L4: Current: BMD 1.408 g/cm2, Z-score 3.1, T-score 1.9, normal, 11.9% decrease from baseline (<5% change is not significant). Baseline: BMD 1.598 g/cm2. IDENTIFIED RISK FACTORS: Menopause, renal. HISTORY OF FRACTURE: None listed. MEDICATIONS: Calcium, vitamin D, thiazide. MM/XR DEXA axial skeleton IMPRESSION: 1. DIAGNOSIS: Osteopenia based on the lowest T-score value of -1.7 in the femur neck and total femur applying World Health Organization criteria. 2. 10-YEAR FRACTURE RISK PREDICTION, FRAX: Major osteoporotic fracture (clinical spine, forearm, hip or shoulder) 10.1%. Hip fracture 1.5%. 3. Treatment Recommendations: NOF guidelines recommend consideration for treatment in postmenopausal women and men age 50 and older presenting with the following: -A hip or vertebral (clinical or morphometric) fracture. -T-score less than or equal to -2.5 at the femoral neck or spine after appropriate evaluation to exclude secondary causes. -Low bone mass at the hip or spine and a 10-year fracture probability by FRAX of greater than or equal to 3% for hip fracture or greater than or equal to 20% for major osteoporotic fracture based on the [place] adapted WHO algorithm. 4. Other Recommendations: All treatment decisions require clinical judgment and consideration of individual patient factors, including patient preferences, comorbidities, previous drug use, risk factors not captured in the FRAX model (e.g. frailty, falls, vitamin D deficiency, increased bone turnover, interval significant decline in bone density) and possible under or overestimation of fracture risk by FRAX. Additional medical evaluation for secondary cause of low bone mineral density may be appropriate. FUTURE SCAN RECOMMENDATION: People with diagnosed cases of osteoporosis or at high risk for fracture should have regular bone mineral density tests. For patients eligible for Medicare, routine testing is allowed once every 2 years. The testing frequency can be increased to one year for patients who have rapidly progressing disease, those who are receiving or discontinuing medical therapy to restore bone mass, or have additional risk factors. Electronically signed by: Corky Ballard MD 07/22/2024 01:14 PM OLIVERIO BARTH
== END 2024-07-22 08:33 | disposition home or self-care (01) ==
LOC: HO.MAMMO 08:32
PROVIDERS: PCP Internal Medicine; Visit Provider Internal Medicine
DX: M85.89 Other specified disorders of bone density and structure, multiple sites (principal)
CPT/HCPCS: 77080

== ENCOUNTER 2024-08-11 11:54 | Outpatient (REF) | payer MEDICARE, SELFPAY ==
[2024-08-11 14:00] LABS: Anion Gap 14 (12-20); Blood Urea Nitrogen 22 mg/dL (9-16); Calcium 9.5 mg/dL (8.4-10.2); Carbon Dioxide 23 mmol/L (22-29); Chloride 108 mmol/L (96-108); Estimated Glomerular Filt Rate 40; Glucose Random 99 mg/dL (60-115); Sodium 141 mmol/L (135-145)
== END 2024-08-11 11:55 | disposition home or self-care (01) ==
LOC: HO.HMGCLDS 11:54
PROVIDERS: PCP Internal Medicine; Visit Provider Internal Medicine Hypertension Specialist
DX: I10 Essential (primary) hypertension (principal)
CPT/HCPCS: 36415; 80048

== ENCOUNTER 2024-08-12 10:56 | Outpatient (AMB) | payer MEDICARE, SELFPAY ==
[2024-08-12 10:57] VITALS: BP 118/72; PULSE 87; O2SAT 96; BMI 30.9
--- NOTE | 2024-08-12 10:57 | HO.NEPHOV_ITS ---
Vital Signs 08/12/24 10:57 Height 5 ft 4 in Weight 180 lb BMI 30.9 BP 118/72 Blood Pressure Location Lt brachial Position Sitting Pulse 87 Pulse Source Pulse Oximeter Pulse Oximetry (%) 96 Oxygen Delivery Method Room Air Intake Visit Reasons: CKD/ Conf Senior Partner Required: No Accompanied by: Self / Same As Patient Allergies No Known Allergies Allergy (Verified 08/12/24 11:00) Medication List - Last Reconciled 08/12/24 by Jan Kemp MD carbidopa-levodopa 25-100 mg 1 tab PO QID carvedilol 25 mg PO BID famotidine (Pepcid) 20 mg PO DAILY PRN geriatric [id number] 1 tab PO DAILY lisinopril 20 mg PO DAILY lisinopril-hydrochlorothiazide 20-12.5 mg 1 tab PO DAILY melatonin mg PO PRN mirabegron ER (Myrbetriq) 25 mg PO DAILY 90 days trihexyphenidyl 1 mg (1/2 x 2 mg) PO BID walker Folding front wheeled walker HPI Comments Details: 68 yr old woman with a h/o long standing HTN and CKD with a baseline creatinine of about 1.5 mg /dL referred for management of CKD She has a h/o renal cyst- Bosnick 3 . Currently being follow closely by Urology( [facility] and [facility]) Waiting for MRI in Oct 2023 Accompanied by c/o Weakness. Says this started after knee surgery. Also has resting tremor in right UR adn waiting to see NEurology on 10/30/23 c/o Leg cramps on and off Overall BP has been well controlled. Several episodes of low BP noted She is on Lisinopril 20 mg AND HCTZ 25 mg QD along with Coreg 12.5 mg BID 10/25/23 After lowering HCTZ, cr is down to 1.37 from 1.6 Seen by Neuro- diagnosed with Parkinsons Started on Sinemet 05/13/2024. She was started on Lotrel last visit. She is not tolerating this and complains of edema and weight gain. She also has constipation. 08/12/24 Overall doing well On alternating Lisinopril and Lisinopril HCTZ No lightheadedness No further constipation - on Metamucil COUNTS INCLUDE 234 BEDS AT THE [facility] Medical History Osteopenia of multiple sites Parkinson's disease without dyskinesia BRCA gene mutation negative Tremor of both hands Right shoulder pain Levoscoliosis of lumbar spine Lumbago Gait instability HTN (hypertension) Aaron's esophagus without dysplasia Hypertensive nephrosclerosis Impaired fasting glucose Chronic kidney disease, stage 3 Varicose veins of both lower extremities Menopause ovarian failure CKD (chronic kidney disease) Renal cyst, left Cataract Right ovarian cyst GERD (gastroesophageal reflux disease) Dyslipidemia Essential hypertension Surgical History History of lateral meniscus repair of left knee History of esophagogastroduodenoscopy (EGD) Hx of colonoscopy Cataract extraction status of left eye Cataract extraction status of right eye Hx of cholecystectomy History of removal of skin mole History of knee surgery Family History Father Unknown family medical history Mother Breast cancer Maternal Aunt Breast cancer Son No problems noted. Daughter No problems noted. Social History Household Members: Spouse Housing: Condominium Are you a primary medical care manager to a significant other at home: No Do you presently have visiting nurse or other home services: No Alcohol intake: never Patient Tobacco Use Status: Never used Tobacco e-Cigarette/Vaping Use: Never Used Advance Directives Date on File: 07/04/22 service: No Current occupational status: unemployed Current occupation: Right Handed Gender identity: Female Cognitive needs: No Hearing needs: No Vision needs: Yes Female Reproductive History Menstrual Age of Menarche: 10 Physical Exam Vital Signs: Last Vital Signs Pulse 87 08/12/24 10:57 BP 118/72 08/12/24 10:57 Pulse Ox 96 08/12/24 10:57 Oxygen Delivery Method Room Air 08/12/24 10:57 BMI result Body Mass Index 30.9 Const General: comfortable; No acute distress Orientation/consciousness: patient oriented x3 Eyes General: appearance normal, both eyes and all related structures Visual Castillo: normal visual castillo by confrontation Neck Neck: Yes supple and Yes no JVD Resp Effort & Inspection: normal respiratory effort and respiratory effort not decreased Auscultation: rhonchi Cardio Palpation: no palpable S3 and no palpable S4 Heart sounds: no rubs GI Inspection: Yes normal to inspection Palpation (GI): Soft to palpation Percussion: Yes normal to percussion Auscultation: normal bowel sounds General: Yes no CVA tenderness Back/Spine/Pelvis Back: no CVA tenderness Skin General skin exam: no petechiae and no purpura Neuro General: patient oriented x3 and no focal motor deficits Extrem General: No clubbing and No edema Results Reviewed Nephrology Results: Hgb 12.4 g/dl (12.0-16.0) 05/10/24 WBC 4.8 X10*3/uL (4.8-10.8) 05/10/24 Plt Count 261 X10*3/uL (160-400) 05/10/24 Sodium 141 mmol/L (135-145) 08/11/24 Potassium 4.0 mmol/L (3.3-5.1) 08/11/24 Chloride 108 mmol/L (96-108) 08/11/24 Carbon Dioxide 23 mmol/L (22-29) 08/11/24 BUN 22 mg/dL (9-16) H 08/11/24 Creatinine 1.33 mg/dL (0.5-1.4) 08/11/24 Calcium 9.5 mg/dL (8.4-10.2) 08/11/24 Urine Protein Negative mg/dL (Neg-Trace) 05/10/24 Urine Creatinine 177.47 mg/dL 05/10/24 Assessment & Plan Assessment & Plan (1) Chronic kidney disease, stage 3: Comment: ff ed by - [facility] Code(s): N18.30 - Chronic kidney disease, stage 3 unspecified Category: Medical Plan: Most likely due to hypertensive nephrosclerosis No obstruction based on imaging No significant proteinuria or hematuria. - GN or IN seem unlikely Urine specific gravity has been persistently elevated There could be a component of volume depletion causing hypoperfusion and ARMAND Creatinine back to baseline of 1.3 No change in meds Encouraged here to watch BP at home (h/o Elevated office BP readings- probably has a component of white coat effect) (2) Essential hypertension: Code(s): I10 - Essential (primary) hypertension Category: Medical Plan: BP noted As above Stay on low salt diet (3) Renal cyst, left: Comment: Shruthi 3 on MRI 08/06 Code(s): N28.1 - Cyst of kidney, acquired Category: Medical Plan: Follow with Urology Plan Orders: Orders Basic Metabolic Panel 6 Months N18.30 - Chronic kidney disease, stage 3 unspecified Medications: Changed From lisinopril-hydrochlorothiazide 20-12.5 mg 1 tab PO DAILY 90 tabs 1RF To lisinopril-hydrochlorothiazide 20-12.5 mg Every other Day 1 tab PO DAILY Coding Level of Care Code Est Pt Level 4 (85069) Diagnoses Chronic kidney disease, stage 3 N18.30 Essential hypertension I10 Renal cyst, left N28.1
== END 2024-08-12 11:15 | disposition home or self-care (01) ==
PROVIDERS: PCP Internal Medicine; Visit Provider Internal Medicine Hypertension Specialist
DX: I12.9 Hypertensive chronic kidney disease with stage 1 through stage 4 chronic kidney disease, or unspecified chronic kidney disease (principal); N18.30 Chronic kidney disease, stage 3 unspecified; N28.1 Cyst of kidney, acquired
CPT/HCPCS: 99214

== ENCOUNTER → 2024-08-12 10:56 | Outpatient (BNVA) | payer MEDICARE, SELFPAY | PROVIDERS: PCP Internal Medicine; Visit Provider Internal Medicine Hypertension Specialist | DX: I12.9 Hypertensive chronic kidney disease with stage 1 through stage 4 chronic kidney disease, or unspecified chronic kidney disease (principal); N28.1 Cyst of kidney, acquired; N18.30 Chronic kidney disease, stage 3 unspecified | CPT/HCPCS: 99212 ==

== ENCOUNTER 2024-12-01 13:21 | Outpatient (AMB) | payer MEDICARE, SELFPAY ==
[2024-12-01 13:24] VITALS: BP 128/80; PULSE 66; O2SAT 98; BMI 31.1
--- NOTE | 2024-12-01 13:24 | A.OFFVIS_ITS ---
Vital Signs 12/01/24 13:24 Height 5 ft 4 in Weight 181 lb BMI 31.1 BP 128/80 Blood Pressure Location Rt brachial Position Sitting Pulse 66 Pulse Source Pulse Oximeter Pulse Oximetry (%) 98 Oxygen Delivery Method Room Air Intake Visit Reasons: Follow up Intake Note: patient following up for parkinson's. new med trial for trihexyphenidyl. Allergies No Known Allergies Allergy (Verified 12/01/24 13:27) Medication List - Last Reconciled 12/01/24 by Jenni Kemp MD carbidopa-levodopa 25-100 mg 1 tab PO QID carvedilol 25 mg PO BID famotidine (Pepcid) 20 mg PO DAILY PRN geriatric [id number] 1 tab PO DAILY lisinopril 20 mg PO DAILY lisinopril-hydrochlorothiazide 20-12.5 mg 1 tab PO DAILY melatonin mg PO PRN mirabegron ER (Myrbetriq) 25 mg PO DAILY 90 days walker Folding front wheeled walker HPI Comments Details: 69 year old female presents for f/u of Parkinsons disease.she stopped trihexyphenidyl as it caused dryness of mouth. She continues to take her Sinemet 4x a day, 8AM, 1PM, 6PM, 11PM. She continues to have tremors of the UE R>L side, and weakness on the UE and LE on the R side along with difficulty with coordination. She has freezing and stiffening of the R. Leg and cramps at night. Her toes on the R. foot curl down, big toe curls up. She was seen by Ortho, last week and prescribed Diclofenac for cramps. Her helps with most of her ADLs, and does most of the shopping. Her mood is pleasant, speech is soft, gait is off balance, tilts to the left, sleep is good, and she has frequent urination with incontinence. She denies memory issues or word finding difficulty. She denies headaches, vision changes, hallucinations, dizziness, swallowing difficulties, drooling, falls, difficulty with turning over in bed, exercises at home as she is able to. [facility] Medical History Osteopenia of multiple sites Parkinson's disease without dyskinesia BRCA gene mutation negative Tremor of both hands Right shoulder pain Levoscoliosis of lumbar spine Lumbago Gait instability HTN (hypertension) Aaron's esophagus without dysplasia Hypertensive nephrosclerosis Impaired fasting glucose Chronic kidney disease, stage 3 Varicose veins of both lower extremities Menopause ovarian failure CKD (chronic kidney disease) Renal cyst, left Cataract Right ovarian cyst GERD (gastroesophageal reflux disease) Dyslipidemia Essential hypertension Surgical History History of lateral meniscus repair of left knee History of esophagogastroduodenoscopy (EGD) Hx of colonoscopy Cataract extraction status of left eye Cataract extraction status of right eye Hx of cholecystectomy History of removal of skin mole History of knee surgery Family History Father Unknown family medical history Mother Breast cancer Maternal Aunt Breast cancer Son No problems noted. Daughter No problems noted. Social History Household Members: [facility] Are you a primary professional healthcare representative to a significant other at home: No Do you presently have visiting nurse or other home services: No Alcohol intake: never Patient Tobacco Use Status: Never used Tobacco e-Cigarette/Vaping Use: Never Used Advance Directives Date on File: 07/04/22 service: No Current occupational status: unemployed Current occupation: Right Handed Gender identity: Female Cognitive needs: No Hearing needs: No Vision needs: Yes Female Reproductive History Menstrual Age of Menarche: 10 Review of Systems Neuro Reports Abnormal speech present (Hypophonia) Physical Exam Vital Signs: Last Vital Signs Pulse 66 12/01/24 13:24 BP 128/80 12/01/24 13:24 Pulse Ox 98 12/01/24 13:24 Oxygen Delivery Method Room Air 12/01/24 13:24 BMI result Body Mass Index 31.1 Const General: cooperative, healthy appearing and no acute distress Nutritional Appearance: average body habitus and obese Orientation/consciousness: patient oriented x3 HEENT Head: Yes normal to inspection Neck Neck: Yes other (Mild Antecollis and restricted ROM) Neuro General: patient oriented x3, no focal motor deficits and other (mild decreased blink and facial expression) Cranial nerves: Yes CN's II-XII intact bilaterally, Yes Bilaterally intact EOM present, Yes Normal facial strength present, Yes Midline tongue present, Yes Ability to bilaterally rotate head present and Yes Ability to bilaterally elevate shoulders present Speech: Abnormal speech present (Hypophonia) Gait exam (Neuro): Assistive device used and Other gait observations present (Stooped, slowness and decreased arm swing R>L, drags her right foot.) Motor exam (neuro): 5/5 motor strength present throughout, Normal motor muscle tone present throughout and Other motor observations present (Moderate Bradykinesia ) Coordination: [id number] test normal (severely decreased bilaterally R>L), rapid alternating movements of the distal upper extremity normal (decreased bilaterally R>L) and rapid alternating movements of the distal lower extremity normal (Decreased Bilaterally R>L) Assessment & Plan Assessment & Plan (1) Parkinson's disease without dyskinesia: Comment: stage 2 B Code(s): G20.A1 - Parkinson's disease without dyskinesia, without mention of fluctuations Category: Medical Qualifiers: Fluctuating manifestations: without fluctuating manifestations Qualified Code(s): G20.A1 - Parkinson's disease without dyskinesia, without mention of fluctuations Plan: PT for gait and balance training Increase Exercise and Daily Activities as tolerated, Biking 10 minutes per day will help with the stiffness -Increase Sinemet 25/100 as directed 2-8AM,1 tab 1PM, 2 tabs 6PM,1 tab 11PM( 2-1-2-1) Orders: Orders PT Evaluation and Treatment Today G20.A1 - Parkinson's disease without dyskinesia, without mention of fluctuations Medications: Changed From carbidopa-levodopa 25-100 mg 8am,12,4pm,8pm 1 tab PO QID 360 tabs 6RF To carbidopa-levodopa 25-100 mg 2 tabs 8am, 1tab at 1pm, 2 tabs at 6 pm and 1 tab at 11 pm orally 4 times a day; 540 tabs 6RF Refilled carbidopa-levodopa 25-100 mg 8am,12,4pm,8pm 1 tab PO QID 360 tabs 6RF Discontinued trihexyphenidyl give with food (meal/snack) Discontinued Reason: Patient no longer taking 1 mg (1/2 x 2 mg) PO BID 30 tabs 3RF Coding Level of Care Code Est Pt Level 4 (87957) Complex EM visit Add On G2211 Diagnoses Parkinson's disease without dyskinesia or fluctuating manifestations G20.A1 Fluctuating manifestations: without fluctuating manifestations
--- OUTSIDE RECORDS SUMMARY | 2024-12-01 15:31 | XMS_ITS | Clinical Summary ---
Author Organization [facility] Address [address] [place] [address] Care Team Providers Care Cyber Intel Planner Name Role Phone Shanna Parker MD Primary Care Provider Allergies No known active allergies Medications carvediloL (COREG) 12.5 mg tablet Take 1 tablet by mouth 2 times a day. Active amLODIPine-lazaro zepriL (LOTREL 5-10) 5-10 mg per capsule Take 1 capsule by mouth once a day. 04/14/2024 Active carbidopa-levod opa (SINEMET) 25-100 mg per tablet Take 1 tablet by mouth 4 times a day. 04/09/2024 Active Myrbetriq 25 mg tablet Take 25 mg by mouth once a day. Active Encounters Date Type Department Care Team Description 10/13/2024 Telephone [facility] [address] [place] [address] College Counselor: Rima Payan NP 10/04/2024 myChart Message [facility] [address] [place] [address] College Counselor: Rima Payan NP Followup abdominal MRI from Last 3 Months Social History Tobacco Use Types Packs/Day Years Used Date Smoking Tobacco: Never Assessed Comments Unknown Sex and Gender Information Value Date Recorded Sex Assigned at Female 04/16/2023 5:01 PM EDT Legal Sex Female 11:29 AM EDT Gender Identity Female 04/16/2023 5:01 PM EDT Sexual Orientation Straight 04/16/2023 5: 01 PM EDT Last Filed Vital Signs Vital Sign Reading Time Taken Comments Blood Pressure 133/61 12/22/2022 11:39 AM EDT Pulse 69 12/22/2022 11:39 AM EDT Temperature - - Respiratory Rate - - Oxygen Saturation - - Inhaled Oxygen Concentration - - Weight - - Height - - Body Mass Index - - Plan of Treatment Upcoming Encounters Date Type Department Care Team (Late st Contact Info) Description 12/04/2024 4:30 PM EDT Telehealth [facility] [address] [place] [address] College Counselor: Lizette Edwards PA [address] [place] [id number] Health Maintenance Due Date Last Done Comments 25 Hydroxy / Vitamin D 1956 Cologuard 1956 Colon Cancer Screening 1956 Colonoscopy 1956 FOBT / Fit Test 1956 Hepatitis C Screening 1956 PTH 1956 Phosphorus 1956 Sigmoidoscopy 1956 Medicare AWV 1957 Urine Microalbumin 1966 Mammogram 1996 Osteoporosis Screening 2006 Zoster Vaccines (2 of 2) 11/16/2020 09/21/2020 Basic Metabolic Panel 06/23/2023 12/22/2022 Hemoglobin 12/23/2023 12/22/2022 COVID-19 Vaccine ( season) 2024 07/10/2022, 09/22/2021, 01/04/2021, Additional history exists Influenza Vaccine (#1) 2024 , 09/14/2021, 05/18/2020, Additional history exists Alcohol/Substance Use Screening 09/17/2024 Depression Screening and Follow-Up 09/17/2024 Fall Risk Screening 09/17/2024 Health Care Proxy Review 09/17/2024 Social Drivers of Health Annual Screening 09/17/2024 DTaP,Tdap,and Td Vaccines (2 - Td or Tdap) 04/24/2028 04/24/2018 RSV Vaccine (60+ years old and patients) (1 - 1-dose 75+ series) 2031 Pneumococcal Vaccine: 50+ Years Completed 07/04/2022, 04/19/2021 Hepatitis B Vaccines Aged Out No long er eligible based on patient's age to complete this topic Procedures * Due to [place] [employer] law, this organization might not be sharing negative HIV tests. Procedure Name Priority Date/Time Associated Diagnosis Comments AMB EXTERNAL MRI ABDOMEN, OUTSIDE RESULT 11/04/2024 CBC AUTO DIFFERENTIAL Routine 12/22/2022 12:36 PM EDT Renal mass BASIC METABOLIC PANEL Routine 12/22/2022 12:36 PM EDT Renal mass from Last 3 Months or Most Recently Relevant to Health Maintenance Results * Due to [place] [employer] law, this organization might not be sharing negative HIV tests. * MRI Abdomen, Outside Result (11/04/2024) Anatomical Region Laterality Modality Other 11/04/2024 us Onbase Scan [facility] AMB EXTERNAL RESULT PROCEDURE S Final Result * CBC Auto Differential (12/22/2022 12:36 PM EDT) WBC 5.1 4.3 - 10.8 10*3/uL 12/22/2022 1:06 PM EDT [facility] RBC 4.32 3.80 - 5.10 10*6/uL 12/22/2022 1:06 PM EDT [facility] Hemoglobin 12.7 11.7 - 15.5 g/dL 12/22/2022 1:06 PM EDT [facility] Hematocrit 38.1 35.0 - 46.0 % 12/22/2022 1:06 PM EDT [facility] MCV 88.2 80.0 - 100.0 fL 12/22/2022 1:06 PM EDT [facility] MCH 29.4 27.0 - 34.0 pg 12/22/2022 1:06 PM EDT [facility] MCHC 33.3 29.0 - 36.0 g/dL 12/22/2022 1:06 PM EDT [facility] RDW 12.8 11.0 - 15.0 % 12/22/2022 1:06 PM EDT [facility] Platelets 252 140 - 440 10*3/uL 12/22/2022 1:06 PM EDT [facility] MPV 8.9 7.6 - 11.6 fL 12/22/2022 1:[facility] Neutrophil % 46.7 % 12/22/2022 1:[facility] Lymphocyte % 34.9 % 12/22/2022 1:06 PM EDT [facility] Monocyte % 10.8 % 12/22/2022 1:[facility] Eosinophil % 6.4 % 12/22/2022 1:[facility] Basophil % 1.2 % 12/22/2022 1:06 PM EDT [facility] Neutrophil # 2.41 1.60 - 7.50 10*3/uL 12/22/2022 1:06 PM EDT [facility] Lymphocyte # 1.8 0.9 - 3.4 10*3/uL 12/22/2022 1:[facility] Monocyte # 0.6 0.0 - 1.2 10*3/uL 12/22/2022 1:[facility] Eosinophil # 0.3 0.0 - 0.6 10*3/uL 12/22/2022 1:06 PM EDT [facility] Basophil # 0.1 0.0 - 0.3 10*3/uL 12/22/2022 1:06 PM EDT [facility] Smear Review? No [place] MANUAL 12/22/2022 1:06 PM EDT [facility] Blood Structure of peripheral vein / Unknown Venipuncture / Unknown 12/22/2022 12:36 PM EDT 12/22/2022 12:41 PM EDT us Rima Luu TUCK POINTER HELPER LAB BLOOD ORDERABLES Final Res ult [facility] [address] [place] [address], * (ABNORMAL) Basic metabolic panel (12/22/2022 12:36 PM EDT) NA 140 135 - 145 mmol/L 12/22/2022 1:36 PM EDT [facility] K 3.9 3.5 - 5.3 mmol/L 12/22/2022 1:36 PM EDT [facility] Cl 103 97 - 110 mmol/L 12/22/2022 1:36 PM EDT [facility] CO2 29 24 - 32 mmol/L 12/22/2022 1:36 PM EDT [facility] BUN 28(H) 7 - 23 mg/dL 12/22/2022 1:36 PM EDT [facility] Creatinine 1.65(H) 0.50 - 1.20 mg/dL 12/22/2022 1:36 PM EDT [facility] Glucose 89 70 - 99 mg/dL 12/22/2022 1:36 PM EDT [facility] Calcium 10.0 8.7 - 10.7 mg/dL 12/22/2022 1:36 PM EDT [facility] Anion Gap 8 5 - 15 12/22/2022 1:36 PM EDT [facility] eGFR 34(L) >=90 mL/min/1. 73m2 12/22/2022 1:36 PM EDT [facility] Comment: Estimated Glomerular Filtration Rate (GFR) calculated using the CKD-EPI refit equation. The different stages of CKD form a continuum. The stages of CKD are classified as follows : Stage 1: Normal or increased GFR (>90 mL/min/1.73 m2) Stage 2: Mild reduction in GFR (60-89 mL/min/1.73 m2) Stage 3a: Moderate reduction in GFR (45-59 mL/min/1.73 m2) Stage 3b: Moderate reduction in GFR (30-44 mL/min/1.73 m2) Stage 4: Severe reduction in GFR (15-29 mL/min/1.73 m2) Stage 5: Kidney failure (GFR < 15 mL/min/1.73 m2 or dialysis) Blood Structure of peripheral vein / Unknown Venipuncture / Unknown 12/22/2022 12:36 PM EDT 12/22/2022 12:41 PM EDT us Rima Luu TUCK POINTER HELPER LAB BLOOD ORDERABLES Final Res ult [facility] [address] [place] [address], [place] from Last 3 Months or Most Recently Relevant to Health Maintenance Insurance [facility]ICARE [facility] Care Teams Cyber Intel Planner Relationship Specialty Start Date End Date Shanna Parker MD [address] [place] [address] PCP - General Internal Medicine 12/18/22
--- OUTSIDE RECORDS SUMMARY | 2024-12-01 15:31 | XMS_ITS | Patient Health Record ---
Author Organization [facility] Address [address] [place] [address] Care Team Providers Care Joy Operator Helper Name Role Phone Elena RIVERA, Shanna Primary Care Provider Sami Salas Unavailable [phone] Reason For Referral No Information Medications Medication SIG (Take, Route, Frequency, Duration) Notes Start Date End Date Status Calcium Active Aspir-81 81 MG 1 tablet Orally Once a day Active Diclofenac Sodium 1 % APPLY TWO grams TO THE AFFECTED AREA(s) FOUR TIMES DAILY External for 8 Activ e DOK 100 MG TAKE ONE CAPSULE TWI CE DAILY Oral for 30 Active Vitamin D3 1.25 MG (90186 UT) TAKE ONE CAPSULE BY MOUTH ONCE A WEEK Oral for 84 Active Carvedilol 12.5 MG TAKE ONE TABLET TWIC E DAILY Oral for 30 Active HM Famotidine 10 MG TAKE ONE TABLET TWIC E DAILY Oral for 30 Active Lisinopril-hydroCHLOROthia zide 20-25 MG 1 tablet Orally Once a day Active Immunizations Vaccine Route Administration Date Status Comme nts Influenza Unknown 05/18/2020 Administered Problems Problem Type SNOMED Code ICD Code Onset Dates Problem Status W/U Status Risk Notes Problem 521585643 Encounter for screening for malignant neoplasm of colon (Z12.11) Active confirmed Problem Screening for malignant neoplasm of rectum (265605566) Encounter for screening for malignant neoplasm of rectum (Z12.12) Active confirmed Problem 133550066 Barretts esophagus without dysplasia (K22.70) Active confirmed Problem 51952348 Esophageal stricture (K22.2) Active confirmed Problem 83636419 Esophageal dysphagia (R13.14) Active confirmed Plan Of Treatment Pending Test Test Name Order Date Pathology 02/09/2021 Future Test Test Name Order Date UPPER GI ENDOSCOPY BALLOOON DILATION OF ESOPH 12/06/2016 COLONOSCOPY 12/06/2016 UPPER GI ENDOSCOPY 02/03/2021 Insurance Providers Payer Name Payer Address Payer Phone Subscriber Number Group Number Insured Name Patient Relationship to Insured Coverage Start Date Coverage End Date [facility] [address] [address] [place], [place] [id number] [phone] [id number] YAMIL RIBERA Self - patient is the insured MEDICAID OF [facility] [address] [place] [address] [id number] WILBUR-YAMIL FERRER Self - patient is the insured Medical (General) History Medical History History ICD Code Hypertension Denies GA,DM,CVA,Lung disease,renal dise ase Reported Negative screening colonoscopy with Dr. Cunningham in [place], [place] at age 51 Pneumonia 10/2016 Negative screening colonoscopy in 02/2017 Esophageal stricture dilated in 02/2017--small area of Aaron's esophagus--negative for dysplasia Chronic kidney disease-Bosniak cyst Osteopenia Frozen right shoulder Surgical History Surgery Date(Month/Year) Cholecystectomy 1989 Left knee Cataracts
--- OUTSIDE RECORDS SUMMARY | 2024-12-01 15:31 | XMS_ITS | Clinical Summary ---
Author Organization [facility] Address [address] [address] Care Team Providers Care Strip Cleaner Name Role Phone Yamel Parker MD Primary Care Provider [phone] Allergies No known active allergies Medications Multiple Vitamins-Minera ls (MULTIVITAMIN ADULTS PO) Take 1 capsule by mouth 1 (one) time each day Active acetaminophen (TYLENOL) 500 MG tablet Take 1 tablet by mouth 1 (one) time each day Active lisinopril-hydr oCHLOROthiazide (PRINZIDE,ZESTO RETIC) 20-25 MG per tablet Take 1 tablet by mouth 1 (one) time each day 30 tablet 5 12/08/2020 Active carvedilol (COREG) 12.5 MG tablet Take 1 tablet (12.5 mg total) by mouth 2 (two) times a day 60 tablet 5 12/08/2020 Active Calcium Carb-Cholecalci ferol (Liquid Calcium with D3) 600-1000 MG-UNIT capsule Take by mouth Active Ascorbic Acid (vitamin C) 1000 MG tablet Take 1,000 mg by mouth 1 (one) time each day Active Melatonin 5 MG capsule Take by mouth Active Active Problems Problem Noted Date Diagnosed Date Acute nontraumatic kidney injury 04/03/2022 Blood chemistry outside reference range 12/09/19 21 Chronic kidney disease stage 3 12/08/2020 Hypertensive disorder 12/08/2020 Renal mass 12/08/2020 Essential (primary) hypertension 12/08/2020 Stage 3a chronic kidney disease 12/08/2020 Complex renal cyst 12/08/2020 Hypertensive nephrosclerosis 12/08/2020 Family History Medical History Relation Comments Cancer Father hepatocellular Heart disease Father MD 60 y/o Hypertension Father Hypertension Mother Relation Status Comments Father Mother Social History Tobacco Use Types Packs/Day Years Used Date Smoking Tobacco: Never Smokeless Tobacco: Never Tobacco Cessation:Counseling Given: Not Answered Alcohol Use Standard Drinks/Week Comments No 0 (1 standard drink = 0.6 oz pur e alcohol) Comments Unknown Sex and Gender Information Value Date Recorded Sex Assigned at Not on file Legal Sex Female 4:57 PM EST Gender Identity Not on file Sexual Orientation Not on file Last Filed Vital Signs Vital Sign Reading Time Taken Comments Blood Pressure 120/80 01/10/2023 1:25 PM EDT Pulse 73 01/10/2023 1:25 PM EDT Temperature - - Respiratory Rate - - Oxygen Saturation 98% 07/03/2022 2:01 PM EDT Inhaled Oxygen Concentration - - Weight 80.4 kg (177 lb 3.2 oz) 01/10/2023 1:25 P M EDT Height 162.6 cm (5' 4 ) 07/28/2020 12:00 PM EST Body Mass Index 30.42 07/28/2020 12:00 PM EST Plan of Treatment Health Maintenance Due Date Last Done Comments Breast Cancer Screening 1956 Pneumococcal Vaccine: 65+ Ye ars (1 of 2 - PCV) 1962 Colorectal Cancer Screening: Annual FOBT 2005 Colorectal Cancer Screening: Colonoscopy 2005 Colorectal Cancer Screening: Sigmoidoscopy 2005 Influenza Vaccine (#1) 2024 09/14/2021 Hepatitis B Vaccine Aged Out No longe r eligible based on patient's age to complete this topic Insurance MEDICARE [facility] [address] [place] [address] MEDICARE [facility] Care Teams Strip Cleaner Relationship Specialty Start Date End Date Yamel Parker MD [address] [place] [address] PCP - General 09/27/20
--- OUTSIDE RECORDS SUMMARY | 2024-12-01 15:31 | XMS_ITS | Encounter Summary ---
Author Organization [facility] Address [address] [place] [address] Phone Care Team Providers Care Intensivist Name Role Phone Yamel Parker MD Primary Care Provider [phone]- [phone] Encounter Details Date Type Department Care Team (Late st Contact Info) Description 12/08/2020 Orders Only [facility] [address] [place] [phone] Provider, MD Flora [address] [place] [address] Social History Tobacco Use Types Packs/Day Years Used Date Smoking Tobacco: Never Smokeless Tobacco: Never Alcohol Use Standard Drinks/Week Comments No 0 (1 standard drink = 0.6 oz pur e alcohol) Comments Unknown Sex and Gender Information Value Date Recorded Sex Assigned at Not on file Legal Sex Female 4:57 PM EST Gender Identity Not on file Sexual Orientation Not on file COVID-19 Exposure Response Date Recorded In the last month, have you been in contact with someone who was confirmed or suspected to have Coronavirus / COVID-19? No / Unsure 12/08/2020 1:08 PM EDT documented as of this encounter Plan of Treatment Not on file documented as of this encounter Procedures Procedure Name Priority Date/Time Associated Diagnosis Comments EXT RESULT ENTRY Routine 12/08/2020 documented in this encounter Results * EXT RESULT ENTRY (12/08/2020) us Historical Provider LAB BLOOD ORDERABLES Yoli l Result documented in this encounter Visit Diagnoses Not on filedocumented in this encounter Care Teams Intensivist Relationship Specialty Start Date End Date Yamel Parker MD [facility] [place] [address] PCP - General 09/27/20 documented as of this encounter
--- OUTSIDE RECORDS SUMMARY | 2024-12-01 15:31 | XMS_ITS | Referral Summary ---
Author Organization [facility] Address [address] [place] [address] Care Team Providers Care Test Rack Operator Name Role Phone Shanna Parker MD Primary Care Provider Encounters Date Type Department Care Team Description 10/13/2024 Telephone [facility] [address] [place] [address] Automatic Nailing Machine Operator: Rima Payan NP 10/04/2024 myChart Message [facility] [address] [place] [address] Automatic Nailing Machine Operator: Rima Payan NP Followup abdominal MRI from Last 3 Months Allergies No known active allergies Medications carvediloL [...] mg by mouth once a day. Active Social History Tobacco Use Types Packs/Day Years [...] Info) Description 12/04/2024 4:30 PM EDT Telehealth [facility] [address] [place] [address] [phone] Automatic Nailing Machine Operator: Lizette Edwards PA [address] [place] [address] [phone] Procedures * Due to [place] [employer] [place] law, this organization might not be sharing negative HIV tests. Procedure Name Priority Date/Time Associated Diagnosis Comments AMB EXTERNAL MRI ABDOMEN, OUTSIDE RESULT 11/04/2024 CBC AUTO DIFFERENTIAL Routine 12/22/2022 12:36 PM EDT Renal mass BASIC METABOLIC PANEL Routine 12/22/2022 12:36 PM EDT Renal mass from Last 3 Months or Most Recently Relevant to Health Maintenance Results * Due to [place] [employer] [place] law, this organization might not be sharing negative HIV tests. * MRI Abdomen, Outside Result (11/04/2024) Anatomical Region Laterality Modality Other 11/04/2024 us Onbase Scan [facility] AMB EXTERNAL RESULT PROCEDURE S Final Result * CBC Auto Differential (12/22/2022 12:36 PM EDT) WBC 5.1 4.3 - 10.8 10*3/uL 12/22/2022 1:06 PM EDT [facility] RBC 4.32 3.80 - 5.10 10*6/uL 12/22/2022 1:06 PM EDT [facility] Hemoglobin 12.7 11.7 - 15.5 g/dL 12/22/2022 1:06 PM EDT [facility] Hematocrit 38.1 35.0 - 46.0 % 12/22/2022 1:06 PM EDT [facility] MCV 88.2 80.0 - 100.0 fL 12/22/2022 1:06 PM EDT [facility] MCH 29.4 27.0 - 34.0 pg 12/22/2022 1:06 PM EDT [facility] MCHC 33.3 29.0 - 36.0 g/dL 12/22/2022 1:06 PM EDT [facility] RDW 12.8 11.0 - 15.0 % 12/22/2022 1:06 PM EDT [facility] Platelets 252 140 - 440 10*3/uL 12/22/2022 1:06 PM EDT [facility] MPV 8.9 7.6 - 11.6 fL 12/22/2022 1:06 PM EDT [facility] Neutrophil % 46.7 % 12/22/2022 1:06 PM EDT [facility] Lymphocyte % 34.9 % 12/22/2022 1:06 PM EDT [facility] Monocyte % 10.8 % 12/22/2022 1:06 PM EDT [facility] Eosinophil % 6.4 % 12/22/2022 1:06 PM EDT [facility] Basophil % 1.2 % 12/22/2022 1:06 PM EDT [facility] Neutrophil # 2.41 1.60 - 7.50 10*3/uL 12/22/2022 1:06 PM EDT [facility] Lymphocyte # 1.8 0.9 - 3.4 10*3/uL 12/22/2022 1:06 PM EDT [facility] Monocyte # 0.6 0.0 - 1.2 10*3/uL 12/22/2022 1:06 PM EDT [facility] Eosinophil # 0.3 0.0 - 0.6 10*3/uL 12/22/2022 1:06 PM EDT [facility] Basophil # 0.1 0.0 - 0.3 10*3/uL 12/22/2022 1:06 PM EDT [facility] Smear Review? No [place] MANUAL 12/22/2022 1:06 PM EDT [facility] Blood Structure of peripheral vein / Unknown Venipuncture / Unknown 12/22/2022 12:36 PM EDT 12/22/2022 12:41 PM EDT us Rima Luu CONFIGURATION ANALYST LAB BLOOD ORDERABLES Final Res ult [facility] [address] [place] [address], * (ABNORMAL) Basic metabolic panel (12/22/2022 12:36 PM EDT) NA 140 135 - 145 mmol/L 12/22/2022 1:36 PM EDT [facility] K 3.9 3.5 - 5.3 mmol/L 12/22/2022 1:36 PM EDT [facility] Cl 103 97 - 110 mmol/L 12/22/2022 1:36 PM EDT [facility] CO2 29 24 - 32 mmol/L 12/22/2022 1:36 PM EDT [facility] BUN 28(H) 7 - 23 mg/dL 12/22/2022 1:36 PM EDT [facility] Creatinine 1.65(H) 0.50 - 1.20 mg/dL 12/22/2022 1:36 PM EDT [facility] Glucose 89 70 - 99 mg/dL 12/22/2022 1:36 PM EDT [facility] Calcium 10.0 8.7 - 10.7 mg/dL 12/22/2022 1:36 PM EDT [facility] Anion Gap 8 5 - 15 12/22/2022 1:36 PM EDT [facility] eGFR 34(L) >=90 mL/min/1. 73m2 12/22/2022 1:36 PM EDT [facility] Comment: Estimated Glomerular [...] 12/22/2022 12:41 PM EDT us Rima Luu CONFIGURATION ANALYST LAB BLOOD ORDERABLES Final Res ult [facility] [address] [place] [address], from Last 3 Months or Most Recently Relevant to Health Maintenance Insurance MEDICARE [facility] Care Teams Test Rack Operator Relationship Specialty Start Date End Date Shanna Parker MD [address] [place] [address] PCP - General Internal Medicine 12/18/22
--- OUTSIDE RECORDS SUMMARY | 2024-12-01 15:31 | XMS_ITS | Encounter Summary ---
Author Organization [facility] Address [address] [place] [address] Care Team Providers Care Aviation Neuropsychologist Name Role Phone Shanna Praker MD Primary Care Provider Encounter Details Date Type Department Care Team (Late st Contact Info) Description 10/04/2024 myChart Message [facility] [address] [place] [phone] Rotary Cutter Operator: Rima Payan, BOTTOM FINISHER [address] [place] [phone] Followup abdominal MRI Social History Tobacco Use Types Packs/Day Years Used Date Smoking Tobacco: Never Assessed Comments Unknown Sex and Gender Information Value Date Recorded Sex Assigned at Female 04/16/2023 5:01 PM EDT Legal Sex Female 11:29 AM EDT Gender Identity Female 04/16/2023 5:01 PM EDT Sexual Orientation Straight 04/16/2023 5: 01 PM EDT documented as of this encounter Plan of Treatment Upcoming Encounters Date Type Department Care Team (Late st Contact Info) Description 12/04/2024 4:30 PM EDT Telehealth [facility] [address] [place] [address] [phone] Rotary Cutter Operator: Lizette Edwards, PA [address] [place] [address] [phone] documented as of this encounter Visit Diagnoses Not on filedocumented in this encounter Care Teams Aviation Neuropsychologist Relationship Specialty Start Date End Date Shanna Parker MD [address] [place] [address] PCP - General Internal Medicine 12/18/22 documented as of this encounter
== END 2024-12-01 14:11 | disposition home or self-care (01) ==
LOC: HO.HSMS 13:22
PROVIDERS: PCP Internal Medicine; Visit Provider Psychiatry & Neurology Neurology
DX: G20.A1 Parkinson's disease without dyskinesia, without mention of fluctuations (principal)
CPT/HCPCS: 99214; G2211

== ENCOUNTER → 2024-12-01 13:21 | Outpatient (BNVA) | payer MEDICARE, SELFPAY | PROVIDERS: PCP Internal Medicine; Visit Provider Psychiatry & Neurology Neurology | DX: G20.A1 Parkinson's disease without dyskinesia, without mention of fluctuations (principal) | CPT/HCPCS: 99212 ==

== ENCOUNTER 2025-01-02 08:35 | Outpatient (REF) | payer MEDICARE, SELFPAY ==
--- OUTSIDE RECORDS SUMMARY | 2025-01-02 10:17 | XMS_ITS | Clinical Summary ---
Author Organization [facility] Facility Address [address] [address] Care Team Providers Care Public Health Informatician Name Role Phone Yamel Parker MD Primary Care Provider [phone]- [phone] Allergies No known active allergies Medications Multiple [...] age to complete this topic Insurance Medicare [facility] [address] [place] [address] Medicare [facility] Care Teams Public Health Informatician Relationship Specialty Start Date End Date Yamel Parker MD [address] [place] [address] PCP - General 09/27/20
--- OUTSIDE RECORDS SUMMARY | 2025-01-02 10:17 | XMS_ITS | Clinical Summary ---
Author Organization [facility] Address [address] [place] [address] Care Team Providers Care Vision Specialist Name Role Phone Shanna Parker MD Primary [...] Team Description 12/04/2024 4:30 PM EDT Telehealth [facility] [address] [place] [id number] Concrete Pointer: Lizette Edwards PA Renal mass (Primary Dx) 12/04/2024 Telephone [facility] [address] [address] Concrete Pointer: Lizette Edwards PA 12/04/2024 Telephone [facility] [address] [address] Concrete Pointer: Lizette Edwards PA 10/13/2024 Telephone [facility] [address] [address] Concrete Pointer: Rima Payan NP 10/04/2024 myChart Message [facility] [address] [address] Concrete Pointer: Rima Payan NP Followup abdominal MRI from [...] Info) Description 06/10/2025 4:30 PM EDT Telehealth [facility] [address] [address] Concrete Pointer: Rima Payan NP [address] [place] [address] Health Maintenance Due Date Last Done Comments [...] complete this topic Procedures * Due to [place] [employer] law, this organization might not be sharing negative HIV tests. Procedure Name Priority Date/Time Associated Diagnosis Comments AMB EXTERNAL MRI ABDOMEN, OUTSIDE RESULT 11/04/2024 CBC AUTO DIFFERENTIAL Routine 12/22/2022 12:36 PM EDT Renal mass BASIC METABOLIC PANEL Routine 12/22/2022 12:36 PM EDT Renal mass from Last 3 Months or Most Recently Relevant to Health Maintenance Results * Due to [place] state law, this organization might not be sharing negative HIV tests. * MRI Abdomen, Outside Result (11/04/2024) Anatomical Region Laterality Modality Other 11/04/2024 us Onbase Scan Yovana AMB EXTERNAL RESULT PROCEDURE S Final Result * CBC Auto Differential (12/22/2022 12:36 PM EDT) WBC 5.1 4.3 - 10.8 10*3/uL 12/22/2022 1:06 PM EDT [facility] RBC 4.32 3.80 - 5.10 10*6/uL 12/22/2022 1:06 PM EDT [facility] Hemoglobin 12.7 11.7 - 15.5 g/dL 12/22/2022 1:06 PM EDT [facility] Hematocrit 38.1 35.0 - 46.0 % 12/22/2022 1:06 PM EDT [facility] MCV 88.2 80.0 - 100.0 fL 12/22/2022 1:06 PM EDT [facility] MCH 29.4 27.0 - 34.0 pg 12/22/2022 1:06 PM EDT [facility] MCHC 33.3 29.0 - 36.0 g/dL 12/22/2022 1:06 PM EDT [facility] RDW 12.8 11.0 - 15.0 % 12/22/2022 1:06 PM EDT [facility] Platelets 252 140 - 440 10*3/uL 12/22/2022 1:06 PM EDT [facility] MPV 8.9 7.6 - 11.6 fL 12/22/2022 1:06 PM EDT [facility] Neutrophil % 46.7 % 12/22/2022 1:06 PM EDT [facility] Lymphocyte % 34.9 % 12/22/2022 1:06 PM EDT [facility] Monocyte % 10.8 % 12/22/2022 1:06 PM EDT [facility] Eosinophil % 6.4 % 12/22/2022 1:06 PM EDT [facility] Basophil % 1.2 % 12/22/2022 1:06 PM EDT [facility] Neutrophil # 2.41 1.60 - 7.50 10*3/uL 12/22/2022 1:06 PM EDT [facility] Lymphocyte # 1.8 0.9 - 3.4 10*3/uL 12/22/2022 1:06 PM EDT [facility] Monocyte # 0.6 0.0 - 1.2 10*3/uL 12/22/2022 1:06 PM EDT [facility] Eosinophil # 0.3 0.0 - 0.6 10*3/uL 12/22/2022 1:06 PM EDT [facility] Basophil # 0.1 0.0 - 0.3 10*3/uL 12/22/2022 1:06 PM EDT [facility] Smear Review? No [place] [facility] 12/22/2022 1:06 PM EDT [facility] Blood Structure of peripheral vein / Unknown Venipuncture / Unknown 12/22/2022 12:36 PM EDT 12/22/2022 12:41 PM EDT us Rima Luu CHAIN SALES CONSULTANT LAB BLOOD ORDERABLES Final Res ult [facility] [address] [place] [address], [place] * (ABNORMAL) Basic metabolic panel (12/22/2022 12:36 PM EDT) NA 140 135 - 145 mmol/L 12/22/2022 1:36 PM EDT [facility] K 3.9 3.5 - 5.3 mmol/L 12/22/2022 1:36 PM EDT [facility] Cl 103 97 - 110 mmol/L 12/22/2022 1:36 PM EDT [facility] CO2 29 24 - 32 mmol/L 12/22/2022 1:36 PM EDT [facility] BUN 28(H) 7 - 23 mg/dL 12/22/2022 1:36 PM T [facility] Creatinine 1.65(H) 0.50 - 1.20 mg/dL 12/22/2022 1:36 PM EDT [facility] Glucose 89 70 - 99 mg/dL 12/22/2022 1:36 PM EDT [facility] Calcium 10.0 8.7 - 10.7 mg/dL 12/22/2022 1:36 PM EDT [facility] Anion Gap 8 5 - 15 12/22/2022 1:36 PM EDT [facility] eGFR 34(L) >=90 mL/min/1. 73m2 12/22/2022 1:36 PM T [facility] Comment: Estimated Glomerular [...] 12/22/2022 12:41 PM EDT us Rima Luu CHAIN SALES CONSULTANT LAB BLOOD ORDERABLES Final Res ult [facility] [address] [place] [address], from Last 3 Months or Most Recently Relevant to Health Maintenance Insurance MEDICARE [facility] Care Teams Vision Specialist Relationship Specialty Start Date End Date Shanna Parker MD [address] [place] [address] PCP - General Internal Medicine 12/18/22
--- OUTSIDE RECORDS SUMMARY | 2025-01-02 10:17 | XMS_ITS | Encounter Summary ---
Author Organization [facility] Address [address] [place] [address] Phone Care Team Providers Care Fiber Technician Name Role Phone Yamel Parker MD Primary Care Provider [phone]- [phone] Encounter Details Date Type Department Care Team (Late st Contact Info) Description 12/08/2020 Orders Only [facility] [address] [place] [id number] Provider, MD Flora [address] [place] [address] Social History Tobacco Use Types Packs/Day Years [...] on filedocumented in this encounter Care Teams Fiber Technician Relationship Specialty Start Date End Date Yamel Parker MD [employer] [place] [address] PCP - General 09/27/20 documented as of this encounter
--- OUTSIDE RECORDS SUMMARY | 2025-01-02 10:17 | XMS_ITS | Referral Summary ---
Author Organization [facility] Address [address] [place] [address] Care Team Providers Care Radio Commentator Name Role Phone Shanna Parker MD Primary Care Provider Encounters Date Type Department Care Team Description 12/04/2024 Telephone [facility] [address] [place] [phone] Car Manager: Lizette Edwards PA 12/04/2024 Telephone [facility] [address] [place] [address] Car Manager: Lizette Edwards PA 12/04/2024 4:30 PM EDT Telehealth [facility] [address] [address] Car Manager: Lizette Edwards PA Renal mass (Primary Dx) 10/13/2024 Telephone [facility] [address] [place] [address] Car Manager: Rima Payan NP 10/04/2024 Algoluxhart Message [facility] [address] [address] Car Manager: Rima Payan NP Followup abdominal MRI from [...] Info) Description 06/10/2025 4:30 PM EDT Telehealth [facility] [address] [place] [address] Car Manager: Rima Payan, MARINE TOWER OPERATOR [address] [place] [address] Procedures * Due to [place] [employer] law, this organization might not be sharing negative HIV tests. Procedure Name Priority Date/Time Associated Diagnosis Comments AMB EXTERNAL MRI ABDOMEN, OUTSIDE RESULT 11/04/2024 CBC AUTO DIFFERENTIAL Routine 12/22/2022 12:36 PM EDT Renal mass BASIC METABOLIC PANEL Routine 12/22/2022 12:36 PM EDT Renal mass from Last 3 Months or Most Recently Relevant to Health Maintenance Results * Due to [place] [employer] law, this organization might not be sharing negative HIV tests. * MRI Abdomen, Outside Result (11/04/2024) Anatomical Region Laterality Modality Other 11/04/2024 us Onbase Scan [facility] AMB EXTERNAL RESULT PROCEDURE S Final Result * CBC Auto Differential (12/22/2022 12:36 PM EDT) WBC 5.1 4.3 - 10.8 10*3/uL 12/22/2022 1:06 PM EDT [facility] RBC 4.32 3.80 - 5.10 10*6/uL 12/22/2022 1:06 PM EDT [facility] Hemoglobin 12.7 11.7 - 15.5 g/dL 12/22/2022 1:06 PM EDT [facility] Hematocrit 38.1 35.0 - 46.0 % 12/22/2022 1:06 PM EDT [facility] MCV 88.2 80.0 - 100.0 fL 12/22/2022 1:06 PM EDT [facility] MCH 29.4 27.0 - 34.0 pg 12/22/2022 1:06 PM EDT [facility] MCHC 33.3 29.0 - 36.0 g/dL 12/22/2022 1:06 PM EDT [facility] RDW 12.8 11.0 - 15.0 % 12/22/2022 1:06 PM EDT [facility] Platelets 252 140 - 440 10*3/uL 12/22/2022 1:06 PM EDT [facility] MPV 8.9 7.6 - 11.6 fL 12/22/2022 1:06 PM EDT [facility] Neutrophil % 46.7 % 12/22/2022 1:06 PM EDT [facility] Lymphocyte % 34.9 % 12/22/2022 1:06 PM EDT [facility] Monocyte % 10.8 % 12/22/2022 1:06 PM EDT [facility] Eosinophil % 6.4 % 12/22/2022 1:06 PM EDT [facility] Basophil % 1.2 % 12/22/2022 1:06 PM EDT [facility] Neutrophil # 2.41 1.60 - 7.50 10*3/uL 12/22/2022 1:06 PM EDT [facility] Lymphocyte # 1.8 0.9 - 3.4 10*3/uL 12/22/2022 1:06 PM EDT [facility] Monocyte # 0.6 0.0 - 1.2 10*3/uL 12/22/2022 [facility] Eosinophil # 0.3 0.0 - 0.6 10*3/uL 12/22/2022 1:06 [facility] Basophil # 0.1 0.0 - 0.3 10*3/uL 12/22/2022 1:06 [facility] Smear Review? No [place] [facility] 12/22/2022 1:06 PM [facility] Blood Structure of peripheral vein / Unknown Venipuncture / Unknown 12/22/2022 12:36 PM EDT 12/22/2022 12:41 PM EDT us Rima Luu MARINE TOWER OPERATOR LAB BLOOD ORDERABLES Final Res ult [facility] [address] [place] [address], [place] * (ABNORMAL) Basic metabolic panel (12/22/2022 12:36 PM EDT) NA 140 135 - 145 mmol/L 12/22/2022 1:36 PM EDT [facility] K 3.9 3.5 - 5.3 mmol/L 12/22/2022 1:36 PM EDT [facility] Cl 103 97 - 110 mmol/L 12/22/2022 1:36 PM EDT [facility] CO2 29 24 - 32 mmol/L 12/22/2022 1:36 PM EDT [facility] BUN 28(H) 7 - 23 mg/dL 12/22/2022 1:36 PM EDT [facility] Creatinine 1.65(H) 0.50 - 1.20 mg/dL 12/22/2022 1:36 PM EDT [facility] Glucose 89 70 - 99 mg/dL 12/22/2022 1:36 PM EDT [facility] Calcium 10.0 8.7 - 10.7 mg/dL 12/22/2022 1:36 PM EDT [facility] Anion Gap 8 5 - 15 12/22/2022 1:36 PM EDT [facility] eGFR 34(L) >=90 mL/min/1. 73m2 12/22/2022 1:36 PM EDT [facility] Comment: Estimated Glomerular [...] 12/22/2022 12:41 PM EDT us Rima Luu MARINE TOWER OPERATOR LAB BLOOD ORDERABLES Final Res ult [facility] [address] [place] [address], from Last 3 Months or Most Recently Relevant to Health Maintenance Insurance MEDICARE [facility] Care Teams Radio Commentator Relationship Specialty Start Date End Date Espinas, Shanna [place], MD [address] [place] [address] PCP - General Internal Medicine 12/18/22
[2025-01-02 12:15] LABS: Influenza A PCR NEGATIVE (Negative); Influenza B PCR NEGATIVE (Negative); Resp Syncy Virus RNA Qual PCR NEGATIVE (Negative); SARS COV2 PCR INHOUSE NEGATIVE (Negative)
== END 2025-01-02 08:36 | disposition home or self-care (01) ==
LOC: HO.LAB 08:35
PROVIDERS: Nurse Practitioner Family; PCP Internal Medicine
DX: J06.9 Acute upper respiratory infection, unspecified (principal)
CPT/HCPCS: 0241U; 87880; 99212

== ENCOUNTER 2025-01-02 08:35 | Outpatient (AMB) | payer MEDICARE, SELFPAY ==
[2025-01-02 08:48] VITALS: BP 122/90; PULSE 66; RESP 16; TEMP 36.8; O2SAT 96; BMI 31.1
--- NOTE | 2025-01-02 08:48 | AM.OFFWIN_ITS ---
Intake Vital Signs 01/02/25 08:48 Height 5 ft 4 in Weight 181 lb BMI 31.1 BP 122/90 H Blood Pressure Location Lt brachial Position Sitting Respiration 16 Pulse 66 Pulse Source Pulse Oximeter Temp 98.2 F Temp Source Oral Pulse Oximetry (%) 96 Oxygen Delivery Method Room Air Intake Visit Reasons: EP-sore throat, cough Intake Note: Pt is here today c/o cough sx's Patient Tobacco Use Status: Never used Tobacco Allergies No Known Allergies Allergy (Verified 01/02/25 09:01) HPI HPI Comments History of Present Illness Details 69 y/o Female patient who presents to [facility] with c/o Sore- throat since this Morning. Denies SOB, cough, Wheezing or chest tightness. Denies fevers, chills, nausea or vomiting. [facility] Medical History (Updated 01/02/25 @ 09:11 by Noris Shine NP) Acute respiratory disease Osteopenia of multiple sites Parkinson's disease without dyskinesia BRCA gene mutation negative Tremor of both hands Right shoulder pain Levoscoliosis of lumbar spine Lumbago Gait instability HTN (hypertension) Aaron's esophagus without dysplasia Hypertensive nephrosclerosis Impaired fasting glucose Chronic kidney disease, stage 3 Varicose veins of both lower extremities Menopause ovarian failure CKD (chronic kidney disease) Renal cyst, left Cataract Right ovarian cyst GERD (gastroesophageal reflux disease) Dyslipidemia Essential hypertension Surgical History History of lateral meniscus repair of left knee History of esophagogastroduodenoscopy (EGD) Hx of colonoscopy Cataract extraction status of left eye Cataract extraction status of right eye Hx of cholecystectomy History of removal of skin mole History of knee surgery Family History Father Unknown family medical history Mother Breast cancer Maternal Aunt Breast cancer Son No problems noted. Daughter No problems noted. Social History Household Members: Spouse Housing: Condominium Are you a primary customer care manager to a significant other at home: No Do you presently have visiting nurse or other home services: No Alcohol intake: never Patient Tobacco Use Status: Never used Tobacco e-Cigarette/Vaping Use: Never Used Advance Directives Date on File: 07/04/22 service: No Current occupational status: unemployed Current occupation: Right Handed Gender identity: Female Cognitive needs: No Hearing needs: No Vision needs: Yes Female Reproductive History Menstrual Age of Menarche: 10 Review of Systems Const All systems reviewed & are unremarkable except as noted in HPI and below Physical Exam Vital Signs: Last Vital Signs Temp 98.2 F 01/02/25 08:48 Pulse 66 01/02/25 08:48 Resp 16 01/02/25 08:48 BP 122/90 H 01/02/25 08:48 Pulse Ox 96 01/02/25 08:48 Oxygen Delivery Method Room Air 01/02/25 08:48 BMI result Body Mass Index 31.1 Const General: no acute distress Nutritional Appearance: overweight Orientation/consciousness: patient oriented x3 HEENT Head: Yes normocephalic Ears: external ears normal and TM abnormal with fluid behind the TM bilateral Face and sinus: Yes sinuses nontender Mouth: moist mucous membranes Throat: Yes uvula midline Resp Effort & Inspection: normal respiratory effort and able to speak in complete sentences Auscultation: clear to auscultation bilaterally, no crackles, no rales, no rhonchi and wheezes Cardio Rhythm: regular rhythm Heart sounds: S1 normal heart sound present and S2 normal heart sound present Neuro General: patient oriented x3 Results AMB Rapid Strep AMB Rapid Strep Negative Last Edit by Kinga Lerma CMA on 01/02/25 09:12 Results Reviewed Results Reviewed: Laboratory Last Values Strep Scn Rapid Clinic Negative 01/02/25 09:11 Assessment & Plan Assessment & Plan (1) Acute respiratory disease: Code(s): J06.9 - Acute upper respiratory infection, unspecified Plan: Ordered SARs Rapid Strep Negative OTC Sore-throat remedies Warm fluids with honey. Rest and hydrate well. Orders: Orders SARS-CoV2/FLU/RSV Today J06.9 - Acute upper respiratory infection, unspecified AMB Rapid Strep Screen Today Z13.9 - Encounter for screening, unspecified Coding Level of Care Code Est Pt Level 4 (59319) Diagnoses Acute respiratory disease J06.9 Time Spent (min) 20
--- OUTSIDE RECORDS SUMMARY | 2025-01-02 08:54 | XMS_ITS | Referral Summary ---
Author Organization [facility] Address [address] [place] [address] Care Team Providers Care Energy Operations Vice President Name Role Phone Shanna Parker MD Primary Care Provider Encounters Date Type Department Care Team Description 12/04/2024 Telephone [facility] [address] [place] [address] Converter Operator: Lizette Edwards PA 12/04/2024 Telephone [facility] [address] [place] [address] Converter Operator: Lizette Edwards PA 12/04/2024 4:30 PM EDT Telehealth [facility] [address] [address] Converter Operator: Lizette Edwards PA Renal mass (Primary Dx) 10/13/2024 Telephone [facility] [address] [place] [address] Converter Operator: Rima Payan NP 10/04/2024 Mill[employer]hart Message [facility] [address] [address] Converter Operator: Rima Payan NP Followup abdominal MRI from Last 3 Months Allergies No known active allergies Medications carvediloL (COREG) 12.5 mg tablet Take 1 tablet by mouth 2 times a day. Active carbidopa-levo dopa (SINEMET) 25-100 mg per tablet Take 1 tablet by mouth 4 times a day. 04/09/20 Active Myrbetriq 25 mg tablet Take 25 mg by mouth once a day. Active lisinopriL (PRINIVIL,ZEST RIL) 20 mg tablet Take 20 mg by mouth once a day. Alternatives with lisinopril and HCTZ 10/03/19 Active lisinopriL-hyd rochlorothiazi de (PRINZIDE,ZEST ORETIC) 20-12.5 mg per tablet Take 1 tablet by mouth once a day. 08/09/20 Active amLODIPine-zayra azepriL (LOTREL 5-10) 5-10 mg per capsule Take 1 capsule by mouth once a day. 04/14/20 24 025 Discontinued (Therapy Completed or No Longer Needed) Active Problems No known active problems Social History Tobacco Use Types Packs/Day Years [...] Care Team (Late st Contact Info) Description 06/10/2025 4:30 PM EDT Telehealth [facility] [address] [place] [address] Converter Operator: Rima Payan, HANDLE BENDER [address] [place] [address] Procedures * Due to [place] Cryptopay law, this organization might not be sharing negative HIV tests. Procedure Name Priority Date/Time Associated Diagnosis Comments AMB EXTERNAL MRI ABDOMEN, OUTSIDE RESULT 11/04/2024 CBC AUTO DIFFERENTIAL Routine 12/22/2022 12:36 PM EDT Renal mass BASIC METABOLIC PANEL Routine 12/22/2022 12:36 PM EDT Renal mass from Last 3 Months or Most Recently Relevant to Health Maintenance Results * Due to [place] Cryptopay law, this organization might not be sharing negative HIV tests. * MRI Abdomen, Outside Result (11/04/2024) Anatomical Region Laterality Modality Other 11/04/2024 us Onbase Scan [facility] AMB EXTERNAL RESULT PROCEDURE S Final Result * CBC Auto Differential (12/22/2022 12:36 PM EDT) WBC 5.1 4.3 - 10.8 10*3/uL 12/22/2022 1:06 PM EDT [facility] RBC 4.32 3.80 - 5.10 10*6/uL 12/22/2022 1:06 PM EDT [facility] Hemoglobin 12.7 11.7 - 15.5 g/dL 12/22/2022 1:06 PM EDT [facility] Hematocrit 38.1 35.0 - 46.0 % 12/22/2022 1:06 PM EDT [facility] MCV 88.2 80.0 - 100.0 fL 12/22/2022 1:06 PM EDT [facility] MCH 29.4 27.0 - 34.0 pg 12/22/2022 1:06 PM EDT [facility] MCHC 33.3 29.0 - 36.0 g/dL 12/22/2022 1:06 PM EDT [facility] RDW 12.8 11.0 - 15.0 % 12/22/2022 1:06 PM EDT [facility] Platelets 252 140 - 440 10*3/uL 12/22/2022 1:06 PM EDT [facility] MPV 8.9 7.6 - 11.6 fL 12/22/2022 1:06 PM EDT [facility] Neutrophil % 46.7 % 12/22/2022 1:06 PM EDT [facility] Lymphocyte % 34.9 % 12/22/2022 1:06 PM EDT [facility] Monocyte % 10.8 % 12/22/2022 1:06 PM EDT [facility] Eosinophil % 6.4 % 12/22/2022 1:06 PM EDT [facility] Basophil % 1.2 % 12/22/2022 1:06 PM EDT [facility] Neutrophil # 2.41 1.60 - 7.50 10*3/uL 12/22/2022 1:06 PM EDT [facility] Lymphocyte # 1.8 0.9 - 3.4 10*3/uL 12/22/2022 1:06 PM EDT [facility] Monocyte # 0.6 0.0 - 1.2 10*3/uL 12/22[facility]22 [facility] Eosinophil # 0.3 0.0 - 0.6 10*3/uL 12/22/2022 1:[facility] Basophil # 0.1 0.0 - 0.3 10*3/uL 12/22/2022 [facility] Smear Review? No [place] [facility] 12/22/2022 1:06 PM [facility] Blood Structure of peripheral vein / Unknown Venipuncture / Unknown 12/22/2022 12:36 PM EDT 12/22/2022 12:41 PM EDT us Rima Luu HANDLE BENDER LAB BLOOD ORDERABLES Final Res ult [facility] [address] [place] [address], [place] * (ABNORMAL) Basic metabolic panel (12/22/2022 12:36 PM EDT) NA 140 135 - 145 mmol/L 12/22/2022 1:36 PM EDT [facility] K 3.9 3.5 - 5.3 mmol/L 12/22/2022 1:36 PM EDT [facility] Cl 103 97 - 110 mmol/L 12/22/2022 1:36 PM EDT [facility] CO2 29 24 - 32 mmol/L 12/22/2022 1:36 PM EDT [facility] BUN 28(H) 7 - 23 mg/dL 12/22/2022 1:36 PM EDT [facility] Creatinine 1.65(H) 0.50 - 1.20 mg/dL 12/22/2022 1:36 PM EDT [facility] Glucose 89 70 - 99 mg/dL 12/22/2022 1:36 PM EDT [facility] Calcium 10.0 8.7 - 10.7 mg/dL 12/22/2022 1:36 PM EDT [facility] Anion Gap 8 5 - 15 12/22/2022 1:36 PM EDT [facility] eGFR 34(L) >=90 mL/min/1. 73m2 12/22/2022 1:36 PM EDT [facility] Comment: Estimated Glomerular Filtration [...] 12/22/2022 12:41 PM EDT us Rima Luu HANDLE BENDER LAB BLOOD ORDERABLES Final Res ult [facility] [address] [place] [address], from Last 3 Months or Most Recently Relevant to Health Maintenance Insurance MEDICARE [facility] Care Teams Energy Operations Vice President Relationship Specialty Start Date End Date Espinas, Shanna [place], MD [address] [place] [address] PCP - General Internal Medicine 12/18/22
--- OUTSIDE RECORDS SUMMARY | 2025-01-02 08:55 | XMS_ITS | Patient Health Record ---
Author Organization [facility] Address [address] [place] [address] Care Team Providers Care Kitchen Stewardess Name Role Phone Elena RIVERA, Shanna Primary Care Provider Sami Salas Unavailable [phone] Reason For Referral No Information Medications Medication [...] for 30 Active Vitamin D3 1.25 MG (84278 UT) TAKE ONE CAPSULE BY MOUTH ONCE [...] Problem Status W/U Status Risk Notes Problem [id number] Encounter for screening for malignant neoplasm of colon (Z12.11) Active confirmed Problem Screening for malignant neoplasm of rectum (251908453) Encounter for screening for malignant neoplasm of rectum (Z12.12) Active confirmed Problem [id number] Barretts esophagus without dysplasia (K22.70) Active confirmed Problem 48004091 Esophageal stricture (K22.2) Active confirmed Problem 30318325 Esophageal dysphagia (R13.14) Active confirmed Plan Of Treatment Pending Test Test Name Order Date Pathology 02/09/2021 Future Test Test Name Order Date UPPER GI ENDOSCOPY BALLOOON DILATION OF ESOPH 12/06/2016 COLONOSCOPY 12/06/2016 UPPER GI ENDOSCOPY 02/03/2021 Insurance Providers Payer Name Payer Address Payer Phone Subscriber Number Group Number Insured Name Patient Relationship to Insured Coverage Start Date Coverage End Date [facility] [address] [address] [place], [place] [id number] [phone] [id number] YAMIL RIBERA Self - patient is the insured MEDICAID OF [facility] [address] [place] [address] [id number] [place]-YAMIL FERRER Self - patient is the insured Medical (General) History Medical History History ICD Code Hypertension Denies [place],DM,CVA,Lung disease,renal dise ase Reported Negative screening colonoscopy with Dr. Cunningham in [place], [place] at age 51 Pneumonia 10/2016 Negative screening colonoscopy in 02/2017 Esophageal stricture dilated in 02/2017--small area of Aaron's esophagus--negative for dysplasia Chronic kidney disease-Bosniak cyst Osteopenia Frozen right shoulder Surgical History Surgery Date(Month/Year) Cholecystectomy 1989 Left knee Cataracts
--- OUTSIDE RECORDS SUMMARY | 2025-01-02 08:55 | XMS_ITS | Clinical Summary ---
Author Organization [facility] Address [address] [address] Care Team Providers Care Cut Off Machine Helper Name Role Phone Yamel Parker MD Primary Care Provider [phone] Allergies No known active allergies Medications Multiple [...] Comments Cancer Father hepatocellular Heart disease Father [place] 60 y/o Hypertension Father Hypertension Mother Relation [...] Comments Breast Cancer Screening 1955 Pneumococcal Vaccine: 50+ Ye ars (1 of 2 - PCV) 1975 Colorectal Cancer Screening: Annual FOBT 2005 Colorectal Cancer Screening: Colonoscopy 2005 Colorectal Cancer Screening: Sigmoidoscopy 2005 Influenza Vaccine (Season Ended) 2025 09/14/20 21 Hepatitis B Vaccine Aged Out No longe r eligible based on patient's age to complete this topic Insurance Medicare [facility] [address] [place] [address] Medicare [facility] Care Teams Cut Off Machine Helper Relationship Specialty Start Date End Date Yamel Parker MD [address] [place] [address] PCP - General 09/27/20
--- OUTSIDE RECORDS SUMMARY | 2025-01-02 08:55 | XMS_ITS | Encounter Summary ---
Author Organization [facility] Address [address] [place] [address] Phone Care Team Providers Care Milk Truck Driver Name Role Phone Yamel Parker MD Primary Care Provider [phone] Encounter Details Date Type Department Care Team (Late st Contact Info) Description 12/08/2020 Orders Only [facility] [address] [place] [id number] Provider, MD Flora [address] [place] [address] Social History Tobacco Use Types Packs/Day Years [...] on filedocumented in this encounter Care Teams Milk Truck Driver Relationship Specialty Start Date End Date Yamel Parker MD [facility] [place] [address] PCP - General 09/27/20 documented as of this encounter
--- OUTSIDE RECORDS SUMMARY | 2025-01-02 08:55 | XMS_ITS | Clinical Summary ---
Author Organization [facility] Address [address] [place] [address] Care Team Providers Care Chief Creative Officer Name Role Phone Shanna Parker MD Primary Care Provider Allergies No known active allergies Medications carvediloL (COREG) 12.5 mg tablet Take 1 tablet by mouth 2 times a day. Active carbidopa-levo dopa (SINEMET) 25-100 mg per tablet Take 1 tablet by mouth 4 times a day. 04/09/20 24 Active Myrbetriq 25 mg tablet Take 25 mg by mouth once a day. Active lisinopriL (PRINIVIL,ZEST RIL) 20 mg tablet Take 20 mg by mouth once a day. Alternatives with lisinopril and HCTZ 10/03/19 25 Active lisinopriL-hyd rochlorothiazi de (PRINZIDE,ZEST ORETIC) 20-12.5 mg per tablet Take 1 tablet by mouth once a day. 08/09/20 24 Active amLODIPine-zayra azepriL (LOTREL 5-10) 5-10 mg per capsule Take 1 capsule by mouth once a day. 04/14/20 24 025 Discontinued (Therapy Completed or No Longer Needed) Active Problems No known active problems Encounters Date Type Department Care Team Description 12/04/2024 4:30 PM EDT Telehealth [facility] [address] [place] [id number] Cord Maker: Lizette Edwards PA Renal mass (Primary Dx) 12/04/2024 Telephone [facility] [address] [address] Cord Maker: Lizette Edwards PA 12/04/2024 Telephone [facility] [address] [address] Cord Maker: Lizette Edwards PA 10/13/2024 Telephone [facility] [address] [address] Cord Maker: Rima Payan NP 10/04/2024 myChart Message [facility] [address] [address] Cord Maker: Rima Payan NP Followup abdominal MRI from [...] Info) Description 06/10/2025 4:30 PM EDT Telehealth [facility] [address] [address] Cord Maker: Rima Payan NP [address] [place] [address] Health Maintenance Due Date Last Done Comments 25 Hydroxy / Vitamin D 1956 Cologuard 1956 Colon Cancer Screening 1956 Colonoscopy 1956 FOBT / Fit Test 1956 Hepatitis C Screening 1956 PTH 1956 Phosphorus 1956 Sigmoidoscopy 1956 Medicare AWV 1957 Urine Microalbumin 1966 Mammogram 1996 Osteoporosis Screening 2006 Zoster Vaccines (2 of 2) 11/16/2020 09/21/2020 Basic Metabolic Panel 06/23/2023 12/22/2022 Hemoglobin 12/23/2023 12/22/2022 Alcohol/Substance Use Screening 09/17/2024 Depression Screening and Follow-Up 09/17/2024 Fall Risk Screening 09/17/2024 Health Care Proxy Review 09/17/2024 Social Drivers of Health Annual Screening 09/17/2024 COVID-19 Vaccine ( season) 2025 07/13/2024, 07/10/2022, 09/22/2021, Additional history exists DTaP,Tdap,and Td Vaccines (2 - Td or Tdap) 04/24/2028 04/24/2018 RSV Vaccine (60+ years old and patients) (1 - 1-dose 75+ series) 2031 Pneumococcal Vaccine: 50+ Years Completed 07/04/2022, 04/19/2021 Influenza Vaccine Completed 06/24/2024, , 09/14/2021, Additional history exists Hepatitis B Vaccines Aged Out No long er eligible based on patient's age to complete this topic Procedures * Due to [place] [employer] law, this organization might not be sharing negative HIV tests. Procedure Name Priority Date/Time Associated Diagnosis Comments AMB EXTERNAL MRI ABDOMEN, OUTSIDE RESULT 11/04/2024 CBC AUTO DIFFERENTIAL Routine 12/22/2022 12:36 PM EDT Renal mass BASIC METABOLIC PANEL Routine 12/22/2022 12:36 PM EDT Renal mass from Last 3 Months or Most Recently Relevant to Health Maintenance Results * Due to [place] state law, this organization might not be sharing negative HIV tests. * MRI Abdomen, Outside Result (11/04/2024) Anatomical Region Laterality Modality Other 11/04/2024 us Onbase Scan Yovana AMB EXTERNAL RESULT PROCEDURE S Final Result * CBC Auto Differential (12/22/2022 12:36 PM EDT) WBC 5.1 4.3 - 10.8 10*3/uL 12/22/2022 1:06 PM EDT [facility] RBC 4.32 3.80 - 5.10 10*6/uL 12/22/2022 1:06 PM EDT [facility] Hemoglobin 12.7 11.7 - 15.5 g/dL 12/22/2022 1:06 PM EDT [facility] Hematocrit 38.1 35.0 - 46.0 % 12/22/2022 1:06 PM EDT [facility] MCV 88.2 80.0 - 100.0 fL 12/22/2022 1:06 PM EDT [facility] MCH 29.4 27.0 - 34.0 pg 12/22/2022 1:06 PM EDT [facility] MCHC 33.3 29.0 - 36.0 g/dL 12/22/2022 1:06 PM EDT [facility] RDW 12.8 11.0 - 15.0 % 12/22/2022 1:06 PM EDT [facility] Platelets 252 140 - 440 10*3/uL 12/22/2022 1:06 PM EDT [facility] MPV 8.9 7.6 - 11.6 fL 12/22/2022 1:06 PM EDT [facility] Neutrophil % 46.7 % 12/22/2022 1:06 PM EDT [facility] Lymphocyte % 34.9 % 12/22/2022 1:06 PM EDT [facility] Monocyte % 10.8 % 12/22/2022 1:06 PM EDT [facility] Eosinophil % 6.4 % 12/22/2022 1:06 PM EDT [facility] Basophil % 1.2 % 12/22/2022 1:06 PM EDT [facility] Neutrophil # 2.41 1.60 - 7.50 10*3/uL 12/22/2022 1:06 PM EDT [facility] Lymphocyte # 1.8 0.9 - 3.4 10*3/uL 12/22/2022 1:06 PM EDT [facility] Monocyte # 0.6 0.0 - 1.2 10*3/uL 12/22/2022 1:06 PM EDT [facility] Eosinophil # 0.3 0.0 - 0.6 10*3/uL 12/22/2022 1:06 PM EDT [facility] Basophil # 0.1 0.0 - 0.3 10*3/uL 12/22/2022 1:06 PM EDT [facility] Smear Review? No [place] MANUAL 12/22/2022 1:06 PM EDT [facility] Blood Structure of peripheral vein / Unknown Venipuncture / Unknown 12/22/2022 12:36 PM EDT 12/22/2022 12:41 PM EDT us Rima Luu BIG DATA SOFTWARE ENGINEER LAB BLOOD ORDERABLES Final Res ult [facility] [address] [place] [address], [place] * (ABNORMAL) Basic metabolic panel (12/22/2022 12:36 PM EDT) NA 140 135 - 145 mmol/L 12/22/2022 1:36 PM EDT [facility] K 3.9 3.5 - 5.3 mmol/L 12/22/2022 1:36 PM EDT [facility] Cl 103 97 - 110 mmol/L 12/22/2022 1:36 PM EDT [facility] CO2 29 24 - 32 mmol/L 12/22/2022 1:36 PM EDT [facility] BUN 28(H) 7 - 23 mg/dL 12/22/2022 1:36 PM T [facility] Creatinine 1.65(H) 0.50 - 1.20 mg/dL 12/22/2022 1:36 PM EDT [facility] Glucose 89 70 - 99 mg/dL 12/22/2022 1:36 PM EDT [facility] Calcium 10.0 8.7 - 10.7 mg/dL 12/22/2022 1:36 PM EDT [facility] Anion Gap 8 5 - 15 12/22/2022 1:36 PM EDT [facility] eGFR 34(L) >=90 mL/min/1. 73m2 12/22/2022 1:36 PM T [facility] Comment: Estimated Glomerular [...] 12/22/2022 12:41 PM EDT us Rima Luu BIG DATA SOFTWARE ENGINEER LAB BLOOD ORDERABLES Final Res ult [facility] [address] [place] [address], from Last 3 Months or Most Recently Relevant to Health Maintenance Insurance MEDICARE [facility] Care Teams Chief Creative Officer Relationship Specialty Start Date End Date Shanna Parker MD [address] [place] [address] PCP - General Internal Medicine 12/18/22
== END 2025-01-02 09:49 | disposition home or self-care (01) ==
PROVIDERS: PCP Internal Medicine; Visit Provider Nurse Practitioner Family
DX: J06.9 Acute upper respiratory infection, unspecified (principal); Z13.9 Encounter for screening, unspecified

== ENCOUNTER 2025-01-23 14:38 | Outpatient (REF) | payer MEDICARE, SELFPAY ==
--- OUTSIDE RECORDS SUMMARY | 2025-01-23 14:41 | XMS_ITS | Referral Summary ---
Author Organization [facility] Address [address] [place] [address] Care Team Providers Care Supervisor Television Chassis Repair Name Role Phone Shanna Parker MD Primary Care Provider Encounters Date Type Department Care Team Description 12/04/2024 Telephone [facility] [address] [place] [id number] Safety Aide: Lizette Edwards PA 12/04/2024 Telephone [facility] [address] [place] [phone] Safety Aide: Lizette Edwards PA 12/04/2024 4:30 PM EDT Telehealth [facility] [address] [place] [address] Safety Aide: Lizette Edwards PA Renal mass (Primary Dx) from Last 3 Months Allergies No known active allergies Medications carvediloL (COREG) 12.5 mg tablet Take 1 tablet by mouth 2 times a day. Active carbidopa-levod opa (SINEMET) 25-100 mg per tablet Take 1 tablet by mouth 4 times a day. 4 Active Myrbetriq 25 mg tablet Take 25 mg by mouth once a day. Active lisinopriL (PRINIVIL,ZESTR IL) 20 mg tablet Take 20 mg by mouth once a day. Alternatives with lisinopril and HCTZ 5 Active lisinopriL-hydr ochlorothiazide (PRINZIDE,ZESTO RETIC) 20-12.5 mg per tablet Take 1 tablet by mouth once a day. 4 Active Active Problems No known active problems Social [...] Info) Description 06/10/2025 4:30 PM EDT Telehealth [facility] [address] [place] [address] Safety Aide: Rima Payan NP [address] [place] [address] Procedures * Due to [place] [employer] law, this organization might not be sharing negative HIV tests. Procedure Name Priority Date/Time Associated Diagnosis Comments AMB EXTERNAL MRI ABDOMEN, OUTSIDE RESULT 11/04/2024 CBC AUTO DIFFERENTIAL Routine 12/22/2022 12:36 PM EDT Renal mass BASIC METABOLIC PANEL Routine 12/22/2022 12:36 PM EDT Renal mass from Last 3 Months or Most Recently Relevant to Health Maintenance Results * Due to [place] [employer] law, this organization might not be sharing negative HIV tests. * MRI Abdomen, Outside Result (11/04/2024) Anatomical Region Laterality Modality Other 11/04/2024 us Onbase Scan Yovana AMB EXTERNAL RESULT PROCEDURE S Final Result * CBC Auto Differential (12/22/2022 12:36 PM EDT) WBC 5.1 4.3 - 10.8 10*3/uL 12/22/2022 1:06 PM EDT [facility] RBC 4.32 3.80 - 5.10 10*6/uL 12/22/2022 1:06 PM EDT [facility] Hemoglobin 12.7 11.7 - 15.5 g/dL 12/22/2022 1:06 PM EDT [facility] Hematocrit 38.1 35.0 - 46.0 % 12/22/2022 1:06 PM EDT [facility] MCV 88.2 80.0 - 100.0 fL 12/22/2022 1:06 PM EDT [facility] MCH 29.4 27.0 - 34.0 pg 12/22/2022 1:06 PM EDT [facility] MCHC 33.3 29.0 - 36.0 g/dL 12/22/2022 1:06 PM EDT [facility] RDW 12.8 11.0 - 15.0 % 12/22/2022 1:06 PM EDT [facility] Platelets 252 140 - 440 10*3/uL 12/22/2022 1:06 PM EDT [facility] MPV 8.9 7.6 - 11.6 fL 12/22/2022 1:06 PM EDT [facility] Neutrophil % 46.7 % 12/22/2022 1:06 PM EDT [facility] Lymphocyte % 34.9 % 12/22/2022 1:06 PM EDT [facility] Monocyte % 10.8 % 12/22/2022 1:06 PM EDT [facility] Eosinophil % 6.4 % 12/22/2022 1:06 PM EDT [facility] Basophil % 1.2 % 12/22/2022 1:06 PM EDT [facility] Neutrophil # 2.41 1.60 - 7.50 10*3/uL 12/22/2022 1:06 PM EDT [facility] Lymphocyte # 1.8 0.9 - 3.4 10*3/uL 12/22/2022 1:06 PM EDT [facility] Monocyte # 0.6 0.0 - 1.2 10*3/uL 12/22/2022 1:06 PM EDT [facility] Eosinophil # 0.3 0.0 - 0.6 10*3/uL 12/22/2022 1:06 PM EDT [facility] Basophil # 0.1 0.0 - 0.3 10*3/uL 12/22/2022 1:06 PM EDT [facility] Smear Review? No [facility] MANUAL 12/22/2022 1:06 PM EDT [facility] Blood Structure of peripheral vein / Unknown Venipuncture / Unknown 12/22/2022 12:36 PM EDT 12/22/2022 12:41 PM EDT us Rima Luu SUBWAY CAR REPAIRER LAB BLOOD ORDERABLES Final Res ult [facility] [address] [place] [address], [place] * (ABNORMAL) Basic metabolic panel (12/22/2022 12:36 PM EDT) NA 140 135 - 145 mmol/L 12/22/2022 1:36 PM EDT [facility] K 3.9 3.5 - 5.3 mmol/L 12/22/2022 1:36 PM EDT [facility] Cl 103 97 - 110 mmol/L 12/22/2022 1:36 PM EDT [facility] CO2 29 24 - 32 mmol/L 12/22/2022 1:36 PM T [facility] BUN 28(H) 7 - 23 mg/dL 12/22/2022 1:36 PM EDT [facility] Creatinine 1.65(H) 0.50 - 1.20 mg/dL 12/22/2022 1:36 PM EDT [facility] Glucose 89 70 - 99 mg/dL 12/22/2022 1:36 PM EDT [facility] Calcium 10.0 8.7 - 10.7 mg/dL 12/22/2022 1:36 PM T [facility] Anion Gap 8 5 - 15 12/22/2022 1:36 PM T [facility] eGFR 34(L) >=90 mL/min/1. 73m2 12/22/2022 1:36 PM T [facility] Comment: Estimated Glomerular [...] 12:36 PM EDT 12/22/2022 12:41 PM EDT Rima M Jus SUBWAY CAR REPAIRER LAB BLOOD ORDERABLES Final Res ult [facility] [address] [place] [address], from Last 3 Months or Most Recently Relevant to Health Maintenance Insurance MEDICARE [facility] Care Teams Supervisor Television Chassis Repair Relationship Specialty Start Date End Date Shanna Parker MD [address] [place] [address] PCP - General Internal Medicine 12/18/22
--- OUTSIDE RECORDS SUMMARY | 2025-01-23 14:42 | XMS_ITS | Clinical Summary ---
Author Organization [facility] Address [address] [place] [address] Care Team Providers Care Sports Anchor Name Role Phone Shanna Parker MD Primary [...] Active Active Problems No known active problems Encounters Date Type Department Care Team Description 12/04/2024 4:30 PM EDT Telehealth [facility] [address] [place] [phone] Bisque Finisher: Lizette Edwards PA Renal mass (Primary Dx) 12/04/2024 Telephone [facility] [address] [place] [address] [phone] Bisque Finisher: Lizette Edwards PA 12/04/2024 Telephone [facility] [address] [place] [address] Bisque Finisher: Lizette Edwards PA from Last 3 Months Social History Tobacco [...] Info) Description 06/10/2025 4:30 PM EDT Telehealth [facility] [address] [address] Bisque Finisher: Rima Payan NP [address] [place] [phone] Health Maintenance Due Date Last Done Comments [...] Health Annual Screening 09/17/2024 COVID-19 Vaccine ( - season) 2025 07/13/2024, 07/10/2022, 09/22/2021, Additional history [...] complete this topic Procedures * Due to [place] [employer] law, this organization might not be sharing negative HIV tests. Procedure Name Priority Date/Time Associated Diagnosis Comments AMB EXTERNAL MRI ABDOMEN, OUTSIDE RESULT 11/04/2024 CBC AUTO DIFFERENTIAL Routine 12/22/2022 12:36 PM EDT Renal mass BASIC METABOLIC PANEL Routine 12/22/2022 12:36 PM EDT Renal mass from Last 3 Months or Most Recently Relevant to Health Maintenance Results * Due to [place] [employer] law, this organization might not be sharing negative HIV tests. * MRI Abdomen, Outside Result (11/04/2024) Anatomical Region Laterality Modality Other 11/04/[address] us On[address] [facility] AMB EXTERNAL RESULT PROCEDURE S Final Result * CBC Auto Differential (12/22/2022 12:36 PM EDT) WBC 5.1 4.3 - 10.8 10*3/uL 12/22/2022 1:06 PM EDT [facility] RBC 4.32 3.80 - 5.10 10*6/uL 12/22/2022 1:06 PM EDT [facility] Hemoglobin 12.7 11.7 - 15.5 g/dL 12/22/2022 1:06 PM EDT [facility] Hematocrit 38.1 35.0 - 46.0 % 12/22/2022 1:06 PM EDT [facility] MCV 88.2 80.0 - 100.0 fL 12/22/2022 1:06 PM EDT [facility] MCH 29.4 27.0 - 34.0 pg 12/22/2022 1:06 PM EDT [facility] MCHC 33.3 29.0 - 36.0 g/dL 12/22/2022 1:06 PM EDT [facility] RDW 12.8 11.0 - 15.0 % 12/22/2022 1:06 PM EDT [facility] Platelets 252 140 - 440 10*3/uL 12/22/2022 1:06 PM EDT [facility] MPV 8.9 7.6 - 11.6 fL 12/22/2022 1:06 PM EDT [facility] Neutrophil % 46.7 % 12/22/2022 1:06 PM EDT [facility] Lymphocyte % 34.9 % 12/22/2022 1:06 PM EDT [facility] Monocyte % 10.8 % 12/22/2022 1:06 PM EDT [facility] Eosinophil % 6.4 % 12/22/2022 1:06 PM EDT [facility] Basophil % 1.2 % 12/22/2022 1:06 PM EDT [facility] Neutrophil # 2.41 1.60 - 7.50 10*3/uL 12/22/2022 1:06 PM EDT [facility] Lymphocyte # 1.8 0.9 - 3.4 10*3/uL 12/22/2022 1:06 PM EDT [facility] Monocyte # 0.6 0.0 - 1.2 10*3/uL 12/22/2022 1:06 PM EDT [facility] Eosinophil # 0.3 0.0 - 0.6 10*3/uL 12/22/2022 1:06 PM EDT [facility] Basophil # 0.1 0.0 - 0.3 10*3/uL 12/22/2022 1:06 PM EDT [facility] Smear Review? No [facility] 12/22/2022 1:06 PM EDT [facility] Blood Structure of peripheral vein / Unknown Venipuncture / Unknown 12/22/2022 12:36 PM EDT 12/22/2022 12:41 PM EDT us Rima Luu MANAGER REQUIREMENTS LAB BLOOD ORDERABLES Final Res ult [facility] [address] [place] [address], * (ABNORMAL) Basic metabolic panel (12/22/2022 12:36 PM EDT) NA 140 135 - 145 mmol/L 12/22/2022 1:36 PM EDT [facility] K 3.9 3.5 - 5.3 mmol/L 12/22/2022 1:36 PM EDT [facility] Cl 103 97 - 110 mmol/L 12/22/2022 1:36 PM EDT [facility] CO2 29 24 - 32 mmol/L 12/22/2022 1:36 PM EDT [facility] BUN 28(H) 7 - 23 mg/dL 12/22/2022 1:36 PM EDT [facility] Creatinine 1.65(H) 0.50 - 1.20 mg/dL 12/22/2022 1:36 PM EDT [facility] Glucose 89 70 - 99 mg/dL 12/22/2022 1:36 PM EDT [facility] Calcium 10.0 8.7 - 10.7 mg/dL 12/22/2022 1:36 PM EDT [facility] Anion Gap 8 5 - 15 12/22/2022 1:36 PM EDT [facility] eGFR 34(L) >=90 mL/min/1. 73m2 12/22/2022 1:36 PM EDT [facility] Comment: Estimated Glomerular Filtration [...] 12/22/2022 12:41 PM EDT us Rima Luu MANAGER REQUIREMENTS LAB BLOOD ORDERABLES Final Res ult [facility] [address] [place] [address], [place] from Last 3 Months or Most Recently Relevant to Health Maintenance Insurance [facility]ICARE [facility] Care Teams Sports Anchor Relationship Specialty Start Date End Date Shanna Parker MD [address] [place] [address] PCP - General Internal Medicine 12/18/22
--- OUTSIDE RECORDS SUMMARY | 2025-01-23 14:42 | XMS_ITS | Encounter Summary ---
Author Organization [facility] Address [address] [place] [address] Phone Care Team Providers Care Bike Shop Manager Name Role Phone Yamel Parker MD Primary Care Provider [phone]- [phone] Encounter Details Date Type Department Care Team (Late st Contact Info) Description 12/08/2020 Orders Only [facility] [address] [place] [id number] Provider, MD Flora [address] [place] [address] Social History Tobacco Use Types Packs/Day Years [...] on filedocumented in this encounter Care Teams Bike Shop Manager Relationship Specialty Start Date End Date Yamel Parker MD [facility] [place] [address] PCP - General 09/27/20 documented as of this encounter
--- OUTSIDE RECORDS SUMMARY | 2025-01-23 14:42 | XMS_ITS | Clinical Summary ---
Author Organization [facility] Address [address] [address] Care Team Providers Care Deputy Coroner Name Role Phone Yamel Parker MD Primary Care Provider [phone]- [phone] Allergies No known active allergies Medications Multiple [...] Comments Cancer Father hepatocellular Heart disease Father [place] 60 y/o Hypertension Father Hypertension Mother Relation [...] age to complete this topic Insurance Medicare [facility] [address] [place] [address] Medicare [facility] Care Teams Deputy Coroner Relationship Specialty Start Date End Date Yamel Parker MD [address] [place] [address] PCP - General 09/27/20
--- OUTSIDE RECORDS SUMMARY | 2025-01-23 14:42 | XMS_ITS | Patient Health Record ---
Author Organization [facility] Address [address] [place] [address] Care Team Providers Care Grocery Clerk Selling Name Role Phone Elena RIVERA, Shanna Primary Care Provider Sami Salas Unavailable [phone] Reason For Referral No Information Medications Medication [...] for 30 Active Vitamin D3 1.25 MG (38853 UT) TAKE ONE CAPSULE BY MOUTH ONCE [...] Problem Status W/U Status Risk Notes Problem [id number] Encounter for screening for malignant neoplasm of colon (Z12.11) Active confirmed Problem Screening for malignant neoplasm of rectum (522428246) Encounter for screening for malignant neoplasm of rectum (Z12.12) Active confirmed Problem [id number] Barretts esophagus without dysplasia (K22.70) Active confirmed Problem [id number] Esophageal stricture (K22.2) Active confirmed Problem [id number] Esophageal dysphagia (R13.14) Active confirmed Plan Of Treatment Future Test Test Name Order Date UPPER GI ENDOSCOPY BALLOOON DILATION OF ESOPH 12/06/2016 COLONOSCOPY 12/06/2016 UPPER GI ENDOSCOPY 02/03/2021 Insurance Providers Payer Name Payer Address Payer Phone Subscriber Number Group Number Insured Name Patient Relationship to Insured Coverage Start Date Coverage End Date [facility] [address] [address] [place], [place] [phone] [id number] YAMIL RIBERA Self - patient is the insured MEDICAID OF [id number] [address] [place] [address] [phone] [id number] WILBURAshokYAMIL FERRER Self - patient is the insured Medical (General) History Medical History History ICD Code Hypertension Denies [place],DM,CVA,Lung disease,renal dise ase Reported Negative screening colonoscopy with Dr. Cunningham in [place], [place] at age 51 Pneumonia 10/2016 Negative screening colonoscopy in 02/2017 Esophageal stricture dilated in 02/2017--small area of Aaron's esophagus--negative for dysplasia Chronic kidney disease-Bosniak cyst Osteopenia Frozen right shoulder Surgical History Surgery Date(Month/Year) Cholecystectomy 1989 Left knee Cataracts
[2025-01-23 16:29] LABS: Anion Gap 13 (12-20); Blood Urea Nitrogen 26 mg/dL (9-16); Calcium 9.6 mg/dL (8.4-10.2); Carbon Dioxide 27 mmol/L (22-29); Chloride 106 mmol/L (96-108); Estimated Glomerular Filt Rate 41; Glucose Random 74 mg/dL (60-115); Potassium 4.2 mmol/L (3.3-5.1); Sodium 142 mmol/L (135-145)
== END 2025-01-23 14:39 | disposition home or self-care (01) ==
LOC: HO.HMGCLDS 14:38
PROVIDERS: PCP Internal Medicine; Referring Provider Urology; Visit Provider Internal Medicine Hypertension Specialist
DX: N18.30 Chronic kidney disease, stage 3 unspecified (principal)
CPT/HCPCS: 36415; 80048

== ENCOUNTER 2025-01-27 09:24 | Outpatient (AMB) | payer MEDICARE, SELFPAY ==
[2025-01-27 09:28] VITALS: BP 134/84; PULSE 71; O2SAT 97; BMI 31.1
--- NOTE | 2025-01-27 09:28 | HO.NEPHOV ---
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 Industrial Required: No Accompanied by: Self / Same As Patient Allergies No Known Allergies Allergy (Verified 01/27/25 09:29) Medication List - Last Reconciled 01/27/25 by Jan Kemp MD carbidopa-levodopa 25-100 mg 2 tabs 8am, 1tab at 1pm, 2 tabs at 6 pm and 1 tab at 11 pm orally 4 times a day; carvedilol 25 mg PO BID famotidine (Pepcid) 20 mg PO DAILY PRN geriatric syijgwjv-nbcw-plwe 1 tab PO DAILY lisinopril 20 mg PO .every other day lisinopril-hydrochlorothiazide 20-12.5 mg 1 tab PO .every other day melatonin mg PO PRN mirabegron ER (Myrbetriq) 25 mg PO DAILY 90 days walker Folding front wheeled walker HPI Comments Details: 69 yr old woman with a h/o long standing HTN and CKD with a baseline creatinine of about 1.5 mg /dL referred for management of CKD She has a h/o renal cyst- Miquel 3 . Currently being follow closely by Urology( [facility]) c/o Weakness. Says this started after knee surgery. Also has resting tremor in right UR adn waiting to see NEurology on 10/30/23 c/o Leg cramps on and off Overall BP has been well controlled. Several episodes of low BP noted She is on Lisinopril 20 mg AND HCTZ 25 mg QD along with Coreg 12.5 mg BID 10/25/23 After lowering HCTZ, cr is down to 1.37 from 1.6 Seen by Neuro- diagnosed with Parkinsons Started on Sinemet 05/13/2024. She was started on Lotrel last visit. She is not tolerating this and complains of edema and weight gain. She also has constipation. 08/12/24 Overall doing well;On alternating Lisinopril and Lisinopril HCTZ No lightheadedness No further constipation - on Metamucil 01/27/25 69-year-old female presenting with a follow-up visit for renal cyst monitoring and kidney function assessment. She reports no difficulty with urination and stable kidney-associated symptoms. A prior MRI in October showed a complex cyst on the left kidney, which has been slightly decreasing in size since March 2024. Observations included simple cysts that have remained stable or decreased in size, indicating a positive response in renal structures. Her medical history includes Parkinson's Disease affecting mobility, and lymphedema noted to differ from common fluid retention. Her overall kidney function remains stable, with no fluctuations in the recent creatinine measure. The patient?s medical regimen, including lisinopril and carvedilol, remains unchanged. [facility] Medical History (Updated 01/27/25 @ 10:16 by Jan Kemp MD) Acute respiratory disease Osteopenia of multiple sites Parkinson's disease without dyskinesia BRCA gene mutation negative Tremor of both hands Right shoulder pain Levoscoliosis of lumbar spine Lumbago Gait instability HTN (hypertension) Aaron's esophagus without dysplasia Hypertensive nephrosclerosis Impaired fasting glucose Chronic kidney disease, stage 3 Varicose veins of both lower extremities Menopause ovarian failure CKD (chronic kidney disease) Renal cyst, left Cataract Right ovarian cyst GERD (gastroesophageal reflux disease) Dyslipidemia Essential hypertension Surgical History History of lateral meniscus repair of left knee History of esophagogastroduodenoscopy (EGD) Hx of colonoscopy Cataract extraction status of left eye Cataract extraction status of right eye Hx of cholecystectomy History of removal of skin mole History of knee surgery Family History Father Unknown family medical history Mother Breast cancer Maternal Aunt Breast cancer Son No problems noted. Daughter No problems noted. Social History Household Members: Spouse Housing: Condominium Are you a primary career technical education instructor to a significant other at home: No Do you presently have visiting nurse or other home services: No Alcohol intake: never Patient Tobacco Use Status: Never used Tobacco e-Cigarette/Vaping Use: Never Used Advance Directives Date on File: 07/04/22 service: No Current occupational status: unemployed Current occupation: Right Handed Gender identity: Female Cognitive needs: No Hearing needs: No Vision needs: Yes Female Reproductive History Menstrual Age of Menarche: 10 Physical Exam Vital Signs: Last Vital Signs Pulse 71 01/27/25 09:28 BP 134/84 01/27/25 09:28 Pulse Ox 97 01/27/25 09:28 Oxygen Delivery Method Room Air 01/27/25 09:28 BMI result Body Mass Index 31.1 Results Reviewed Nephrology Results: Sodium 142 mmol/L (135-145) 01/23/25 Potassium 4.2 mmol/L (3.3-5.1) 01/23/25 Chloride 106 mmol/L (96-108) 01/23/25 Carbon Dioxide 27 mmol/L (22-29) 01/23/25 BUN 26 mg/dL (9-16) H 01/23/25 Creatinine 1.30 mg/dL (0.5-1.4) 01/23/25 Calcium 9.6 mg/dL (8.4-10.2) 01/23/25 Assessment & Plan Assessment & Plan (1) Chronic kidney disease, stage 3: Code(s): N18.30 - Chronic kidney disease, stage 3 unspecified Category: Medical Plan: Most likely due to hypertensive nephrosclerosis No obstruction based on imaging No significant proteinuria or hematuria. - GN or IN seem unlikely Urine specific gravity has been persistently elevated There could be a component of volume depletion causing hypoperfusion and ARMAND Creatinine back to baseline of 1.3 No change in meds Encouraged here to watch BP at home (h/o Elevated office BP readings- probably has a component of white coat effect) (2) Essential hypertension: Code(s): I10 - Essential (primary) hypertension Category: Medical Plan: BP noted As above Stay on low salt diet (3) Renal cyst, left: Comment: Shruthi 3 on MRI 08/06 Code(s): N28.1 - Cyst of kidney, acquired Category: Medical Plan: Follow with Urology Plan We will maintain the course of monitoring the renal cysts, encouraging continuation with the current medication regimen and dietary habits to manage blood pressure and optimize kidney health. Renal imaging will remain a periodic routine to track the cysts, noting any change in size or new developments. Stabilization of blood pressure will be supported by a low-salt diet, emphasized during today?s discussion, with medication refills provided to sustain treatment effectiveness. The patient will continue monitoring her lymphedema but will not require immediate adjustment or intervention for this condition. Orders: Orders Basic Metabolic Panel 6 Months N18.30 - Chronic kidney disease, stage 3 unspecified Medications: New lisinopril-hydrochlorothiazide 20-12.5 mg Every other Day 1 tab PO .every other day 90 tabs 0RF lisinopril 20 mg PO .every other day 90 tabs 0RF Refilled carvedilol 25 mg PO BID 180 tabs 2RF Coding Level of Care Code Est Pt Level 4 (48266) Diagnoses Chronic kidney disease, stage 3 N18.30 Essential hypertension I10 Renal cyst, left N28.1
--- OUTSIDE RECORDS SUMMARY | 2025-01-27 10:02 | XMS_ITS | Referral Summary ---
Author Organization [facility] Address [address] [place] [address] Care Team Providers Care Corrugated Box Machine Operator Name Role Phone Shanna Parker MD Primary Care Provider Encounters Date Type Department Care Team Description 12/04/2024 Telephone [facility] [address] [place] [phone] Tanning Drum Operator: Lizette Edwards PA 12/04/2024 Telephone [facility] [address] [place] [address] Tanning Drum Operator: Lizette Edwards PA 12/04/2024 4:30 PM EDT Telehealth [facility] [address] [place] [address] Tanning Drum Operator: Lizette Edwards PA Renal mass (Primary [...] Info) Description 06/10/2025 4:30 PM EDT Telehealth [facility] [address] [place] [address] Tanning Drum Operator: Rima Payan NP [address] [place] [address] Procedures * Due to [place] [employer] law, this organization might not be sharing negative HIV tests. Procedure Name Priority Date/Time Associated Diagnosis Comments AMB EXTERNAL MRI ABDOMEN, OUTSIDE RESULT 11/04/2024 CBC AUTO DIFFERENTIAL Routine 12/22/2022 12:36 PM EDT Renal mass BASIC METABOLIC PANEL Routine 12/22/2022 12:36 PM EDT Renal mass from Last 3 Months or Most Recently Relevant to Health Maintenance Results * Due to [place] [employer] law, this organization might not be sharing negative HIV tests. * MRI Abdomen, Outside Result (11/04/2024) Anatomical Region Laterality Modality Other 11/04/2024 us Onbase Scan Yovana AMB EXTERNAL RESULT PROCEDURE S Final Result * CBC Auto Differential (12/22/2022 12:36 PM EDT) WBC 5.1 4.3 - 10.8 10*3/uL 12/22/2022 1:06 PM EDT [facility] RBC 4.32 3.80 - 5.10 10*6/uL 12/22/2022 1:06 PM EDT [facility] Hemoglobin 12.7 11.7 - 15.5 g/dL 12/22/2022 1:06 PM EDT [facility] Hematocrit 38.1 35.0 - 46.0 % 12/22/2022 1:06 PM EDT [facility] MCV 88.2 80.0 - 100.0 fL 12/22/2022 1:06 PM EDT [facility] MCH 29.4 27.0 - 34.0 pg 12/22/2022 1:06 PM EDT [facility] MCHC 33.3 29.0 - 36.0 g/dL 12/22/2022 1:06 PM EDT [facility] RDW 12.8 11.0 - 15.0 % 12/22/2022 1:06 PM EDT [facility] Platelets 252 140 - 440 10*3/uL 12/22/2022 1:06 PM EDT [facility] MPV 8.9 7.6 - 11.6 fL 12/22/2022 1:06 PM EDT [facility] Neutrophil % 46.7 % 12/22/2022 1:06 PM EDT [facility] Lymphocyte % 34.9 % 12/22/2022 1:06 PM EDT [facility] Monocyte % 10.8 % 12/22/2022 1:06 PM EDT [facility] Eosinophil % 6.4 % 12/22/2022 1:06 PM EDT [facility] Basophil % 1.2 % 12/22/2022 1:06 PM EDT [facility] Neutrophil # 2.41 1.60 - 7.50 10*3/uL 12/22/2022 1:06 PM EDT [facility] Lymphocyte # 1.8 0.9 - 3.4 10*3/uL 12/22/2022 1:06 PM EDT [facility] Monocyte # 0.6 0.0 - 1.2 10*3/uL 12/22/2022 1:06 PM EDT [facility] Eosinophil # 0.3 0.0 - 0.6 10*3/uL 12/22/2022 1:06 PM EDT [facility] Basophil # 0.1 0.0 - 0.3 10*3/uL 12/22/2022 1:06 PM EDT [facility] Smear Review? No [facility] 12/22/2022 1:06 PM EDT [facility] Blood Structure of peripheral vein / Unknown Venipuncture / Unknown 12/22/2022 12:36 PM EDT 12/22/2022 12:41 PM EDT us Rima Luu TRANSISTOR TESTER LAB BLOOD ORDERABLES Final Res ult [facility] [address] [place] [address], [place] * (ABNORMAL) Basic metabolic panel (12/22/2022 12:36 PM EDT) NA 140 135 - 145 mmol/L 12/22/2022 1:36 PM EDT [facility] K 3.9 3.5 - 5.3 mmol/L 12/22/2022 1:36 PM EDT [facility] Cl 103 97 - 110 mmol/L 12/22/2022 1:36 PM EDT [facility] CO2 29 24 - 32 mmol/L 12/22/2022 1:36 PM T [facility] BUN 28(H) 7 - 23 mg/dL 12/22/2022 1:36 PM EDT [facility] Creatinine 1.65(H) 0.50 - 1.20 mg/dL 12/22/2022 1:36 PM EDT [facility] Glucose 89 70 - 99 mg/dL 12/22/2022 1:36 PM EDT [facility] Calcium 10.0 8.7 - 10.7 mg/dL 12/22/2022 1:36 PM T [facility] Anion Gap 8 5 - 15 12/22/2022 1:36 PM T [facility] eGFR 34(L) >=90 mL/min/1. 73m2 12/22/2022 1:36 PM T [facility] Comment: Estimated Glomerular [...] 12/22/2022 12:41 PM EDT Rima M Jus TRANSISTOR TESTER LAB BLOOD ORDERABLES Final Res ult [facility] [address] [place] [address], from Last 3 Months or Most Recently Relevant to Health Maintenance Insurance MEDICARE [facility] Care Teams Corrugated Box Machine Operator Relationship Specialty Start Date End Date Shanna Parker MD [address] [place] [address] PCP - General Internal Medicine 12/18/22
--- OUTSIDE RECORDS SUMMARY | 2025-01-27 10:02 | XMS_ITS | Clinical Summary ---
Author Organization [facility] Address [address] [address] Care Team Providers Care Assistant Tennis Coach Name Role Phone Yamel Parker MD Primary Care Provider [phone]- [phone] Allergies No known active allergies Medications Multiple [...] Comments Cancer Father hepatocellular Heart disease Father [place] 60 y/o Hypertension Father Hypertension Mother Relation [...] age to complete this topic Insurance Medicare [facility] [address] [place] [address] Medicare [facility] Care Teams Assistant Tennis Coach Relationship Specialty Start Date End Date Yamel Parker MD [address] [place] [address] PCP - General 09/27/20
--- OUTSIDE RECORDS SUMMARY | 2025-01-27 10:02 | XMS_ITS | Encounter Summary ---
Author Organization [facility] Address [address] [place] [address] Phone Care Team Providers Care Director Audience Marketing Name Role Phone Yamel Parker MD Primary Care Provider +1- [phone] Encounter Details Date Type Department Care Team (Late st Contact Info) Description 12/08/2020 Orders Only [facility] [address] [place] [phone] Provider, MD Flora [address] [place] [address] Social History Tobacco Use Types Packs/Day Years [...] on filedocumented in this encounter Care Teams Director Audience Marketing Relationship Specialty Start Date End Date Yamel Parker MD [facility] [place] [address] PCP - General 09/27/20 documented as of this encounter
--- OUTSIDE RECORDS SUMMARY | 2025-01-27 10:02 | XMS_ITS | Patient Health Record ---
Author Organization [facility] Address [address] [place] [address] Care Team Providers Care Excellence Manager Name Role Phone Elena RIVERA, Shanna Primary Care Provider Sami Salas Unavailable [phone] Reason For Referral No Information Medications Medication [...] for 30 Active Vitamin D3 1.25 MG (30220 UT) TAKE ONE CAPSULE BY MOUTH ONCE [...] Problem Status W/U Status Risk Notes Problem [id number] Encounter for screening for malignant neoplasm of colon (Z12.11) Active confirmed Problem Screening for malignant neoplasm of rectum (616793780) Encounter for screening for malignant neoplasm of rectum (Z12.12) Active confirmed Problem 110919883 Barretts esophagus without dysplasia (K22.70) Active confirmed Problem [id number] Esophageal stricture (K22.2) Active confirmed Problem [id number] Esophageal dysphagia (R13.14) Active confirmed Plan Of Treatment Future Test Test Name Order Date UPPER GI ENDOSCOPY [place] DILATION OF ESOPH 12/06/2016 COLONOSCOPY 12/06/2016 UPPER GI ENDOSCOPY 02/03/2021 Insurance Providers Payer Name Payer Address Payer Phone Subscriber Number Group Number Insured Name Patient Relationship to Insured Coverage Start Date Coverage End Date [facility] [address] [address] [place], [place] [id number] [phone] [id number] YAMIL RIBERA Self - patient is the insured [facility] [address] [place] [address] [phone] [id number] WILBURAshokYAMIL FERRER Self - patient is the insured Medical (General) History Medical History History ICD Code Hypertension Denies IA,DM,CVA,Lung disease,renal dise ase Reported Negative screening colonoscopy with Dr. Cunningham in [place] at age 51 Pneumonia 10/2016 Negative screening colonoscopy in 02/2017 Esophageal stricture dilated in 02/2017--small area of Aaron's esophagus--negative for dysplasia Chronic kidney disease-Bosniak cyst Osteopenia Frozen right shoulder Surgical History Surgery Date(Month/Year) Cholecystectomy 1989 Left knee Cataracts
--- OUTSIDE RECORDS SUMMARY | 2025-01-27 10:02 | XMS_ITS | Clinical Summary ---
Author Organization [facility] Address [address] [place] [address] Care Team Providers Care Ship'S Electronic Warfare Officer Name Role Phone Shanna Parker MD [...] Description 12/04/2024 4:30 PM EDT Telehealth [facility] [address] [place] [address] Box Spring Frame Builder: Lizette Edwards PA Renal mass (Primary Dx) 12/04/2024 Telephone [facility] [address] [place] [address] [phone] Box Spring Frame Builder: Lizette Edwards PA 12/04/2024 Telephone [facility] [address] [place] [address] Box [place] Frame Builder: Lizette Edwards PA from Last 3 Months [...] Description 06/10/2025 4:30 PM EDT Telehealth [facility] [address] [address] Box Spring Frame Builder: Rima Payan NP [address] [place] [address] Health Maintenance Due Date Last Done Comments [...] complete this topic Procedures * Due to [place] [employer] law, this organization might not be sharing negative HIV tests. Procedure Name Priority Date/Time Associated Diagnosis Comments AMB EXTERNAL MRI ABDOMEN, OUTSIDE RESULT 11/04/2024 CBC AUTO DIFFERENTIAL Routine 12/22/2022 12:36 PM EDT Renal mass BASIC METABOLIC PANEL Routine 12/22/2022 12:36 PM EDT Renal mass from Last 3 Months or Most Recently Relevant to Health Maintenance Results * Due to [place] [employer] law, this organization might not be sharing negative HIV tests. * MRI Abdomen, Outside Result (11/04/2024) Anatomical Region Laterality Modality Other 11/04/2024 us Onbase Scan [facility] AMB EXTERNAL RESULT PROCEDURE S Final Result * CBC Auto Differential (12/22/2022 12:36 PM EDT) WBC 5.1 4.3 - 10.8 10*3/uL 12/22/2022 1:06 PM EDT [facility] RBC 4.32 3.80 - 5.10 10*6/uL 12/22/2022 1:06 PM EDT [facility] Hemoglobin 12.7 11.7 - 15.5 g/dL 12/22/2022 1:06 PM EDT [facility] Hematocrit 38.1 35.0 - 46.0 % 12/22/2022 1:06 PM EDT [facility] MCV 88.2 80.0 - 100.0 fL 12/22/2022 1:06 PM EDT [facility] MCH 29.4 27.0 - 34.0 pg 12/22/2022 1:06 PM EDT [facility] MCHC 33.3 29.0 - 36.0 g/dL 12/22/2022 1:06 PM EDT [facility] RDW 12.8 11.0 - 15.0 % 12/22/2022 1:06 PM EDT [facility] Platelets 252 140 - 440 10*3/uL 12/22/2022 1:06 PM EDT [facility] MPV 8.9 7.6 - 11.6 fL 12/22/2022 1:06 PM EDT [facility] Neutrophil % 46.7 % 12/22/2022 1:06 PM EDT [facility] Lymphocyte % 34.9 % 12/22/2022 1:06 PM EDT [facility] Monocyte % 10.8 % 12/22/2022 1:06 PM EDT [facility] Eosinophil % 6.4 % 12/22/2022 1:06 PM EDT [facility] Basophil % 1.2 % 12/22/2022 1:06 PM EDT [facility] Neutrophil # 2.41 1.60 - 7.50 10*3/uL 12/22/2022 1:06 PM EDT [facility] Lymphocyte # 1.8 0.9 - 3.4 10*3/uL 12/22/2022 1:06 PM EDT [facility] Monocyte # 0.6 0.0 - 1.2 10*3/uL 12/22/2022 1:06 PM EDT [facility] Eosinophil # 0.3 0.0 - 0.6 10*3/uL 12/22/2022 1:06 PM EDT [facility] Basophil # 0.1 0.0 - 0.3 10*3/uL 12/22/2022 1:06 PM EDT [facility] Smear Review? No [facility] 12/22/2022 1:06 PM EDT [facility] Blood Structure of peripheral vein / Unknown Venipuncture / Unknown 12/22/2022 12:36 PM EDT 12/22/2022 12:41 PM EDT us Rima Luu ELEMENTARY SCHOOL REGISTRAR LAB BLOOD ORDERABLES Final Res ult [facility] [address] [place] [address], * (ABNORMAL) Basic metabolic panel (12/22/2022 12:36 PM EDT) NA 140 135 - 145 mmol/L 12/22/2022 1:36 PM EDT [facility] K 3.9 3.5 - 5.3 mmol/L 12/22/2022 1:36 PM EDT [facility] Cl 103 97 - 110 mmol/L 12/22/2022 1:36 PM EDT [facility] CO2 29 24 - 32 mmol/L 12/22/2022 1:36 PM EDT [facility] BUN 28(H) 7 - 23 mg/dL 12/22/2022 1:36 PM EDT [facility] Creatinine 1.65(H) 0.50 - 1.20 mg/dL 12/22/2022 1:36 PM EDT [facility] Glucose 89 70 - 99 mg/dL 12/22/2022 1:36 PM EDT [facility] Calcium 10.0 8.7 - 10.7 mg/dL 12/22/2022 1:36 PM EDT [facility] Anion Gap 8 5 - 15 12/22/2022 1:36 PM EDT [facility] eGFR 34(L) >=90 mL/min/1. 73m2 12/22/2022 1:36 PM EDT [facility] Comment: Estimated Glomerular [...] 12/22/2022 12:41 PM EDT us Rima Luu ELEMENTARY SCHOOL REGISTRAR LAB BLOOD ORDERABLES Final Res ult [facility] [address] [place] [address], [place] from Last 3 Months or Most Recently Relevant to Health Maintenance Insurance MEDICARE [facility] Care Teams Ship'S Electronic Warfare Officer Relationship Specialty Start Date End Date Shanna Parker MD [address] [place] [address] PCP - General Internal Medicine 12/18/22
== END 2025-01-27 09:47 | disposition home or self-care (01) ==
LOC: HO.HKA 09:25
PROVIDERS: PCP Internal Medicine; Visit Provider Internal Medicine Hypertension Specialist
DX: N18.30 Chronic kidney disease, stage 3 unspecified (principal); I10 Essential (primary) hypertension; N28.1 Cyst of kidney, acquired
CPT/HCPCS: 99214

== ENCOUNTER → 2025-01-27 09:24 | Outpatient (BNVA) | payer MEDICARE, SELFPAY | PROVIDERS: PCP Internal Medicine; Visit Provider Internal Medicine Hypertension Specialist | DX: I12.9 Hypertensive chronic kidney disease with stage 1 through stage 4 chronic kidney disease, or unspecified chronic kidney disease (principal); N18.30 Chronic kidney disease, stage 3 unspecified; N28.1 Cyst of kidney, acquired | CPT/HCPCS: 99212 ==

== ENCOUNTER 2025-03-09 09:16 | Outpatient (REF) | payer MEDICARE, SELFPAY ==
--- NOTE | ~2025-03-09 | XR_ITS ---
EXAMINATION: XR KNEE, LEFT CLINICAL INFORMATION: M25.562 - Pain in left knee COMPARISON: February 07, 2023 TECHNIQUE: AP bilateral standing, lateral, and patellar sunrise views left knee FINDINGS: Total knee arthroplasty on the right is stable. Left knee demonstrates moderate narrowing of the lateral greater than medial joint spaces. Large marginal osteophyte present along the lateral joint line. Moderate to large osteophytes are present along the patellofemoral joint. There is a joint effusion. Nonspecific edema is noted in the fat pad of [place]. XR/XR knee LT 3V IMPRESSION: Moderate left knee osteoarthritis with a joint effusion. Electronically signed by: Barry Hoyt MD 03/09/2025 12:27 PM EDT
--- OUTSIDE RECORDS SUMMARY | 2025-03-09 10:01 | XMS_ITS | Referral Summary ---
Author Organization [facility] Address [address] [place] [address] Care Team Providers Care Wood Web Weaving Machine Operator Name Role Phone Shanna Parker [...] Info) Description 06/10/2025 4:30 PM EDT Telehealth [facility] [address] [place] [address] Ichthyologist: Rima Payan, ERICKA [address] [place] [address] Procedures * Due to [facility] law, this organization might not be sharing negative HIV tests. Procedure Name Priority Date/Time Associated Diagnosis Comments CBC AUTO DIFFERENTIAL Routine 12/22/2022 12:36 PM EDT Renal mass BASIC METABOLIC PANEL Routine 12/22/2022 12:36 PM EDT Renal mass from Last 3 Months or Most Recently Relevant to Health Maintenance Results * Due to [place] [employer] law, this organization might not be sharing negative HIV tests. * CBC Auto Differential (12/22/2022 12:36 PM EDT) WBC 5.1 4.3 - 10.8 10*3/uL 12/22/2022 1:06 PM EDT [facility] RBC 4.32 3.80 - 5.10 10*6/uL 12/22/2022 1:06 PM EDT [facility] Hemoglobin 12.7 11.7 - 15.5 g/dL 12/22/2022 1:06 PM EDT [facility] Hematocrit 38.1 35.0 - 46.0 % 12/22/2022 1:06 PM EDT [facility] MCV 88.2 80.0 - 100.0 fL 12/22/2022 1:06 PM EDT [facility] MCH 29.4 27.0 - 34.0 pg 12/22/2022 1:06 PM EDT [facility] MCHC 33.3 29.0 - 36.0 g/dL 12/22/2022 1:06 PM EDT [facility] RDW 12.8 11.0 - 15.0 % 12/22/2022 1:06 PM EDT [facility] Platelets 252 140 - 440 10*3/uL 12/22/2022 1:06 PM EDT [facility] MPV 8.9 7.6 - 11.6 fL 12/22/2022 1:06 PM EDT [facility] Neutrophil % 46.7 % 12/22/2022 1:06 PM EDT [facility] Lymphocyte % 34.9 % 12/22/2022 1:06 PM EDT [facility] Monocyte % 10.8 % 12/22/2022 1:06 PM EDT [facility] Eosinophil % 6.4 % 12/22/2022 1:06 PM EDT [facility] Basophil % 1.2 % [facility]/22[facility]22 [facility] Neutrophil # 2.41 1.60 - 7.50 10*3/uL 12/22/2022 1:06 PM EDT [facility] Lymphocyte # 1.8 0.9 - 3.4 10*3/uL 12/22/2022 1:06 PM EDT [facility] Monocyte # 0.6 0.0 - 1.2 10*3/uL 12/22/2022 1:06 PM EDT [facility] Eosinophil # 0.3 0.0 - 0.6 10*3/uL 12/22/2022 [facility] Basophil # 0.1 0.0 - 0.3 10*3/uL 12/22/2022 1:06 PM EDT [facility] Smear Review? No [facility] 12/22/2022 1:06 PM EDT [facility] Blood Structure of peripheral vein / Unknown Venipuncture / Unknown 12/22/2022 12:36 PM EDT 12/22/2022 12:41 PM EDT us Rima Costello Jus UNIVERSITY PRESIDENT LAB BLOOD ORDERABLES Final Res ult [facility] [address] [place] [address], * (ABNORMAL) Basic metabolic panel (12/22/2022 12:36 PM EDT) NA 140 135 - 145 mmol/L 12/22/2022 1:36 PM EDT [facility] K 3.9 3.5 - 5.3 mmol/L 12/22/2022 1:36 PM EDT [facility] Cl 103 97 - 110 mmol/L 12/22/2022 1:36 PM EDT [facility] CO2 29 24 - 32 mmol/L 12/22/2022 1:36 PM EDT [facility] BUN 28(H) 7 - 23 mg/dL 12/22/2022 1:36 PM EDT [facility] Creatinine 1.65(H) 0.50 - 1.20 mg/dL 12/22/2022 1:36 PM EDT [facility] Glucose 89 70 - 99 mg/dL 12/22/2022 1:36 PM EDT [facility] Calcium 10.0 8.7 - 10.7 mg/dL 12/22/2022 1:36 PM EDT [facility] Anion Gap 8 5 - 15 12/22/2022 1:36 PM EDT [facility] eGFR 34(L) >=90 mL/min/1. 73m2 12/22/2022 1:36 PM EDT [facility] Comment: Estimated Glomerular Filtration [...] 12/22/2022 12:41 PM EDT us Rima Luu UNIVERSITY PRESIDENT LAB BLOOD ORDERABLES Final Res ult [facility] [address] [place] [address], from Last 3 Months or Most Recently Relevant to Health Maintenance Insurance [facility]ICARE [facility] Care Teams Wood Web Weaving Machine Operator Relationship Specialty Start Date End Date Shanna Parker MD [address] [place] [address] PCP - General Internal Medicine 12/18/22
== END 2025-03-09 09:17 | disposition home or self-care (01) ==
LOC: HO.HOSX 09:16
PROVIDERS: Visit Provider Orthopaedic Surgery
DX: M17.12 Unilateral primary osteoarthritis, left knee (principal)
CPT/HCPCS: 20610; 73562; 99212; J0665; J1100; J2003

== ENCOUNTER 2025-03-09 11:21 | Outpatient (AMB) | payer MEDICARE, SELFPAY ==
[2025-03-09 11:30] VITALS: BMI 31.1
--- NOTE | 2025-03-09 11:30 | A.OFFVIS_ITS ---
Vital Signs 03/09/25 11:30 Height 5 ft 4 in Weight 181 lb BMI 31.1 Intake Visit Reasons: New prob-LT knee OA Intake Note: Nasima is a 69 year old female who presents today for a follow up of her Left Knee OA. Hx of Right TKA 01/10/22. Patient states that she would like an injection in the left knee at today's visit. Patient reports that she is currently in physical therapy for her right knee and about a year ago as well for the same knee. She reports that she does have a clicking pain in the left knee but no numbness or tingling. Allergies No Known Allergies Allergy (Verified 03/09/25 11:33) HPI HPI New prob-LT knee OA: Details: Nasima is a 69 year old female who presents today for a follow up of her Left Knee OA. Hx of Right TKA 01/10/22. Patient states that she would like an injection in the left knee at today's visit. Patient reports that she is currently in physical therapy for her right knee and about a year ago as well for the same knee. She reports that she does have a clicking pain in the left knee but no numbness or tingling. 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 BRCA gene mutation negative Tremor of both hands Right shoulder pain Levoscoliosis of lumbar spine Lumbago Gait instability HTN (hypertension) Aaron's esophagus without dysplasia Hypertensive nephrosclerosis Impaired fasting glucose Chronic kidney disease, stage 3 Varicose veins of both lower extremities Menopause ovarian failure CKD (chronic kidney disease) Renal cyst, left Cataract Right ovarian cyst GERD (gastroesophageal reflux disease) Dyslipidemia Essential hypertension Surgical History History of lateral meniscus repair of left knee History of esophagogastroduodenoscopy (EGD) Hx of colonoscopy Cataract extraction status of left eye Cataract extraction status of right eye Hx of cholecystectomy History of removal of skin mole History of knee surgery Family History Father Unknown family medical history Mother Breast cancer Maternal Aunt Breast cancer Son No problems noted. Daughter No problems noted. Social History Household Members: Spouse Housing: Condominium Are you a primary customer care team coach to a significant other at home: No Do you presently have visiting nurse or other home services: No Alcohol intake: never Patient Tobacco Use Status: Never used Tobacco e-Cigarette/Vaping Use: Never Used Advance Directives Date on File: 07/04/22 service: No Current occupational status: unemployed Current occupation: Right Handed Gender identity: Female Cognitive needs: No Hearing needs: No Vision needs: Yes Female Reproductive History Menstrual Age of Menarche: 10 Physical Exam Vital Signs: BMI result Body Mass Index 31.1 Extrem Other: Left knee with mild effuison. Lateral JLT. Skin c/d/i Office Procedures Joint Inj/Aspir; Non-Pain Clin Joint Injection/Drain Details: Injected 1 mL of Decadron and 3 mL 1% lidocaine and 3 mL of 0.25% Marcaine. Site was prepped using aseptic technique. Patient tolerated the procedure well. Shoulders, Hips, Knees, Knee Large Joint Injection : Left Knee Coding Procedure code (CPT) selection complete Assessment & Plan Assessment & Plan (1) Osteoarthritis of left knee: Code(s): M17.12 - Unilateral primary osteoarthritis, left knee Category: Medical Plan: This is a 69-year-old woman with left knee osteoarthritis. I injected her left knee without difficulty. She had a right knee replacement which did well but she is suffering from Parkinson's and particularly interested in surgery. She is going on a cruise in a few months. I will set up a telehealth visit to see if the injection is working. If it is not we may consider viscosupplementation prior to her vacation. Orders: Orders XR knee LT 3V Today M25.562 - Pain in left knee Coding Level of Care Code Est Pt Level 3 (94555) Diagnoses Osteoarthritis of left knee M17.12 CPT Codes Shoulders, Hips, Knees, - Knee Large Joint Injection : Left Knee ([id number])
== END 2025-03-09 11:56 | disposition home or self-care (01) ==
LOC: HO.HOS 11:22
PROVIDERS: PCP Internal Medicine; Visit Provider Orthopaedic Surgery
DX: M17.12 Unilateral primary osteoarthritis, left knee (principal)
CPT/HCPCS: 20610; 99213

== ENCOUNTER → 2025-03-09 11:23 | Outpatient (BNV) | payer MEDICARE, SELFPAY | PROVIDERS: Visit Provider Radiology Diagnostic Radiology | DX: M17.12 Unilateral primary osteoarthritis, left knee (principal); M25.462 Effusion, left knee | CPT/HCPCS: 73562 ==

== ENCOUNTER 2025-04-02 10:07 | Outpatient (AMB) | payer MEDICARE, SELFPAY ==
[2025-04-02 10:21] VITALS: BMI 31.1
--- NOTE | 2025-04-02 10:21 | A.OFFVIS_ITS ---
Vital Signs 04/02/25 10:21 Height 5 ft 4 in Weight 181 lb BMI 31.1 Intake Visit Reasons: Left Knee Durolane Injection Intake Note: Nasima is a 70 year old female who presents today for her Left Knee Durolane Injection Allergies No Known Allergies Allergy (Verified 03/09/25 11:33) HPI HPI Left Knee Durolane Injection: Details: Nasima is a 70 year old female who presents today for her Left Knee Durolane Injection PFS Medical History Acute respiratory disease Osteopenia of multiple sites Parkinson's disease without dyskinesia BRCA gene mutation negative Tremor of both hands Right shoulder pain Levoscoliosis of lumbar spine Lumbago Gait instability HTN (hypertension) Aaron's esophagus without dysplasia Hypertensive nephrosclerosis Impaired fasting glucose Chronic kidney disease, stage 3 Varicose veins of both lower extremities Menopause ovarian failure CKD (chronic kidney disease) Renal cyst, left Cataract Right ovarian cyst GERD (gastroesophageal reflux disease) Dyslipidemia Essential hypertension Surgical History History of lateral meniscus repair of left knee History of esophagogastroduodenoscopy (EGD) Hx of colonoscopy Cataract extraction status of left eye Cataract extraction status of right eye Hx of cholecystectomy History of removal of skin mole History of knee surgery Family History Father Unknown family medical history Mother Breast cancer Maternal Aunt Breast cancer Son No problems noted. Daughter No problems noted. Social History Household Members: Spouse Housing: [facility] Are you a primary healthcare applications analyst to a significant other at home: No Do you presently have visiting nurse or other home services: No Alcohol intake: never Patient Tobacco Use Status: Never used Tobacco e-Cigarette/Vaping Use: Never Used Advance Directives Date on File: 07/04/22 service: No Current occupational status: unemployed Current occupation: Right Handed Gender identity: Female Cognitive needs: No Hearing needs: No Vision needs: Yes Female Reproductive History Menstrual Age of Menarche: 10 Physical Exam Vital Signs: BMI result Body Mass Index 31.1 Extrem Other: Skin clean dry and intact Office Procedures Joint Inj/Aspir; Non-Pain Clin Joint Injection/Drain Details: Injected Durolane. Site was prepped using aseptic technique. Patient tolerated the procedure well. Shoulders, Hips, Knees, Knee Large Joint Injection : Left Knee Coding Procedure code (CPT) selection complete Assessment & Plan Assessment & Plan (1) Osteoarthritis of left knee: Code(s): M17.12 - Unilateral primary osteoarthritis, left knee Category: Medical Plan: Injected Lucie left knee. No complications. Coding Level of Care Code Est Pt Level 2 (50155) Diagnoses Osteoarthritis of left knee M17.12 CPT Codes Shoulders, Hips, Knees, - Knee Large Joint Injection : Left Knee ([id number])
--- OUTSIDE RECORDS SUMMARY | 2025-04-02 10:33 | XMS_ITS | Referral Summary ---
Author Organization [facility] Address [address] [place] [address] Care Team Providers Care City Route Driver Name Role Phone Shanna Parker MD Primary [...] Info) Description 06/10/2025 4:30 PM EDT Telehealth [facility] [address] [place] [address] Contour Sander: Rima Payan, ERICKA [address] [place] [address] Procedures * Due to [facility] law, this organization might not be sharing negative HIV tests. Procedure Name Priority Date/Time Associated Diagnosis Comments CBC AUTO DIFFERENTIAL Routine 12/22/2022 12:36 PM EDT Renal mass BASIC METABOLIC PANEL Routine 12/22/2022 12:36 PM EDT Renal mass from Last 3 Months or Most Recently Relevant to Health Maintenance Results * Due to [place] [employer] law, this organization might not be sharing negative HIV tests. * CBC Auto Differential (12/22/2022 12:36 PM EDT) WBC 5.1 4.3 - 10.8 10*3/uL 12/22/2022 1:06 PM EDT [facility] RBC 4.32 3.80 - 5.10 10*6/uL 12/22/2022 1:06 PM EDT [facility] Hemoglobin 12.7 11.7 - 15.5 g/dL 12/22/2022 1:06 PM EDT [facility] Hematocrit 38.1 35.0 - 46.0 % 12/22/2022 1:06 PM EDT [facility] MCV 88.2 80.0 - 100.0 fL 12/22/2022 1:06 PM EDT [facility] MCH 29.4 27.0 - 34.0 pg 12/22/2022 1:06 PM EDT [facility] MCHC 33.3 29.0 - 36.0 g/dL 12/22/2022 1:06 PM EDT [facility] RDW 12.8 11.0 - 15.0 % 12/22/2022 1:06 PM EDT [facility] Platelets 252 140 - 440 10*3/uL 12/22/2022 1:06 PM EDT [facility] MPV 8.9 7.6 - 11.6 fL 12/22/2022 1:06 PM EDT [facility] Neutrophil % 46.7 % 12/22/2022 1:06 PM EDT [facility] Lymphocyte % 34.9 % 12/22/2022 1:06 PM EDT [facility] Monocyte % 10.8 % 12/22/2022 1:06 PM EDT [facility] Eosinophil % 6.4 % 12/22/2022 1:06 PM EDT [facility] Basophil % 1.2 % 12/22[facility]22 [facility] Neutrophil # 2.41 1.60 - 7.50 10*3/uL 12/22/2022 1:06 PM EDT [facility] Lymphocyte # 1.8 0.9 - 3.4 10*3/uL 12/22/2022 1:06 PM EDT [facility] Monocyte # 0.6 0.0 - 1.2 10*3/uL 12/22/2022 1:06 PM EDT [facility] Eosinophil # 0.3 0.0 - 0.6 10*3/uL 12/22/2022 1:06 PM [facility] Basophil # 0.1 0.0 - 0.3 10*3/uL 12/22/2022 1:06 PM EDT [facility] Smear Review? No [place] MANUAL 12/22/2022 1:06 PM EDT [facility] Blood Structure of peripheral vein / Unknown Venipuncture / Unknown 12/22/2022 12:36 PM EDT 12/22/2022 12:41 PM EDT us Rima Costello Jus MANAGER RAIL LAB BLOOD ORDERABLES Final Res ult [facility] [address] [place] [address], * (ABNORMAL) Basic metabolic panel (12/22/2022 12:36 PM EDT) NA 140 135 - 145 mmol/L 12/22/2022 1:36 PM EDT [facility] K 3.9 3.5 - 5.3 mmol/L 12/22/2022 1:36 PM EDT [facility] Cl 103 97 - 110 mmol/L 12/22/2022 1:36 PM EDT [facility] CO2 29 24 - 32 mmol/L 12/22/2022 1:36 PM EDT [facility] BUN 28(H) 7 - 23 mg/dL 12/22/2022 1:36 PM EDT [facility] Creatinine 1.65(H) 0.50 - 1.20 mg/dL 12/22/2022 1:36 PM EDT [facility] Glucose 89 70 - 99 mg/dL 12/22/2022 1:36 PM EDT [facility] Calcium 10.0 8.7 - 10.7 mg/dL 12/22/2022 1:36 PM EDT [facility] Anion Gap 8 5 - 15 12/22/2022 1:36 PM EDT [facility] eGFR 34(L) >=90 mL/min/1. 73m2 12/22/2022 1:36 PM EDT [facility] Comment: Estimated Glomerular Filtration [...] 12:41 PM EDT us Rima Luu MANAGER RAIL LAB BLOOD ORDERABLES Final Res ult [facility] [address] [place] [address], from Last 3 Months or Most Recently Relevant to Health Maintenance Insurance MEDICARE [facility] Care Teams City Route Driver Relationship Specialty Start Date End Date Shanna Parker MD [address] [place] [address] PCP - General Internal Medicine 12/18/22
--- OUTSIDE RECORDS SUMMARY | 2025-04-02 10:34 | XMS_ITS | Patient Health Record ---
Author Organization [facility] Address [address] [place] [address] Care Team Providers Care Director Of Provider Relations Name Role Phone Elena RIVERA, Shanna Primary Care Provider Sami Salas Unavailable [phone] Reason For Referral No Information Medications Medication [...] for 30 Active Vitamin D3 1.25 MG (55587 UT) TAKE ONE CAPSULE BY MOUTH ONCE [...] Problem Status W/U Status Risk Notes Problem [id number] Encounter for screening for malignant neoplasm of colon (Z12.11) Active confirmed Problem Screening for malignant neoplasm of rectum (762582939) Encounter for screening for malignant neoplasm of rectum (Z12.12) Active confirmed Problem 955685464 Barretts esophagus without dysplasia (K22.70) Active confirmed Problem 33694966 Esophageal stricture (K22.2) Active confirmed Problem 98665037 Esophageal dysphagia (R13.14) Active confirmed Plan Of Treatment Future Test Test Name Order Date UPPER GI ENDOSCOPY BALLOOON DILATION OF ESOPH 12/06/2016 COLONOSCOPY 12/06/2016 UPPER GI ENDOSCOPY 02/03/2021 Insurance Providers Payer Name Payer Address Payer Phone Subscriber Number Group Number Insured Name Patient Relationship to Insured Coverage Start Date Coverage End Date [facility] [address] [address] [place], [place] [id number] [phone] [id number] YAMIL RIBERA Self - patient is the insured MEDICAID OF [employer] [facility] [address] [place] [address] [phone] [id number] WILBURAshokYAMIL FERRER Self - patient is the insured Medical (General) History Medical History History ICD Code Hypertension Denies [place],DM,CVA,Lung disease,renal dise ase Reported Negative screening colonoscopy with Dr. Cunningham in [place], [place] at age 51 Pneumonia 10/2016 Negative screening colonoscopy in 02/2017 Esophageal stricture dilated in 02/2017--small area of Aaron's esophagus--negative for dysplasia Chronic kidney disease-Bosniak cyst Osteopenia Frozen right shoulder Surgical History Surgery Date(Month/Year) Cholecystectomy 1989 Left knee Cataracts
--- OUTSIDE RECORDS SUMMARY | 2025-04-02 10:34 | XMS_ITS | Encounter Summary ---
Author Organization [facility] Address [address] [place] [address] Phone Care Team Providers Care Ore Crushing Dust Collector Name Role Phone Yamel Parker MD Primary Care Provider [phone] Encounter Details Date Type Department Care Team (Late st Contact Info) Description 12/08/2020 Orders Only [facility] [address] [place] [phone] Provider, MD Flora Social History Tobacco Use Types Packs/Day Years [...] on filedocumented in this encounter Care Teams Ore Crushing Dust Collector Relationship Specialty Start Date End Date Yamel Parker MD [address] [place] [address] PCP - General 09/27/20 documented as of this encounter
== END 2025-04-02 10:53 | disposition home or self-care (01) ==
LOC: HO.HOS 10:08
PROVIDERS: Visit Provider Orthopaedic Surgery
DX: M17.12 Unilateral primary osteoarthritis, left knee (principal)
CPT/HCPCS: 20610

== ENCOUNTER → 2025-04-02 10:07 | Outpatient (BNVA) | payer MEDICARE, SELFPAY | PROVIDERS: Visit Provider Orthopaedic Surgery | DX: M17.12 Unilateral primary osteoarthritis, left knee (principal) | CPT/HCPCS: 20610; J7318 ==

== ENCOUNTER 2025-04-09 08:58 | Outpatient (AMB) | payer MEDICARE, SELFPAY ==
--- OUTSIDE RECORDS SUMMARY | 2025-04-09 09:26 | XMS_ITS | Patient Health Record ---
Author Organization [facility] Address [address] [place] [address] Care Team Providers Care Certified Shorthand Reporter Name Role Phone Elena RIVERA, Shanna Primary Care Provider Sami Salas Unavailable [phone] Reason For Referral No Information Medications Medication [...] for 30 Active Vitamin D3 1.25 MG (46351 UT) TAKE ONE CAPSULE BY MOUTH ONCE [...] Problem Status W/U Status Risk Notes Problem [id number] Encounter for screening for malignant neoplasm of colon (Z12.11) Active confirmed Problem Screening for malignant neoplasm of rectum (628674695) Encounter for screening for malignant neoplasm of rectum (Z12.12) Active confirmed Problem 132468872 Barretts esophagus without dysplasia (K22.70) Active confirmed Problem 06635764 Esophageal stricture (K22.2) Active confirmed Problem 34801911 Esophageal dysphagia (R13.14) Active confirmed Plan Of Treatment Future Test Test Name Order Date UPPER GI ENDOSCOPY BALLOOON DILATION OF ESOPH 12/06/2016 COLONOSCOPY 12/06/2016 UPPER GI ENDOSCOPY 02/03/2021 Insurance Providers Payer Name Payer Address Payer Phone Subscriber Number Group Number Insured Name Patient Relationship to Insured Coverage Start Date Coverage End Date [facility] [address] [address] [place], [place] [id number] [phone] [id number] YAMIL RIBERA Self - patient is the insured MEDICAID OF [employer] [address] [place] [address] [phone] [id number] WILBURAshokYAMIL FERRER Self - patient is the insured Medical (General) History Medical History History ICD Code Hypertension Denies [place],DM,CVA,Lung disease,renal dise ase Reported Negative screening colonoscopy with Dr. Cunningham in [place], [place] at age 51 Pneumonia 10/2016 Negative screening colonoscopy in 02/2017 Esophageal stricture dilated in 02/2017--small area of Aaron's esophagus--negative for dysplasia Chronic kidney disease-Bosniak cyst Osteopenia Frozen right shoulder Surgical History Surgery Date(Month/Year) Cholecystectomy 1989 Left knee Cataracts
--- OUTSIDE RECORDS SUMMARY | 2025-04-09 09:26 | XMS_ITS | Referral Summary ---
Author Organization [facility] Address [address] [place] [address] Care Team Providers Care Principal Statistical Scientist Name Role Phone Shanna Parker MD Primary [...] Info) Description 06/10/2025 4:30 PM EDT Telehealth [facility] [address] [place] [address] Energy Conservation Engineer: Rima Payan, ERICKA [address] [place] [address] Procedures * Due to [facility] law, this organization might not be sharing negative HIV tests. Procedure Name Priority Date/Time Associated Diagnosis Comments CBC AUTO DIFFERENTIAL Routine 12/22/2022 12:36 PM EDT Renal mass BASIC METABOLIC PANEL Routine 12/22/2022 12:36 PM EDT Renal mass from Last 3 Months or Most Recently Relevant to Health Maintenance Results * Due to [place] [employer] law, this organization might not be sharing negative HIV tests. * CBC Auto Differential (12/22/2022 12:36 PM EDT) WBC 5.1 4.3 - 10.8 10*3/uL 12/22/2022 1:06 PM EDT [facility] RBC 4.32 3.80 - 5.10 10*6/uL 12/22/2022 1:06 PM EDT [facility] Hemoglobin 12.7 11.7 - 15.5 g/dL 12/22/2022 1:06 PM EDT [facility] Hematocrit 38.1 35.0 - 46.0 % 12/22/2022 1:06 PM EDT [facility] MCV 88.2 80.0 - 100.0 fL 12/22/2022 1:06 PM EDT [facility] MCH 29.4 27.0 - 34.0 pg 12/22/2022 1:06 PM EDT [facility] MCHC 33.3 29.0 - 36.0 g/dL 12/22/2022 1:06 PM EDT [facility] RDW 12.8 11.0 - 15.0 % 12/22/2022 1:06 PM EDT [facility] Platelets 252 140 - 440 10*3/uL 12/22/2022 1:06 PM EDT [facility] MPV 8.9 7.6 - 11.6 fL 12/22/2022 1:06 PM EDT [facility] Neutrophil % 46.7 % 12/22/2022 1:06 PM EDT [facility] Lymphocyte % 34.9 % 12/22/2022 1:06 PM EDT [facility] Monocyte % 10.8 % 12/22/2022 1:06 PM EDT [facility] Eosinophil % 6.4 % 12/22/2022 1:06 PM EDT [facility] Basophil % 1.2 % 12/22/2022 [facility] Neutrophil # 2.41 1.60 - 7.50 10*3/uL 12/22/2022 1:06 PM EDT [facility] Lymphocyte # 1.8 0.9 - 3.4 10*3/uL 12/22/2022 1:06 PM EDT [facility] Monocyte # 0.6 0.0 - 1.2 10*3/uL 12/22/2022 1:06 PM EDT [facility] Eosinophil # 0.3 0.0 - 0.6 10*3/uL 12/22/2022 1:06 [facility] Basophil # 0.1 0.0 - 0.3 10*3/uL 12/22/2022 1:06 PM EDT [facility] Smear Review? No [place] MANUAL 12/22/2022 1:06 PM EDT [facility] Blood Structure of peripheral vein / Unknown Venipuncture / Unknown 12/22/2022 12:36 PM EDT 12/22/2022 12:41 PM EDT us Rima Costello Jus HEAVY DUTY PRESS OPERATOR LAB BLOOD ORDERABLES Final Res ult [facility] [address] [place] [address], * (ABNORMAL) Basic metabolic panel (12/22/2022 12:36 PM EDT) NA 140 135 - 145 mmol/L 12/22/2022 1:36 PM EDT [facility] K 3.9 3.5 - 5.3 mmol/L 12/22/2022 1:36 PM EDT [facility] Cl 103 97 - 110 mmol/L 12/22/2022 1:36 PM EDT [facility] CO2 29 24 - 32 mmol/L 12/22/2022 1:36 PM EDT [facility] BUN 28(H) 7 - 23 mg/dL 12/22/2022 1:36 PM EDT [facility] Creatinine 1.65(H) 0.50 - 1.20 mg/dL 12/22/2022 1:36 PM EDT [facility] Glucose 89 70 - 99 mg/dL 12/22/2022 1:36 PM EDT [facility] Calcium 10.0 8.7 - 10.7 mg/dL 12/22/2022 1:36 PM EDT [facility] Anion Gap 8 5 - 15 12/22/2022 1:36 PM EDT [facility] eGFR 34(L) >=90 mL/min/1. 73m2 12/22/2022 1:36 PM EDT [facility] Comment: Estimated Glomerular [...] 12/22/2022 12:41 PM EDT us Rima Luu HEAVY DUTY PRESS OPERATOR LAB BLOOD ORDERABLES Final Res ult [facility] [address] [place] [address], from Last 3 Months or Most Recently Relevant to Health Maintenance Insurance MEDICARE [facility] Care Teams Principal Statistical Scientist Relationship Specialty Start Date End Date Shanna Parker MD [address] [place] [address] PCP - General Internal Medicine 12/18/22
--- OUTSIDE RECORDS SUMMARY | 2025-04-09 09:26 | XMS_ITS | Encounter Summary ---
Author Organization [facility] Address [address] [place] [address] Phone Care Team Providers Care Hard Metals Engraver Hand Name Role Phone Yamel Parker MD Primary Care Provider [phone] Encounter Details Date Type Department Care Team (Late st Contact Info) Description 12/08/2020 Orders Only [facility] [address] [place] [phone] Provider, MD Flora Social History Tobacco Use [...] on filedocumented in this encounter Care Teams Hard Metals Engraver Hand Relationship Specialty Start Date End Date Yamel Parker MD [address] [place] [address] PCP - General 09/27/20 documented as of this encounter
--- NOTE | 2025-04-09 09:30 | MHC.OFFVIS ---
Intake Visit Reasons: medication follow up Intake Note: Patient presents today for a medication follow up Urology Meds- Myrbetriq Allergies to Antibiotic- No Known Allergies Blood Thinner- None PVR:0ml Dynamic Etching Processor Required: No Accompanied by: Self / Same As Patient Allergies No Known Allergies Allergy (Verified 04/09/25 09:31) Medication List - Last Reconciled 04/09/25 by Arthur Ortiz MD carbidopa-levodopa 25-100 mg 2 tabs 8am, 1tab at 1pm, 2 tabs at 6 pm and 1 tab at 11 pm orally 4 times a day; carvedilol 25 mg PO BID famotidine (Pepcid) 20 mg PO DAILY PRN geriatric [id number] 1 tab PO DAILY lisinopril 20 mg PO .every other day lisinopril-hydrochlorothiazide 20-12.5 mg 1 tab PO .every other day melatonin mg PO PRN mirabegron ER (Myrbetriq) 25 mg PO DAILY 90 days walker Folding front wheeled walker HPI Comments Details: 04/09/25--Nasima is a 70-year-old female who has been followed for complex renal cyst, Bosniak type 3 left kidney. She has a history of lymphedema. She is followed by nephrology for chronic kidney disease. She was started on Myrbetriq for overactive bladder symptoms. History of Present Illness - The patient is a 70-year-old female presenting with a Bosniak type 3 complex renal cyst and overactive bladder symptoms. - The Bosniak type 3 complex renal cyst has been stable as per the MRI conducted on November 04, 2024. - The patient undergoes regular ultrasounds every six months, and the cyst has not changed. - She is followed by nephrology for chronic kidney disease. - The patient has a history of lymphedema. - Overactive bladder symptoms are managed with mirabegron, which the patient finds beneficial, although she experiences occasional leakage if not adhering to a regular bathroom schedule. - The patient is considering an increase in mirabegron dosage from 25 mg to 50 mg, but cost is a concern. - An alternative medication, vibegron, was discussed as potentially being more cost-effective under Medicare coverage. Results - MRI on November 04, 2024, showed stable Bosniak type 3 complex renal cyst. Plan--continue to monitor left renal cyst Bosniak type 3. Patient has been referred to Dr. Moreno. Overactive bladder Myrbetriq 25 mg daily discussed change to gemtesa when due for refill due to high copay cost. Continue behavioral modification 11/23/23--Nasima has been followed up for complex renal cyst as well as overactive bladder symptoms. She has a history of lymphedema. The patient is followed by Nephrology for chronic kidney disease. She was referred by Dr. 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 The patient uses a walker for assistance. I have reviewed the recent MRI abdomen 10/19/2023, which reports similar appearance of the left renal cyst mid to upper pole, measuring approximately 6.8 cm. Continued surveillance is recommended. Will continue Myrbetriq 25 mg daily. 05/02/2023?Nasima is a 68-year-old female who is scheduled today for tele-health visit for a follow up. She was last seen by me on 12/13/2022. Nasima has been followed up for complex renal cyst as well as overactive bladder symptoms. She was referred by Dr. 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 She states that she has seen Nurse practitioner in 11/2022, and had an MRI in the end of the March. She is scheduled for another MRI in 10/2023. She states that she has an upcoming tele-health follow up with Dr. Moreno in 10/24/2023. She has discontinued bladder medications. She is thinking about starting to take it again. She has a history of hypertension. She states that she has blood pressure cuff at home, but has not used it recently. She has a history of acid reflux; however she states that it does not bother her. She has a history of lymphedema. In regards to her lower urinary tract symptoms, she has more bladder symptoms since she was not on oxybutynin. At this time, i will try her on Myrbetriq 25 mg daily. Patient concerned about her blood pressure, so we will arrange for a nurse visit in 2 weeks after being on oxybutynin. I did review the side effects associated with oxybutynin do include dry mouth, cognitive changes, and dry eyes and as she is getting older, i do not want to continue her on oxybutynin. 12/13/2022--3 month follow-up for renal cysts and discussion of MRI results. The patient uses a walker for assistance. The patient has been following up with Dr Mcgill for renal cysts. Bosniak 3 cyst in the left kidney and Bosniak 1 cyst in the right kidney. The patient is prescribed oxybutynin for urinary urgency. Has grade 2 cystocele and requests pessary treatment for preventing urinary leakage. Has had PFPT in the past, I have discussed that I do not feel pessary management would be beneficial in managing her complaints of urinary urgency and incontinent symptoms Abdomen MRI results reviewed--11/02/2022-- A 6.0 cm multiseptated cystic left renal mass which demonstrates few enhancing irregular septations compatible with a Bosniak 3 renal mass, minimally increased in size in maximal dimension, previously 5.7 cm. I have discussed findings concerning for renal malignancy. Plan: Bosniac III renal cystic mass. Referral to Dr. Moreno for evaluation for second opinion. OAB. Pt wants to stop oxybutynin. Discussed behaviorial modificatin. Timed voiding-q 2 hours, reduce caffeine consumption, adequate water intake. Follow-up after 4 months. 11/23/2023--continue to monitor left renal cyst Bosniak type 3. Patient has been referred to Dr. Moreno. Overactive bladder Myrbetriq 25 mg daily and continue behavioral modification PFSH Medical History Acute respiratory disease Osteopenia of multiple sites Parkinson's disease without dyskinesia BRCA gene mutation negative Tremor of both hands Right shoulder pain Levoscoliosis of lumbar spine Lumbago Gait instability HTN (hypertension) Aaron's esophagus without dysplasia Hypertensive nephrosclerosis Impaired fasting glucose Chronic kidney disease, stage 3 Varicose veins of both lower extremities Menopause ovarian failure CKD (chronic kidney disease) Renal cyst, left Cataract Right ovarian cyst GERD (gastroesophageal reflux disease) Dyslipidemia Essential hypertension Surgical History History of lateral meniscus repair of left knee History of esophagogastroduodenoscopy (EGD) Hx of colonoscopy Cataract extraction status of left eye Cataract extraction status of right eye Hx of cholecystectomy History of removal of skin mole History of knee surgery Family History Father Unknown family medical history Mother Breast cancer Maternal Aunt Breast cancer Son No problems noted. Daughter No problems noted. Social History Household Members: Spouse Housing: Condominium Are you a primary care transition mgr to a significant other at home: No Do you presently have visiting nurse or other home services: No Alcohol intake: never Patient Tobacco Use Status: Never used Tobacco e-Cigarette/Vaping Use: Never Used Advance Directives Date on File: 07/04/22 service: No Current occupational status: unemployed Current occupation: Right Handed Gender identity: Female Cognitive needs: No Hearing needs: No Vision needs: Yes Female Reproductive History Menstrual Age of Menarche: 10 Review of Systems Const All systems reviewed & are unremarkable except as noted in HPI and below Reports no additional complaints Eyes Reports no additional complaints ENT Reports no additional complaints Card Reports no additional complaints Resp Reports no additional complaints GI Reports no additional complaints Reports as per HPI Musc Reports no additional complaints Skin/Breast Reports system reviewed and no additional complaints, except as documented Neuro Reports no additional complaints Psych Reports no additional complaints Endo Reports no additional complaints Gurjit/Lymph Reports no additional complaints Aller/Immun Reports no additional complaints Office Procedures Post Void Residual Post Residual Void Post Void Residual (PVR): 0 [id number] Void Residual by ultrasound Results AMB Urinalysis, Automated UA Leukoctes 0 Debbi/uL Last Edit by Toshia Lerma on 04/09/25 16:02 UA Nitrite Negative Last Edit by Toshia Lerma on 04/09/25 16:02 UA Urobilinogen 3.5 mg/dL Last Edit by Toshia Lerma on 04/09/25 16:02 UA Protein 1 mg/dL Last Edit by Toshia Lerma on 04/09/25 16:02 UA pH 5.5 Last Edit by Toshia Lerma on 04/09/25 16:02 UA Blood 0 John/uL Last Edit by Toshia Lerma on 04/09/25 16:02 UA Specific [place] 1.020 Last Edit by Toshia Lerma on 04/09/25 16:02 UA Ketone Negative Last Edit by Toshia Lerma on 04/09/25 16:02 UA Bilirubin 0 mg/dL Last Edit by Toshia Lerma on 04/09/25 16:02 UA Glucose 0 mg/dL Last Edit by Toshia Lerma on 04/09/25 16:02 Results Reviewed Results Reviewed: 11/04/24--MRI Abdomen reviewed--Complex Left renal cyst - no significant change Date of Service: 11/02/22 EXAMINATION: MR ABDOMEN WITHOUT AND WITH CONTRAST CLINICAL INFORMATION: Left renal cyst? COMPARISON: MR abdomen 02/28/2022 FINDINGS: LUNG BASES: The visualized lung bases are unremarkable.? KIDNEYS AND URETERS: A 6.0 x 5.4 cm multiseptated cystic left renal mass which demonstrates few enhancing irregular septa, previously 5.7 x 5.5 cm, possibly minimally increased in maximal dimension.? No new new enhancing nodules. Bilateral Bosniak 1 renal cysts, no imaging follow-up recommended for Bosniak 1 renal cysts. GALLBLADDER: Status post cholecystectomy.? LIVER AND BILIARY TREE: Loss of signal on opposed phase imaging suggesting hepatic steatosis. No intra or extrahepatic biliary duct dilatation. PANCREAS: Unremarkable? SPLEEN: Unremarkable? ADRENAL GLANDS: Unremarkable? ? GASTROINTESTINAL TRACT: Colonic diverticulosis without evidence of diverticulitis.? LYMPH NODES: No lymphadenopathy. VASCULAR: Unremarkable ABDOMINAL WALL: Unremarkable.? OSSEOUS STRUCTURES: Unremarkable.? IMPRESSION: ? A 6.0 cm multiseptated cystic left renal mass which demonstrates few enhancing irregular septations compatible with a Bosniak 3 renal mass, minimally increased in size in maximal dimension, previously 5.7 cm. Bosniak 3 masses have intermediate probability of being malignant, is not already obtained recommend urologic consultation. ? Loss of signal on opposed phase imaging stressing hepatic steatosis.? Assessment & Plan Assessment & Plan (1) Renal cyst, acquired, left: Code(s): N28.1 - Cyst of kidney, acquired (2) Cyst of kidney, acquired: Code(s): N28.1 - Cyst of kidney, acquired Category: Medical (3) Overactive bladder: Code(s): N32.81 - Overactive bladder Category: Medical Plan continue to monitor left renal cyst Bosniak type 3. Patient has been referred to Dr. Moreno. Overactive bladder Myrbetriq 25 mg daily discussed change to gemtesa when due for refill due to high copay cost. and continue behavioral modification Plan - Continue monitoring the Bosniak type 3 complex renal cyst with regular imaging studies. - Maintain current nephrology follow-up for chronic kidney disease management. - Consider increasing mirabegron dosage to 50 mg for better management of overactive bladder symptoms, while being mindful of cost implications. - Explore the option of switching to vibegron if it proves to be more cost-effective under Medicare. Orders: Orders AMB Urinalysis Automated Today Z13.9 - Encounter for screening, unspecified Coding Diagnoses Renal cyst, acquired, left N28.1 Cyst of kidney, acquired N28.1 Overactive bladder N32.81 CPT Codes Post Residual Void - PVR CPT Code: [id number] Void Residual by ultrasound ([id number])
== END 2025-04-09 10:00 | disposition home or self-care (01) ==
LOC: HO.HUSH 08:59
PROVIDERS: Visit Provider Urology
DX: Z13.9 Encounter for screening, unspecified (principal)

== ENCOUNTER → 2025-04-09 08:58 | Outpatient (BNVA) | payer MEDICARE, SELFPAY | PROVIDERS: Visit Provider Urology | DX: N28.1 Cyst of kidney, acquired (principal); N32.81 Overactive bladder | CPT/HCPCS: 51798; 81003; 99212 ==

== ENCOUNTER 2025-04-13 13:51 | Outpatient (AMB) | payer MEDICARE, SELFPAY ==
[2025-04-13 13:56] VITALS: BP 140/80; PULSE 71; O2SAT 95; BMI 30.9
--- NOTE | 2025-04-13 13:56 | MHC.OFFVIS ---
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 Allergies No Known Allergies Allergy (Verified 04/13/25 14:01) Medication List - Last Reconciled 04/13/25 by Jenni Kemp MD carbidopa-levodopa 25-100 mg 2 tabs 8am, 1tab at 1pm, 2 tabs at 6 pm and 1 tab at 11 pm orally 4 times a day; carvedilol 25 mg PO BID famotidine (Pepcid) 20 mg PO DAILY PRN geriatric spzktaxm-qacm-nstk 1 tab PO DAILY lisinopril 20 mg PO .every other day lisinopril-hydrochlorothiazide 20-12.5 mg 1 tab PO .every other day melatonin mg PO PRN mirabegron ER (Myrbetriq) 25 mg PO DAILY 90 days rasagiline 1 mg PO DAILY walker Folding front wheeled walker HPI Comments Details: 69 year old female presents for f/u of Parkinsons disease. she stopped trihexyphenidyl as it caused dryness of mouth. She continues to take her Sinemet 25/100 1, 7AM, 11PM, 3PM,1 tab 7 pm 1 tab 11PM. She continues to have tremors of the UE R>L side, and weakness on the UE and LE on the R side along with difficulty with coordination. She has freezing and stiffening of the R. Leg and cramps at night. Her toes on the right foot curling - turns outside when she walks Her helps with most of her ADLs, and does most of the shopping. Her mood is pleasant, speech is soft, gait is off balance, tilts to the left, sleep is good, and she has frequent urination with incontinence. She denies memory issues or word finding difficulty. She denies headaches, vision changes, hallucinations, dizziness, swallowing difficulties, drooling, falls, difficulty with turning over in bed, exercises at home as she is able to. [facility] Medical History Acute respiratory disease Osteopenia of multiple sites Parkinson's disease without dyskinesia BRCA gene mutation negative Tremor of both hands Right shoulder pain Levoscoliosis of lumbar spine Lumbago Gait instability HTN (hypertension) Aaron's esophagus without dysplasia Hypertensive nephrosclerosis Impaired fasting glucose Chronic kidney disease, stage 3 Varicose veins of both lower extremities Menopause ovarian failure CKD (chronic kidney disease) Renal cyst, left Cataract Right ovarian cyst GERD (gastroesophageal reflux disease) Dyslipidemia Essential hypertension Surgical History History of lateral meniscus repair of left knee History of esophagogastroduodenoscopy (EGD) Hx of colonoscopy Cataract extraction status of left eye Cataract extraction status of right eye Hx of cholecystectomy History of removal of skin mole History of knee surgery Family History Father Unknown family medical history Mother Breast cancer Maternal Aunt Breast cancer Son No problems noted. Daughter No problems noted. Social History Household Members: [facility] Are you a primary home health caregiver to a significant other at home: No Do you presently have visiting nurse or other home services: No Alcohol intake: never Patient Tobacco Use Status: Never used Tobacco e-Cigarette/Vaping Use: Never Used Advance Directives Date on File: 07/04/22 service: No Current occupational status: unemployed Current occupation: Right Handed Gender identity: Female Cognitive needs: No Hearing needs: No Vision needs: Yes Female Reproductive History Menstrual Age of Menarche: 10 Review of Systems Neuro Reports Abnormal speech present (Hypophonia) Physical Exam Vital Signs: Last Vital Signs Pulse 71 04/13/25 13:56 BP 140/80 H 04/13/25 13:56 Pulse Ox 95 04/13/25 13:56 Oxygen Delivery Method Room Air 04/13/25 13:56 BMI result Body Mass Index 30.9 Const General: cooperative, healthy appearing and no acute distress Nutritional Appearance: average body habitus and obese Orientation/consciousness: patient oriented x3 HEENT Head: Yes normal to inspection Neck Neck: Yes other (Mild Antecollis and restricted ROM) Neuro General: patient oriented x3, no focal motor deficits and other (mild decreased blink and facial expression) Cranial nerves: Yes CN's II-XII intact bilaterally, Yes Bilaterally intact EOM present, Yes Normal facial strength present, Yes Midline tongue present, Yes Ability to bilaterally rotate head present and Yes Ability to bilaterally elevate shoulders present Speech: Abnormal speech present (Hypophonia) Gait exam (Neuro): Assistive device used and Other gait observations present (Stooped, slowness and decreased arm swing R>L, drags her right foot.) Motor exam (neuro): 5/5 motor strength present throughout, Normal motor muscle tone present throughout and Other motor observations present (Moderate Bradykinesia ) Coordination: [id number] test normal (severely decreased bilaterally R>L), rapid alternating movements of the distal upper extremity normal (decreased bilaterally R>L) and rapid alternating movements of the distal lower extremity normal (Decreased Bilaterally R>L) Assessment & Plan Assessment & Plan (1) Parkinson's disease without dyskinesia: Comment: stage 2 B Code(s): G20.A1 - Parkinson's disease without dyskinesia, without mention of fluctuations Category: Medical Qualifiers: Fluctuating manifestations: without fluctuating manifestations Qualified Code(s): G20.A1 - Parkinson's disease without dyskinesia, without mention of fluctuations Plan: PT for gait and balance training - Sinemet 25/100 1 tab 7am,11am,3pm,7 pm,11pm I will add rasagiline 1mg qd Medications: New rasagiline 1 mg PO DAILY 30 tabs 6RF Coding Level of Care Code Est Pt Level 4 (80542) Complex EM visit Add On G2211 Diagnoses Parkinson's disease without dyskinesia or fluctuating manifestations G20.A1 Fluctuating manifestations: without fluctuating manifestations
== END 2025-04-13 14:30 | disposition home or self-care (01) ==
LOC: HO.HSMS 13:52
PROVIDERS: PCP Internal Medicine; Visit Provider Psychiatry & Neurology Neurology
DX: G20.A1 Parkinson's disease without dyskinesia, without mention of fluctuations (principal)
CPT/HCPCS: 99214; G2211

== ENCOUNTER → 2025-04-13 13:51 | Outpatient (BNVA) | payer MEDICARE, SELFPAY | PROVIDERS: PCP Internal Medicine; Visit Provider Psychiatry & Neurology Neurology | DX: G20.A1 Parkinson's disease without dyskinesia, without mention of fluctuations (principal) | CPT/HCPCS: 99212 ==

== ENCOUNTER 2025-05-12 14:04 | Outpatient (RCR) | payer MEDICARE, SELFPAY ==
[2024-12-10 12:14] VITALS: BP 130/70; PULSE 70; O2SAT 97
--- NOTE | 2024-12-15 09:27 | MHC.PT.EP ---
[facility] [place] Office [place] Office [place] Office [address] Rahul Castillo [address] [phone] F: [phone] F: [phone] F: [phone] F: [phone] Physical Therapy Plan of Care Date of Evaluation: 12/10/24 Date of Surgery: Diagnosis: Parkinson's R LEG stiffness signed by Dr. Jenni Yeboah: Parkinson disease without dyskinesia, without mention of fluctuations by JENNI Yeboah 12/01/24 Assessment: Pt is a RHD, 69 y/o female with PMH significant for Osteopenia of multiple sites Parkinson's disease without dyskinesia BRCA gene mutation negative Tremor of both hands Right shoulder pain History of lateral meniscus repair of left knee History of esophagogastroduodenoscopy (EGD) Hx of colonoscopy Cataract extraction status of left eye Cataract extraction status of right eye Hx of cholecystectomy History of removal of skin mole History of knee surgery Levoscoliosis of lumbar spine Lumbago Gait instability HTN (hypertension) Aaron's esophagus without dysplasia Hypertensive nephrosclerosis Impaired fasting glucose Chronic kidney disease, stage 3 Varicose veins of both lower extremities Menopause ovarian failure CKD (chronic kidney disease) Renal cyst, left Cataract Right ovarian cyst GERD (gastroesophageal reflux disease) Dyslipidemia Essential hypertension , referred to PT from Dr. Jenni Yeboah for treatment of Parkinson's R LEG stiffness signed by Dr. Jenni Yeboah Pt exhibits impaired mobility, decreased strength, tremor of R>L UE, R LE stiffness and will benefit from attending skilled PT services at a frequency of 2x/week x 6 weeks to address impairments, implement HEP, and restore functional mobility to reduce risk of falls. Pt has had past PT with positive response but has not had PT for over a year. Pt currently participating in [employer] Pt reports she has an upcoming cruise to the [facility] in April and wants to be able to walk better for that trip. She presents to office with std cane but admits has not been using the home. She also has a rollator but reports she has not been using in recent months. During PT session pt inquires about also gaining an occupational therapy referral to address impairments in her R UE. Therapist educated patient in how PWR! program can work to address total body but therapist also told patient she would let Dr. Yeboah know of her inquiry/request to gain a script for OT along with PT. Pt will be attending skilled PT 2x/week x 4-6 weeks to address listed goals below. Pt is an excellent rehab candidate for therapy. Frequency and Duration: The patient will be seen 2x/week x 6 weeks Short Term Goals: 1. Initiated sit<>stand without UE support with good dynamic balance. 2. Good eccentric control for functional transfers from low surfaces. 3. Implement HEP/self-care program daily. 4. Strengthen hip ext to 4/5 B. 5. Pt will ascend/descend a 6 inch step with good dynamic balance. Junior Accountant Goals: 1. Pt will demonstrate KO balance score improvement (see IR in chart) 2. BED Mobility MOD I with activation of B LE with good symmetry. 3. Resume community ambulation MOD I. 4. I HEP with self care/goal. 5. Pt will improve R LE hip flexion strength/lifting abiliity. 6. Rise from the floor from half-kneel with good ability L>R and R>L. 7. Implement a walking program with least restrictive AD for 30 minutes daily. Treatment Plan: Modalities to reduce pain, spasms and effusion. Manual therapy to restore motion and function. Therapeutic exercise to improve strength and flexibility. Neuromuscular re-education for posture and balance. Therapeutic activities to return to functional activities of daily living. Electronically signed by: Chantell Oliva, PT Please sign and return to therapist. Thank you for your referral.
--- NOTE | 2025-05-12 15:19 | MHC.PT.DC ---
[facility] [place] [facility] [place] [facility] [place] [facility] [address] Rahul Castillo [address] [phone] F: [phone] F: [phone] F: [phone] F: [phone] Physical Therapy Discharge Report Diagnosis: Parkinson's R LEG stiffness signed by Dr. Jenni Yeboah: Parkinson disease without dyskinesia, without mention of fluctuations by JENNI Yeboah 12/01/24 Date of Surgery: Date of Evaluation: 12/10/24 Date of Discharge: 05/12/25 Treatments to Date: 24 Cancellations to Date: No Shows to Date: Discharge Status: Discharge Summary: 05/12/25: Sandra has attended 24 session of PT to date start of care back in 12/10/24-05/12/25, exhibiting advancements in her mobility. Today she was able to complete 5 sit<>sounding device operator 18 seconds without reliance on UE support. She returns today after being away from PT for the past month, she notes coming back from a successful cruise experience. She is now able to transition from stand<>sit and sit<>roll from both sides of the mat with good LE strength and control o both sides. AROM of the R knee is slightly limited in flex>ext 110 AROM to -3 and L knee is more limited in ext AROM -5 >flex 115. We reviewed stretching of the HS and calf to ease. We reviewed bridge and scoot for core/hip control for bed mobility. She will be starting OT on 05/21/25. She was trialed with urban poles for ambulation but had two instances of R LE catch with advancement with trial in the office this date. She verbalized preference for use of her std cane>walker. She continues to exhibit foot flat contact and circumduction of her R hip with decreased swing. She notes she has been less active in attending her [employer] boxing class but has received a gift certificate to attend twice weekly from her daughter. While away on her cruise she used her rollator but has been using std cane in her home. She continues to stay active in her home and drives hersellf to medical appts. Today she has mild tremor in her R UE. She has met her PT goals at this time. She has been issued a written HEP program to advance herself for home care/mobility. 04/14/25: Pt is approaching DC to I HEP. Pt will be seen for one more appt after return from vacation and then likely will transition to I HEP. 04/07/25; Nasima sustained posterior fall onto her buttocks when she tripped on clothing in her laundry room. She was unharmed. She was able to use her fall recovery skills we reviewed last session with good carryover. 04/03/25; Pt presents after having L knee injection today. Pt with mild bruise over L knee. Notes would like to take it easy with [facility] today due to this. Pt is booked for cruise leaving on 04/24/25. Pt doing better overall 03/31/25; Pt completed floor recovery with good ability. Pt required less sitting break today, improve fluidity of movement noted with PWR! stepping tasks. Initiated quadriped task with good ability. 03/26/25; Pt challenged with hip ext bridge R> L hip. Encouraged and reviewed PWR step and twist/rock in supine as well. Pt noted inability to perform PWR twist in supine without having knees bent. Reliant on momentum of trunk to move and turn. Pt tremor mild UE but pt notes R LE heavy. Pt with absent heel strike/ increase circumduction of R hip noted during swing phase. Pt going away on cruise 04/24/25. Anticipate transition to I HEP at end of the month. 03/13/25: Pt challenged and fatigue on the R LE. Pt challenged with reciprocal gait/ decreased arm swing ang R hip flexion noted. 03/09/25: Pt cancelled appt due to heat/hot weather. 03/02/25: Introduced PWR supine moves; PWR: Up/ROCK/Twist/step with handouts given. Pt will benefit from pelvic tilt review> has weakness in scoot and bridge. Pt difficulty with lifing R LE up and onto bed- reviewed this as part of HEP program with step under L foot for support. Pt expressed she enjoyed new challenge of PWR supine moves. Pt R UE tremor noted today (due for medication at 3pm) 02/27/25: Fire alarm went off during patient visit. Pt completed less than 8 minutes on SCI-FIT stepper. Pt was escorted out of facility safely with PT staff. Pt was encouraged to sit down in her car while waiting for Fire Dept to give clearance to go back into building. Due to humid conditions and Fire Dept taking longer than 20 minutes, patient elected to go home and conserve PT session. 02/24/25: Pt able to stand up without UE support for PWRUP today with greater ease/ability. Today we introduced advancement of stepping up and laterally with 4 inch with combo movements. Pt able to transition and weight shift turning with hula side stepping with no LOB. Pt benefits from cues for support. Pt benefits from CGA from behind for alternate UE/LE combo motions. Pt challenged greater with R LE, PWR boost for voice/eyes/hands. Pt required less periods of rest today *of note pt appt 1pm prime of medication dose.* Reduced amplitude of movement in R LE/L UE. Cues to facilitate ROM and stretch with activity. 02/20/25: Progressed PWR stepping fwd and laterally. Pt able to stand without UE support. Created new exercise of [employer] with pole for opposing UE raise/reach with emphasis on weight shift stepping. Pt advancing in level of complexity for PWR! moves. 02/17/25: Pt has attended 11 sessions of PT to date. Nasima reports she has started a walking program with her rollator and notes participation in [employer] boxing class averaging 1-2x/weekly. She notes difficulty lifting her R knee and performing R hip flexion with tasks. She exhibits improving stepping control/support during PWR moves but will benefit from ongoing PT 2x/week x 4 weeks to address impairments, improve dynamic balance/strength, and prepare for upcoming trip/cruise. 02/13/25; Pt educated and initiated in AAROM shoulder flexion/trunk ext/sidebending stretches with aide of shoulder darron. Discussed benefit in considering use of transport chair to aide in upcoming cruise trip for longer distances. Pt states she has been taking her medications 5x daily for tremor. Pt weak and with decreased motor control in R LE> R UE. Pt able to ambulate with improved reciprocal motion following stretching with darron/ PWR moves. Will benefit from [employer] screen next session. 01/30/25: Pt improving confidence with seated PWR exercises. Pt challenged with R LE amplitude and motor control. 01/28/25: Pt fatigued post session. Pt challenged with stance control L>R hip step requires CGA from behind for safety. Pt c/o R foot tib posterior tendon- applied ROCK[employer] application for support to this area with education re: application/removal. Reduction in foot pain with application. Pt notes having an appt with her scientific software engineer earlier in the week, has not been to her [employer] boxing class. Has decreased motor control with R LE. Using std cane for ambulation. 01/23/25: Pt fatigue with standing ther-ex. Benefits from seated therpeutic rest. Fatigued with stance phase on R> L LE. 01/20/25: Discussed plan to transition to end of HEP program at the end of January. Pt involved in [employer] boxing and PWR support group/exercise group at [facility] Pt demonstrating improvement in AROM/motor control, expresses she feels she is walking a little better but has difficulty with R knee/R hip the most. Some tremor noted at in R UE. 01/15/25; Pt doing well overall since start of care, has been sick. Notes using Rollator walker when out with her daughter for longer trip of shopping. Pt notes heaviness fatigue in R proximal hip and leg, notes her toes sometimes curl. Pt will benefit from ongoing PT twice a week x 4 weeks to maximize gains. 01/01/25: Pt able to perform seated PWR! moves with improved ability, Pt verbalized fatigue in proximal R hip post. Educated re: power step/rock for mobility for home 12/25/24: Pt benefitted from breakdown of seated PWR up/rock/step in sitting and standing today. Pt verbalized fatigue in R LE and benefitted from cues for support. 12/23/24: Pt with good ability for PWR step and power twist in hook-lying. Greater challenge noted with combo of PWR rock/step/twist in standing. Pt verbalized fatigue in R proximal hip region with standing activities. 12/16/24: Pt present to office reporting fatigue overall today. Pt challenged with R LE movement. Pt reported decreased R UE arm swing. Cues for increased ankle DF and knee ext, cues for R UE activation/swing during ambulation. Pt verbalized relief with trunk rotation/open books in SL and supine. Cues for neck pain/stretch. Pt with BOOST for eyes/breath/voice/and hands during movement to facilitate activation. Pt is a RHD, 69 y/o female with PMH significant for Osteopenia of multiple sites Parkinson's disease without dyskinesia BRCA gene mutation negative Tremor of both hands Right shoulder pain History of lateral meniscus repair of left knee History of esophagogastroduodenoscopy (EGD) Hx of colonoscopy Cataract extraction status of left eye Cataract extraction status of right eye Hx of cholecystectomy History of removal of skin mole History of knee surgery Levoscoliosis of lumbar spine Lumbago Gait instability HTN (hypertension) Aaron's esophagus without dysplasia Hypertensive nephrosclerosis Impaired fasting glucose Chronic kidney disease, stage 3 Varicose veins of both lower extremities Menopause ovarian failure CKD (chronic kidney disease) Renal cyst, left Cataract Right ovarian cyst GERD (gastroesophageal reflux disease) Dyslipidemia Essential hypertension , referred to PT from Dr. Jenni Yeboah for treatment of Parkinson's R LEG stiffness signed by Dr. Jenni Yeboah Pt exhibits impaired mobility, decreased strength, tremor of R>L UE, R LE stiffness and will benefit from attending skilled PT services at a frequency of 2x/week x 6 weeks to address impairments, implement HEP, and restore functional mobility to reduce risk of falls. Pt has had past PT with positive response but has not had PT for over a year. Pt currently participating in [employer] Pt reports she has an upcoming cruise to the [facility] in April and wants to be able to walk better for that trip. She presents to office with std cane but admits has not been using the home. She also has a rollator but reports she has not been using in recent months. During PT session pt inquires about also gaining an occupational therapy referral to address impairments in her R UE. Therapist educated patient in how PWR! program can work to address total body but therapist also told patient she would let Dr. Yeboah know of her inquiry/request to gain a script for OT along with PT. Pt will be attending skilled PT 2x/week x 4-6 weeks to address listed goals below. Pt is an excellent rehab candidate for therapy. Electronically signed by: Chantell Oliva, PT, DPT Please sign and return to therapist. Thank you for your referral.
== END 2025-05-26 11:49 | disposition home or self-care (01) ==
LOC: HO.PTS 14:04
PROVIDERS: PCP Internal Medicine; Visit Provider Psychiatry & Neurology Neurology
DX: G20.A1 Parkinson's disease without dyskinesia, without mention of fluctuations (principal)
CPT/HCPCS: 97110; 97112; 97116; 97162; 97164; 97530

== ENCOUNTER 2025-07-13 09:29 | Outpatient (AMB) | payer MEDICARE, SELFPAY ==
[2025-07-13 09:49] VITALS: BP 100/62; PULSE 70; RESP 16; TEMP 36.4; O2SAT 96; BMI 30.6
--- NOTE | 2025-07-13 09:49 | AM.OFFVISMDC ---
Intake Vital Signs 07/13/25 09:49 Height 5 ft 4 in Weight 178 lb BMI 30.6 BP 100/62 Blood Pressure Location Lt brachial Position Sitting Respiration 16 Pulse 70 Pulse Source Pulse Oximeter Temp 97.5 F Temp Source Oral Pulse Oximetry (%) 96 Oxygen Delivery Method Room Air Intake Visit Reasons: SWV G0439 Intake Note: Pt is here today for her SWV Allergies No Known Allergies Allergy (Verified 07/13/25 10:11) Medication List - Last Reconciled 07/13/25 by Shanna Parker MD carbidopa-levodopa 25-100 mg 2 tabs 8am, 1tab at 1pm, 2 tabs at 6 pm and 1 tab at 11 pm orally 4 times a day; carvedilol 25 mg PO BID famotidine (Pepcid) 20 mg PO DAILY PRN geriatric xmyqwuvn-nqkf-dnan 1 tab PO DAILY lisinopril 20 mg PO .every other day lisinopril-hydrochlorothiazide 20-12.5 mg 1 tab PO .every other day melatonin mg PO PRN mirabegron ER (Myrbetriq) 25 mg PO DAILY 90 days rasagiline 1 mg PO DAILY walker Folding front wheeled walker HPI SWV G0439 HPI Details SWV ? 70 year old lady, with past medical history of varicose veins in both lower extremities, followed by vascular surgery, has chronic gastroesophageal reflux disease, history of cystocele with first-degree uterine prolapse, overactive bladder, osteoarthritis, lymphedema, chronic kidney disease stage 3, hypertension and impaired fasting glucose level, Osteopenia of multple sites, and Parkinson's disease, here today for her subsequent annual wellness visit. She is up-to-date with her screening mammogram, done 12/18/2023, and had a normal Pap smear done 09/02/2021. Last screening colonoscopy was done 02/23/[address] Reyez to be repeated in 2026. Last bone density scan was done 07/22/2024 which showed presence of osteopenia in left femur and left femoral neck and normal in lumbar spine, unchanged from previous test. No history of fracture. She had a normal fasting blood sugar screening done 01/23/2025 , and her fasting lipid panel was done 01/01/2024 which showed an LDL cholesterol of 133 mg/dL, lower than last check. She is is up-to-date with her flu vaccine, pneumococcal vaccination, shingles vaccine and Tdap and is due for her COVID booster. .? Medical / Social History Reviewed? Past Medical History ?Yes . ? [place] of Care / Care Team list updated ?Yes . ? Surgical/Hospitalization History ?Yes . ? Current Medications (including OTC and supplements) ?Yes . ? Family History ?Yes . ? Tobacco Control form ?Yes . ? AUDIT-C (Alcohol use) form ?Yes . ? Illicit drug use in Social History ?Yes . ? Current diagnosis of depression? ?No ? Appropriate PHQ2/PHQ9 completed ?Yes . ? Data entered by ?Mill Worker and reviewed by provider ? Fall Risk ? Fall History? Have you had any falls with injury in the past year? ?No . ? Have you had two or more falls in the past year? ?No . ? Fall Risk Assessment: ?No falls in the past year . ? HRA filled out by the patient, reviewed by Provider and scanned. ? SWV ? Balance? Romberg negative ? Tandem walk ?unable to do ? Walk and Turn ?Yes . ? Rise from sit to stand ?Yes . ?Vision? Corrective lens ?Yes ? Vision screen ? Up-to-date, sees Dr. Perales ?Hearing? Whisper test ?pass . ?Written Plan?Completed. She already did her healthcare proxy and MOLST form in 2021, copy in medical record.? [facility] Medical History (Updated 07/13/25 @ 10:38 by Shanna Parker MD) Acute respiratory disease Osteopenia of multiple sites Parkinson's disease without dyskinesia BRCA gene mutation negative Tremor of both hands Right shoulder pain Levoscoliosis of lumbar spine Lumbago Gait instability Aaron's esophagus without dysplasia Hypertensive nephrosclerosis Chronic kidney disease, stage 3 Varicose veins of both lower extremities Menopause ovarian failure CKD (chronic kidney disease) Renal cyst, left Cataract Right ovarian cyst GERD (gastroesophageal reflux disease) Dyslipidemia Essential hypertension Surgical History (Reviewed 07/19/25 @ 01:49 EDT by Shanna Parker MD) History of lateral meniscus repair of left knee History of esophagogastroduodenoscopy (EGD) Hx of colonoscopy Cataract extraction status of left eye Cataract extraction status of right eye Hx of cholecystectomy History of removal of skin mole History of knee surgery Family History (Reviewed 07/19/25 @ 01:49 EDT by Shanna Parker MD) Father Unknown family medical history Mother Breast cancer Maternal Aunt Breast cancer Son No problems noted. Daughter No problems noted. Social History Household Members: Spouse Housing: Condominium Are you a primary acute care surgeon to a significant other at home: No Do you presently have visiting nurse or other home services: No Alcohol intake: never Patient Tobacco Use Status: Never used Tobacco e-Cigarette/Vaping Use: Never Used Advance Directives Date on File: 07/04/22 service: No Current occupational status: unemployed Current occupation: Right Handed Gender identity: Female Cognitive needs: No Hearing needs: No Vision needs: Yes Female Reproductive History Menstrual Age of Menarche: 10 Questionnaire Medicare Wellness Checkup What [age] What gender do you identify with?: female During the past 4 weeks, how much have you been bothered by emotional problems such as feeling anxious, depressed, irritable, sad or downhearted, and blue?: slightly During the past 4 weeks, has your physical & emotional health limited your social activities with family, friends, neighbors, or groups?: not at all During the past 4 weeks, how much bodily pain have you generally had?: very mild pain During the past 4 weeks, was someone available to help you if you needed & wanted help?: yes, as much as I wanted During the past 4 weeks, what was the hardest physical activity you could do for at least 2 minutes?: moderate Can you get to places out of walking distance without help? (For eg., can you travel alone on buses, taxis or drive your car?): Yes Can you go shopping for groceries or clothes without someone's help?: Yes Can you prepare your own meals?: Yes Can you do your housework without help?: No Because of any health problems, do you need the help of another person with your personal care needs such as eating, bathing, dressing or getting around the house?: No Can you handle your own money without help?: Yes During the past 4 weeks, how would you rate your health in general?: good During the past 4 weeks how have things been going for you?: pretty well Are you having difficulties driving your car?: no Do you always fasten your seat belt when you are in a car?: yes, usually During past 4 weeks, have you been bothered by the following: seldom: Falling or dizzy when standing up, Sexual problems?, Trouble eating well?, Teeth or denture problems?, Problems using the telephone? and Tiredness or fatigue? Have you fallen 2 or more times in the past year?: No Are you afraid of falling?: No Are you a smoker?: no During the past 4 weeks, how many drinks of wine, beer, or other alcoholic beverages did you have?: no alcohol at all Do you exercise for about 20 minutes 3 or more times a week?: yes, most of the time Have you been given information to help with the following?: no: Hazards in your house that might hurt you? and no: Keeping track of your medications? How often do you have trouble taking medicines the way you have been told to take them?: I always take medicine as prescribed How confident are you that you can control & manage most of your health problems?: very confident What is your race?: White Mini Mental State Exam (MMSE) Orientation What is the (year) (season) (date) (day) (month)?: year (2024), season (Fall), date (07/13/25), day (Sunday) and month (June) Where are we (state) (county) (town or city) (hospital) (floor)?[place] state [place]), county ([place]), town or city ([place] and [place] [place] Score: 9 Activity of Daily Living Bathing - sponge bath, tub bath or shower: receives no assistance (gets in/out by self, if usual bathing means Dressing - getting clothes from closets & drawers, including inner/outer garments & fasteners.: gets clothes & gets completely dressed without help Toileting - going to the 'toilet room' for urine/bowel elimination & cleaning self/arranging clothes: goes to toilet room, cleans self, arranges clothes without help Transfer: moves in & out of bed and chair without help (may use support object) Continence: has occasional 'accidents' Feeding: feeds self without help Total Score: 0 Information obtained from: patient Using telephone: independent Traveling: independent Shopping: needs assistance Preparing meals: independent Housework: needs assistance Taking medicine: independent Managing money: independent PHQ-9 Over the last 2 weeks, how often have you been bothered by any of the following problems? 1. Little interest or pleasure in doing things: not at all 2. Feeling down, depressed, or hopeless: several days 3. Trouble falling or staying asleep, or sleeping too much: not at all 4. Feeling tired or having little energy: several days 5. Poor appetite or overeating: not at all 6. Feeling bad about yourself - or that you are a failure or have let yourself or your family down: not at all 7. Trouble concentrating on things, such as reading the newspaper or watching television: not at all 8. Moving or speaking so slowly that other people could have noticed. Or the opposite - being so fidgety or restless that you have been moving around a lot more than usual: not at all 9. Thoughts that you would be better off or of hurting yourself in some way: not at all Total score: 2 Depression Screening Interpretation: Negative Depression Screening Done: Yes 56369 - PHQ-9 Billing: Yes Source: Developed by Drs. Sami Caraballo, Brittaney Starks, Travon Canales and colleagues, with an educational zion from [employer]. Physical Exam Vital Signs: Last Vital Signs Temp 97.5 F 07/13/25 09:49 Pulse 70 07/13/25 09:49 Resp 16 07/13/25 09:49 BP 100/62 07/13/25 09:49 Pulse Ox 96 07/13/25 09:49 Oxygen Delivery Method Room Air 07/13/25 09:49 BMI result Body Mass Index 30.6 Assessment & Plan Assessment & Plan (1) Encounter for subsequent annual wellness visit (AWV) in Medicare patient: Code(s): Z00.00 - Encounter for general adult medical examination without abnormal findings Plan: Medical wellness checklist reviewed, discussed with patient and updated. Copy given. Up-to-date with her advanced directives, routine screenings and vaccination, screening mammogram ordered today (2) Essential hypertension: Code(s): I10 - Essential (primary) hypertension Plan: Blood pressure at goal of less than 130/80. Continue with current medication. Reinforced importance of following a low sodium diet, getting regular exercise, and lowering stress levels. (3) Dyslipidemia: Code(s): E78.5 - Hyperlipidemia, unspecified Plan: Fasting lipids have been checked which are within normal limits (4) Impaired fasting glucose: Code(s): R73.01 - Impaired fasting glucose Plan: previous fasting blood sugars were elevated above 100 mg/dL. Impaired glucose metabolism increases the risk for developing diabetes mellitus type 2, as well as heart attack and stroke later on. Lifestyle changes that promotes weight loss, healthy eating habits, and regular exercise are important, and can prevent the progression to diabetes (5) Osteopenia of multiple sites: Code(s): M85.89 - Other specified disorders of bone density and structure, multiple sites Plan: Up-to-date with her bone density scan (6) GERD (gastroesophageal reflux disease): Code(s): K21.9 - Gastro-esophageal reflux disease without esophagitis Plan: Currently taking famotidine (7) Chronic kidney disease, stage 3: Code(s): N18.30 - Chronic kidney disease, stage 3 unspecified Plan: Followed by Nephrology (8) Renal cyst, left: Comment: Shruthi 3 on MRI 08/06 Code(s): N28.1 - Cyst of kidney, acquired Plan: Followed by Nephrology (9) KOFFI (stress urinary incontinence, female): Code(s): N39.3 - Stress incontinence (female) (male) Plan: Currently on Myrbetriq Orders: Orders MM tomosynthesis screening BI 07/13/25 Z12.31 - Encounter for screening mammogram for malignant neoplasm of breast Quality Reporting (2019) Depression/Bipolar (159/160/161/177) PHQ-9: Total score: 2 Coding Level of Care Code Medicare Subsequent (G0439) Diagnoses Encounter for subsequent annual wellness visit (AWV) in Medicare patient Z00.00 Essential hypertension I10 Dyslipidemia E78.5 Impaired fasting glucose R73.01 Osteopenia of multiple sites M85.89 GERD (gastroesophageal reflux disease) K21.9 Chronic kidney disease, stage 3 N18.30 Renal cyst, left N28.1 KOFFI (stress urinary incontinence, female) N39.3 CPT Codes Advance Care Planning - Advance Care Planning discussion: On file, no changes ([id number]) Advance Care Planning - Time spent: 1-15 minutes, on File ([id number]) Additional Codes PHQ-9 - 53579 - PHQ-9 Billing: Yes ([id number]) Advance Care Planning Advance Care Planning discussion: On file, no changes Date of discussion: 07/13/25 Who was present: Patient Forms completed: Health Care Proxy and MOLST Time spent: 1-15 minutes, on File Actual minutes spent: 1
--- OUTSIDE RECORDS SUMMARY | 2025-07-13 10:41 | XMS_ITS | Clinical Summary ---
Author Organization [facility] Facility Address [address] [address] Care Team Providers Care Returned Goods Sorter Name Role Phone Yamel Parker MD Primary Care Provider [phone] Allergies No known active allergies Medications Multiple [...] Comments Cancer Father hepatocellular Heart disease Father [place] 60 y/o Hypertension Father Hypertension Mother Relation [...] Cancer Screening: Sigmoidoscopy 2005 Influenza Vaccine (#1) 2025 09/14/2021 Hepatitis B Vaccine Aged Out No longe r eligible based on patient's age to complete this topic Insurance Medicare [facility] [address] [place] [address] Medicare [facility] Care Teams Returned Goods Sorter Relationship Specialty Start Date End Date Yamel Parker MD [address] [place] [address] PCP - General 09/27/20
--- OUTSIDE RECORDS SUMMARY | 2025-07-13 10:41 | XMS_ITS | Patient Health Record ---
Author Organization [facility] Address [address] [place] [address] Care Team Providers Care Channel Sales Manager Name Role Phone Elena RIVERA, Shanna Primary Care Provider Sami Salas Unavailable [phone] Reason For Referral No Information Medications Medication SIG (Take, Route, Frequency, Duration) Notes Start Date End Date Status Calcium Active Aspir-81 81 MG 1 tablet Orally Once a day Active Diclofenac Sodium 1 % APPLY TWO grams TO THE AFFECTED AREA(s) FOUR TIMES DAILY External; Duration: 8 Active DOK 100 MG TAKE ONE CAPSULE TWI CE DAILY Oral; Duration: 30 Active Vitamin D3 1.25 MG (32447 UT) TAKE ONE CAPSULE BY MOUTH ONCE A WEEK Oral; Duration: 84 Active Carvedilol 12.5 MG TAKE ONE TABLET TWIC E DAILY Oral; Duration: 30 Active HM Famotidine 10 MG TAKE ONE TABLET TWIC E DAILY Oral; Duration: 30 Active Lisinopril-hydroCHLOROthia zide 20-25 MG 1 tablet Orally Once a day Active Immunizations Vaccine Route Administration Date Status Comme nts Influenza Unknown 05/18/2020 Administered Problems Problem Type SNOMED Code ICD Code Onset Dates Problem Status W/U Status Risk Notes Problem Screening for malignant neoplasm of colon (126283482) Encounter for screening for malignant neoplasm of colon (Z12.11) Active confirmed Problem Screening for malignant neoplasm of rectum (237972490) Encounter for screening for malignant neoplasm of rectum (Z12.12) Active confirmed Problem Aaron's esophagus (463083152) Barretts esophagus without dysplasia (K22.70) Active confirmed Problem Esophageal stricture (82690278) Esophageal stricture (K22.2) Active confirmed Problem Esophageal dysphagia (91216527) Esophageal dysphagia (R13.14) Active confirmed Plan Of Treatment Future Test Test Name Order Date UPPER GI ENDOSCOPY [place]ON DILATION OF ESOPH 12/06/2016 COLONOSCOPY 12/06/2016 UPPER GI ENDOSCOPY 02/03/2021 Insurance Providers Payer Name Payer Address Payer Phone Subscriber Number Group Number Insured Name Patient Relationship to Insured Coverage Start Date Coverage End Date [employer] [address] [address] [place], [place] [id number] [phone] [id number] WILBUR-YAMIL FERRER Self - patient is the insured MEDICAID OF [facility] [address] [place] [address] [id number] WILBUR-YAMIL FERRER Self - patient is the insured Medical (General) History Medical History History ICD Code Hypertension Denies VA,DM,CVA,Lung disease,renal dise ase Reported Negative screening colonoscopy with Dr. Cunningham in [place], [place] at age 51 Pneumonia 10/2016 Negative screening colonoscopy in 02/2017 Esophageal stricture dilated in 02/2017--small area of Aaron's esophagus--negative for dysplasia Chronic kidney disease-Bosniak cyst Osteopenia Frozen right shoulder Surgical History Surgery Date(Month/Year) Cholecystectomy 1989 Left knee Cataracts
--- OUTSIDE RECORDS SUMMARY | 2025-07-13 10:41 | XMS_ITS | Clinical Summary ---
Author Organization [facility] Address [address] [place] [address] Care Team Providers Care Vehicle Operator Technician Name Role Phone Shanna Parker MD Primary [...] Encounters Date Type Department Care Team Description 06/10/2025 4:30 PM EDT Telehealth [facility] [address] [place] [address] [id number] Soldering Machine Operator Automatic: Rima Payan NP Complex renal cyst (Primary Dx) 06/10/2025 Telephone [facility] [address] [place] [address] 16182 Soldering Machine Operator Automatic: Rima Payan NP 04/21/2025 Results Follow-Up [facility] [address] [place] [address] 03152 Soldering Machine Operator Automatic: Lizette Edwards PA from Last 3 Months [...] Care Team (Late st Contact Info) Description 01/08/2026 4:30 PM EDT Telehealth [facility] [address] [place] [address] [id number] Soldering Machine Operator Automatic: Rima Payan, TRANSPORTATION DEPARTMENT SUPERVISOR [address] [place] [id number] Health Maintenance Due Date Last Done Comments [...] Screening 09/17/2024 COVID-19 Vaccine ( season) 2025 03/19/2025, 07/13/2024, 07/10/2022, Additional history exists Influenza Vaccine (#1) 2025 , 08/26/2022, 09/14/2021, Additional history exists RSV Vaccine (60+ years old and patients) (1 - 1-dose 75+ series) 2031 DTaP,Tdap,and Td Vaccines (3 - Td or Tdap) 03/19/2035 03/19/2025, 04/24/2018 Pneumococcal Vaccine: 50+ Years Completed 07/04/2022, 04/19/2021 Hepatitis B Vaccines Aged Out No long er eligible based on patient's age to complete this topic Procedures * Due to [place] [facility] law, this organization might not be sharing negative HIV tests. Procedure Name Priority Date/Time Associated Diagnosis Comments MRI ABDOMEN W WO CONTRAST Routine 04/17/2025 8:25 AM EDT Renal mass CBC AUTO DIFFERENTIAL Routine 12/22/2022 12:36 PM EDT Renal mass BASIC METABOLIC PANEL Routine 12/22/2022 12:36 PM EDT Renal mass from Last 3 Months or Most Recently Relevant to Health Maintenance Results * Due to [place] [facility] law, this organization might not be sharing negative HIV tests. * MRI Abdomen with and without Contrast (04/17/2025 8:25 AM EDT) Anatomical Region Laterality Modality Body, Abdomen Magnetic Resonan ce 04/17/2025 7:45 AM EDT Narrative 04/17/2025 5:54 PM EDT [facility] Accession Number: [id number] Patient Name: Toan Nasima Date of : 1955 Date of Exam: 04-17-2025 Referring Physician: Lizette Nixon [facility] Urology Department [address] [place] [address] Exam: MR Abdomen (C-/C+) CPT 45164 Room Description: [facility] 3T HISTORY: 70 years old Female with complex left renal cystic lesion, Bosniak category 3, Surveillance desired. TECHNIQUE: Renal mass protocol utilized. 9 cc of Elucirem contrast given IV. COMPARISONS: MRI renal mass protocol exams of 04/11/2023 through 11/04/2024. FINDINGS: LOWER THORAX: No pleural or pericardial effusion. LIVER: Normal contour and size. Normal parenchymal enhancement. No suspicious lesion. No hepatic steatosis as noted. GALLBLADDER: Status-post cholecystectomy. BILE DUCTS: No biliary ductal dilatation. SPLEEN: Normal. PANCREAS: Normal. No pancreatic ductal dilatation. ADRENAL GLANDS: No nodules. KIDNEYS: Kidneys are normal in size and location. Single renal arteries bilaterally. Patent bilateral renal veins. No hydronephrosis. Kidneys enhance symmetrically. RIGHT kidney: Normal in size and location. Three small subcentimeter cysts again noted.. No evidence of hydronephrosis or perinephric collections. LEFT kidney: Normal in size and location. Partially exophytic mostly cystic lesion arising from the anterolateral interpolar region of the LEFT kidney is again noted. No restricted diffusion or evidence of intracellular fat. It currently measures 6.8 x 5.2 x 5.7 cm, previously 6.3 x 4.6 x 5.5 cm. The lesion abuts the inferior margin of the pancreatic tail. It again exhibits a minimally thickened (0.3 cm), enhancing wall and 2 enhancing 0.2 cm nodules in the cephalad aspect consistent with a Bosniak category 3 cystic lesion. 2 small subcentimeter cysts and a few small parapelvic cysts again noted. No evidence of hydronephrosis or perinephric collections. Lesion contacts the renal sinus fat without evidence of direct invasion. 3 small simple cysts are also noted elsewhere in the LEFT kidney largest in the lower pole measuring 1.1 cm.. STOMACH/UPPER GI TRACT: Scattered colonic diverticula. Stomach and visualized abdominal bowel normal in caliber. PERITONEUM AND RETROPERITONEUM: No loculated fluid collection or peritoneal mass. LYMPH NODES: No lymphadenopathy. VESSELS: Abdominal aorta is normal in caliber. Hepatic, portal and splenic veins patent. Visualized inferior vena cava unremarkable. ABDOMINAL WALL: Unremarkable. BONES: Moderate lumbar levoscoliosis of the thoracolumbar spine. Mild to moderate multilevel degenerative changes in the thoracic and lumbar spine as visualized. IMPRESSION: Slight increase in size of Bosniak category 3 cystic lesion in the LEFT kidney since October 2024. These lesions have an intermediate probability of malignancy. No other suspicious renal lesions. Patient is being managed by urology. Thank you for allowing me to participate in the care of this patient. Electronically Signed By: Pasha Gloria MD Procedure Note Provider, David - 04/17/2025 [facility] Accession Number: [id number] Patient Name: Nasima Joya Date of : 1955 Date of Exam: 04-17-2025 Referring Physician: Lizette Nixon nish [facility] Urology Department [address] [place] [address] Exam: MR Abdomen (C-/C+) CPT 47869 [facility] HISTORY: 70 years old Female with complex left renal cystic lesion, Bosniak category 3, Surveillance desired. TECHNIQUE: Renal mass protocol utilized. 9 cc of Elucirem contrast given IV. COMPARISONS: MRI renal mass protocol exams of 04/11/2023 through 11/04/2024. FINDINGS: LOWER THORAX: No pleural or pericardial effusion. LIVER: Normal contour and size. Normal parenchymal enhancement. No suspicious lesion. No hepatic steatosis as noted. GALLBLADDER: Status-post cholecystectomy. BILE DUCTS: No biliary ductal dilatation. SPLEEN: Normal. PANCREAS: Normal. No pancreatic ductal dilatation. ADRENAL GLANDS: No nodules. KIDNEYS: Kidneys are normal in size and location. Single renal arteries bilaterally. Patent bilateral renal veins. No hydronephrosis. Kidneys enhance symmetrically. RIGHT kidney: Normal in size and location. Three small subcentimeter cysts again noted.. No evidence of hydronephrosis or perinephric collections. LEFT kidney: Normal in size and location. Partially exophytic mostly cystic lesion arising from the anterolateral interpolar region of the LEFT kidney is again noted. No restricted diffusion or evidence of intracellular fat. It currently measures 6.8 x 5.2 x 5.7 cm, previously 6.3 x 4.6 x 5.5 cm. The lesion abuts the inferior margin of the pancreatic tail. It again exhibits a minimally thickened (0.3 cm), enhancing wall and 2 enhancing 0.2 cm nodules in the cephalad aspect consistent with a Bosniak category 3 cystic lesion. 2 small subcentimeter cysts and a few small parapelvic cysts again noted. No evidence of hydronephrosis or perinephric collections. Lesion contacts the renal sinus fat without evidence of direct invasion. 3 small simple cysts are also noted elsewhere in the LEFT kidney largest in the lower pole measuring 1.1 cm.. STOMACH/UPPER GI TRACT: Scattered colonic diverticula. Stomach and visualized abdominal bowel normal in caliber. PERITONEUM AND RETROPERITONEUM: No loculated fluid collection or peritoneal mass. LYMPH NODES: No lymphadenopathy. VESSELS: Abdominal aorta is normal in caliber. Hepatic, portal and splenic veins patent. Visualized inferior vena cava unremarkable. ABDOMINAL WALL: Unremarkable. BONES: Moderate lumbar levoscoliosis of the thoracolumbar spine. Mild to moderate multilevel degenerative changes in the thoracic and lumbar spine as visualized. IMPRESSION: Slight increase in size of Bosniak category 3 cystic lesion in the LEFT kidney since October 2024. These lesions have an intermediate probability of malignancy. No other suspicious renal lesions. Patient is being managed by urology. Thank you for allowing me to participate in the care of this patient. Electronically Signed By: Pasha Gloria MD Lizette [facility] MRI PROCEDURES Final Result * CBC Auto Differential (12/22/2022 12:36 PM EDT) WBC 5.1 4.3 - 10.8 10*3/uL 12/22/2022 1:06 PM EDT [facility] RBC 4.32 3.80 - 5.10 10*6/uL 12/22/2022 1:06 PM EDT [facility] Hemoglobin 12.7 11.7 - 15.5 g/dL 12/22/2022 1:06 PM EDT [facility] Hematocrit 38.1 35.0 - 46.0 % 12/22/2022 1:06 PM EDT [facility] MCV 88.2 80.0 - 100.0 fL 12/22/2022 1:06 PM EDT [facility] MCH 29.4 27.0 - 34.0 pg 12/22/2022 1:06 PM EDT [facility] MCHC 33.3 29.0 - 36.0 g/dL 12/22/2022 1:06 PM EDT [facility] RDW 12.8 11.0 - 15.0 % 12/22/2022 1:06 PM EDT [facility] Platelets 252 140 - 440 10*3/uL 12/22/2022 1:06 PM EDT [facility] MPV 8.9 7.6 - 11.6 fL 12/22/2022 [facility] Neutrophil % 46.7 % 12/22/2022 1:06 [facility] Lymphocyte % 34.9 % 12/22/2022 1:06 PM EDT [facility] Monocyte % 10.8 % 12/22/2022 1:06 [facility] Eosinophil % 6.4 % 12/22/2022 1:06 [facility] Basophil % 1.2 % 12/22/2022 1:06 PM EDT [facility] Neutrophil # 2.41 1.60 - 7.50 10*3/uL 12/22/2022 1:06 PM EDT [facility] Lymphocyte # 1.8 0.9 - 3.4 10*3/uL 12/22/2022 1:06 PM [facility] Monocyte # 0.6 0.0 - 1.2 10*3/uL 12/22/2022 1:06 PM [facility] Eosinophil # 0.3 0.0 - 0.6 10*3/uL 12/22/2022 1:06 PM EDT [facility] Basophil # 0.1 0.0 - 0.3 10*3/uL 12/22/2022 1:06 PM EDT [facility] Smear Review? No [place] MANUAL 12/22/2022 1:06 PM EDT [facility] Blood Structure of peripheral vein / Unknown Venipuncture / Unknown 12/22/2022 12:36 PM EDT 12/22/2022 12:41 PM EDT us Rima Luu TRANSPORTATION DEPARTMENT SUPERVISOR LAB BLOOD ORDERABLES Final Res ult [facility] [address] [place] [address], * (ABNORMAL) Basic metabolic panel (12/22/2022 12:36 PM EDT) NA 140 135 - 145 mmol/L 12/22/2022 1:36 PM EDT [facility] K 3.9 3.5 - 5.3 mmol/L 12/22/2022 1:36 PM EDT [facility] Cl 103 97 - 110 mmol/L 12/22/2022 1:36 PM EDT [facility] CO2 29 24 - 32 mmol/L 12/22/2022 1:36 PM EDT [facility] BUN 28(H) 7 - 23 mg/dL 12/22/2022 1:36 PM EDT [facility] Creatinine 1.65(H) 0.50 - 1.20 mg/dL 12/22/2022 1:36 PM EDT [facility] Glucose 89 70 - 99 mg/dL 12/22/2022 1:36 PM EDT [facility] Calcium 10.0 8.7 - 10.7 mg/dL 12/22/2022 1:36 PM EDT [facility] Anion Gap 8 5 - 15 12/22/2022 1:36 PM EDT [facility] eGFR 34(L) >=90 mL/min/1. 73m2 12/22/2022 1:36 PM EDT [facility] Comment: Estimated Glomerular [...] 12/22/2022 12:41 PM EDT us Rima Luu TRANSPORTATION DEPARTMENT SUPERVISOR LAB BLOOD ORDERABLES Final Res ult [facility] [address] [place] [address], [place] from Last 3 Months or Most Recently Relevant to Health Maintenance Insurance MEDICARE [facility] Care Teams Vehicle Operator Technician Relationship Specialty Start Date End Date Shanna Parker MD [address] [place] [address] PCP - General Internal Medicine 12/18/22
--- OUTSIDE RECORDS SUMMARY | 2025-07-13 10:41 | XMS_ITS | Encounter Summary ---
Author Organization [facility] Address [address] [place] [address] Phone Care Team Providers Care Field Appraiser Name Role Phone Yamel Parker MD Primary Care Provider [phone] Encounter Details Date Type Department Care Team (Late st Contact Info) Description 12/08/2020 Orders Only [facility] [address] [place] [id number] Provider, MD Flora Social History Tobacco Use [...] on filedocumented in this encounter Care Teams Field Appraiser Relationship Specialty Start Date End Date Yamel Parker MD [address] [place] [id number] PCP - General 09/27/20 documented as of this encounter
--- OUTSIDE RECORDS SUMMARY | 2025-07-13 10:41 | XMS_ITS | Patient Health Record ---
Author Organization [facility] Address [address] [place] [address] Care Team Providers Care Quality Assurance Director Name Role Phone Elena RIVERA, Shanna Pinto Primary Care Provider Un available Kalli Romero Unavailable [phone] Allergies No Known Allergies Reason For Referral No Information Medications Medication SIG (Take, Route, Frequency, Duration) Notes Start Date End Date Status Lisinopril 20 MG 1 tablet Orally Once a day Active Carvedilol 25 MG 1 tablet with food O rally Twice a day Active Carbidopa-Levodopa 25-100 MG 1 tablet as needed Orally Two times a Week Active Mirabegron ER 25 MG 1 tablet Orally Once a day Active Lisinopril-hydroCHLOROthia zide 20-12.5 MG 1 tablet Orally Once a day Active Immunizations Vaccine Route Administration Date Status Comme nts Influenza Unknown 06/17/2024 Administered Social History Tobacco Use: Social History Observation Description Date Details (start date - stop date) Never Smoker NA - NA Tobacco use other than smoking: Question Answer Notes Are you an other tobacco user? No Tobacco Control (Standard) Question Answer Notes Tobacco use: Nonsmoker Additional Findings: Tobacco non-user Current no nsmoker AUDIT-C (Standard) Question Answer Notes Did you have a drink containing alcohol in the p ast year? No Points 0 Interpretation Negative Problems Problem Type SNOMED Code ICD Code Onset Dates Problem Status W/U Status Risk Notes Problem Acquired hammer toe of right foot ([id number]) Other hammer toe(s) (acquired), right foot (M20.41) Active confirmed Problem Localized, primary osteoarthritis of the ankle and/or foot (396623655) Arthritis of joint of lesser toe, right (M19.071) Active confirmed Vital Signs Blood pressure diastolic 65 mm Hg 04/22/2025 Height 5ft 4in in 04/22/2025 Blood pressure systolic 130 mm Hg 04/22/2025 Weight 180 lbs 04/22/2025 BMI 30.89 kg/m2 04/22/2025 Encounters Encounter Location Date Provider Diagnosis [facility] [address] 04/22/2025 Kalli Romero Pain in right toe(s) M79.674 ; Other hammer toe(s) (acquired), right foot M20.41 ; Arthritis of joint of lesser toe, right M19.071 and Subluxation of metatarsophalangeal joint of toe, initial encounter S93.149A [facility] [address] 04/22/2025 Kalli Heather Assessments Encounter Date Diagnosis (ICD Code) Assessment Notes Treatment Notes Treatment Clinical Notes Section Notes 04/22/2025 Pain in right toe(s) (ICD-10 - M79.674) 04/22/2025 Other hammer toe(s) (acquired), right foot (ICD-10 - M20.41) 04/22/2025 Arthritis of joint o f lesser toe, right (ICD-10 - M19.071) 04/22/2025 Subluxation of metatarsophalangeal joint of toe, initial encounter (ICD-10 - S93.149A) Plan Of Treatment Pending Test Test Name Order Date X ray : Foot, right 3V 04/22/2025 Insurance Providers Payer Name Payer Address Payer Phone Subscriber Number Group Number Insured Name Patient Relationship to Insured Coverage Start Date Coverage End Date Medicare [employer] [address] [place] [address] [id number] Nasima Resendiz Self - patient is the insured [employer] [facility] [address] [place] [address] [id number] Nasima Resendiz Self - patient is the insured Medical (General) History Medical History History ICD Code Arthritis Back,Hip,and Knee pain Cataracts Gall bladder problems High Blood Pressure Kidney disease Parkinsons disease Chicken pox Bone implants/screws Lymphedema Levoscoliosis Surgical History Surgery Date(Month/Year) cholecystectomy 1988 left knee arthroscopy 2006 total right knee replacement 2021 cataract surgery- lens
== END 2025-07-13 10:49 | disposition home or self-care (01) ==
LOC: HO.HMCC 09:30
PROVIDERS: PCP Internal Medicine; Visit Provider Internal Medicine
DX: Z00.00 Encounter for general adult medical examination without abnormal findings (principal); I12.9 Hypertensive chronic kidney disease with stage 1 through stage 4 chronic kidney disease, or unspecified chronic kidney disease; N18.30 Chronic kidney disease, stage 3 unspecified; E78.5 Hyperlipidemia, unspecified; R73.01 Impaired fasting glucose; M85.89 Other specified disorders of bone density and structure, multiple sites; K21.9 Gastro-esophageal reflux disease without esophagitis; N28.1 Cyst of kidney, acquired; N39.3 Stress incontinence (female) (male)

== ENCOUNTER → 2025-07-13 09:29 | Outpatient (BNVA) | payer MEDICARE, SELFPAY | PROVIDERS: PCP Internal Medicine; Visit Provider Internal Medicine | DX: Z13.39 Encounter for screening examination for other mental health and behavioral disorders (principal) | CPT/HCPCS: 96127 ==

== ENCOUNTER 2025-07-20 13:32 | Outpatient (AMB) | payer MEDICARE, SELFPAY ==
[2025-07-20 13:35] VITALS: BP 118/70; PULSE 76; O2SAT 98; BMI 30.8
--- NOTE | 2025-07-20 13:35 | A.OFFVIS_ITS ---
Vital Signs 07/20/25 13:35 Height 5 ft 4 in Weight 179 lb 6 oz BMI 30.8 BP 118/70 Blood Pressure Location Rt brachial Position Sitting Pulse 76 Pulse Source Pulse Oximeter Pulse Oximetry (%) 98 Oxygen Delivery Method Room Air Intake Visit Reasons: F/U Intake Note: Follow up Parkinson's disease without dyskinesia Nurses Supervisor Required: No Accompanied by: Self / Same As Patient Allergies No Known Allergies Allergy (Verified 07/20/25 13:35) HPI Comments Details: 70year old female presents for f/u of Parkinsons disease.she started rasagiline. she is doing good.she reports intermittent lightheadedness . She continues to take her Sinemet 25/100 1, 7AM, 11PM, 3PM,1 tab 7 pm 1 tab 11PM. She continues to have tremors of the UE R>L side, and weakness on the UE and LE on the R side along with difficulty with coordination. She has freezing and stiffening of the R. Leg and cramps at night. Her toes on the right foot curling - turns outside when she walks Her helps with most of her ADLs, and does most of the shopping. Her mood is pleasant, speech is soft, gait is off balance, tilts to the left, sleep is good, and she has frequent urination with incontinence. She denies memory issues or word finding difficulty. She denies headaches, vision changes, hallucinations, dizziness, swallowing difficulties, drooling, falls, difficulty with turning over in bed, exercises at home as she is able to. [facility] Medical History Acute respiratory disease Osteopenia of multiple sites Parkinson's disease without dyskinesia BRCA gene mutation negative Tremor of both hands Right shoulder pain Levoscoliosis of lumbar spine Lumbago Gait instability Aaron's esophagus without dysplasia Hypertensive nephrosclerosis Chronic kidney disease, stage 3 Varicose veins of both lower extremities Menopause ovarian failure CKD (chronic kidney disease) Renal cyst, left Cataract Right ovarian cyst GERD (gastroesophageal reflux disease) Dyslipidemia Essential hypertension Surgical History History of lateral meniscus repair of left knee History of esophagogastroduodenoscopy (EGD) Hx of colonoscopy Cataract extraction status of left eye Cataract extraction status of right eye Hx of cholecystectomy History of removal of skin mole History of knee surgery Family History Father Unknown family medical history Mother Breast cancer Maternal Aunt Breast cancer Son No problems noted. Daughter No problems noted. Social History Household Members: Spouse Housing: Condominium Are you a primary care transition coordinator to a significant other at home: No Do you presently have visiting nurse or other home services: No Alcohol intake: never Patient Tobacco Use Status: Never used Tobacco e-Cigarette/Vaping Use: Never Used Advance Directives Date on File: 07/04/22 service: No Current occupational status: unemployed Current occupation: Right Handed Gender identity: Female Cognitive needs: No Hearing needs: No Vision needs: Yes Female Reproductive History Menstrual Age of Menarche: 10 Review of Systems Neuro Reports Abnormal speech present (Hypophonia) Physical Exam Vital Signs: Last Vital Signs Pulse 76 07/20/25 13:35 BP 118/70 07/20/25 13:35 Pulse Ox 98 07/20/25 13:35 Oxygen Delivery Method Room Air 07/20/25 13:35 BMI result Body Mass Index 30.8 Const General: cooperative, healthy appearing and no acute distress Nutritional Appearance: average body habitus and obese Orientation/consciousness: patient oriented x3 HEENT Head: Yes normal to inspection Neck Neck: Yes other (Mild Antecollis and restricted ROM) Neuro General: patient oriented x3, no focal motor deficits and other (mild decreased blink and facial expression) Cranial nerves: Yes CN's II-XII intact bilaterally, Yes Bilaterally intact EOM present, Yes Normal facial strength present, Yes Midline tongue present, Yes Ability to bilaterally rotate head present and Yes Ability to bilaterally elevate shoulders present Speech: Abnormal speech present (Hypophonia) Gait exam (Neuro): Assistive device used and Other gait observations present (Stooped, slowness and decreased arm swing R>L, drags her right foot.) Motor exam (neuro): 5/5 motor strength present throughout, Normal motor muscle tone present throughout and Other motor observations present (Moderate Ajit ykinesia ) Coordination: [id number] test normal (severely decreased bilaterally R>L), rapid alternating movements of the distal upper extremity normal (decreased bilaterally R>L) and rapid alternating movements of the distal lower extremity normal (Decreased Bilaterally R>L) Assessment & Plan Assessment & Plan (1) Parkinson's disease without dyskinesia: Comment: stage 2 B Code(s): G20.A1 - Parkinson's disease without dyskinesia, without mention of fluctuations Category: Medical Plan: PT for gait and balance training- continue exercises Increase fluid intake - Sinemet 25/100 1 tab 7am,11am,3pm,7 pm,11pm rasagiline 1mg qd Coding Level of Care Code Est Pt Level 4 (98819) Diagnoses Parkinson's disease without dyskinesia G20.A1
== END 2025-07-20 14:08 | disposition home or self-care (01) ==
LOC: HO.HSMS 13:33
PROVIDERS: Visit Provider Psychiatry & Neurology Neurology
DX: G20.A1 Parkinson's disease without dyskinesia, without mention of fluctuations (principal)
CPT/HCPCS: 99214

== ENCOUNTER → 2025-07-20 13:32 | Outpatient (BNVA) | payer MEDICARE, SELFPAY | PROVIDERS: Visit Provider Psychiatry & Neurology Neurology | DX: G20.A1 Parkinson's disease without dyskinesia, without mention of fluctuations (principal); F06.70 Mild neurocognitive disorder due to known physiological condition without behavioral disturbance; R26.81 Unsteadiness on feet; R39.81 Functional urinary incontinence | CPT/HCPCS: 99212 ==

== ENCOUNTER 2025-07-23 13:06 | Outpatient (RCR) | payer MEDICARE, SELFPAY ==
--- NOTE | 2025-05-21 15:18 | MHC.OT.EP ---
[facility] Office [address] [phone] F: [phone] F: [phone] Occupational Therapy Plan of Care Patient Name: Nasima Musa Date of Evaluation: 05/21/25 Diagnosis: Parkinsons disease Pain Location: Left knee occasionally 12/25 Assessment: Nasima is a 69 y/o right hand dominant female referred to OT w/ Parkinsons disease. She first noticed symptoms several years ago beginning with R hand tremor, heaviness of R LE, and weakness on the UE/LE along with difficulty coordinating movements. She occasionally has freezing of gait and toes curling on the right foot. Pt presents with bradykinesia, decreased balance, decreased standing endurance, and tremor with decreased coordination of R UE. Nasima would benefit from skilled OT services to address noted barriers and maximize functional IND. Frequency and Duration: The patient will be seen 2x/wk for 6 weeks Short Term Goals: Improve standing endurance >10 min for increased ease with ADL's Complete floor>stand transitions with min A Demo increased RUE strength to lift/carry 10 lbs for inc ease with IADL's Senior Support Engineer Goals: Pt will perform complex movement sequences (getting in/out of car, navigating crowded spaces) with increased speed and confidence Improve R hand coordination as evidenced by >6 sec improvement on FDT Perform dynamic balance activities including reaching in multiple planes while standing without LOB IND with PWR! moves (up, rock, twist, step) to increase ease with functional tasks Treatment Plan: Therapeutic Exercise Therapeutic Activity Home Exercise Program Neuro Re-ed Patient Education ADL Training Other (see comments) PWR! Moves Program to address balance, flexibility, coordination, and strengthening Electronically Signed By: Michelle Carver MS, OTR/L Please Sign and return to therapist. Thank you once again for your referral.
== END 2025-07-23 15:11 | disposition home or self-care (01) ==
LOC: HO.OTS 13:06
PROVIDERS: Visit Provider Psychiatry & Neurology Neurology
DX: G20.A1 Parkinson's disease without dyskinesia, without mention of fluctuations (principal)
CPT/HCPCS: 97110; 97112; 97166; 97530

== ENCOUNTER 2025-07-28 15:49 | Outpatient (REF) | payer MEDICARE, SELFPAY ==
[2025-07-28 17:06] LABS: Anion Gap 11 (12-20); Blood Urea Nitrogen 23 mg/dL (9-16); Calcium 9.8 mg/dL (8.4-10.2); Carbon Dioxide 28 mmol/L (22-29); Chloride 107 mmol/L (96-108); Estimated Glomerular Filt Rate 37; Potassium 3.9 mmol/L (3.3-5.1); Sodium 142 mmol/L (135-145)
--- OUTSIDE RECORDS SUMMARY | 2025-07-28 17:16 | XMS_ITS | Patient Health Record ---
[facility] Address [address] [facility] [place] [address] Care Team Providers Care Bullet Swaging Machine Adjuster Name Role Phone Elena RIVERA, Shanna Pinto Primary Care Provider Un available Kalli Romero Unavailable [phone] Allergies No Known Allergies Reason For Referral [...] Problem Acquired hammer toe of right foot ([id number]) Other hammer toe(s) (acquired), right foot (M20.41) Active confirmed Problem Localized, primary osteoarthritis of the ankle and/or foot (728923038) Arthritis of joint of lesser toe, right (M19.071) Active confirmed Vital Signs Blood pressure diastolic 65 mm Hg 04/22/2025 Height 5ft 4in in 04/22/2025 Blood pressure systolic 130 mm Hg 04/22/2025 Weight 180 lbs 04/22/2025 BMI 30.89 kg/m2 04/22/2025 Encounters Encounter Location Date Provider Diagnosis [facility] [address] 04/22/2025 Kalli Romero Pain in right toe(s) M79.674 ; Other hammer toe(s) (acquired), right foot M20.41 ; Arthritis of joint of lesser toe, right M19.071 and Subluxation of metatarsophalangeal joint of toe, initial encounter S93.149A [facility] [address] 04/22/2025 Kalli Heather Assessments Encounter Date Diagnosis [...] Medicare [employer] [address] [place] [address] [id number] Nasima Resendiz Self - patient is the insured [employer] [facility] [address] [place] [address] [id number] Nasima Resendiz Self - patient is the insured Medical (General) History Medical History History ICD Code Arthritis Back,Hip,and Knee pain Cataracts Gall bladder problems High Blood Pressure Kidney disease Parkinsons disease Chicken pox Bone implants/screws Lymphedema Levoscoliosis Surgical History Surgery Date(Month/Year) cholecystectomy 1988 left knee arthroscopy 2006 total right knee replacement 2021 cataract surgery- lens
--- OUTSIDE RECORDS SUMMARY | 2025-07-28 17:16 | XMS_ITS | Clinical Summary ---
Author Organization [facility] Address [address] [place] [address] Care Team Providers Care Focusing Machine Operator Name Role Phone Shanna Parker [...] Team Description 06/10/2025 4:30 PM EDT Telehealth [facility] [address] [place] [address] Emergency Medical Service Manager: Rima Payan NP Complex renal cyst (Primary Dx) 06/10/2025 Telephone [facility] [address] [place] [address] Emergency Medical Service Manager: Rima Payan NP from Last 3 Months Social History Tobacco [...] Info) Description 01/08/2026 4:30 PM EDT Telehealth [facility] [address] [place] [address] Emergency Medical Service Manager: Rima Payan, SCHOOL MANAGER [address] [place] [address] Health Maintenance Due Date Last Done Comments [...] complete this topic Procedures * Due to [place] Higgle law, this organization might not be sharing negative HIV tests. Procedure Name Priority Date/Time Associated Diagnosis Comments CBC AUTO DIFFERENTIAL Routine 12/22/2022 12:36 PM EDT Renal mass BASIC METABOLIC PANEL Routine 12/22/2022 12:36 PM EDT Renal mass from Last 3 Months or Most Recently Relevant to Health Maintenance Results * Due to [place] Higgle law, this organization might not be sharing negative HIV tests. * CBC Auto Differential (12/22/2022 12:36 PM EDT) WBC 5.1 4.3 - 10.8 10*3/uL 12/22/2022 1:06 PM EDT [facility] RBC 4.32 3.80 - 5.10 10*6/uL 12/22/2022 1:06 PM EDT [facility] Hemoglobin 12.7 11.7 - 15.5 g/dL 12/22/2022 1:06 PM EDT [facility] Hematocrit 38.1 35.0 - 46.0 % 12/22/2022 1:06 PM EDT [facility] MCV 88.2 80.0 - 100.0 fL 12/22/2022 1:06 PM EDT [facility] MCH 29.4 27.0 - 34.0 pg 12/22/2022 1:06 PM EDT [facility] MCHC 33.3 29.0 - 36.0 g/dL 12/22/2022 1:06 PM EDT [facility] RDW 12.8 11.0 - 15.0 % 12/22/2022 1:06 PM EDT [facility] Platelets 252 140 - 440 10*3/uL 12/22/2022 1:06 PM EDT [facility] MPV 8.9 7.6 - 11.6 fL 12/22/2022 1:06 PM EDT [facility] Neutrophil % 46.7 % [facility] Lymphocyte % 34.9 % 12/22/2022 1:06 PM EDT [facility] Monocyte % 10.8 % 12/22/2022 1:06 PM EDT [facility] Eosinophil % 6.4 % 12/22/2022 1:06 PM EDT [facility] Basophil % 1.2 % 12/22/2022 1:06 PM EDT [facility] Neutrophil # 2.41 1.60 - 7.50 10*3/uL 12/22/2022 1:06 PM EDT [facility] Lymphocyte # 1.8 0.9 - 3.4 10*3/uL 12/22/2022 1:06 PM EDT [facility] Monocyte # 0.6 0.0 - 1.2 10*3/uL 12/22/2022 1:06 PM EDT [facility] Eosinophil # 0.3 0.0 - 0.6 10*3/uL 12/22/2022 1:06 PM EDT [facility] Basophil # 0.1 0.0 - 0.3 10*3/uL 12/22/2022 1:06 PM EDT [facility] Smear Review? No [place] MANUAL 12/22/2022 1:06 PM EDT [facility] Blood Structure of peripheral vein / Unknown Venipuncture / Unknown 12/22/2022 12:36 PM EDT 12/22/2022 12:41 PM EDT us Rima Luu SCHOOL MANAGER LAB BLOOD ORDERABLES Final Res ult [facility] [address] [place] [address], * (ABNORMAL) Basic metabolic panel (12/22/2022 12:36 PM EDT) NA 140 135 - 145 mmol/L 12/22/2022 1:36 PM EDT [facility] K 3.9 3.5 - 5.3 mmol/L 12/22/2022 1:36 PM EDT [facility] Cl 103 97 - 110 mmol/L 12/22/2022 1:36 PM EDT [facility] CO2 29 24 - 32 mmol/L 12/22/2022 1:36 PM EDT [facility] BUN 28(H) 7 - 23 mg/dL 12/22/2022 1:36 PM EDT [facility] Creatinine 1.65(H) 0.50 - 1.20 mg/dL 12/22/2022 1:36 PM EDT [facility] Glucose 89 70 - 99 mg/dL 12/22/2022 1:36 PM EDT [facility] Calcium 10.0 8.7 - 10.7 mg/dL 12/22/2022 1:36 PM EDT [facility] Anion Gap 8 5 - 15 12/22/2022 1:36 PM EDT [facility] eGFR 34(L) >=90 mL/min/1. 73m2 12/22/2022 1:36 PM EDT [facility] Comment: Estimated Glomerular [...] 12/22/2022 12:41 PM EDT us Rima Luu SCHOOL MANAGER LAB BLOOD ORDERABLES Final Res ult [facility] [address] [place] [address], from Last 3 Months or Most Recently Relevant to Health Maintenance Insurance MEDICARE [facility] Care Teams Focusing Machine Operator Relationship Specialty Start Date End Date Shanna Parker MD [address] [place] [address] PCP - General Internal Medicine 12/18/22
--- OUTSIDE RECORDS SUMMARY | 2025-07-28 17:16 | XMS_ITS | Patient Health Record ---
Author Organization [facility] Address [address] [place] [address] Care Team Providers Care Construction Laborer Name Role Phone Elena RIVERA, Shanna Primary Care Provider Sami Salas Unavailable [phone] Reason For Referral No Information Medications Medication [...] Duration: 30 Active Vitamin D3 1.25 MG (35617 UT) TAKE ONE CAPSULE BY MOUTH ONCE [...] Problem Screening for malignant neoplasm of colon (668927193) Encounter for screening for malignant neoplasm of colon (Z12.11) Active confirmed Problem Screening for malignant neoplasm of rectum (482548457) Encounter for screening for malignant neoplasm of rectum (Z12.12) Active confirmed Problem Aaron's esophagus (233146696) Barretts esophagus without dysplasia (K22.70) Active confirmed Problem Esophageal stricture (69206739) Esophageal stricture (K22.2) Active confirmed Problem Esophageal dysphagia (88295043) Esophageal dysphagia (R13.14) Active confirmed Plan Of Treatment Future Test Test Name Order Date UPPER GI ENDOSCOPY BALLOOON DILATION OF ESOPH 12/06/2016 COLONOSCOPY 12/06/2016 UPPER GI ENDOSCOPY 02/03/2021 Insurance Providers Payer Name Payer Address Payer Phone Subscriber Number Group Number Insured Name Patient Relationship to Insured Coverage Start Date Coverage End Date [facility] [address] [address] [place], [place] [id number] [phone] [id number] WILBUR-YAMIL FERRER Self - patient is the insured MEDICAID OF [facility] [address] [place] [address] [id number] WILBUR-YAMIL FERRER Self - patient is the insured Medical (General) History Medical History History ICD Code Hypertension Denies ME,DM,CVA,Lung disease,renal dise ase Reported Negative screening colonoscopy with Dr. Cunningham in [place], [place] at age 51 Pneumonia 10/2016 Negative screening colonoscopy in 02/2017 Esophageal stricture dilated in 02/2017--small area of Aaron's esophagus--negative for dysplasia Chronic kidney disease-Bosniak cyst Osteopenia Frozen right shoulder Surgical History Surgery Date(Month/Year) Cholecystectomy 1989 Left knee Cataracts
== END 2025-07-28 15:50 | disposition home or self-care (01) ==
LOC: HO.LAB 15:49
PROVIDERS: PCP Internal Medicine; Visit Provider Internal Medicine Hypertension Specialist
DX: N18.30 Chronic kidney disease, stage 3 unspecified (principal)
CPT/HCPCS: 36415; 80048

== ENCOUNTER 2025-07-30 10:22 | Outpatient (AMB) | payer MEDICARE, SELFPAY ==
[2025-07-30 10:30] VITALS: BP 106/62; PULSE 82; O2SAT 95; BMI 30.6
--- NOTE | 2025-07-30 10:30 | HO.NEPHOV ---
Vital Signs 07/30/25 10:30 Height 5 ft 4 in Weight 178 lb BMI 30.6 BP 106/62 Blood Pressure Location Rt brachial Position Sitting Pulse 82 Pulse Source Pulse Oximeter Pulse Oximetry (%) 95 Oxygen Delivery Method Room Air Intake Visit Reasons: 6 MO FU Pediatric Oncology Nurse Required: No Accompanied by: Self / Same As Patient Allergies No Known Allergies Allergy (Verified 07/30/25 10:33) Medication List - Last Reconciled 07/30/25 by Jan Kemp MD carbidopa-levodopa 25-100 mg 2 tabs 8am, 1tab at 1pm, 2 tabs at 6 pm and 1 tab at 11 pm orally 4 times a day; carvedilol 25 mg PO BID famotidine (Pepcid) 20 mg PO DAILY PRN geriatric vlbawbuu-lpnp-akjv 1 tab PO DAILY lisinopril 20 mg PO .every other day lisinopril-hydrochlorothiazide 20-12.5 mg 1 tab PO Q OTHER DAY melatonin mg PO PRN mirabegron ER (Myrbetriq) 25 mg PO DAILY 90 days rasagiline 1 mg PO DAILY walker Folding front wheeled walker HPI Comments Details: 69 yr old woman with a h/o long standing HTN and CKD with a baseline creatinine of about 1.5 mg /dL referred for management of CKD She has a h/o renal cyst- Bosnick 3 . Currently being follow closely by Urology( [facility] [place] and [facility]) c/o Weakness. Says this started after knee surgery. Also has resting tremor in right UR adn waiting to see NEurology on 10/30/23 c/o Leg cramps on and off Overall BP has been well controlled. Several episodes of low BP noted She is on Lisinopril 20 mg AND HCTZ 25 mg QD along with Coreg 12.5 mg BID 10/25/23 After lowering HCTZ, cr is down to 1.37 from 1.6 Seen by Neuro- diagnosed with Parkinsons Started on Sinemet 05/13/2024. She was started on Lotrel last visit. She is not tolerating this and complains of edema and weight gain. She also has constipation. 08/12/24 Overall doing well;On alternating Lisinopril and Lisinopril HCTZ No lightheadedness No further constipation - on Metamucil 01/27/25 69-year-old female presenting with a follow-up visit for renal cyst monitoring and kidney function assessment. She reports no difficulty with urination and stable kidney-associated symptoms. A prior MRI in October showed a complex cyst on the left kidney, which has been slightly decreasing in size since March 2024. Observations included simple cysts that have remained stable or decreased in size, indicating a positive response in renal structures. Her medical history includes Parkinson's Disease affecting mobility, and lymphedema noted to differ from common fluid retention. Her overall kidney function remains stable, with no fluctuations in the recent creatinine measure. The patient?s medical regimen, including lisinopril and carvedilol, remains unchanged. 07/30/25 The patient is a 70-year-old female presenting with hypertension and chronic kidney disease. Hypertension management includes carvedilol and lisinopril, but the patient experiences dizziness and lightheadedness, especially in the mornings, potentially due to low blood pressure. Blood pressure has been recorded as low as 106 mmHg, leading to a review of her medication regimen. Chronic kidney disease remains stable with creatinine levels between 1.3 and 1.4 mg/dL over the past year. The highest creatinine level was 2.02 mg/dL in 2021, linked to decreased kidney function post-knee surgery and pain medication use. [facility] Medical History Acute respiratory disease Osteopenia of multiple sites Parkinson's disease without dyskinesia BRCA gene mutation negative Tremor of both hands Right shoulder pain Levoscoliosis of lumbar spine Lumbago Gait instability Aaron's esophagus without dysplasia Hypertensive nephrosclerosis Chronic kidney disease, stage 3 Varicose veins of both lower extremities Menopause ovarian failure CKD (chronic kidney disease) Renal cyst, left Cataract Right ovarian cyst GERD (gastroesophageal reflux disease) Dyslipidemia Essential hypertension Surgical History History of lateral meniscus repair of left knee History of esophagogastroduodenoscopy (EGD) Hx of colonoscopy Cataract extraction status of left eye Cataract extraction status of right eye Hx of cholecystectomy History of removal of skin mole History of knee surgery Family History Father Unknown family medical history Mother Breast cancer Maternal Aunt Breast cancer Son No problems noted. Daughter No problems noted. Social History Household Members: Spouse Housing: Condominium Are you a primary career portals teacher to a significant other at home: No Do you presently have visiting nurse or other home services: No Alcohol intake: never Patient Tobacco Use Status: Never used Tobacco e-Cigarette/Vaping Use: Never Used Advance Directives Date on File: 07/04/22 service: No Current occupational status: unemployed Current occupation: Right Handed Gender identity: Female Cognitive needs: No Hearing needs: No Vision needs: Yes Female Reproductive History Menstrual Age of Menarche: 10 Physical Exam Vital Signs: Last Vital Signs Pulse 82 07/30/25 10:30 BP 106/62 07/30/25 10:30 Pulse Ox 95 07/30/25 10:30 Oxygen Delivery Method Room Air 07/30/25 10:30 BMI result Body Mass Index 30.6 Const General: comfortable; No acute distress Orientation/consciousness: patient oriented x3 Eyes General: appearance normal, both eyes and all related structures Visual Castillo: normal visual castillo by confrontation Neck Neck: Yes supple and Yes no JVD Resp Effort & Inspection: normal respiratory effort and respiratory effort not decreased Auscultation: rhonchi Cardio Palpation: no palpable S3 and no palpable S4 Heart sounds: no rubs GI Inspection: Yes normal to inspection Palpation (GI): Soft to palpation Percussion: Yes normal to percussion Auscultation: normal bowel sounds General: Yes no CVA tenderness Back/Spine/Pelvis Back: no CVA tenderness Skin General skin exam: no petechiae and no purpura Neuro General: patient oriented x3 and no focal motor deficits Extrem General: No clubbing and No edema Results Reviewed Nephrology Results: Sodium, (135-145) 142 mmol/L 07/28/25 Potassium, (3.3-5.1) 3.9 mmol/L 07/28/25 Chloride, (96-108) 107 mmol/L 07/28/25 Carbon Dioxide, (22-29) 28 mmol/L 07/28/25 BUN, (9-16) 23 mg/dL H 07/28/25 Creatinine, (0.5-1.4) 1.40 mg/dL 07/28/25 Calcium, (8.4-10.2) 9.8 mg/dL 07/28/25 Assessment & Plan Assessment & Plan (1) Chronic kidney disease, stage 3: Code(s): N18.30 - Chronic kidney disease, stage 3 unspecified Category: Medical Plan: Most likely due to hypertensive nephrosclerosis No obstruction based on imaging No significant proteinuria or hematuria. - GN or IN seem unlikely Urine specific gravity has been persistently elevated There could be a component of volume depletion causing hypoperfusion and ARMAND Creatinine back to baseline of 1.3 to 1.4 (2) Essential hypertension: Code(s): I10 - Essential (primary) hypertension Category: Medical Plan: BP rather low DC HCTZ Keep on Lisinopril 20 mg QD Encouraged here to watch BP at home (3) Renal cyst, left: Comment: Shruthi 3 on MRI 08/06 Code(s): N28.1 - Cyst of kidney, acquired Category: Medical Plan: Follow with Urology Plan s/p MRI in April 2025 in [place]( monitored by Urology) Renal imaging will remain a periodic routine to track the cysts, noting any change in size or new developments. Orders: Orders Basic Metabolic Panel 6 Months N18.30 - Chronic kidney disease, stage 3 unspecified Medications: Changed From lisinopril 20 mg PO .every other day 90 tabs 0RF To lisinopril 20 mg PO DAILY 90 tabs 0RF Discontinued lisinopril-hydrochlorothiazide 20-12.5 mg Discontinued Reason: Doctor's Order 1 tab PO Q OTHER DAY 45 tabs 1RF Coding Level of Care Code Est Pt Level 4 (23478) Diagnoses Chronic kidney disease, stage 3 N18.30 Essential hypertension I10 Renal cyst, left N28.1
--- OUTSIDE RECORDS SUMMARY | 2025-07-30 12:44 | XMS_ITS | Patient Health Record ---
Author Organization [facility] Address [address] [place] [address] Care Team Providers Care Associate Professor Computer Science Name Role Phone Elena RIVERA, Shanna Primary Care Provider Sami Salas Unavailable [phone] Reason For Referral No Information Medications Medication [...] Duration: 30 Active Vitamin D3 1.25 MG (27264 UT) TAKE ONE CAPSULE BY MOUTH ONCE [...] Problem Screening for malignant neoplasm of colon (240885018) Encounter for screening for malignant neoplasm of colon (Z12.11) Active confirmed Problem Screening for malignant neoplasm of rectum (869670542) Encounter for screening for malignant neoplasm of rectum (Z12.12) Active confirmed Problem Aaron's esophagus (455082769) Barretts esophagus without dysplasia (K22.70) Active confirmed Problem Esophageal stricture (38173884) Esophageal stricture (K22.2) Active confirmed Problem Esophageal dysphagia (14596801) Esophageal dysphagia (R13.14) Active confirmed Plan Of Treatment Future Test Test Name Order Date UPPER GI ENDOSCOPY BALLOOON DILATION OF ESOPH 12/06/2016 COLONOSCOPY 12/06/2016 UPPER GI ENDOSCOPY 02/03/2021 Insurance Providers Payer Name Payer Address Payer Phone Subscriber Number Group Number Insured Name Patient Relationship to Insured Coverage Start Date Coverage End Date [facility] [address] [address] [place], [place] [id number] [phone] [id number] WILBUR-YAMIL FERRER Self - patient is the insured MEDICAID OF [facility] [address] [place] [address] [id number] WILBUR-YAMIL FERRER Self - patient is the insured Medical (General) History Medical History History ICD Code Hypertension Denies NE,DM,CVA,Lung disease,renal dise ase Reported Negative screening colonoscopy with Dr. Cunningham in [place], [place] at age 51 Pneumonia 10/2016 Negative screening colonoscopy in 02/2017 Esophageal stricture dilated in 02/2017--small area of Aaron's esophagus--negative for dysplasia Chronic kidney disease-Bosniak cyst Osteopenia Frozen right shoulder Surgical History Surgery Date(Month/Year) Cholecystectomy 1989 Left knee Cataracts
--- OUTSIDE RECORDS SUMMARY | 2025-07-30 12:44 | XMS_ITS | Clinical Summary ---
Author Organization [facility] Address [address] [address] Care Team Providers Care Golf Course Assistant Name Role Phone Yamel Parker MD Primary Care Provider [phone] Allergies No known active allergies Medications Multiple [...] Comments Cancer Father hepatocellular Heart disease Father OR 60 y/o Hypertension Father Hypertension Mother Relation [...] age to complete this topic Insurance Medicare [facility] [address] [place] [address] [facility] Care Teams Golf Course Assistant Relationship Specialty Start Date End Date Yamel Parker MD PCP - General 09/27/20
--- OUTSIDE RECORDS SUMMARY | 2025-07-30 12:44 | XMS_ITS | Clinical Summary ---
Author Organization [facility] Address [address] [place] [address] Care Team Providers Care Career Development Manager Name Role Phone Shanna Parker MD Primary [...] Team Description 06/10/2025 4:30 PM EDT [facility] [address] [place] [id number] Geriatric Physician: Rima Payan NP Complex renal cyst (Primary Dx) 06/10/2025 Telephone [facility] [address] [place] [id number] Geriatric Physician: Rima Payan NP from Last 3 Months [...] Info) Description 01/08/2026 4:30 PM EDT [facility] [address] [place] [address] Geriatric Physician: Rima Payan, START UP SPECIALIST [address] [place] [address] Health Maintenance Due Date Last Done Comments [...] complete this topic Procedures * Due to [employer] law, this organization might not be sharing negative HIV tests. Procedure Name Priority Date/Time Associated Diagnosis Comments CBC AUTO DIFFERENTIAL Routine 12/22/2022 12:36 PM EDT Renal mass BASIC METABOLIC PANEL Routine 12/22/2022 12:36 PM EDT Renal mass from Last 3 Months or Most Recently Relevant to Health Maintenance Results * Due to [employer] [place] [employer] law, this organization might not be sharing negative HIV tests. * CBC Auto Differential (12/22/2022 12:36 PM EDT) WBC 5.1 4.3 - 10.8 10*3/uL 12/22/2022 1:06 PM EDT [facility] RBC 4.32 3.80 - 5.10 10*6/uL 12/22/2022 1:06 PM EDT [facility] Hemoglobin 12.7 11.7 - 15.5 g/dL 12/22/2022 1:06 PM EDT [facility] Hematocrit 38.1 35.0 - 46.0 % 12/22/2022 1:06 PM EDT [facility] MCV 88.2 80.0 - 100.0 fL 12/22/2022 1:06 PM EDT [facility] MCH 29.4 27.0 - 34.0 pg 12/22/2022 1:06 PM EDT [facility] MCHC 33.3 29.0 - 36.0 g/dL 12/22/2022 1:06 PM EDT [facility] RDW 12.8 11.0 - 15.0 % 12/22/2022 1:06 PM EDT [facility] Platelets 252 140 - 440 10*3/uL 12/22/2022 1:06 PM EDT [facility] MPV 8.9 7.6 - 11.6 fL 12/22/2022 1:06 PM EDT [facility] Neutrophil % 46.7 % [facility] Lymphocyte % 34.9 % 12/22/2022 1:06 PM EDT [facility] Monocyte % 10.8 % 12/22/2022 1:06 PM EDT [facility] Eosinophil % 6.4 % 12/22/2022 1:06 PM EDT [facility] Basophil % 1.2 % 12/22/2022 1:06 PM EDT [facility] Neutrophil # 2.41 1.60 - 7.50 10*3/uL 12/22/2022 1:06 PM EDT [facility] Lymphocyte # 1.8 0.9 - 3.4 10*3/uL 12/22/2022 1:06 PM EDT [facility] Monocyte # 0.6 0.0 - 1.2 10*3/uL 12/22/2022 1:06 PM EDT [facility] Eosinophil # 0.3 0.0 - 0.6 10*3/uL 12/22/2022 1:06 PM EDT [facility] Basophil # 0.1 0.0 - 0.3 10*3/uL 12/22/2022 1:06 PM EDT [facility] Smear Review? No [place] MANUAL 12/22/2022 1:06 PM EDT [facility] Blood Structure of peripheral vein / Unknown Venipuncture / Unknown 12/22/2022 12:36 PM EDT 12/22/2022 12:41 PM EDT us Rima Luu START UP SPECIALIST LAB BLOOD ORDERABLES Final Res ult [facility] [address] [place] [address], * (ABNORMAL) Basic metabolic panel (12/22/2022 12:36 PM EDT) NA 140 135 - 145 mmol/L 12/22/2022 1:36 PM EDT [facility] K 3.9 3.5 - 5.3 mmol/L 12/22/2022 1:36 PM EDT [facility] Cl 103 97 - 110 mmol/L 12/22/2022 1:36 PM EDT [facility] CO2 29 24 - 32 mmol/L 12/22/2022 1:36 PM EDT [facility] BUN 28(H) 7 - 23 mg/dL 12/22/2022 1:36 PM EDT [facility] Creatinine 1.65(H) 0.50 - 1.20 mg/dL 12/22/2022 1:36 PM EDT [facility] Glucose 89 70 - 99 mg/dL 12/22/2022 1:36 PM EDT [facility] Calcium 10.0 8.7 - 10.7 mg/dL 12/22/2022 1:36 PM EDT [facility] Anion Gap 8 5 - 15 12/22/2022 1:36 PM EDT [facility] eGFR 34(L) >=90 mL/min/1. 73m2 12/22/2022 1:36 PM EDT [facility] Comment: Estimated Glomerular [...] 12/22/2022 12:41 PM EDT us Rima Luu START UP SPECIALIST LAB BLOOD ORDERABLES Final Res ult [facility] [address] [place] [address], from Last 3 Months or Most Recently Relevant to Health Maintenance Insurance MEDICARE [facility] Care Teams Career Development Manager Relationship Specialty Start Date End Date Shanna Parker MD [address] [place] [address] PCP - General Internal Medicine 12/18/22
--- OUTSIDE RECORDS SUMMARY | 2025-07-30 12:44 | XMS_ITS | Patient Health Record ---
[facility] Address [address] [place] [address] Care Team Providers Care Staff Nurse Name Role Phone Elena RIVERA, Shanna Pinto Primary Care Provider Un available Kalli Romero Unavailable [phone] Allergies No Known Allergies Reason For Referral [...] Problem Acquired hammer toe of right foot (5577170041562696) Other hammer toe(s) (acquired), right foot (M20.41) Active confirmed Problem Localized, primary osteoarthritis of the ankle and/or foot (272244522) Arthritis of joint of lesser toe, right (M19.071) Active confirmed Vital Signs Blood pressure diastolic 65 mm Hg 04/22/2025 Height 5ft 4in in 04/22/2025 Blood pressure systolic 130 mm Hg 04/22/2025 Weight 180 lbs 04/22/2025 BMI 30.89 kg/m2 04/22/2025 Encounters Encounter Location Date Provider Diagnosis [facility] [address] 04/22/2025 Kalli Romero Pain in right toe(s) M79.674 ; Other hammer toe(s) (acquired), right foot M20.41 ; Arthritis of joint of lesser toe, right M19.071 and Subluxation of metatarsophalangeal joint of toe, initial encounter S93.149A [facility] [address] 04/22/2025 Kalli Heather Assessments Encounter Date Diagnosis [...] Medicare [employer] [address] [place] [address] [id number] Nasima Resendiz Self - patient is the insured [employer] [facility] [address] [place] [address] [id number] Nasima Resendiz Self - patient is the insured Medical (General) History Medical History History ICD Code Arthritis Back,Hip,and Knee pain Cataracts Gall bladder problems High Blood Pressure Kidney disease Parkinsons disease Chicken pox Bone implants/screws Lymphedema Levoscoliosis Surgical History Surgery Date(Month/Year) cholecystectomy 1988 left knee arthroscopy 2006 total right knee replacement 2021 cataract surgery- lens
--- OUTSIDE RECORDS SUMMARY | 2025-07-30 12:44 | XMS_ITS | Encounter Summary ---
Author Organization [facility] Address [address] [place] [address] Phone Care Team Providers Care Social Sciences Instructor Name Role Phone Yamel Parker MD Primary Care Provider [phone] Encounter Details Date Type Department Care Team (Late st Contact Info) Description 12/08/2020 Orders Only [facility] [address] [place] [id number] Provider, MD Flora Social History Tobacco Use [...] PM EDT documented as of this encounter Functional Status documented as of this encounter Plan of Treatment Not on file documented as of this encounter Procedures Procedure Name Priority Date/Time Associated Diagnosis Comments EXT RESULT ENTRY Routine 12/08/2020 documented in this encounter Results * EXT RESULT ENTRY (12/08/2020) Historical Provider LAB BLOOD ORDERABLES Yoli l Result documented in this encounter Visit Diagnoses Not on filedocumented in this encounter Care Teams Social Sciences Instructor Relationship Specialty Start Date End Date Yamel Parker MD PCP - General 09/27/20 documented as of this encounter
== END 2025-07-30 10:52 | disposition home or self-care (01) ==
LOC: HO.HKA 10:23
PROVIDERS: PCP Internal Medicine; Visit Provider Internal Medicine Hypertension Specialist
DX: N18.30 Chronic kidney disease, stage 3 unspecified (principal); I10 Essential (primary) hypertension; N28.1 Cyst of kidney, acquired
CPT/HCPCS: 99214

== ENCOUNTER → 2025-07-30 10:22 | Outpatient (BNVA) | payer MEDICARE, SELFPAY | PROVIDERS: PCP Internal Medicine; Visit Provider Internal Medicine Hypertension Specialist | DX: I12.9 Hypertensive chronic kidney disease with stage 1 through stage 4 chronic kidney disease, or unspecified chronic kidney disease (principal); N18.30 Chronic kidney disease, stage 3 unspecified; N28.1 Cyst of kidney, acquired | CPT/HCPCS: 99212 ==